=== PATIENT | female | born 1965 | race Caucasian/White ===

== ENCOUNTER 2025-06-14 16:12 | Inpatient (IN) | payer MEDICARE, MEDICAID, SELFPAY ==
[2025-06-14] VITALS (44 sets, daily range): BP systolic 84–143; BP diastolic 56–93; PULSE 43–119; RESP 12–37; TEMP 37.4–38.8; O2SAT 93–100; BMI 24.5
--- NOTE | ~2025-06-14 | XR_ITS ---
Examination: XR chest 1V portable Clinical History: Intubated, sepsis Comparison: 1 day prior Technique: Portable AP Findings: ET tube, NG tube, right PICC. Heart size normal. Persistent emphysema and mild scattered interstitial changes. No acute bony abnormality. IMPRESSION: 1. No change or acute cardiopulmonary findings given portable technique. Reviewed, dictated and finalized at location R.
--- NOTE | ~2025-06-14 | US_ITS ---
US venous doppler LE BI INDICATION: Pain and swelling in both lower extremities. COMPARISON: None. TECHNIQUE: The deep veins of both lower extremities were evaluated with Duplex Doppler, color Doppler, and high-resolution B-mode sonography. Evaluated veins include the common femoral, femoral, and popliteal veins. The calf veins were also evaluated. Compression and augmentation maneuvers were performed. FINDINGS: The deep veins of both lower extremities were compressible and demonstrated spontaneous phasic waveforms with an appropriate response to augmentation maneuvers. The visualized calf veins were patent. IMPRESSION: There was no sonographic evidence of deep vein thrombosis in both lower extremities. Reviewed, dictated and finalized at location S. IMPRESSION: There was no sonographic evidence of deep vein thrombosis in both lower extremi ties.
--- NOTE | ~2025-06-14 | XR_ITS ---
EXAMINATION: XR chest 1V portable COMPARISON: No comparisons available. HISTORY: sepsis FINDINGS: Scattered small infiltrates. No pneumothorax. Heart is normal size. Mediastinal and hilar contours are within normal limits. Bony thorax no acute abnormality. Miscellaneous: Right PICC line terminates in the SVC. Impression: Early bilateral pneumonia. Findings appear slightly progressed. Reviewed, dictated and finalized at location P. Impression: Early bilateral pneumonia. Findings appear slightly progressed.
--- NOTE | ~2025-06-14 | US_ITS ---
BILATERAL US venous doppler UE BI Indication: DVT Comparison: None Technique: Multiple mendoza scale and color Doppler sonographic images were obtained of the internal jugular, subclavian, axillary, brachial, basilar, radial and ulnar veins. Findings: Venous System:Normal flow, augmentation and compressibility. No echogenic thrombus identified. Soft tissues: Soft tissues are unremarkable. Impression: Negative for DVT. Reviewed, dictated and finalized at location P. Impression: Negative for DVT.
--- NOTE | ~2025-06-14 | CT_ITS ---
CT chest abdomen pelvis w con HISTORY: sepsis . COMPARISON: None. TECHNIQUE: Axial images of the chest, abdomen and pelvis were obtained without and with infusion of 100 Isovue 300. FINDINGS: CT CHEST: The examination demonstrates no pulmonary nodules, infiltrates and/or effusions partially calcified nodule in the right middle lobe measuring 8.7 mm likely a granuloma. There are centrilobular emphysema.. No pathologically enlarged hilar or mediastinal lymphadenopathy is seen. Cardiac size and mediastinal configuration are normal in appearance. The pulmonary artery and thoracic aorta are normal in caliber and patency. Osseous structures are intact. The visualized organs of the upper abdomen are unremarkable. IMPRESSION: No acute cardiopulmonary process. No pathologic enhancement is noted. No pathologically enlarged mediastinal lymphadenopathy is noted. CT abdomen and pelvis with contrast: The liver parenchyma is unremarkable. No intrahepatic mass or ductal dilatation is evident. The patient has had a cholecystectomy. Common bile duct is dilated measuring 1.5 cm. The pancreas and spleen are normal in appearance. The adrenal glands are symmetric in size. The kidneys demonstrate symmetric uptake and excretion of contrast. No cystic mass is evident. There is no solid mass. There is no hydronephrosis. The stomach and bowel loops are unremarkable. The bladder and rectum are normal. No free intraperitoneal fluid or air is evident. There is no significant retroperitoneal lymphadenopathy. The aorta, visceral vessels and renal arteries demonstrate normal caliber and patency. The lower thoracic and lumbar vertebrae are in normal alignment. There is a symmetric enlargement and stranding of the left piriformis. IMPRESSION: Asymmetric enlargement and stranding of the left piriformis may represent myositis. All CT scans at this facility are performed using low dose modulation techniques as appropriate to perform exam including the following: automated exposure control; use of iterative reconstruction technique; adjustment of the mA and/or kV according to patient size (this includes techniques or standardized protocols for targeted exams where dose is matched to indication/reason for exam) Reviewed, dictated and finalized at location S. IMPRESSION: No acute cardiopulmonary process. No pathologic enhancement is noted. No pathologically enlarged mediastinal lymphadenopathy is noted. CT abdomen and pelvis with contrast: The liver parenchyma is unremarkable. No intrahepatic mass or ductal dilatation is evident. The patient has had a cholecystectomy. Common bile duct is dilated measuring 1.5 cm. The pancreas and spleen are normal in appearance. The adrena l glands are symmetric in size. The kidneys demonstrate symmetric uptake and excretion of contrast. No cystic m ass is evident. There is no solid mass. There is no hydronephrosis. The stomach and bowel loops are unremarkable. The bladder and rectum are normal. No free intraperitoneal fluid or air is evid ent. There is no significant retroperitoneal lymphadenopathy. The aorta, visceral vessels and renal arteries demonstrate normal caliber and p atency. The lower thoracic and lumbar vertebrae are in normal alignment. There is a sym metric enlargement and stranding of the left piriformis. IMPRESSION: Asymmetric enlargement and stranding of the left piriformis may represent myosi tis. All CT scans at this facility are performed using low dose modulation techniqu es as appropriate to perform exam including the following: automated exposure c ontrol; use of iterative reconstruction technique; adjustment of the mA and/or kV according to patient size (this includes techniques or standardized protocol s for targeted exams where dose is matched to indication/reason for exam)
--- NOTE | ~2025-06-14 | US_ITS ---
EXAMINATION: US venous doppler [facility], 06/20/2025 16:18 CDT HISTORY: DVT COMPARISON: None Technique: Huerta-scale and color Doppler images were attempted of the lower saphenofemoral junction, common femoral vein,superficial femoral vein, proximal deep femoral vein, proximal deep femoral vein, popliteal vein and posterior tibial veins. Findings: Deep Venous System:Normal flow, augmentation and compressibility. No echogenic thrombus identified. Superficial Venous SystemNo superficial thrombophlebitis. Soft tissues: Soft tissues are unremarkable. Impression: Negative for DVT. Reviewed, dictated and finalized at location P. Impression: Negative for DVT.
--- NOTE | ~2025-06-14 | MR_ITS ---
EXAMINATION: MR brain/brain stem wo con DATE: 06/17/2025 11:31 INDICATION: Altered mental status. TECHNIQUE: Magnetic resonance imaging (MRI) of the brain and brainstem was performed without intravenous contrast. Sequences included sagittal and axial T1-weighted SE, axial diffusion-weighted FS SE, axial T2*-weighted GRE, axial T2-weighted FLAIR, and axial T2-weighted FSE. Apparent diffusion coefficient (ADC) maps were created. COMPARISON: CT and CT angiogram dated 06/14/2025 FINDINGS: There is symmetric prominent restricted diffusion involving the lentiform nuclei of the bilateral basal ganglia. There is also prominent susceptibility artifact on the T2* weighted imaging at the bilateral lentiform nuclei suggesting restricted diffusion may be artifactual. No other regions of restricted diffusion. Small to moderate-sized regions of bilateral parieto-occipital encephalomalacia and small region in the left parietal lobe consistent with sequela of chronic infarcts. No acute intracranial hemorrhage or abnormal intracranial mass lesion. Few tiny foci of scattered nonspecific increased T2- weighted signal intensity in the cerebral white matter, predominantly involving the deep and periventricular white matter. There are no intraparenchymal signal abnormalities seen on the other pulse sequences. The ventricles are symmetric and normal in size. There are no abnormal extra-axial fluid collections. Flow voids are seen in the cerebral arteries on the T2-weighted sequences consistent with their expected patency. Visualized orbits and soft tissues are unremarkable. Mild mucosal thickening the ethmoid sinuses. IMPRESSION: 1. Symmetric restricted diffusion throughout the lentiform nuclei of the bilateral basal ganglia. Although differential would include acute infarcts, this more likely artifactual related to the corresponding susceptibility artifact seen on the T2* weighted imaging. Differential for the susceptibility w eighted artifact would include age-related dystrophic calcifications in multiple neurodegenerative, metabolic or toxic exposures including methanol or carbon monoxide toxicity, Mono's disease, hyperammonemia, hypoglycemia and uremic encephalopathy/metabolic acidosis and chronic blood products associated chronic microhemorrhage as could be seen with hypertension. 2. 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 Reviewed, dictated and finalized at location A. IMPRESSION: 1. Symmetric restricted diffusion throughout the lentiform nuclei of the bilate ral basal ganglia. Although differential would include acute infarcts, this mor e likely artifactual related to the corresponding susceptibility artifact seen on the T2* weighted imaging. Differential for the susceptibility weighted artif act would include age-related dystrophic calcifications in multiple neurodegene rative, metabolic or toxic exposures including methanol or carbon monoxide [place], Mono's disease, hyperammonemia, hypoglycemia and uremic encephalopathy/ metabolic acidosis and chronic blood products associated chronic microhemorrhag e as could be seen with hypertension. 2. Chronic infarcts in the left parietal lobe and more prominently in the bilat eral parieto-occipital regions.
--- NOTE | ~2025-06-14 | XR_ITS ---
XR chest ET placement INDICATION:AMS . REFERENCE: None FINDINGS: A single AP of the chest demonstrates normal heart size. Enteric tube terminates 2.2 cm above the dima. Enteric tube traverses below the diaphragm. Right mid lung nodule is noted. No focal consolidation. There is no evidence of pneumothorax or pleural effusion. IMPRESSION: Endotracheal tube and enteric tube are in place. There is a nodule in the peripheral right midlung. Reviewed, dictated and finalized at location S.
--- NOTE | ~2025-06-14 | CT_ITS ---
EXAMINATION: CT brain wo heather, 06/14/2025 16:28 CDT HISTORY: Left sided weakness COMPARISON: No comparisons available. Technique: Axial images obtained of the brain without contrast. One or more of the following dose reduction techniques were used: automated exposure control, adjustment of the mA and/or kV according to patient size, use of iterative reconstruction technique. Findings: Motion artifact limits evaluation however there is suggestion of abnormal density within the posterior frontoparietal lobes bilaterally concerning for ischemia age-indeterminate. There are remote bilateral probable basal ganglion lacunar infarcts, there is no gross hemorrhage, evaluation extremely limited. No gross extra-axial fluid collections or midline shift. Mastoid air cells unremarkable. Sinuses and orbits unremarkable. No acute fracture. No significant facial or scalp soft tissue swelling evident. No radiopaque foreign body is seen. Impression: 1. Extremely limited exam . Age-indeterminate areas of ischemia detailed above. MRI is recommended to assess Reviewed, dictated and finalized at location P. Impression: 1. Extremely limited exam . Age-indeterminate areas of ischemia detailed above. MRI is recommended to assess
--- NOTE | ~2025-06-14 | XR_ITS ---
EXAMINATION: XR chest 2V, 06/20/2025 17:25 CDT HISTORY: fluid overload COMPARISON: No comparisons available. Technique: 2 views obtained. Findings: The lungs are clear, no effusion. No pneumothorax. Heart is normal size. Mediastinal and hilar contours are within normal limits. Bony thorax no acute abnormality. Right PICC line terminates in the SVC Impression: No acute cardiopulmonary abnormality. Reviewed, dictated and finalized at location P. Impression: No acute cardiopulmonary abnormality.
--- NOTE | ~2025-06-14 | CT_ITS ---
CTA brain carotid REFERENCE: [None available.] TECHNIQUE: Axial 2.5 and 5 mm images of the head and neck were obtained without and with infusion of contrast dose cc of intravenous contrast. Postcontrast 1.25 mm axial images were then obtained. On an independent workstation, 0.625 mm axial images were utilized to render MIP and MPR images of the intracranial circulation. CTA NECK: The aortic arch demonstrates normal caliber and patency. Normal branching pattern is noted of the supraaortic vessels. The origins of the supraaortic vessels are widely patent. The common carotid and cervical segments of the ICA and ECA demonstrate normal caliber and patency. The vertebral arteries are symmetric in size, demonstrating normal patency. CTA HEAD: The intracranial ICA, ISIAH, and MCA demonstrate normal caliber and patency. No hemodynamically significant stenosis or aneurysm is identified. The distal vertebral, basilar, and bilateral posterior cerebral arteries demonstrate normal caliber and patency. The superior cerebellar arteries are also widely patent. NONVASCULAR FINDINGS: The soft tissue of the neck is unremarkable. No mass or pathologic enhancement is noted. There is no pathologically enlarged lymphadenopathy. The airway is patent. No acute intracranial hemorrhage, mass, or extraaxial fluid collections are noted. Ventricular size is normal. The skull is intact. The visualized mastoid air cells and sinuses are clear. There is no pathologic enhancement. IMPRESSION: No hemodynamically significant stenosis is noted of the cervical and intracranial arterial vasculature. Reviewed, dictated and finalized at location S. IMPRESSION: No hemodynamically significant stenosis is noted of the cervical and intracrani al arterial vasculature.
--- NOTE | ~2025-06-14 | XR_ITS ---
Examination: XR chest 1V portable Clinical History: sepsis Comparison: Chest x-ray one day prior Technique: Portable AP Findings: Right PICC. Heart size normal. Emphysema. Mild persistent diffuse interstitial markings. No acute bony abnormality. IMPRESSION: 1. No significant change or worsening. 2. Probable mild interstitial pulmonary edema and/or pneumonitis superimposed on emphysema. 3. No findings of lobar pneumonia. Reviewed, dictated and finalized at location R.
--- NOTE | ~2025-06-14 | XR_ITS ---
Examination: XR chest 1V portable Clinical History: Intubated, sepsis Comparison: 1 day prior Technique: Portable AP Findings: ET tube, NG tube Heart size normal. Emphysema. Lungs otherwise clear. No acute bony abnormality. IMPRESSION: 1. No change. Reviewed, dictated and finalized at location R. IMPRESSION: 1. No change.
--- NOTE | ~2025-06-14 | XR_ITS ---
EXAMINATION: XR abdomen gastric tube insert, 06/14/2025 17:15 CDT HISTORY: NG PLACEMENT COMPARISON: No comparisons available. Technique: 3 view. Findings: Bowel gas pattern unremarkable. No obstruction. No free air. No abnormal calcifications No acute osseous abnormality. Nasogastric tube terminates in the mid stomach Impression: 1. No acute abnormality. Reviewed, dictated and finalized at location P. Impression: 1. No acute abnormality.
--- NOTE | ~2025-06-14 | XR_ITS ---
MODIFIED ESOPHAGRAM HISTORY: Swallow evaluation recommended by speech therapy TECHNIQUE: Modified barium esophagram was performed on 06/18/2025. I administered fluoroscopy and performed the exam with speech pathologist. Patient was seated for lateral fluoroscopic imaging for ingestion of thin liquids, pudding, solids and quantified amounts, followed by thin liquids in uncontrolled amounts. This was recorded on tape. A single fluoroscopic spot image was also recorded. The DAP for this procedure was 1.763 Gycm2. The amount of fluoroscopy time used during this procedure was 2.0 minutes. FINDINGS: Oral stage: Reduced labial seal and lingual movement with spillage from the mouth secondary to lethargy. Pharyngeal stage: Adequate function. Cervical/esophageal stage: Adequate function. IMPRESSION: Patient tolerated regular consistency oral feedings in the upright position. Please correlate with speech pathologist findings and specific feeding recommendations. Reviewed, dictated and finalized at location A. IMPRESSION: Patient tolerated regular consistency oral feedings in the upright position. Please correlate with speech pathologist findings and specific feedi ng recommendations.
[2025-06-14] MEDS: NALOXONE HCL INJ 2 MG/2 ML AMP (16:15)
--- NOTE | 2025-06-14 16:17 | ECG_ITS ---
Test Date: 2025-06-14 16:40:31 Measurements Intervals [place] Rate: 121 P: 94 AL: 178 QRS: 18 QRSD: 97 T: 60 QT: 327 QTc: 465 Interpretive Statements SINUS TACHYCARDIA BORDERLINE R WAVE PROGRESSION, ANTERIOR LEADS BORDERLINE ST-T WAVE ABNORMALITY- INF/HIGH LAT LEADS BASELINE ARTIFACT- I, II ,III, AVR, AVL, AVF, V1-V6 ABNORMAL ECG No previous ECG available for comparison Electronically Signed On 06-14-2025 18:58:49 CDT by Adam Melara D.O.
--- NOTE | 2025-06-14 16:19 | ED.GENADULT ---
HPI - General Adult General Chief complaint: Altered Mental Status Stated complaint: AMS Time Seen by Provider: 06/14/25 16:17 History of Present Illness HPI narrative: Patient is a 60-year-old female who presents ER by EMS. Found unresponsive low to saturation at home. Boyfriend reports she had been lying in bed all morning. Unknown last known well at this time. EMS provided O2 support due to low O2 sat and felt as if patient was starting to wake up a bit more. Patient has an implanted pain pump. Unknown what medication. No history of opiate drug use reported. Patient does look sedated. She has some chemosis to her right eye. Scleral injection of the left eye and eyes deviate to the left with small pupils. Narcan 2 mg given. Patient having some jerky movements immediately afterwards but not waking up. She will withdrawal to pain on the right side but will not move the left side to noxious stimuli. Pupils were dilated after the Narcan. Related Data Home Medications ?Medication ?Instructions ?Recorded ?Confirmed ?Last Taken ?Type amlodipine 10 mg tablet 10 mg PO ONCE 06/14/25 06/14/25 Unknown History buspirone 10 mg tablet 10 mg PO BID 06/14/25 06/14/25 Unknown History furosemide 20 mg tablet (Lasix) 20 mg PO DAILY 06/14/25 06/14/25 Unknown History levothyroxine 125 mcg capsule 125 mcg PO DAILY 06/14/25 06/14/25 Unknown History metformin 500 mg tablet 500 mg PO BID 06/14/25 06/14/25 Unknown History nortriptyline 25 mg capsule 50 mg PO HS 06/14/25 06/14/25 Unknown History pramipexole 1 mg tablet 1 mg PO ONCE 06/14/25 06/14/25 Unknown History Allergies Allergy/AdvReac Type Severity Reaction Status Date / Time amoxicillin Allergy Intermediate Hives Verified 06/14/25 20:03 Review of Systems Review of Systems: ROS unobtainable: Yes unobtainable due to mental status PMFSH Past Medical History Medical History (Updated 06/14/25 @ 21:38 by Deyanira Desai DO) Hypothyroidism CHF (congestive heart failure) Diabetes mellitus Chronic pain Surgical History Surgical History (Updated 06/14/25 @ 21:38 by Deyanira Desai DO) Status post insertion of intrathecal pump Fentanyl Family History Family History (Updated 06/14/25 @ 21:40 by Deyanira Desai DO) Other Unknown family medical history Exam Narrative: GENERAL: ill-appearing, well-nourished, and in distress. HEAD: Normocephalic, atraumatic. EYES: Chemosis right eye, scleral injection left eye, deviating to the left side with small pupils. After Narcan pupils normal eyes and right eye when to midline. Mild strabismus left eye. ENT: Mucous membranes moist. CHEST: Clear to auscultation. No respiratory distress. HEART: Tachycardic and regular. Normal peripheral pulses. ABDOMEN: Soft, nontender, nondistended. EXTREMITIES: Normal range of motion. No edema. SKIN: Warm, dry, no rash. NEURO: GCS 6. Withdraws to pain. Course Course Emergency Course: 1654: Patient is moving the left side now. Myoclonic jerk type movements that are not rhythmic and are very erratic through the body. Patient still unconscious. Patient lives with a family member who reports last known well as 10:00 p.m. yesterday evening. I have spoke with the patient's son Jermaine who is the next of kin as there is no other paperwork to document a POA. He would like us move forward with everything the patient is a full code. He can since intubation for better imaging and airway protection as patient lacks a gag reflex. 1939: ICU physician as well as neurology consulted. Patient will be started on Keppra 1 g twice a day, she is going to receive 2 g of Keppra bolus. Patient is intubated and sedated. She has received broad-spectrum antibiotics for possible sepsis related to the elevated temperature/white blood cell count as well as respiratory failure. Patient has an elevated troponin which will need to be trended. The patient is cocaine positive. There are concerns for non ST elevation [place], and oxycodone injury as well. 2030: Discussed with hospitalist, pt would benefit from being at a hospital that can do continuous EEG and MRI while on a vent which we cannot do. 2114: Accepted to the hospital here by hospitalist after repeat consultation with water conservationist. Patient is withdrawing to pain in the lower extremities and left upper extremity. Or difficulty with the right upper extremity. Vital Signs Vital signs: Vital Signs Temperature 99.4 F 06/14/25 16:12 Pulse Rate 101 H 06/14/25 16:12 Respiratory Rate 37 H 06/14/25 16:12 Pulse Oximetry 98 06/14/25 16:12 Oxygen Delivery Room Air 06/14/25 16:12 Temperature 101.6 F H 06/14/25 20:43 Pulse Rate 100 06/14/25 21:17 Respiratory Rate 14 06/14/25 21:17 Blood Pressure 92/62 L 06/14/25 20:36 Pulse Oximetry 95 06/14/25 20:36 Oxygen Delivery Mechanical Ventilation 06/14/25 18:27 Fraction of Inspired Oxygen 40 06/14/25 17:57 Procedures Intubation Intubation #1: Intubation Date: 06/14/25 Intubation Time: 17:04 Time out performed: Yes sedative: Etomidate Mg Given: 30 paralytic: Succinylcholine Mg Given: 100 Laryngoscope: Jonnathan Tube Size (cm): 7.5 Method of Intubation: orotracheal Number of Attempts: 1 Tube Secured Depth (cm): 25 Tube Secured Location: other (gum) Patient Tolerated Procedure: well and no complications Intubation Complications: none Additional Comments: Upper Dentures removed. Medical Decision Making Vital Signs Vital Signs: Vital Signs Temperature 99.4 F 06/14/25 16:12 Pulse Rate 101 H 06/14/25 16:12 Respiratory Rate 37 H 06/14/25 16:12 Pulse Oximetry 98 06/14/25 16:12 Oxygen Delivery Room Air 06/14/25 16:12 Temperature 101.6 F H 06/14/25 20:43 Pulse Rate 100 06/14/25 21:17 Respiratory Rate 14 06/14/25 21:17 Blood Pressure 92/62 L 06/14/25 20:36 Pulse Oximetry 95 06/14/25 20:36 Oxygen Delivery Mechanical Ventilation 06/14/25 18:27 Fraction of Inspired Oxygen 40 06/14/25 17:57 Lab Data 06/14/25 17:44 06/14/25 17:44 Labs: Lab Results 06/14/25 06/14/25 06/14/25 Range/Units 16:19 17:44 17:48 WBC 18.1 H (4.5-10.0) K/mm3 RBC 5.26 (4.2-5.4) M/mm3 Hgb 14.9 (12.0-15.0) g/dL Hct 47.7 H (37.0-47.0) % MCV 90.7 (80-100) fl MCH 28.3 (26-34) pg MCHC 31.2 L (32-36) g/dl RDW 13.5 (11.5-14.5) % Plt Count 314 (150-375) k/mm3 MPV 9.9 (7.4-10.4) fl Immature Gran % (Auto) Not Reportable Neut % (Auto) Not Reportable Lymph % (Auto) Not Reportable [place] % (Auto) Not Reportable Eos % (Auto) Not Reportable Baso % (Auto) Not Reportable Lymph # (Auto) Not Reportable [place] # (Auto) Not Reportable Eos # (Auto) Not Reportable Baso # (Auto) Not Reportable Abs Immat Gran (auto) Not Reportable Absolute Neuts (auto) Not Reportable Absolute Nucleated RBC Not Reportable Total Counted 100 Neutrophils % (Manual) 82 H (46-73) % Band Neutrophils % 4 (0-6) % Lymphocytes % (Manual) 3.0 L (18-44) % Monocytes % (Manual) 10 H (3-9) % Basophils % (Manual) 1 (0-1) % Nucleated RBC % Not Reportable Abs Neuts (Manual) 15.56 H (1.3-6.7) K/mm3 Abs Lymphs (Manual) 0.54 L (1.1-4.5) K/mm3 Abs Monocytes (Manual) 1.81 H (0.1-0.90) K/mm3 Abs Basophils (Manual) 0.18 H (0.0-0.1) K/mm3 Nucleated RBCs 1 % Platelet Estimate Adequate (Adequate) Clumped Platelets Present Hypochromasia 1+ Schistocytes None seen PT 12.4 (11.1-14.7) Seconds INR 0.9 APTT 27.0 (22.3-36.8) Seconds Methemoglobin 0.4 (0-1.5) %THb Minute Volume Not Reportable Vent Mode Cmv Tidal Volume 400 ml PEEP 5 cmH2O Peak Inspir Pressure Not Reportable Pressure Support 0 cmH2O Sodium 136 L (137-145) mmol/L Potassium 5.1 H (3.4-5.0) mmol/L Chloride 95 L (98-107) mmol/L Carbon Dioxide 34 H (22-30) mmol/L Anion Gap 7 (4-12) mmol/L BUN 23 H (7-17) mg/dL Creatinine 1.55 H (0.7-1.0) mg/dL Estim Creat Clear Calc Not Reportable Estimated GFR 34 L (59 - ) Glucose 101 (65-110) mg/dL POC Capillary Glucose 114 H (65-105) mg/dl Lactic Acid (0.7-2.0) mmol/L Calcium 9.1 (8.4-10.2) mg/dL Total Bilirubin 0.8 (0.2-1.3) mg/dL AST 644 H (14-36) U/L ALT 179 H (6-35) U/L Alkaline Phosphatase 97 (38-126) U/L Total Creatine Kinase > 91919 H (30-135) U/L Troponin I 0.233 H* (0.000-0.034) ng/mL Total Protein 8.2 (6.3-8.2) g/dL Albumin 4.6 (3.5-5.1) g/dL Triglycerides 120 (<150) mg/dL Urine Color Wise H (Yellow) Urine Appearance Cloudy H (Clear) Urine pH 6.5 (5.0-9.0) Ur Specific [place] 1.019 (1.001-1.035) Urine Protein 3+ H (Negative) mg/dL Urine Glucose (UA) Negative (Negative) mg/dL Urine Ketones Trace H (Negative) mg/dL Ur Blood (Man) 3+ H (Negative) Urine Nitrate Negative (Negative) Urine Bilirubin 2+ H (Negative) Urine Urobilinogen 1.0 (<2.0) mg/dL Add Ur Microanalysis Reviewed Leukocyte Esterase Rfl 1+ H (Negative) SAMANTHA/UL Urine RBC 3-5 H (0-2) /hpf Urine WBC 0-5 (0-3) /hpf Ur Squamous Epith Cells Few (Few) /hpf Urine Bacteria None seen /hpf Urine Casts >20 Waxy Casts Present H (None) /lpf Urine Mucus Present /lpf Nasal MRSA (PCR) Urine Opiates Screen Negative (Negative) Urine Methadone Screen Negative (Negative) Ur Barbiturates Screen Negative (Negative) Ur Phencyclidine Scrn Negative (Negative) Ur Amphetamine Screen Negative (Negative) U Benzodiazepines Scrn Negative (Negative) Urine Cocaine Screen Positive A (Negative) U Cannabinoids Screen Negative (Negative) Ethyl Alcohol < 10 (<10) mg/dL 06/14/25 06/14/25 06/14/25 Range/Units 18:30 19:14 21:06 WBC (4.5-10.0) K/mm3 RBC (4.2-5.4) M/mm3 Hgb (12.0-15.0) g/dL Hct (37.0-47.0) % MCV (80-100) fl MCH (26-34) pg MCHC (32-36) g/dl RDW (11.5-14.5) % Plt Count (150-375) k/mm3 MPV (7.4-10.4) fl Immature Gran % (Auto) Neut % (Auto) Lymph % (Auto) [place] % (Auto) Eos % (Auto) Baso % (Auto) Lymph # (Auto) [place] # (Auto) Eos # (Auto) Baso # (Auto) Abs Immat Gran (auto) Absolute Neuts (auto) Absolute Nucleated RBC Total Counted Neutrophils % (Manual) (46-73) % Band Neutrophils % (0-6) % Lymphocytes % (Manual) (18-44) % Monocytes % (Manual) (3-9) % Basophils % (Manual) (0-1) % Nucleated RBC % Abs Neuts (Manual) (1.3-6.7) K/mm3 Abs Lymphs (Manual) (1.1-4.5) K/mm3 Abs Monocytes (Manual) (0.1-0.90) K/mm3 Abs Basophils (Manual) (0.0-0.1) K/mm3 Nucleated RBCs % Platelet Estimate (Adequate) Clumped Platelets Hypochromasia Schistocytes PT (11.1-14.7) Seconds INR APTT (22.3-36.8) Seconds Methemoglobin (0-1.5) %THb Minute Volume Vent Mode Tidal Volume ml PEEP cmH2O Peak Inspir Pressure Pressure Support cmH2O Sodium (137-145) mmol/L Potassium (3.4-5.0) mmol/L Chloride (98-107) mmol/L Carbon Dioxide (22-30) mmol/L Anion Gap (4-12) mmol/L BUN (7-17) mg/dL Creatinine (0.7-1.0) mg/dL Estim Creat Clear Calc Estimated GFR (59 - ) Glucose (65-110) mg/dL POC Capillary Glucose 104 (65-105) mg/dl Lactic Acid 1.3 (0.7-2.0) mmol/L Calcium (8.4-10.2) mg/dL Total Bilirubin (0.2-1.3) mg/dL AST (14-36) U/L ALT (6-35) U/L Alkaline Phosphatase (38-126) U/L Total Creatine Kinase (30-135) U/L Troponin I 0.447 H* D (0.000-0.034) ng/mL Total Protein (6.3-8.2) g/dL Albumin (3.5-5.1) g/dL Triglycerides (<150) mg/dL Urine Color (Yellow) Urine Appearance (Clear) Urine pH (5.0-9.0) Ur Specific [place] (1.001-1.035) Urine Protein (Negative) mg/dL Urine Glucose (UA) (Negative) mg/dL Urine Ketones (Negative) mg/dL Ur Blood (Man) (Negative) Urine Nitrate (Negative) Urine Bilirubin (Negative) Urine Urobilinogen (<2.0) mg/dL Add Ur Microanalysis Leukocyte Esterase Rfl (Negative) SAMANTHA/UL Urine RBC (0-2) /hpf Urine WBC (0-3) /hpf Ur Squamous Epith Cells (Few) /hpf Urine Bacteria /hpf Urine Casts Waxy Casts (None) /lpf Urine Mucus /lpf Nasal MRSA (PCR) Urine Opiates Screen (Negative) Urine Methadone Screen (Negative) Ur Barbiturates Screen (Negative) Ur Phencyclidine Scrn (Negative) Ur Amphetamine Screen (Negative) U Benzodiazepines Scrn (Negative) Urine Cocaine Screen (Negative) U Cannabinoids Screen (Negative) Ethyl Alcohol (<10) mg/dL 06/14/25 Range/Units 21:28 WBC (4.5-10.0) K/mm3 RBC (4.2-5.4) M/mm3 Hgb (12.0-15.0) g/dL Hct (37.0-47.0) % MCV (80-100) fl MCH (26-34) pg MCHC (32-36) g/dl RDW (11.5-14.5) % Plt Count (150-375) k/mm3 MPV (7.4-10.4) fl Immature Gran % (Auto) Neut % (Auto) Lymph % (Auto) [place] % (Auto) Eos % (Auto) Baso % (Auto) Lymph # (Auto) [place] # (Auto) Eos # (Auto) Baso # (Auto) Abs Immat Gran (auto) Absolute Neuts (auto) Absolute Nucleated RBC Total Counted Neutrophils % (Manual) (46-73) % Band Neutrophils % (0-6) % Lymphocytes % (Manual) (18-44) % Monocytes % (Manual) (3-9) % Basophils % (Manual) (0-1) % Nucleated RBC % Abs Neuts (Manual) (1.3-6.7) K/mm3 Abs Lymphs (Manual) (1.1-4.5) K/mm3 Abs Monocytes (Manual) (0.1-0.90) K/mm3 Abs Basophils (Manual) (0.0-0.1) K/mm3 Nucleated RBCs % Platelet Estimate (Adequate) Clumped Platelets Hypochromasia Schistocytes PT (11.1-14.7) Seconds INR APTT (22.3-36.8) Seconds Methemoglobin (0-1.5) %THb Minute Volume Vent Mode Tidal Volume ml PEEP cmH2O Peak Inspir Pressure Pressure Support cmH2O Sodium (137-145) mmol/L Potassium (3.4-5.0) mmol/L Chloride (98-107) mmol/L Carbon Dioxide (22-30) mmol/L Anion Gap (4-12) mmol/L BUN (7-17) mg/dL Creatinine (0.7-1.0) mg/dL Estim Creat Clear Calc Estimated GFR (59 - ) Glucose (65-110) mg/dL POC Capillary Glucose (65-105) mg/dl Lactic Acid (0.7-2.0) mmol/L Calcium (8.4-10.2) mg/dL Total Bilirubin (0.2-1.3) mg/dL AST (14-36) U/L ALT (6-35) U/L Alkaline Phosphatase (38-126) U/L Total Creatine Kinase (30-135) U/L Troponin I (0.000-0.034) ng/mL Total Protein (6.3-8.2) g/dL Albumin (3.5-5.1) g/dL Triglycerides (<150) mg/dL Urine Color (Yellow) Urine Appearance (Clear) Urine pH (5.0-9.0) Ur Specific [place] (1.001-1.035) Urine Protein (Negative) mg/dL Urine Glucose (UA) (Negative) mg/dL Urine Ketones (Negative) mg/dL Ur Blood (Man) (Negative) Urine Nitrate (Negative) Urine Bilirubin (Negative) Urine Urobilinogen (<2.0) mg/dL Add Ur Microanalysis Leukocyte Esterase Rfl (Negative) SAMANTHA/UL Urine RBC (0-2) /hpf Urine WBC (0-3) /hpf Ur Squamous Epith Cells (Few) /hpf Urine Bacteria /hpf Urine Casts Waxy Casts (None) /lpf Urine Mucus /lpf Nasal MRSA (PCR) Pending Urine Opiates Screen (Negative) Urine Methadone Screen (Negative) Ur Barbiturates Screen (Negative) Ur Phencyclidine Scrn (Negative) Ur Amphetamine Screen (Negative) U Benzodiazepines Scrn (Negative) Urine Cocaine Screen (Negative) U Cannabinoids Screen (Negative) Ethyl Alcohol (<10) mg/dL ABG Data ABG results: 06/14/25 17:48 Puncture Site Right radial ABG pH 7.412 ABG pCO2 45.0 ABG pO2 186.9 H ABG PO2/FiO2 Ratio 3.74 ABG HCO3 28.0 H ABG O2 Saturation 99.3 ABG O2 Content 21.6 ABG Base Excess 2.8 A-a Gradient 119.0 Oxyhemoglobin 97.7 Carboxyhemoglobin 1.4 Reduced Hemoglobin 0.5 Total Hemoglobin 15.5 O2 Delivery Device Ventilator O2 Liters/Min 0.0 Vent Rate 12 FiO2 50 Imaging Data Radiologist's impression: ITS Impressions Head CT 06/14/25 16:39 Impression: 1. Extremely limited exam . Age-indeterminate areas of ischemia detailed above. MRI is recommended to assess Chest X-Ray 06/14/25 17:27 IMPRESSION: Endotracheal tube and enteric tube are in place. There is a nodule in the peripheral right midlung. Abdomen X-Ray 06/14/25 17:29 Impression: 1. No acute abnormality. Head/Neck CTA 06/14/25 19:09 IMPRESSION: No hemodynamically significant stenosis is noted of the cervical and intracranial arterial vasculature. ECG Data EKG #1: ECG completion date: 06/14/25 ECG completion time: 19:48 EKG Interpretation: normal rate (98), sinus rhythm, non-specific ST changes, normal QRS and normal QT Critical Care Time Critical Care Time Critical Care Time: Yes Total Critical Care Time: 75 Discharge Plan Discharge Clinical Impression: Acute respiratory failure, Seizures, Non-ST elevation [place] (NSTEMI), Rhabdomyolysis Patient Disposition: Still a Patient Condition: Critical Patient Language: Nauruan Prescriptions: No Action metformin 500 mg tablet 500 mg PO BID furosemide [Lasix] 20 mg tablet 20 mg PO DAILY nortriptyline 25 mg capsule 50 mg PO HS buspirone 10 mg tablet 10 mg PO BID pramipexole 1 mg tablet 1 mg PO ONCE amlodipine 10 mg tablet 10 mg PO ONCE levothyroxine 125 mcg capsule 125 mcg PO DAILY Follow-up/Referrals: UNKNOWN,DOCTOR [Non-Staff]
[2025-06-14] MEDS: MIDAZOLAM 100MG/NS 100ML(*CRX) 100 MG/100 ML BAG IV CONT (17:18)
[2025-06-14] MEDS: FENTANYL 2,500MCG/NS250ML(*CRX 2,500 MCG/250 ML BAG IV CONT (17:23)
[2025-06-14] MEDS: levETIRAcetam 1000MG/NACL100ML 1,000 MG/100 ML BAG 400 MG IVPB ×2 (17:46→20:14)
[2025-06-14] MEDS: PROPOFOL IV EMULSION 100 ML 1.95 MG IV CONT (17:49)
[2025-06-14 17:50] LABS: Alveolar/Arterial O2 Gradient 119.0 mmHg; Carboxyhemoglobin 1.4 % THb (0-2.0); Fractional Inspired Oxygen 50 %; HCO3 ABG 28.0 mEq/l (22.0-26.0); Methemoglobin ABG 0.4 %THb (0-1.5); Oxygen Content ABG 21.6 %vol (16.0-22.0); Oxygen Saturation ABG 99.3 % (95.0-100.0); PCO2 ABG 45.0 mmHg (35.0-45.0); PO2 ABG 186.9 mmHg (80.0-100.0); PO2 FiO2 Ratio Arterial Blood 3.74 %; Reduced Hemoglobin 0.5 %THb (0-5.0)
[2025-06-14 17:51] LABS: Hematocrit 47.7 % (37.0-47.0); Hemoglobin 14.9 g/dL (12.0-15.0); Mean Corpuscular HGB Conc 31.2 g/dl (32-36); Mean Corpuscular Hemoglobin 28.3 pg (26-34); Mean Corpuscular Volume 90.7 fl (80-100); Platelet Count Result 314 k/mm3 (150-375); Red Blood Count 5.26 M/mm3 (4.2-5.4); White Blood Count 18.1 K/mm3 (4.5-10.0)
[2025-06-14] MEDS: RAPID SEQUENCE INTUBATION KIT 1 EACH (17:55)
[2025-06-14 17:59] LABS: Liters per Minute 0.0 LPM; Modified Allen's Test Pass; Site Drawn RIGHT RADIAL
[2025-06-14 18:00] LABS: Arterial Blood Gas Pressure Support 0 cmH2O; Arterial Blood Gas Tidal Volume 400 ml; Arterial Blood Gas Ventilator rate 12 /MIN
[2025-06-14 18:02] LABS: INR 0.9; Partial Thromboplastin Time 27.0 Seconds (22.3-36.8); Prothrombin Time 12.4 Seconds (11.1-14.7)
[2025-06-14 18:03] LABS: Alanine Aminotransferase 179 U/L (6-35); Albumin Level 4.6 g/dL (3.5-5.1); Alkaline Phosphatase 97 U/L (38-126); Anion Gap 7 mmol/L (4-12); Aspartate Amino Transferase 644 U/L (14-36); Bilirubin,Total 0.8 mg/dL (0.2-1.3); Blood Urea Nitrogen 23 mg/dL (7-17); Calcium 9.1 mg/dL (8.4-10.2); Carbon Dioxide 34 mmol/L (22-30); Chloride 95 mmol/L (98-107); Estimated Glomerular Filt Rate 34; Glucose 101 mg/dL (65-110); Potassium 5.1 mmol/L (3.4-5.0); Sodium 136 mmol/L (137-145); Total Protein 8.2 g/dL (6.3-8.2)
[2025-06-14 18:09] LABS: Add Urine Microscopic? YES; Appearance Urine Cloudy (Clear); Glucose Urine UA Negative (Negative); Leukocyte Esterase Ur 1+ LEU/UL (Negative); Need Manual Microscopic Reviewed; Nitrate Urine Negative (Negative); Non Pathogenic Casts >20; Specific Grav Ur 1.019 (1.001-1.035)
--- NOTE | 2025-06-14 18:15 | PC.NURSE ---
1700-Dr. Aquino at bedside to prepare for intubation 1704- 30 mg Etomidate given by Shanique SOLIMAN 1704- 100mg of Succ given by JOURDAN [place] 1705- 7.5 ET tube placed at 25cm at the gum, positive color change and bilateral breath sounds 1709- OG tube placed by JOURDAN [place] 1726- 4mg Versed given by Shanique RN
[2025-06-14 18:18] LABS: Cannabinoid Screen Urine Negative (Negative)
[2025-06-14 18:23] LABS: Troponin I 0.233 ng/mL (0.000-0.034)
[2025-06-14 18:25] LABS: Band Neutrophils Percent 4 % (0-6); Basophils Absolute Manual 0.18 K/mm3 (0.0-0.1); Basophils Percent Manual 1 % (0-1); Lymphocytes Absolute Manual 0.54 K/mm3 (1.1-4.5); Lymphocytes Percent Manual 3.0 % (18-44); Monocytes Absolute Manual 1.81 K/mm3 (0.1-0.90); Monocytes Percent Manual 10 % (3-9); Neutrophils Absolute Manual 15.56 K/mm3 (1.3-6.7); Neutrophils Percent Manual 82 % (46-73); Total Cells Counted 100
[2025-06-14 18:26] LABS: Hypochromasia 1+; Schistocytes None Seen
[2025-06-14 18:44] LABS: Triglycerides 120 mg/dL (<150)
[2025-06-14] MEDS: ACETAMINOPHEN 650 MG SUPPOSITORY RECTAL (18:58)
[2025-06-14] MEDS: CEFEPIME 2 GM in SODIUM CHLORIDE 0.9% IV 50 ML 100 ML IVPB (19:04)
[2025-06-14 19:25] LABS: Creatine Kinase > 16000 U/L (30-135)
--- NOTE | 2025-06-14 19:44 | ECG_ITS ---
Test Date: 2025-06-14 19:48:33 Measurements Intervals [place] Rate: 98 P: 75 HI: 146 QRS: 16 QRSD: 82 T: 55 QT: 353 QTc: 453 Interpretive Statements SINUS RHYTHM BORDERLINE R WAVE PROGRESSION, ANTERIOR LEADS BORDERLINE ST-T WAVE ABNORMALITY- ANT/INF LEADS BORDERLINE ECG Compared to ECG 06/14/2025 16:40:31 HEART RATE HAS DECREASED Electronically Signed On 06-15-2025 05:28:05 CDT by Adam Melara D.O.
--- NOTE | 2025-06-14 20:03 | PC.NURSE ---
Pt. significant other at bedside. Dr. Aquino updating him.
[2025-06-14] MEDS: IBUPROFEN IV 400 MG in SODIUM CHLORIDE 0.9% IV 100 ML 208 MG IVPB (20:43)
--- NOTE | 2025-06-14 20:53 | ECG_ITS ---
Test Date: 2025-06-14 21:00:00 Measurements Intervals [place] Rate: 98 P: 74 MI: 146 QRS: 15 QRSD: 83 T: 55 QT: 356 QTc: 455 Interpretive Statements SINUS RHYTHM BORDERLINE R WAVE PROGRESSION, ANTERIOR LEADS BORDERLINE ST-T WAVE ABNORMALITY- ANT/INF LEADS BORDERLINE ECG Compared to ECG 06/14/2025 19:48:33 No significant changes Electronically Signed On 06-15-2025 05:29:42 CDT by Adam Melara D.O.
--- NOTE | 2025-06-14 21:00 | PC.NURSE ---
Pt. localizes pain in LUE, RLE, and LLE. No movement to pain in RUE. Pupils are 3mm and reactive bilaterally.
--- NOTE | 2025-06-14 21:09 | PM.IMHP ---
H&P: HPI History of Present Illness Date/Time: 06/14/25 21:09 Chief Complaint: Unresponsive found with oxygen saturations of 64% Narrative: 60-year-old female with a past medical history of CVA 2017, essential hypertension, anxiety, hypothyroidism, diabetes CHF and drug abuse who presented to the ER from home after being found down unresponsive. EMS reported the patient's oxygen saturations were 64% at the time of their arrival to the residence. Patient had some chemosis to right eye in symptoms lateral injection of her left eye. Her eye exam on initial arrival to the ER were deviated to the left with small pupils. She received 2 Narcan. The patient began having some jerking movements immediately after Narcan administration but did not wake up. She was withdrawing to painful stimuli on the right side but was not moving the left side to noxious stimuli. After Narcan the patient pupils were dilated equal. But the patient's left eye still was deviating to the left and upward. The patient was re-evaluated later in the ER was noted to be moving both sides her body. She was occasionally having some intermittent jerking movements but they reported to be erratic. At the time of my evaluation patient was intubated and sedated and on the vent. But she was moving bilateral lower extremities equally. Her pupils were equal but her left eye was still deviated upward and outward. This was the arm where she had had prior surgery for orbit reconstruction. The patient's boyfriend had denies the patient acting odd her having any recent illnesses to the ER staff and to nursing staff when they called after admission. Per ER physician report the last time the patient had been seen at her normal status was around 22:00 on the . When the patient's niece went to work late in the morning on the the patient was sleeping. Later in afternoon when the patient had not woke up EMS was contacted. On arrival to the hospital the patient was only responsive to noxious stimuli. She developed fever while in the ER with a T-max of 101.8. Her blood pressures were normal and she was tachycardic and initially quite tachypneic. The patient was intubated with a 7.5 ET tube for airway protection. Initial chest x-ray demonstrates T2 2.2 cm dima, CT of the head demonstrated no acute process and CT of the head and neck correlated. Patient was started on Keppra per Neurology recommendations in the admitted to the ICU. Patient was started on empiric antibiotic therapy with cefepime and vancomycin. The patient did become transiently hypotensive in the ER due to sedation. She did receive 30 mL/kilos fluid bolus. Review of Systems Review of Systems: Unobtainable due to clinical condition [facility] Past Medical History Medical History (Updated 06/15/25 @ 06:45 by Deyanira Desai DO) COPD with asthma Hyperlipidemia Essential hypertension Peripheral neuropathy CVA (cerebral vascular accident) (~2017) Hypothyroidism CHF (congestive heart failure) Diabetes mellitus Chronic pain Surgical History Surgical History (Updated 06/15/25 @ 06:45 by Deyanira Desai DO) History of arthroscopic knee surgery H/O cervical spine surgery History of hernia repair With mesh History of laparoscopic cholecystectomy Status post repair of fracture of orbit Left Status post insertion of intrathecal pump Fentanyl Family History Family History (Updated 06/14/25 @ 21:40 by Deyanira Desai DO) Other Unknown family medical history Social History Social History (Updated 06/15/25 @ 06:46 by Deyanira Desai DO) Social History: Per ER physician report she lives with her significant other of over 20 years. Code status: Full code Surrogate decision maker: Son Smoking status: Former smoker Alcohol intake: current Substance use: current Lack of Transportation: No Lack of Food: Never True Current Housing: I Have Housing Concerned About Future Housing: Decline to Answer Difficulty Paying Gas/Electric Bills: Decline to Answer Difficulty Paying for Meds: Decline to Answer Currently Unemployed: Decline to Answer Education: High School Diploma/GED Difficulty w/ Childcare or Family Care: Decline to Answer Spiritual care concerns: No Meds Home Medications and Allergies Home Medications ?Medication ?Instructions ?Recorded ?Confirmed ?Type amlodipine 10 mg tablet 10 mg PO ONCE 06/14/25 06/14/25 History buspirone 10 mg tablet 10 mg PO BID 06/14/25 06/14/25 History furosemide 20 mg tablet (Lasix) 20 mg PO DAILY 06/14/25 06/14/25 History levothyroxine 125 mcg capsule 125 mcg PO DAILY 06/14/25 06/14/25 History metformin 500 mg tablet 500 mg PO BID 06/14/25 06/14/25 History nortriptyline 25 mg capsule 50 mg PO HS 06/14/25 06/14/25 History pramipexole 1 mg tablet 1 mg PO ONCE 06/14/25 06/14/25 History Allergies Allergy/AdvReac Type Severity Reaction Status Date / Time amoxicillin Allergy Intermediate Hives Verified 06/14/25 20:03 Vital Signs Vital Signs - 24 hr 06/14/25 16:12 06/14/25 17:10 06/14/25 17:18 Temperature 99.4 F Pulse Rate 101 H 84 95 Respiratory Rate 37 H 30 H Blood Pressure Pulse Oximetry 98 98 Oxygen Delivery Room Air Mechanical Ventilation Fraction of Inspired Oxygen 80 06/14/25 17:22 06/14/25 17:23 06/14/25 17:28 Temperature Pulse Rate 89 46 L 119 H Respiratory Rate 15 23 H 20 Blood Pressure Pulse Oximetry Oxygen Delivery Fraction of Inspired Oxygen 06/14/25 17:29 06/14/25 17:29 06/14/25 17:36 Temperature Pulse Rate 44 L 43 L 116 H Respiratory Rate 25 H 24 H 17 Blood Pressure Pulse Oximetry Oxygen Delivery Fraction of Inspired Oxygen 06/14/25 17:36 06/14/25 17:38 06/14/25 17:41 Temperature Pulse Rate 114 H 117 H 115 H Respiratory Rate 22 H 18 19 Blood Pressure 127/93 H Pulse Oximetry 100 Oxygen Delivery Fraction of Inspired Oxygen 06/14/25 17:45 06/14/25 17:49 06/14/25 17:57 Temperature 99.4 F Pulse Rate 113 H 111 H Respiratory Rate 19 20 Blood Pressure 143/84 H Pulse Oximetry 100 Oxygen Delivery Fraction of Inspired Oxygen 40 06/14/25 18:05 06/14/25 18:20 06/14/25 18:22 Temperature 101.4 F H 101.7 F H Pulse Rate 112 H 112 H 112 H Respiratory Rate 19 14 14 Blood Pressure 141/79 H 140/85 Pulse Oximetry 100 100 Oxygen Delivery Fraction of Inspired Oxygen 06/14/25 18:27 06/14/25 18:56 06/14/25 19:01 Temperature 101.7 F H 101.6 F H Pulse Rate 104 H 102 H Respiratory Rate 14 15 Blood Pressure 128/81 119/92 H Pulse Oximetry 100 99 98 Oxygen Delivery Mechanical Ventilation Fraction of Inspired Oxygen 06/14/25 19:51 06/14/25 19:56 06/14/25 20:00 Temperature 101.7 F H 101.8 F H Pulse Rate 100 98 96 Respiratory Rate 13 12 14 Blood Pressure 93/64 L 84/61 L Pulse Oximetry 98 97 Oxygen Delivery Fraction of Inspired Oxygen 06/14/25 20:00 06/14/25 20:06 06/14/25 20:11 Temperature 101.8 F H 101.8 F H Pulse Rate 96 95 96 Respiratory Rate 14 12 12 Blood Pressure 92/72 L 92/64 L Pulse Oximetry 97 97 Oxygen Delivery Fraction of Inspired Oxygen 06/14/25 20:22 06/14/25 20:23 06/14/25 20:24 Temperature 101.8 F H Pulse Rate 100 98 Respiratory Rate 14 14 Blood Pressure Pulse Oximetry Oxygen Delivery Fraction of Inspired Oxygen 06/14/25 20:26 06/14/25 20:27 06/14/25 20:31 Temperature 101.8 F H 101.7 F H Pulse Rate 98 100 96 Respiratory Rate 18 14 12 Blood Pressure 102/68 116/64 Pulse Oximetry 95 Oxygen Delivery Fraction of Inspired Oxygen 06/14/25 20:36 06/14/25 20:43 Temperature 101.6 F H 101.6 F H Pulse Rate 96 Respiratory Rate 15 Blood Pressure 92/62 L Pulse Oximetry 95 Oxygen Delivery Fraction of Inspired Oxygen Exam Narrative: Weight 65 kg BMI 24.6 Const: Other: Acute on chronic ill-appearing, appears older than stated age HENMT: Other: Mucous membranes are dry, no oral pharyngeal erythema, 7.5 ET tube measuring 21 cm at the teeth, irregularity of the left eye socket Eyes: Other: Pupils are equal and reactive but left eye deviates to the left and upward, patient has some edema of the sq on the right and some mildly injected sclera on the left Neck: Other: No JVD, no lymphadenopathy Resp: Other: Markedly decreased breath sounds posteriorly, faint expiratory wheezing anterior, equal chest expansion Cardio: Other: Regular rate, regular rhythm, 2+ bilateral radial pedal pulses GI: Other: Soft, nontender, nondistended, positive bowel sounds Extrem: Other: No cyanosis, no edema, Psych: Other: Unable to assess due to intubation and sedation H&P: Results Labs Labs: Laboratory Tests 06/14/25 17:44 06/14/25 17:44 06/14/25 06/14/25 06/14/25 16:19 17:44 17:48 WBC 18.1 H RBC 5.26 Hgb 14.9 Hct 47.7 H MCV 90.7 MCH 28.3 MCHC 31.2 L RDW 13.5 Plt Count 314 MPV 9.9 Immature Gran % (Auto) Not Reportable Neut % (Auto) Not Reportable Lymph % (Auto) Not Reportable [place] % (Auto) Not Reportable Eos % (Auto) Not Reportable Baso % (Auto) Not Reportable Lymph # (Auto) Not Reportable [place] # (Auto) Not Reportable Eos # (Auto) Not Reportable Baso # (Auto) Not Reportable Abs Immat Gran (auto) Not Reportable Absolute Neuts (auto) Not Reportable Absolute Nucleated RBC Not Reportable Total Counted 100 Neutrophils % (Manual) 82 H Band Neutrophils % 4 Lymphocytes % (Manual) 3.0 L Monocytes % (Manual) 10 H Basophils % (Manual) 1 Nucleated RBC % Not Reportable Abs Neuts (Manual) 15.56 H Abs Lymphs (Manual) 0.54 L Abs Monocytes (Manual) 1.81 H Abs Basophils (Manual) 0.18 H Nucleated RBCs 1 Platelet Estimate Adequate Clumped Platelets Present Hypochromasia 1+ Schistocytes None seen PT 12.4 INR 0.9 APTT 27.0 Puncture Site Right radial ABG pH 7.412 ABG pCO2 45.0 ABG pO2 186.9 H ABG PO2/FiO2 Ratio 3.74 ABG HCO3 28.0 H ABG O2 Saturation 99.3 ABG O2 Content 21.6 ABG Base Excess 2.8 A-a Gradient 119.0 Oxyhemoglobin 97.7 Carboxyhemoglobin 1.4 Methemoglobin 0.4 Reduced Hemoglobin 0.5 Total Hemoglobin 15.5 O2 Delivery Device Ventilator O2 Liters/Min 0.0 Minute Volume Not Reportable Vent Rate 12 Vent Mode Cmv FiO2 50 Tidal Volume 400 PEEP 5 Peak Inspir Pressure Not Reportable Pressure Support 0 Sodium 136 L Potassium 5.1 H Chloride 95 L Carbon Dioxide 34 H Anion Gap 7 BUN 23 H Creatinine 1.55 H Estim Creat Clear Calc Not Reportable Estimated GFR 34 L Glucose 101 POC Capillary Glucose 114 H Lactic Acid Calcium 9.1 Total Bilirubin 0.8 AST 644 H ALT 179 H Alkaline Phosphatase 97 Total Creatine Kinase > 36417 H Troponin I 0.233 H* Total Protein 8.2 Albumin 4.6 Triglycerides 120 Urine Color [place] H Urine Appearance Cloudy H Urine pH 6.5 Ur Specific [place] 1.019 Urine Protein 3+ H Urine Glucose (UA) Negative Urine Ketones Trace H Ur Blood (Man) 3+ H Urine Nitrate Negative Urine Bilirubin 2+ H Urine Urobilinogen 1.0 Add Ur Microanalysis Reviewed Leukocyte Esterase Rfl 1+ H Urine RBC 3-5 H Urine WBC 0-5 Ur Squamous Epith Cells Few Urine Bacteria None seen Urine Casts >20 Waxy Casts Present H Urine Mucus Present Nasal MRSA (PCR) Urine Opiates Screen Negative Urine Methadone Screen Negative Ur Barbiturates Screen Negative Ur Phencyclidine Scrn Negative Ur Amphetamine Screen Negative U Benzodiazepines Scrn Negative Urine Cocaine Screen Positive A U Cannabinoids Screen Negative Ethyl Alcohol < 10 06/14/25 06/14/25 06/14/25 18:30 19:14 21:06 WBC RBC Hgb Hct MCV MCH MCHC RDW Plt Count MPV Immature Gran % (Auto) Neut % (Auto) Lymph % (Auto) [place] % (Auto) Eos % (Auto) Baso % (Auto) Lymph # (Auto) [place] # (Auto) Eos # (Auto) Baso # (Auto) Abs Immat Gran (auto) Absolute Neuts (auto) Absolute Nucleated RBC Total Counted Neutrophils % (Manual) Band Neutrophils % Lymphocytes % (Manual) Monocytes % (Manual) Basophils % (Manual) Nucleated RBC % Abs Neuts (Manual) Abs Lymphs (Manual) Abs Monocytes (Manual) Abs Basophils (Manual) Nucleated RBCs Platelet Estimate Clumped Platelets Hypochromasia Schistocytes PT INR APTT Puncture Site ABG pH ABG pCO2 ABG pO2 ABG PO2/FiO2 Ratio ABG HCO3 ABG O2 Saturation ABG O2 Content ABG Base Excess A-a Gradient Oxyhemoglobin Carboxyhemoglobin Methemoglobin Reduced Hemoglobin Total Hemoglobin O2 Delivery Device O2 Liters/Min Minute Volume Vent Rate Vent Mode FiO2 Tidal Volume PEEP Peak Inspir Pressure Pressure Support Sodium Potassium Chloride Carbon Dioxide Anion Gap BUN Creatinine Estim Creat Clear Calc Estimated GFR Glucose POC Capillary Glucose 104 Lactic Acid 1.3 Calcium Total Bilirubin AST ALT Alkaline Phosphatase Total Creatine Kinase Troponin I 0.447 H* D Total Protein Albumin Triglycerides Urine Color Urine Appearance Urine pH Ur Specific [place] Urine Protein Urine Glucose (UA) Urine Ketones Ur Blood (Man) Urine Nitrate Urine Bilirubin Urine Urobilinogen Add Ur Microanalysis Leukocyte Esterase Rfl Urine RBC Urine WBC Ur Squamous Epith Cells Urine Bacteria Urine Casts Waxy Casts Urine Mucus Nasal MRSA (PCR) Urine Opiates Screen Urine Methadone Screen Ur Barbiturates Screen Ur Phencyclidine Scrn Ur Amphetamine Screen U Benzodiazepines Scrn Urine Cocaine Screen U Cannabinoids Screen Ethyl Alcohol 06/14/25 21:28 WBC RBC Hgb Hct MCV MCH MCHC RDW Plt Count MPV Immature Gran % (Auto) Neut % (Auto) Lymph % (Auto) [place] % (Auto) Eos % (Auto) Baso % (Auto) Lymph # (Auto) [place] # (Auto) Eos # (Auto) Baso # (Auto) Abs Immat Gran (auto) Absolute Neuts (auto) Absolute Nucleated RBC Total Counted Neutrophils % (Manual) Band Neutrophils % Lymphocytes % (Manual) Monocytes % (Manual) Basophils % (Manual) Nucleated RBC % Abs Neuts (Manual) Abs Lymphs (Manual) Abs Monocytes (Manual) Abs Basophils (Manual) Nucleated RBCs Platelet Estimate Clumped Platelets Hypochromasia Schistocytes PT INR APTT Puncture Site ABG pH ABG pCO2 ABG pO2 ABG PO2/FiO2 Ratio ABG HCO3 ABG O2 Saturation ABG O2 Content ABG Base Excess A-a Gradient Oxyhemoglobin Carboxyhemoglobin Methemoglobin Reduced Hemoglobin Total Hemoglobin O2 Delivery Device O2 Liters/Min Minute Volume Vent Rate Vent Mode FiO2 Tidal Volume PEEP Peak Inspir Pressure Pressure Support Sodium Potassium Chloride Carbon Dioxide Anion Gap BUN Creatinine Estim Creat Clear Calc Estimated GFR Glucose POC Capillary Glucose Lactic Acid Calcium Total Bilirubin AST ALT Alkaline Phosphatase Total Creatine Kinase Troponin I Total Protein Albumin Triglycerides Urine Color Urine Appearance Urine pH Ur Specific [place] Urine Protein Urine Glucose (UA) Urine Ketones Ur Blood (Man) Urine Nitrate Urine Bilirubin Urine Urobilinogen Add Ur Microanalysis Leukocyte Esterase Rfl Urine RBC Urine WBC Ur Squamous Epith Cells Urine Bacteria Urine Casts Waxy Casts Urine Mucus Nasal MRSA (PCR) Pending Urine Opiates Screen Urine Methadone Screen Ur Barbiturates Screen Ur Phencyclidine Scrn Ur Amphetamine Screen U Benzodiazepines Scrn Urine Cocaine Screen U Cannabinoids Screen Ethyl Alcohol Impressions Head CT 06/14/25 16:39 Impression: 1. Extremely limited exam . Age-indeterminate areas of ischemia detailed above. MRI is recommended to assess Chest X-Ray 06/14/25 17:27 IMPRESSION: Endotracheal tube and enteric tube are in place. There is a nodule in the peripheral right midlung. Abdomen X-Ray 06/14/25 17:29 Impression: 1. No acute abnormality. Head/Neck CTA 06/14/25 19:09 IMPRESSION: No hemodynamically significant stenosis is noted of the cervical and intracranial arterial vasculature. Multiple EKGs reviewed 1 0 which demonstrated T-wave abnormality holidays in V2 and V3 suggesting possible ischemia otherwise repeat CAG was normal sinus rhythm with resolution of these findings. QT intervals were normal. Assessment and Plan Assessment and plan (1) Sepsis: Qualifiers: Acute renal failure type: unspecified Sepsis acute organ dysfunction status: with acute organ dysfunction Sepsis type: sepsis due to unspecified organism Severe sepsis acute organ dysfunction type: acute renal failure Severe sepsis shock status: without septic shock Qualified Code(s): A41.9 - Sepsis, unspecified organism; R65.20 - Severe sepsis without septic shock; N17.9 - Acute kidney failure, unspecified Code(s): A41.9 - Sepsis, unspecified organism Status: Acute (2) Rhabdomyolysis: Qualifiers: Rhabdomyolysis type: non-traumatic Qualified Code(s): M62.82 - Rhabdomyolysis Code(s): M62.82 - Rhabdomyolysis Status: Acute (3) Acute kidney injury: Code(s): N17.9 - Acute kidney failure, unspecified Status: Acute (4) Acute respiratory failure: Qualifiers: Respiratory failure complication: hypoxia Qualified Code(s): J96.01 - Acute respiratory failure with hypoxia Code(s): J96.00 - Acute respiratory failure, unspecified whether with hypoxia or hypercapnia Status: Acute (5) Seizures: Code(s): R56.9 - Unspecified convulsions Status: Acute (6) Transaminitis: Code(s): R74.01 - Elevation of levels of liver transaminase levels Status: Acute (7) Positive urine drug screen: Code(s): R82.5 - Elevated urine levels of drugs, medicaments and biological substances Status: Acute (8) Hypothyroidism: Qualifiers: Hypothyroidism type: unspecified Qualified Code(s): E03.9 - Hypothyroidism, unspecified Code(s): E03.9 - Hypothyroidism, unspecified Status: Acute (9) Elevated troponin: Code(s): R79.89 - Other specified abnormal findings of blood chemistry Status: Acute Plan SIRS criteria with fever tachypnea and tachycardia with leukocytosis. Source of the infection is not exactly known but the patient's CT did demonstrate area of inflammation in the piriformis according to radiologic interpretation. There also seemed to be some edematous appearance to the area around the glute at the time of my evaluation. She has a small skin tear to the left buttock just inferior to this area of edema noted on CT. Radiology states this could be myositis benign morning if there may not be some early abscess development. The patient's MRSA screen is positive. Patient was started on empiric antibiotic therapy with cefepime and vancomycin. I a added a viral PCR which was negative for COVID flu and RSV. Blood cultures have been obtained and are pending. The patient received 30 mL/kilos fluid bolus in the ER but blood pressures were still somewhat soft on arrival to the ICU in the patient's urine output was low S2 I 1/3 L fluid bolus was administered. Patient has acute kidney injury with rhabdomyolysis with CK greater than 16,000. This fits with the information the patient was 100 responsive and not moving for at least 18 hours. Patient has been started on maintenance IV fluids at 150 out mL an hour after fluid boluses were administered. Will avoid nephrotoxic medications. Will monitor strict I&O's. Will trend CK. Patient has transaminitis likely multifactorial due to rhabdomyolysis and sepsis. Will repeat CMP in avoid hepatotoxic medications. Will also check acute hepatitis B and C Patient developed acute respiratory failure. Will continue a.c./CMV tidal volume has been decreased down to 3 are 50 will decrease rate down to 16 peep of 5 will wean FiO2 down to 40%. Will repeat daily ABGs and chest x-ray. Patient does have marked decreased breath sounds and likely has some component of underlying COPD. Will place patient on scheduled nebulizer treatments. Will continue sedation with fentanyl and Versed for goal sedation of 0--2. The patient's urine drug screen was positive for cocaine it is unclear if the patient may be using illicit substances or if this may be a false-positive test. It would be unusual to have a false-positive test for cocaine. Patient is on tricyclics which could cause false positive for amphetamines. Patient's altered mental status could be due to possible seizure and jerking movements could of been due to administration of Narcan in the setting of patient who is on chronic narcotic medications. She does have a fentanyl pump in place that was last refilled approximately 3 months ago. Patient's boyfriend reported that her pain pump is post be removed soon. It Is managed by Dr. Epps. Patient does have hypothyroidism. Will check TSH to ensure adequate dosing given patient's altered mental status. Patient had elevated troponin which is likely multifactorial due to demand ischemia from hypoxia sepsis and could in part be elevated due to marked rhabdomyolysis. Stress ulcer prophylaxis with Protonix 70 minute spent in critical care activities. Due to a high probability of clinically significant, life threatening deterioration, the patient required my highest level of preparedness to intervene emergently and I personally spent this critical care time directly and personally managing the patient. This critical care time included obtaining a history; examining the patient; pulse oximetry; ordering and review of studies; arranging urgent treatment with development of a management plan; evaluation of patient's response to treatment; frequent reassessment; and discussions with other providers. It was exclusive of separately billable procedures and treating other patients and teaching time. Please see Assessment and Plan section and the rest of the note for further information on patient assessment and treatment. Quality VTE Prophylaxis VTE prophylaxis: mechanical ordered (SCDs) and pharmacologic ordered (Lovenox 40 mg subQ daily.) Hospitalist [facility] Advance Care Plan I have confirmed that the patient's Advanced Care Plan is present, code status is documented, or surrogate decision maker is listed in patient medical record.: Yes Medication Reconciliation I have utilized all available resources to obtain, update and review the patients current medications (includes all prescriptions, OTC, herbals, cannabis, and nutritional supplements).: Yes
[2025-06-14] MEDS: SODIUM CHLORIDE 0.9% IV 1,000 ML 999 ML IV CONT ×3 (21:33→23:45)
[2025-06-14 21:34] LABS: Troponin I 0.447 ng/mL (0.000-0.034)
--- NOTE | 2025-06-14 21:45 | PC.NURSE ---
Per Dr. Aquino, ETT pulled back 2cm by RT. ETT now 21 at the lip.
--- NOTE | 2025-06-14 21:45 | PC.NURSE ---
Pt. to CT on a monitor with RT at bedside.
[2025-06-14 22:44] LABS: MRSA (PCR) DETECTED (NOT DETECTE)
--- NOTE | 2025-06-14 23:00 | PC.NURSE ---
Pt. taken to ICU with fentanyl and versed infusing on an IV pump. Normal saline bolus still infusing.
--- NOTE | 2025-06-14 23:39 | PC.NURSE ---
Pt. significant other Riki phoned by this RN and notified that pt. has been moved to ICU 7.
[2025-06-15] VITALS (48 sets, daily range): BP systolic 96–127; BP diastolic 61–82; PULSE 83–100; RESP 14–23; TEMP 36.4–38.8; O2SAT 95–100; BMI 24.5
--- NOTE | 2025-06-15 | ECHO_ITS ---
Patient Info Name: Charity Mantilla Age: 60 years : 1965 Gender: Female Ht: 64 in Wt: 143 lbs BSA: 1.72 m2 HR: 94 bpm BP: 107 / 67 mmHg Heart Rhythm: Sinus Rhythm Technical Quality: Fair Exam Date: 06/15/2025 3:11 PM Patient Status: I Admit Date: 06/14/2025 Exam Type: CA echo dop color flow w con Complete two-dimensional, color flow and Doppler transthoracic echocardiogram is performed with contrast to opacify the left ventricle and to improve the deliniation of the left ventricle endocardial borders. Staff Referring Physician: Deyanira Desai DO Manual Lathe Operator: Belén Sanderson Attending Provider: Deyanira Desai DO Contrast/Agitated Saline Contrast/Ag. Saline: Definity Amount: 2.00 ml Administered By: Belén Sanderson Existing IV Access: Yes IV Access Condition: patent with no signs of infiltration Summary 1. Left ventricular systolic function is normal, estimated at 65-70. 2. There is mildly increased left ventricular wall thickness. 3. The left ventricular diastolic function is grade I diastolic dysfunction. 4. There is trace tricuspid valve regurgitation. 5. No pulmonary hypertension, estimated pulmonary arterial systolic pressure is 25 mmHg. Left Ventricle Left ventricular chamber dimension is normal. Left ventricular systolic function is normal, estimated at 65-70. There is mildly increased left ventricular wall thickness. Left ventricular septal wall motion is normal. The left ventricular diastolic function is grade I diastolic dysfunction. Right Ventricle Right ventricular chamber dimension is normal. Right ventricular systolic function is normal. Left Atria Left atrial chamber dimension is normal. Right Atria Right atrial chamber dimension is normal. Aortic Valve The aortic valve is trileaflet. There is no aortic valve sclerosis. There is no aortic valve stenosis. There is no aortic valve regurgitation. Pulmonic Valve The pulmonic valve is normal. There is no pulmonic valve stenosis. There is no pulmonic regurgitation. Mitral Valve The mitral valve has normal leaflets. There is no mitral valve stenosis. There is no mitral valve regurgitation. Tricuspid Valve The tricuspid valve leaflets are normal. There is no significant tricuspid valve stenosis. There is trace tricuspid valve regurgitation. No pulmonary hypertension, estimated pulmonary arterial systolic pressure is 25 mmHg. Pericardium/Pleural The pericardium appears normal. There is no pericardial effusion. Inferior Vena Cava Normal inferior vena cava with <50% collapse upon inspiration consistent with elevated right atrial pressure, 10 mmHg. Aorta The aortic root size at the sinus of Valsalva is normal. The prox ascending aorta size is normal. Left Ventricular Outflow Tract Name Value Normal LVOT 2D LVOT Diameter 2.0 cm LVOT Doppler LVOT Peak Velocity 105 cm/s LVOT Peak Gradient 4 mmHg LVOT Mean Gradient 2 mmHg LVOT VTI 16 cm LVOT VTI/AV VTI Ratio 1.2 LVOT Stroke Volume 50 ml LVOT CO 4.6 l/min LVOT CI 2.7 l/min/m2 Pulmonic Valve Name Value Normal RVOT Doppler RVOT Peak Velocity 65 cm/s RVOT Peak Gradient 2 mmHg PV Doppler PV Peak Velocity 105 cm/s PV Peak Gradient 4 mmHg Mitral Valve Name Value Normal MV Diastolic Function MV E Peak Velocity 51 cm/s MV A Peak Velocity 67 cm/s MV E/A 0.8 MV Decel Time (PW) 132 ms MV Annular TDI MV E/e' (Septal) 7.4 MV E/e' (Lateral) 7.1 MV E/e' (Average) 7.2 Tricuspid Valve Name Value Normal TV Regurgitation Doppler TR Peak Velocity 192 cm/s TR Peak Gradient 15 mmHg Estimated PAP/RSVP RA Pressure 10 mmHg <=5 PA Systolic Pressure 25 mmHg <36 RV Systolic Pressure 25 mmHg <36 TV Annular TDI TV Lateral Lynne s' Velocity 15.8 cm/s >=9.5 Aorta Name Value Normal Ascending Aorta Ao Root Diameter (MM) 3.2 cm Ao Root Diam Index (MM) 1.8 cm/m2 Aortic Valve Name Value Normal AV Doppler AV Peak Velocity 114 cm/s AV Peak Gradient 5 mmHg AV Mean Gradient 2 mmHg AV VTI 14 cm AV Area (Cont Eq VTI) 3.5 cm2 >=3.0 AV Area (Cont Eq Bal) 2.8 cm2 AV DI (Bal) 0.92 AV Regurgitation 2D LVOT Area 3.0 cm2 Ventricles Name Value Normal LV Dimensions 2D/MM IVS Diastolic Thickness (2D) 0.8 cm 0.6-1.0 LVID Diastole (2D) 4.2 cm 3.8-5.2 LVIW Diastolic Thickness (2D) 0.8 cm 0.6-0.9 LVID Systole (2D) 2.6 cm 2.2-3.5 LVOT Diameter 2.0 cm LV Mass (2D Cubed) 97.52 g 67.00-162.00 LV Mass Index (2D Cubed) 57 g/m2 43-95 Relative Wall Thickness (2D) 0.36 <=0.42 LV Fractional Shortening/Ejection Fraction 2D/MM LV Fractional Shortening (2D) 38 % 27-45 LV EF (2D Teichholz) 69 % LV Diastolic Volume (4C MOD) 40 ml LV EF (4C MOD) 72 % LV Diastolic Volume (2C MOD) 43 ml LV EF (2C MOD) 69 % LV Diastolic Volume (BP MOD) 42 ml 46-106 LV Diastolic Volume Index (BP MOD) 24 ml/m2 29-61 LV Systolic Volume (BP MOD) 12 ml 14-42 LV Systolic Volume Index (BP MOD) 7 ml/m2 8-24 LV EF (BP MOD) 71 % 54-74 LV Diastolic Length (4C) 6.8 cm LV Systolic Length (4C) 4.9 cm LV Stroke Volume (4C MOD) 29 ml Atria Name Value Normal LA Dimensions LA Dimension (MM) 3.1 cm 2.7-3.8 LA Volume (4C A-L) 26 ml LA Volume (BP A-L) 34 ml RA Dimensions RA Area (4C) 12.3 cm2 <=18.0 Report Signatures
[2025-06-15] MEDS: IPRATROPIUM 0.5 MG/ALBUTEROL SULFATE 2.5 MG (BASE) AMPUL.NEB 3 ML INHALATION ×2 (01:01→09:07)
[2025-06-15 01:08] LABS: Troponin I 0.475 ng/mL (0.000-0.034)
[2025-06-15] MEDS: VANCOMYCIN 1,750 MG/NS 500 ML 1,750 MG/500 ML BAG 250 MG IVPB (02:22)
[2025-06-15] MEDS: SODIUM CHLORIDE 0.9% IV 1,000 ML 150 ML IV CONT ×4 (02:22→22:16)
[2025-06-15 03:42] LABS: Hematocrit 45.0 % (37.0-47.0); Hemoglobin 13.9 g/dL (12.0-15.0); Immature Granulocyte Percent A 0.5 % (0-0.5); Lymphocytes Absolute Auto 1.97 K/mm3 (0.9-3.2); Mean Corpuscular HGB Conc 30.9 g/dl (32-36); Mean Corpuscular Hemoglobin 28.6 pg (26-34); Mean Corpuscular Volume 92.6 fl (80-100); Nucleated Red Blood Cells Absolute Auto 0.000 K/mm3 (0.0-0.012); Nucleated Red Blood Cells Perc 0.0 % (0.0-0.2); Platelet Count Result 280 k/mm3 (150-375); Red Blood Count 4.86 M/mm3 (4.2-5.4); White Blood Count 13.8 K/mm3 (4.5-10.0)
[2025-06-15 04:02] LABS: Alanine Aminotransferase 182 U/L (6-35); Albumin Level 3.2 g/dL (3.5-5.1); Alkaline Phosphatase 76 U/L (38-126); Anion Gap 3 mmol/L (4-12); Aspartate Amino Transferase 649 U/L (14-36); Bilirubin,Total 0.3 mg/dL (0.2-1.3); Blood Urea Nitrogen 21 mg/dL (7-17); Calcium 7.4 mg/dL (8.4-10.2); Carbon Dioxide 29 mmol/L (22-30); Chloride 102 mmol/L (98-107); Estimated CRCL calculation 38 ml/min; Estimated Glomerular Filt Rate 45; Glucose 109 mg/dL (65-110); Magnesium 2.2 mg/dL (1.6-2.3); Potassium 5.0 mmol/L (3.4-5.0); Sodium 134 mmol/L (137-145); Total Protein 5.9 g/dL (6.3-8.2)
[2025-06-15 04:26] LABS: CRP 6.2 mg/dL (<1.0)
[2025-06-15 04:35] LABS: Thyroid Stimulating Hormone Reflex 6.070 uIU/mL (0.465-4.68)
[2025-06-15 04:49] LABS: Creatine Kinase > 16000 U/L (30-135)
[2025-06-15 05:26] LABS: Alveolar/Arterial O2 Gradient 142.4 mmHg; Carboxyhemoglobin 0.8 % THb (0-2.0); Fractional Inspired Oxygen 40 %; HCO3 ABG 26.8 mEq/l (22.0-26.0); Methemoglobin ABG 0.2 %THb (0-1.5); Oxygen Content ABG 22.4 %vol (16.0-22.0); Oxygen Saturation ABG 92.1 % (95.0-100.0); PO2 ABG 72.8 mmHg (80.0-100.0); PO2 FiO2 Ratio Arterial Blood 1.82 %; Reduced Hemoglobin 6.7 %THb (0-5.0)
[2025-06-15 05:32] LABS: Modified Allen's Test Pass; PCO2 ABG 60.9 mmHg (35.0-45.0); Site Drawn RIGHT RADIAL
[2025-06-15 05:33] LABS: Arterial Blood Gas Tidal Volume 350 ml; Arterial Blood Gas Ventilator rate 16 /MIN
[2025-06-15] MEDS: LEVOTHYROXINE SODIUM INJ 100 MCG/5 ML VIAL 62.5 MCG IV PUSH (05:56)
[2025-06-15 06:22] LABS: Influenza A QL RT-PCR Negative (Negative); Influenza B QL RT-PCR Negative (Negative); RSV RNA, RT-PCR Negative (Negative); SARS-CoV-2 RNA PCR Negative (Negative)
[2025-06-15 06:24] LABS: Free T4 Free Thyroxine Reflex 1.03 ng/dL (0.78-2.19)
--- NOTE | 2025-06-15 07:37 | WNDPHOTO ---
PHOTO ONLY - See Nursing Notes and/ or assessments for documentation.
[2025-06-15] MEDS: MIDAZOLAM 100MG/NS 100ML(*CRX) 100 MG/100 ML BAG IV CONT (07:49)
[2025-06-15 09:45] LABS: Total Triiodothyronine (T3) 0.53 NG/ML (0.82-1.58)
[2025-06-15] MEDS: PANTOPRAZOLE SODIUM IV 40 MG VIAL IV PUSH (10:09)
[2025-06-15] MEDS: MINERAL OIL/WHITE PETROLATUM OINTMENT 1 APPLIC EACH EYE ×2 (10:09→20:26)
[2025-06-15] MEDS: MUPIROCIN 2% OINT 22 GM TUBE 1 APPLIC EACH NARE ×3 (10:09→20:30)
[2025-06-15] MEDS: CALCIUM GLUC 2,000 MG/NS 100ML 2,000 MG/100 ML BAG 100 MG IVPB (10:11)
[2025-06-15] MEDS: levETIRAcetam 1000MG/NACL100ML 1,000 MG/100 ML BAG 400 MG IVPB ×2 (10:17→20:25)
[2025-06-15] MEDS: ENOXAPARIN 40 MG/0.4 ML SYRINGE SUB-Q (10:20)
[2025-06-15] MEDS: CEFEPIME 2 GM in SODIUM CHLORIDE 0.9% IV 50 ML 100 ML IVPB ×2 (10:30→20:53)
[2025-06-15 10:43] LABS: Procalcitonin 1.3 ng/mL
[2025-06-15 11:00] LABS: Alveolar/Arterial O2 Gradient 160.9 mmHg; Fractional Inspired Oxygen 40 %; HCO3 ABG 23.2 mEq/l (22.0-26.0); Oxygen Content ABG 18.8 %vol (16.0-22.0); Oxygen Saturation ABG 93.6 % (95.0-100.0); PCO2 ABG 45.0 mmHg (35.0-45.0); PO2 ABG 72.6 mmHg (80.0-100.0); PO2 FiO2 Ratio Arterial Blood 1.81 %
[2025-06-15 11:07] LABS: Site Drawn RIGHT RADIAL
[2025-06-15 11:08] LABS: Arterial Blood Gas Tidal Volume 400 ml; Arterial Blood Gas Ventilator rate 20 /MIN
[2025-06-15] MEDS: LIDOCAINE 1% PF INJ 5 ML VIAL INFILTRATE (11:15)
[2025-06-15 12:14] LABS: Triglycerides 113 mg/dL (<150)
[2025-06-15] MEDS: PROPOFOL IV EMULSION 100 ML 1.95 MG IV CONT (12:14)
--- NOTE | 2025-06-15 13:50 | WPDCNINT ---
Assessment and Plan Assessment and plan (1) Altered mental status: Code(s): R41.82 - Altered mental status, unspecified Status: Acute Assessment and Plan: Presented with altered mental status which has a wide differential and could be multifactorial Patient on chronic pain pump with fentanyl and patient did had increased response after administered Narcan. She also was hypoxic and was not wearing her oxygen and could have had seizure from hypoxia. Other possibilities hypercarbia due to underlying COPD. CVA is another possibility due to her abnormal exam at the time of presentation Head CT was neg ABG shows improvement Switch Versed and fentanyl to propofol to allow more reliable exam although patient still has a fentanyl pump Continue Keppra EEG pending ABG reviewed Check ammonia Treatment of rhabdo as below Neurology consult (2) Acute respiratory failure: Qualifiers: Respiratory failure complication: hypoxia Qualified Code(s): J96.01 - Acute respiratory failure with hypoxia Code(s): J96.00 - Acute respiratory failure, unspecified whether with hypoxia or hypercapnia Status: Acute Assessment and Plan: Acute respiratory failure secondary to COPD and altered mental status ABG vent settings and chest x-ray reviewed Weaning will depend on improvement in mental status. (3) Non-ST elevation ID (NSTEMI): Code(s): I21.4 - Non-ST elevation (NSTEMI) myocardial infarction Status: Acute Assessment and Plan: Mild elevation in troponin likely secondary to demand ischemia EKG did show ST-T changes Obtained echocardiogram Add aspirin Will beta-sanford due to soft blood pressure Hold statin due to rhabdomyolysis Consult cardiology (4) Hypothyroidism: Qualifiers: Hypothyroidism type: unspecified Qualified Code(s): E03.9 - Hypothyroidism, unspecified Code(s): E03.9 - Hypothyroidism, unspecified Status: Acute Assessment and Plan: Continue levothyroxine. It was changed to IV at the time of admission TSH elevated with low T3 level (5) Acute kidney injury: Code(s): N17.9 - Acute kidney failure, unspecified Status: Acute Assessment and Plan: Presented with elevated creatinine of 1.2. Patient also had rhabdomyolysis. Baseline creatinine unknown. Continue IV fluid Monitor CK level Check electrolytes Monitor urine output and creatinine CT abdomen pelvis negative for any obstruction or stones (6) Sepsis: Qualifiers: Sepsis type: sepsis due to unspecified organism Sepsis acute organ dysfunction status: with acute organ dysfunction Severe sepsis acute organ dysfunction type: acute renal failure Acute renal failure type: unspecified Severe sepsis shock status: without septic shock Qualified Code(s): A41.9 - Sepsis, unspecified organism; R65.20 - Severe sepsis without septic shock; N17.9 - Acute kidney failure, unspecified Code(s): A41.9 - Sepsis, unspecified organism Status: Acute Assessment and Plan: UA suggestive UTI blood and urine culture ordered and pending Patient on broad-spectrum antibiotics in the form of vancomycin and cefepime (7) Rhabdomyolysis: Qualifiers: Rhabdomyolysis type: non-traumatic Qualified Code(s): M62.82 - Rhabdomyolysis Code(s): M62.82 - Rhabdomyolysis Status: Acute Assessment and Plan: Rhabdomyolysis secondary to laying in bed for prolonged period of time Aggressive IV fluid Monitor CK level (8) Seizures: Code(s): R56.9 - Unspecified convulsions Status: Acute Assessment and Plan: There is a questionable history of seizures. Patient may have had seizure from hypoxia last night and was postictal this morning. She also had some jerking movement of the body he when Narcan was administered. She is on Keppra. Switch Versed to propofol. Neurology consulted. EEG is ordered and pending. Head CT was negative. Unfortunately unable to do an MRI here at [facility] on a patient on mechanical ventilation. (9) COPD with asthma: Code(s): J44.89 - Other specified chronic obstructive pulmonary disease Status: Acute Assessment and Plan: History of COPD. On exacerbation. Mechanical ventilation as above Bronchodilators Plan DVT prophylaxis -Lovenox Stress ulcer prophylaxis -PPI Nutrition -start tube feeds Code Status - Full Code and I have spoken to and updated patient's boyfriend and son at bedside answered all questions. Total Critical Care Time - 40 minutes Due to a high probability of clinically significant, life threatening deterioration, the patient required my highest level of preparedness to intervene emergently and I personally spent this critical care time directly and personally managing the patient. This critical care time included obtaining a history; examining the patient; pulse oximetry; ordering and review of studies; arranging urgent treatment with development of a management plan; evaluation of patient's response to treatment; frequent reassessment; and discussions with other providers. It was exclusive of separately billable procedures and treating other patients and teaching time. Please see Assessment and Plan section and the rest of the note for further information on patient assessment and treatment Detective Sergeant Consult Note Consult date: 06/15/25 Reason for consult: Altered mental status, rhabdomyolysis, acute respiratory failure, HPI: Charity Mantilla is a 60 year old female with past medical history of CVA 2017, essential hypertension, anxiety, hypothyroidism, diabetes, CHF, chronic pain requiring fentanyl pump and drug abuse who presented to the ER from home after being found down unresponsive by her boyfriend. History was obtained from patient's boyfriend states the patient spoke to 1 of her nieces around 9:30 p.m. and then this morning when he called her she did not respond. He went to see her around 3:00 p.m. and found her unresponsive in her bed. She normally wears oxygen at home but was not feeling at that time and her saturation was in 60s. EMS tried to intubate her at side but were unable to. On arrival to ER patient was given Narcan. As per reports patient began having some jerking movements immediately after Narcan administration but did not fully wake up. She was withdrawing to painful stimuli on the right side but was not moving the left side to noxious stimuli. After Narcan the patient pupils were dilated equal. Patient was intubated. Later while on ventilator patient started moving both sides and her pupils were equal although her left eye was still deviated upward and outward. Her fentanyl pain pump was recently filled around 2 weeks ago. In ER patient was febrile Workup in the ER showed CT of the head demonstrated no acute process and CT of the head and neck correlated. Patient was started on Keppra per Neurology recommendations in the admitted to the ICU. Patient was started on empiric antibiotic therapy with cefepime and vancomycin. The patient did become transiently hypotensive in the ER due to sedation and was given 30 mL/kilos fluid bolus. Creatinine 1.2 2 She had elevated WBC at 18.1 ABG shows hypercarbia and hypoxia CK was more than 16,000 mildly elevated troponin procalcitonin 1.3 TSH 6.07 Free T3 0.53 Free T4 1.03 At this time patient is sedated intubated. She withdraws to pain and moves all 4 extremities spontaneously but does not follow command on holding sedation. Review of Systems Review of Systems: ROS unobtainable: Yes unobtainable due to endotracheal tube, unobtainable due to medical condition and unobtainable due to mental status [facility] Past Medical History Medical History COPD with asthma Hyperlipidemia Essential hypertension Peripheral neuropathy CVA (cerebral vascular accident) (~2017) Hypothyroidism CHF (congestive heart failure) Diabetes mellitus Chronic pain Surgical History Surgical History History of arthroscopic knee surgery H/O cervical spine surgery History of hernia repair With mesh History of laparoscopic cholecystectomy Status post repair of fracture of orbit Left Status post insertion of intrathecal pump Fentanyl Family History Family History Other Unknown family medical history Social History Social History Social History: Per ER physician report she lives with her significant other of over 20 years. Code status: Full code Surrogate decision maker: Son Smoking status: Former smoker Alcohol intake: current Substance use: current Lack of Transportation: No Lack of Food: Never True Current Housing: I Have Housing Concerned About Future Housing: Decline to Answer Difficulty Paying Gas/Electric Bills: Decline to Answer Difficulty Paying for Meds: Decline to Answer Currently Unemployed: Decline to Answer Education: High School Diploma/GED Difficulty w/ Childcare or Family Care: Decline to Answer Spiritual care concerns: No Meds Home Medications and Allergies Home Medications ?Medication ?Instructions ?Recorded ?Confirmed ?Type amlodipine 10 mg tablet 10 mg PO ONCE 06/14/25 06/14/25 History buspirone 10 mg tablet 10 mg PO BID 06/14/25 06/14/25 History furosemide 20 mg tablet (Lasix) 20 mg PO DAILY 06/14/25 06/14/25 History levothyroxine 125 mcg capsule 125 mcg PO DAILY 06/14/25 06/14/25 History metformin 500 mg tablet 500 mg PO BID 06/14/25 06/14/25 History nortriptyline 25 mg capsule 50 mg PO HS 06/14/25 06/14/25 History pramipexole 1 mg tablet 1 mg PO ONCE 06/14/25 06/14/25 History Allergies Allergy/AdvReac Type Severity Reaction Status Date / Time amoxicillin Allergy Intermediate Hives Verified 06/15/25 08:34 Vital Signs Vital Signs - 24 hr 06/14/25 16:12 06/14/25 17:10 06/14/25 17:18 Temperature 37.4 C Pulse Rate 101 H 84 95 Respiratory Rate 37 H 30 H Blood Pressure Pulse Oximetry 98 98 Oxygen Delivery Room Air Mechanical Ventilation Fraction of Inspired Oxygen 80 06/14/25 17:22 06/14/25 17:23 06/14/25 17:28 Temperature Pulse Rate 89 46 L 119 H Respiratory Rate 15 23 H 20 Blood Pressure Pulse Oximetry Oxygen Delivery Fraction of Inspired Oxygen 06/14/25 17:29 06/14/25 17:29 06/14/25 17:36 Temperature Pulse Rate 44 L 43 L 116 H Respiratory Rate 25 H 24 H 17 Blood Pressure Pulse Oximetry Oxygen Delivery Fraction of Inspired Oxygen 06/14/25 17:36 06/14/25 17:38 06/14/25 17:41 Temperature Pulse Rate 114 H 117 H 115 H Respiratory Rate 22 H 18 19 Blood Pressure 127/93 H Pulse Oximetry 100 Oxygen Delivery Fraction of Inspired Oxygen 06/14/25 17:45 06/14/25 17:49 06/14/25 17:57 Temperature 37.4 C Pulse Rate 113 H 111 H Respiratory Rate 19 20 Blood Pressure 143/84 H Pulse Oximetry 100 Oxygen Delivery Fraction of Inspired Oxygen 40 06/14/25 18:05 06/14/25 18:20 06/14/25 18:22 Temperature 38.6 C H 38.7 C H Pulse Rate 112 H 112 H 112 H Respiratory Rate 19 14 14 Blood Pressure 141/79 H 140/85 Pulse Oximetry 100 100 Oxygen Delivery Fraction of Inspired Oxygen 06/14/25 18:27 06/14/25 18:56 06/14/25 19:01 Temperature 38.7 C H 38.7 C H Pulse Rate 104 H 102 H Respiratory Rate 14 15 Blood Pressure 128/81 119/92 H Pulse Oximetry 100 99 98 Oxygen Delivery Mechanical Ventilation Fraction of Inspired Oxygen 06/14/25 19:32 06/14/25 19:51 06/14/25 19:56 Temperature 38.7 C H 38.8 C H Pulse Rate 103 H 100 98 Respiratory Rate 13 12 Blood Pressure 93/64 L 84/61 L Pulse Oximetry 98 98 97 Oxygen Delivery Mechanical Ventilation Fraction of Inspired Oxygen 50 06/14/25 20:00 06/14/25 20:00 06/14/25 20:06 Temperature 38.8 C H Pulse Rate 96 96 95 Respiratory Rate 14 14 12 Blood Pressure 92/72 L Pulse Oximetry 97 Oxygen Delivery Fraction of Inspired Oxygen 06/14/25 20:11 06/14/25 20:22 06/14/25 20:23 Temperature 38.8 C H 38.8 C H Pulse Rate 96 100 Respiratory Rate 12 14 Blood Pressure 92/64 L Pulse Oximetry 97 Oxygen Delivery Fraction of Inspired Oxygen 06/14/25 20:24 06/14/25 20:26 06/14/25 20:27 Temperature 38.8 C H Pulse Rate 98 98 100 Respiratory Rate 14 18 14 Blood Pressure 102/68 Pulse Oximetry Oxygen Delivery Fraction of Inspired Oxygen 06/14/25 20:31 06/14/25 20:36 06/14/25 20:41 Temperature 38.7 C H 38.7 C H 38.7 C H Pulse Rate 96 96 97 Respiratory Rate 12 15 12 Blood Pressure 116/64 92/62 L 112/56 L Pulse Oximetry 95 95 94 Oxygen Delivery Fraction of Inspired Oxygen 06/14/25 20:43 06/14/25 20:46 06/14/25 21:05 Temperature 38.7 C H 38.7 C H 38.6 C H Pulse Rate 100 99 Respiratory Rate 16 14 Blood Pressure 95/61 L 115/76 Pulse Oximetry 94 96 Oxygen Delivery Fraction of Inspired Oxygen 06/14/25 21:12 06/14/25 21:16 06/14/25 21:17 Temperature Pulse Rate 100 100 100 Respiratory Rate 14 14 14 Blood Pressure Pulse Oximetry Oxygen Delivery Fraction of Inspired Oxygen 06/14/25 21:36 06/14/25 22:19 06/14/25 22:21 Temperature 37.9 C H 37.9 C H Pulse Rate 93 87 88 Respiratory Rate 12 12 Blood Pressure 98/58 L 94/59 L Pulse Oximetry 95 95 94 Oxygen Delivery Mechanical Ventilation Fraction of Inspired Oxygen 50 06/14/25 22:26 06/14/25 23:12 06/14/25 23:39 Temperature 37.8 C H Pulse Rate 86 88 87 Respiratory Rate 14 16 Blood Pressure 102/67 106/67 Pulse Oximetry 93 95 99 Oxygen Delivery Mechanical Ventilation Fraction of Inspired Oxygen 50 06/15/25 00:00 06/15/25 00:00 06/15/25 00:00 Temperature 37.8 C H Pulse Rate 86 86 86 Respiratory Rate 16 16 Blood Pressure 103/67 Pulse Oximetry 99 99 Oxygen Delivery Mechanical Ventilation Fraction of Inspired Oxygen 40 06/15/25 00:00 06/15/25 00:00 06/15/25 00:46 Temperature Pulse Rate 86 86 86 Respiratory Rate 16 16 Blood Pressure Pulse Oximetry 98 Oxygen Delivery Mechanical Ventilation Fraction of Inspired Oxygen 40 06/15/25 00:53 06/15/25 01:00 06/15/25 01:04 Temperature 37.8 C H 37.7 C H Pulse Rate 83 86 Respiratory Rate 16 16 Blood Pressure 102/73 Pulse Oximetry Oxygen Delivery Fraction of Inspired Oxygen 06/15/25 01:08 06/15/25 01:31 06/15/25 02:00 Temperature Pulse Rate 84 84 85 Respiratory Rate 16 16 16 Blood Pressure Pulse Oximetry 98 Oxygen Delivery Mechanical Ventilation Fraction of Inspired Oxygen 40 06/15/25 02:00 06/15/25 02:00 06/15/25 02:00 Temperature 37.4 C Pulse Rate 84 84 84 Respiratory Rate 16 16 Blood Pressure 108/72 Pulse Oximetry 99 Oxygen Delivery Fraction of Inspired Oxygen 06/15/25 03:00 06/15/25 04:00 06/15/25 04:00 Temperature 37.4 C Pulse Rate 83 84 84 Respiratory Rate 16 16 Blood Pressure 96/66 L Pulse Oximetry 99 97 Oxygen Delivery Mechanical Ventilation Fraction of Inspired Oxygen 40 06/15/25 04:00 06/15/25 04:00 06/15/25 04:00 Temperature 37.2 C Pulse Rate 83 83 Respiratory Rate 16 16 Blood Pressure 98/64 L Pulse Oximetry 99 Oxygen Delivery Fraction of Inspired Oxygen 40 06/15/25 05:00 06/15/25 05:36 06/15/25 05:57 Temperature 37.1 C Pulse Rate 84 84 83 Respiratory Rate 16 16 Blood Pressure 101/61 Pulse Oximetry 98 97 Oxygen Delivery Mechanical Ventilation Fraction of Inspired Oxygen 40 06/15/25 06:00 06/15/25 06:00 06/15/25 06:00 Temperature 36.4 C L Pulse Rate 87 87 87 Respiratory Rate 20 20 Blood Pressure 101/72 Pulse Oximetry 99 Oxygen Delivery Fraction of Inspired Oxygen 06/15/25 06:00 06/15/25 07:00 06/15/25 07:15 Temperature 37.4 C Pulse Rate 87 87 89 Respiratory Rate 20 20 20 Blood Pressure 104/76 Pulse Oximetry 98 Oxygen Delivery Fraction of Inspired Oxygen 06/15/25 07:45 06/15/25 07:49 06/15/25 08:00 Temperature Pulse Rate 94 89 89 Respiratory Rate 20 20 20 Blood Pressure Pulse Oximetry Oxygen Delivery Fraction of Inspired Oxygen 06/15/25 08:00 06/15/25 08:00 06/15/25 08:00 Temperature 37.5 C Pulse Rate 89 89 88 Respiratory Rate 20 20 Blood Pressure 100/72 Pulse Oximetry 99 Oxygen Delivery Fraction of Inspired Oxygen 06/15/25 08:00 06/15/25 08:00 06/15/25 09:00 Temperature 37.5 C Pulse Rate 91 Respiratory Rate 20 Blood Pressure 113/77 Pulse Oximetry 99 98 Oxygen Delivery Mechanical Ventilation Fraction of Inspired Oxygen 40 40 06/15/25 09:09 06/15/25 09:09 06/15/25 10:00 Temperature Pulse Rate 92 92 93 Respiratory Rate 20 20 Blood Pressure Pulse Oximetry 97 Oxygen Delivery Mechanical Ventilation Fraction of Inspired Oxygen 40 06/15/25 10:00 06/15/25 10:00 06/15/25 10:00 Temperature 37.5 C Pulse Rate 93 93 93 Respiratory Rate 20 20 Blood Pressure 116/82 Pulse Oximetry 98 Oxygen Delivery Fraction of Inspired Oxygen 06/15/25 10:16 06/15/25 11:00 06/15/25 12:00 Temperature 37.5 C 37.6 C Pulse Rate 93 95 94 Respiratory Rate 20 20 Blood Pressure 127/69 107/64 Pulse Oximetry 98 97 99 Oxygen Delivery Mechanical Ventilation Fraction of Inspired Oxygen 40 06/15/25 12:00 06/15/25 12:00 06/15/25 12:00 Temperature Pulse Rate 95 Respiratory Rate Blood Pressure Pulse Oximetry 99 Oxygen Delivery Mechanical Ventilation Fraction of Inspired Oxygen 40 40 06/15/25 12:14 06/15/25 12:15 06/15/25 12:15 Temperature Pulse Rate 94 94 94 Respiratory Rate 20 20 20 Blood Pressure Pulse Oximetry Oxygen Delivery Fraction of Inspired Oxygen 06/15/25 12:30 06/15/25 13:00 Temperature 37.6 C H Pulse Rate 94 94 Respiratory Rate 20 20 Blood Pressure 107/67 Pulse Oximetry 98 Oxygen Delivery Fraction of Inspired Oxygen Exam Narrative: General: Pt is sedated, intubated and on mechanical ventilation Lungs/Chest: Trachea central Coarse BS B/L, No crackles or wheezing. Cardiac: RRR. Normal S1 S2. No murmurs Circulation: Pedal pulses are intact and symmetrical. Abdomen: Decreased bowel sounds. Obese. Soft. NT. ND. Extremities: No clubbing, cyanosis or edema. Warm : [place] in place Neurologic: Unable to assess due to sedation. On holding sedation patient Moves all 4 extremities to painful stimuli and spontaneous. Does not follow commands. PERRL Results Labs 06/15/25 03:36 06/15/25 03:36 Labs: Short CBC 06/14/25 06/15/25 Range/Units 17:44 03:36 WBC 18.1 H 13.8 H (4.5-10.0) K/mm3 Hgb 14.9 13.9 (12.0-15.0) g/dL Hct 47.7 H 45.0 (37.0-47.0) % Plt Count 314 280 (150-375) k/mm3 BMP 06/14/25 06/15/25 17:44 03:36 Sodium 136 L 134 L Potassium 5.1 H 5.0 Chloride 95 L 102 Carbon Dioxide 34 H 29 BUN 23 H 21 H Creatinine 1.55 H 1.22 H Glucose 101 109 Calcium 9.1 7.4 L Cardiac Enzymes 06/14/25 06/14/25 06/15/25 Range/Units 17:44 21:06 00:33 Total Creatine Kinase > 32078 H (30-135) U/L Troponin I 0.233 H* 0.447 H* D 0.475 H* (0.000-0.034) ng/mL 06/15/25 Range/Units 03:36 Total Creatine Kinase > 14013 H (30-135) U/L Troponin I (0.000-0.034) ng/mL Liver Function 06/14/25 06/15/25 Range/Units 17:44 03:36 Total Bilirubin 0.8 0.3 (0.2-1.3) mg/dL AST 644 H 649 H (14-36) U/L ALT 179 H 182 H (6-35) U/L Alkaline Phosphatase 97 76 (38-126) U/L Albumin 4.6 3.2 L (3.5-5.1) g/dL Urine 06/14/25 Range/Units 17:44 Urine Color [place] H (Yellow) Urine Appearance Cloudy H (Clear) Urine pH 6.5 (5.0-9.0) Ur Specific [place] 1.019 (1.001-1.035) Urine Protein 3+ H (Negative) mg/dL Urine Glucose (UA) Negative (Negative) mg/dL
--- NOTE | 2025-06-15 14:40 | P.CONCA_ITS ---
<Statement entered by Stefanie Baltazar MD - 06/15/25 20:28> This documentation has been reviewed and approved. I personally performed a substantive potion of this patient encounter in conjuction with Divina stephen. I spent 40 minutes of non-overlapping time managing the patient independent of Divina stephen today. pt was found unresponsive at home. given narcan in EF and developed some jerking movements. was found to have leukocytosis , TIP which improved with fluids, fever, severe rhabdo, elevated ast and alt and normal alkaline phosphatase. pt was intubated in er in regards to troponin elevation, peaked at 0.475. no ischemic changes on ekg. this is likely secondary to severe rhabdo and concomittant cocaine use. echo done during this admission reviewed and analyzed myself looks unremarkable. in regards to severe rhabdo, continue iv fluids. in regards to elevated liver enzymes: also this is related to rhabdo as alkaline phosphatase is normal in regards to fevere and leucocytosius: continue antibiotics Assessment and Plan Assessment and plan (1) Elevated troponin: Code(s): R79.89 - Other specified abnormal findings of blood chemistry Status: Acute Assessment and Plan: Troponin 0.233, 0.47, and 0.475. Troponin levels are relatively flat and probably not associated with acute coronary syndrome. Rather, her elevated troponin is probably secondary to hypoxia, hypotension, sepsis, and rhabdomyolysis. However, if cannot rule out underlying coronary artery disease. EKG does show mild inferior ST depression. Will obtain a 2D echocardiogram to assess her LV systolic function. If she does have significant LV dysfunction or wall motion abnormalities, will pursue with some sort of ischemic evaluation during this hospitalization depending on her clinical course. (2) Sepsis: Qualifiers: Acute renal failure type: unspecified Sepsis acute organ dysfunction status: with acute organ dysfunction Sepsis type: sepsis due to unspecified organism Severe sepsis acute organ dysfunction type: acute renal failure S evere sepsis shock status: without septic shock Qualified Code(s): A41.9 - Sepsis, unspecified organism; R65.20 - Severe sepsis without septic shock; N17.9 - Acute kidney failure, unspecified Code(s): A41.9 - Sepsis, unspecified organism Status: Acute Assessment and Plan: On antibiotics. Management per critical care (3) Rhabdomyolysis: Qualifiers: Rhabdomyolysis type: non-traumatic Qualified Code(s): M62.82 - Rhabdomyolysis Code(s): M62.82 - Rhabdomyolysis Status: Acute Assessment and Plan: Fluid resuscitation and other management per critical care (4) Altered mental status: Code(s): R41.82 - Altered mental status, unspecified Status: Acute Assessment and Plan: Currently sedated (5) Acute respiratory failure: Qualifiers: Respiratory failure complication: hypoxia Qualified Code(s): J96.01 - Acute respiratory failure with hypoxia Code(s): J96.00 - Acute respiratory failure, unspecified whether with hypoxia or hypercapnia Status: Acute Assessment and Plan: Mechanically ventilated. History of Present Illness History of Present Illness Consult date/time: 06/15/25 14:40 Requesting physician: Ceasar Bailey MD Consult reason: Other (elevated troponin) Reason For Visit: Respiratory failure, Rhabdomyolysis, Sepsis unknow Narrative: Charity Mantilla is a 60-year-old female admitted to the hospital after being found unresponsive. Cardiology is consulted because of elevated troponin levels and abnormal EKG. This is a patient who according to the medical record d does not have any known cardiac history. She is currently intubated and sedated in the ICU being treated for possible seizure, rhabdomyolysis, and urosepsis. Review of Systems 2 Review of Systems: ROS unobtainable: Yes unobtainable due to endotracheal tube and unobtainable due to mental status PMFSH Past Medical History Medical History COPD with asthma Hyperlipidemia Essential hypertension Peripheral neuropathy CVA (cerebral vascular accident) (~2017) Hypothyroidism CHF (congestive heart failure) Diabetes mellitus Chronic pain Surgical History Surgical History History of arthroscopic knee surgery H/O cervical spine surgery History of hernia repair With mesh History of laparoscopic cholecystectomy Status post repair of fracture of orbit Left Status post insertion of intrathecal pump Fentanyl Family History Family History Other Unknown family medical history Social History Social History Social History: Per ER physician report she lives with her significant other of over 20 years. Code status: Full code Surrogate decision maker: Son Smoking status: Former smoker Alcohol intake: current Substance use: current Lack of Transportation: No Lack of Food: Never True Current Housing: I Have Housing Concerned About Future Housing: Decline to Answer Difficulty Paying Gas/Electric Bills: Decline to Answer Difficulty Paying for Meds: Decline to Answer Currently Unemployed: Decline to Answer Education: High School Diploma/GED Difficulty w/ Childcare or Family Care: Decline to Answer Spiritual care concerns: No Meds Home Medications and Allergies Home Medications ?Medication ?Instructions ?Recorded ?Confirmed ?Type amlodipine 10 mg tablet 10 mg PO ONCE 06/14/2506/14 History buspirone 10 mg tablet 10 mg PO BID 06/14/25 History furosemide 20 mg tablet (Lasix) 20 mg PO DAILY 06/14/25 History levothyroxine 125 mcg capsule 125 mcg PO DAILY 5 06/14/25 History metformin 500 mg tablet 500 mg PO BID 06/14/2506/14 History nortriptyline 25 mg capsule 50 mg PO HS 06/14/2506/14 History pramipexole 1 mg tablet 1 mg PO ONCE 06/14/25 History Allergies Allergy/AdvReac Type Severity Reaction Status Date / Time amoxicillin Allergy Intermediate Hives Verified 06/15/25 08:34 Vital Signs Vital Signs - 24 hr 06/14/25 16:12 06/14/25 17:10 06/14/25 17:18 Temperature 37.4 C Pulse Rate 101 H 84 95 Respiratory Rate 37 H 30 H Blood Pressure Pulse Oximetry 98 98 Oxygen Delivery Room Air Mechanical Ventilation Fraction of Inspired Oxygen 80 06/14/25 17:22 06/14/25 17:23 06/14/25 17:28 Temperature Pulse Rate 89 46 L 119 H Respiratory Rate 15 23 H 20 Blood Pressure Pulse Oximetry Oxygen Delivery Fraction of Inspired Oxygen 06/14/25 17:29 06/14/25 17:29 06/14/25 17:36 Temperature Pulse Rate 44 L 43 L 116 H Respiratory Rate 25 H 24 H 17 Blood Pressure Pulse Oximetry Oxygen Delivery Fraction of Inspired Oxygen 06/14/25 17:36 06/14/25 17:38 06/14/25 17:41 Temperature Pulse Rate 114 H 117 H 115 H Respiratory Rate 22 H 18 19 Blood Pressure 127/93 H Pulse Oximetry 100 Oxygen Delivery Fraction of Inspired Oxygen 06/14/25 17:45 06/14/25 17:49 06/14/25 17:57 Temperature 37.4 C Pulse Rate 113 H 111 H Respiratory Rate 19 20 Blood Pressure 143/84 H Pulse Oximetry 100 Oxygen Delivery Fraction of Inspired Oxygen 40 06/14/25 18:05 06/14/25 18:20 06/14/25 18:22 Temperature 38.6 C H 38.7 C H Pulse Rate 112 H 112 H 112 H Respiratory Rate 19 14 14 Blood Pressure 141/79 H 140/85 Pulse Oximetry 100 100 Oxygen Delivery Fraction of Inspired Oxygen 06/14/25 18:27 06/14/25 18:56 06/14/25 19:01 Temperature 38.7 C H 38.7 C H Pulse Rate 104 H 102 H Respiratory Rate 14 15 Blood Pressure 128/81 119/92 H Pulse Oximetry 100 99 98 Oxygen Delivery Mechanical Ventilation Fraction of Inspired Oxygen 06/14/25 19:32 06/14/25 19:51 06/14/25 19:56 Temperature 38.7 C H 38.8 C H Pulse Rate 103 H 100 98 Respiratory Rate 13 12 Blood Pressure 93/64 L 84/61 L Pulse Oximetry 98 98 97 Oxygen Delivery Mechanical Ventilation Fraction of Inspired Oxygen 50 06/14/25 20:00 06/14/25 20:00 06/14/25 20:06 Temperature 38.8 C H Pulse Rate 96 96 95 Respiratory Rate 14 14 12 Blood Pressure 92/72 L Pulse Oximetry 97 Oxygen Delivery Fraction of Inspired Oxygen 06/14/25 20:11 06/14/25 20:22 06/14/25 20:23 Temperature 38.8 C H 38.8 C H Pulse Rate 96 100 Respiratory Rate 12 14 Blood Pressure 92/64 L Pulse Oximetry 97 Oxygen Delivery Fraction of Inspired Oxygen 06/14/25 20:24 06/14/25 20:26 06/14/25 20:27 Temperature 38.8 C H Pulse Rate 98 98 100 Respiratory Rate 14 18 14 Blood Pressure 102/68 Pulse Oximetry Oxygen Delivery Fraction of Inspired Oxygen 06/14/25 20:31 06/14/25 20:36 06/14/25 20:41 Temperature 38.7 C H 38.7 C H 38.7 C H Pulse Rate 96 96 97 Respiratory Rate 12 15 12 Blood Pressure 116/64 92/62 L 112/56 L Pulse Oximetry 95 95 94 Oxygen Delivery Fraction of Inspired Oxygen 06/14/25 20:43 06/14/25 20:46 06/14/25 21:05 Temperature 38.7 C H 38.7 C H 38.6 C H Pulse Rate 100 99 Respiratory Rate 16 14 Blood Pressure 95/61 L 115/76 Pulse Oximetry 94 96 Oxygen Delivery Fraction of Inspired Oxygen 06/14/25 21:12 06/14/25 21:16 06/14/25 21:17 Temperature Pulse Rate 100 100 100 Respiratory Rate 14 14 14 Blood Pressure Pulse Oximetry Oxygen Delivery Fraction of Inspired Oxygen 06/14/25 21:36 06/14/25 22:19 06/14/25 22:21 Temperature 37.9 C H 37.9 C H Pulse Rate 93 87 88 Respiratory Rate 12 12 Blood Pressure 98/58 L 94/59 L Pulse Oximetry 95 95 94 Oxygen Delivery Mechanical Ventilation Fraction of Inspired Oxygen 50 06/14/25 22:26 06/14/25 23:12 06/14/25 23:39 Temperature 37.8 C H Pulse Rate 86 88 87 Respiratory Rate 14 16 Blood Pressure 102/67 106/67 Pulse Oximetry 93 95 99 Oxygen Delivery Mechanical Ventilation Fraction of Inspired Oxygen 50 06/15/25 00:00 06/15/25 00:00 06/15/25 00:00 Temperature 37.8 C H Pulse Rate 86 86 86 Respiratory Rate 16 16 Blood Pressure 103/67 Pulse Oximetry 99 99 Oxygen Delivery Mechanical Ventilation Fraction of Inspired Oxygen 40 06/15/25 00:00 06/15/25 00:00 06/15/25 00:46 Temperature Pulse Rate 86 86 86 Respiratory Rate 16 16 Blood Pressure Pulse Oximetry 98 Oxygen Delivery Mechanical Ventilation Fraction of Inspired Oxygen 40 06/15/25 00:53 06/15/25 01:00 06/15/25 01:04 Temperature 37.8 C H 37.7 C H Pulse Rate 83 86 Respiratory Rate 16 16 Blood Pressure 102/73 Pulse Oximetry Oxygen Delivery Fraction of Inspired Oxygen 06/15/25 01:08 06/15/25 01:31 06/15/25 02:00 Temperature Pulse Rate 84 84 85 Respiratory Rate 16 16 16 Blood Pressure Pulse Oximetry 98 Oxygen Delivery Mechanical Ventilation Fraction of Inspired Oxygen 40 06/15/25 02:00 06/15/25 02:00 06/15/25 02:00 Temperature 37.4 C Pulse Rate 84 84 84 Respiratory Rate 16 16 Blood Pressure 108/72 Pulse Oximetry 99 Oxygen Delivery Fraction of Inspired Oxygen 06/15/25 03:00 06/15/25 04:00 06/15/25 04:00 Temperature 37.4 C Pulse Rate 83 84 84 Respiratory Rate 16 16 Blood Pressure 96/66 L Pulse Oximetry 99 97 Oxygen Delivery Mechanical Ventilation Fraction of Inspired Oxygen 40 06/15/25 04:00 06/15/25 04:00 06/15/25 04:00 Temperature 37.2 C Pulse Rate 83 83 Respiratory Rate 16 16 Blood Pressure 98/64 L Pulse Oximetry 99 Oxygen Delivery Fraction of Inspired Oxygen 40 06/15/25 05:00 06/15/25 05:36 06/15/25 05:57 Temperature 37.1 C Pulse Rate 84 84 83 Respiratory Rate 16 16 Blood Pressure 101/61 Pulse Oximetry 98 97 Oxygen Delivery Mechanical Ventilation Fraction of Inspired Oxygen 40 06/15/25 06:00 06/15/25 06:00 06/15/25 06:00 Temperature 36.4 C L Pulse Rate 87 87 87 Respiratory Rate 20 20 Blood Pressure 101/72 Pulse Oximetry 99 Oxygen Delivery Fraction of Inspired Oxygen 06/15/25 06:00 06/15/25 07:00 06/15/25 07:15 Temperature 37.4 C Pulse Rate 87 87 89 Respiratory Rate 20 20 20 Blood Pressure 104/76 Pulse Oximetry 98 Oxygen Delivery Fraction of Inspired Oxygen 06/15/25 07:45 06/15/25 07:49 06/15/25 08:00 Temperature Pulse Rate 94 89 89 Respiratory Rate 20 20 20 Blood Pressure Pulse Oximetry Oxygen Delivery Fraction of Inspired Oxygen 06/15/25 08:00 06/15/25 08:00 06/15/25 08:00 Temperature 37.5 C Pulse Rate 89 89 88 Respiratory Rate 20 20 Blood Pressure 100/72 Pulse Oximetry 99 Oxygen Delivery Fraction of Inspired Oxygen 06/15/25 08:00 06/15/25 08:00 06/15/25 09:00 Temperature 37.5 C Pulse Rate 91 Respiratory Rate 20 Blood Pressure 113/77 Pulse Oximetry 99 98 Oxygen Delivery Mechanical Ventilation Fraction of Inspired Oxygen 40 40 06/15/25 09:09 06/15/25 09:09 06/15/25 10:00 Temperature Pulse Rate 92 92 93 Respiratory Rate 20 20 Blood Pressure Pulse Oximetry 97 Oxygen Delivery Mechanical Ventilation Fraction of Inspired Oxygen 40 06/15/25 10:00 06/15/25 10:00 06/15/25 10:00 Temperature 37.5 C Pulse Rate 93 93 93 Respiratory Rate 20 20 Blood Pressure 116/82 Pulse Oximetry 98 Oxygen Delivery Fraction of Inspired Oxygen 06/15/25 10:16 06/15/25 11:00 06/15/25 12:00 Temperature 37.5 C 37.6 C Pulse Rate 93 95 94 Respiratory Rate 20 20 Blood Pressure 127/69 107/64 Pulse Oximetry 98 97 99 Oxygen Delivery Mechanical Ventilation Fraction of Inspired Oxygen 40 06/15/25 12:00 06/15/25 12:00 06/15/25 12:00 Temperature Pulse Rate 95 Respiratory Rate Blood Pressure Pulse Oximetry 99 Oxygen Delivery Mechanical Ventilation Fraction of Inspired Oxygen 40 40 06/15/25 12:14 06/15/25 12:15 06/15/25 12:15 Temperature Pulse Rate 94 94 94 Respiratory Rate 20 20 20 Blood Pressure Pulse Oximetry Oxygen Delivery Fraction of Inspired Oxygen 06/15/25 12:30 06/15/25 13:00 06/15/25 14:00 Temperature 37.6 C H 37.6 C H Pulse Rate 94 94 97 Respiratory Rate 20 20 20 Blood Pressure 107/67 107/72 Pulse Oximetry 98 100 Oxygen Delivery Fraction of Inspired Oxygen 06/15/25 14:00 06/15/25 14:00 Temperature Pulse Rate 97 97 Respiratory Rate 20 Blood Pressure Pulse Oximetry Oxygen Delivery Fraction of Inspired Oxygen Exam 2 Const: General: comfortable and no acute distress O rientation/consciousness: patient oriented x3 Other: Intubated and sedated HENMT: Head: normal to inspection Other: ETT in place Eyes: General: appearance normal, both eyes and all related structures P upils: Equal, round and reactive pupils present Neck: Neck: normal visual inspection, supple and no JVD Carotids: normal carotid upstroke Resp: Auscultation: clear to auscultation bilaterally Other: Mechanically ventilated Cardio: Rate: regular rate Rhythm: regular rhythm Heart sounds: S1 normal heart sound present, S2 normal heart sound present and no murmurs GI: Auscultation: normal bowel sounds Skin: General skin exam: normal color Neuro: General: No patient oriented x3 Cranial nerves: Yes Equal, round and reactive pupils present Extrem: General: normal to inspection Psych: Appearance: grossly normal Mental Status: mental status grossly abnormal Results Labs and Meds 06/15/25 03:36 06/15/25 15:23 Lab results: Cardiac Enzymes 06/14/25 06/14/25 06/15/25 Range/Units 17:44 21:06 00:33 AST 644 H (14-36) U/L Troponin I 0.233 H* 0.447 H* D 0.475 H* (0.000-0.034) ng/mL 06/15/25 Range/Units 03:36 AST 649 H (14-36) U/L Troponin I (0.000-0.034) ng/mL Coagulation 06/14/25 Range/Units 17:44 PT 12.4 (11.1-14.7) Seconds APTT 27.0 (22.3-36.8) Seconds Lipids 06/14/25 06/15/25 Range/Units 17:44 03:25 Triglycerides 120 113 (<150) mg/dL CBC 06/14/25 06/15/25 Range/Units 17:44 03:36 WBC 18.1 H 13.8 H (4.5-10.0) K/mm3 RBC 5.26 4.86 (4.2-5.4) M/mm3 Hgb 14.9 13.9 (12.0-15.0) g/dL Hct 47.7 H 45.0 (37.0-47.0) % Plt Count 314 280 (150-375) k/mm3 Lymph # (Auto) Not Reportable 1.97 [place] # (Auto) Not Reportable 1.4 H Eos # (Auto) Not Reportable 0.0 Baso # (Auto) Not Reportable 0.0 Comprehensive Metabolic Panel 06/14/25 06/15/25 Range/Units 17:44 03:36 Sodium 136 L 134 L (137-145) mmol/L Potassium 5.1 H 5.0 (3.4-5.0) mmol/L Chloride 95 L 102 (98-107) mmol/L Carbon Dioxide 34 H 29 (22-30) mmol/L BUN 23 H 21 H (7-17) mg/dL Creatinine 1.55 H 1.22 H (0.7-1.0) mg/dL Glucose 101 109 (65-110) mg/dL Calcium 9.1 7.4 L (8.4-10.2) mg/dL AST 644 H 649 H (14-36) U/L ALT 179 H 182 H (6-35) U/L Alkaline Phosphatase 97 76 (38-126) U/L Total Protein 8.2 5.9 L (6.3-8.2) g/dL Albumin 4.6 3.2 L (3.5-5.1) g/dL Intake and Output 06/14/25 06/15/25 06/15/25 23:59 07:59 15:59 Intake Total 1443.9 146.0 1305.7 Output Total 900 210 Balance 543.9 -64.0 1305.7 Intake: IV 1443.9 146.0 1305.7 Fentanyl 2,500Mcg/[id number](*Crx 42.7 79.3 37.5 2,500 mcg In 250 ml @ 75 MCG/HR 7.5 mls/hr IV CONT .[id number] [facility] Rx#:[id number] Midazolam 100Mg/Ns 100Ml(*Crx) 33.3 66.7 8.9 100 mg In 100 ml @ 2 MG/HR 2 mls/hr IV CONT .Q50H [facility] Rx#: [id number] Propofol IV Emulsion 100 ml @ 5 13.9 9.3 MCG/KG/MIN 1.95 mls/hr IV CONT .[id number] [facility] Rx#:[id number] Sodium Chloride 0.9% IV 1,000 1000 1000 ml @ 150 mls/hr IV CONT .Q6H40M [facility] Rx#:[id number] Calcium Gluc 2,000 mg/Ns 100Ml 100 2,000 mg In 100 ml @ 100 mls/hr IVPB ONCE ONE Rx#:[id number] Cefepime 2 gm In Sodium 50 50 Chloride 0.9% IV 50 ml @ 100 mls/hr IVPB Q12H [facility] Rx#: [id number] Ibuprofen IV 400 mg In Sodium 104 Chloride 0.9% IV 100 ml @ 208 mls/hr IVPB ONCE ONE Rx#: [id number] levETIRAcetam 1000MG/[id number] 200 100 1,000 mg In 100 ml @ 400 mls/hr IVPB Q12HR [facility] Rx#:[id number] Output: Urine 190 Catheter Urine 500 Urethral Catheter 500 Gastric Drainage 400 20 [place] Sump Oral 400 20 Patient Weight 06/15/25 23:59 Weight 65 kg
[2025-06-15] MEDS: PERFLUTREN LIPID MICROSPHERES 1.5 ML VIAL DILUTED TO 10 ML TOTAL VOLUME IV PUSH (15:20)
--- NOTE | 2025-06-15 15:40 | PCNEURO ---
EEG will be completed tomorrow 06/16
[2025-06-15 15:46] LABS: Anion Gap 1 mmol/L (4-12); Blood Urea Nitrogen 16 mg/dL (7-17); Calcium 8.0 mg/dL (8.4-10.2); Carbon Dioxide 26 mmol/L (22-30); Chloride 108 mmol/L (98-107); Estimated CRCL calculation 53 ml/min; Estimated Glomerular Filt Rate > 60; Glucose 96 mg/dL (65-110); Magnesium 1.9 mg/dL (1.6-2.3); Potassium 4.2 mmol/L (3.4-5.0); Sodium 135 mmol/L (137-145)
--- NOTE | 2025-06-15 15:48 | IVDEFINITY ---
Prior to administration of IV Definity the patient was educated on the risks and benefits of the imaging enhancing agent including potential adverse side effects. The patient verbalized understanding. Allergies were verified. No exclusion criteria were identified and at least one of the following inclusion criteria were met: 1) physician request, 2) patient technically difficult to image (per the [place] [employer] guidelines of two or more segments not discernable within the apical view), or 3) questionable left ventricular function. ?
[2025-06-15] MEDS: ASPIRIN 325 MG TABLET FEED TUBE (15:54)
[2025-06-15] MEDS: CENTRAL LINE FLUSH 10 ML IV PUSH ×2 (15:56→20:31)
[2025-06-15 16:47] LABS: Creatine Kinase > 16000 U/L (30-135)
[2025-06-15] MEDS: PROPOFOL IV EMULSION 100 ML 15.6 MG IV CONT (20:48)
[2025-06-16] VITALS (36 sets, daily range): BP systolic 97–137; BP diastolic 58–94; PULSE 80–109; RESP 16–26; TEMP 37.2–37.8; O2SAT 90–98
[2025-06-16] MEDS: MIDAZOLAM HCL (*CRX) 2 MG/2 ML VIAL IV PUSH (02:14)
[2025-06-16] MEDS: PROPOFOL IV EMULSION 100 ML 19.5 MG IV CONT (03:05)
[2025-06-16 04:10] LABS: Hematocrit 35.9 % (37.0-47.0); Hemoglobin 11.1 g/dL (12.0-15.0); Mean Corpuscular HGB Conc 30.9 g/dl (32-36); Mean Corpuscular Hemoglobin 28.4 pg (26-34); Mean Corpuscular Volume 91.8 fl (80-100); Platelet Count Result 203 k/mm3 (150-375); Red Blood Count 3.91 M/mm3 (4.2-5.4); White Blood Count 9.0 K/mm3 (4.5-10.0)
[2025-06-16 04:22] LABS: Alanine Aminotransferase 147 U/L (6-35); Albumin Level 2.3 g/dL (3.5-5.1); Alkaline Phosphatase 65 U/L (38-126); Anion Gap 1 mmol/L (4-12); Aspartate Amino Transferase 400 U/L (14-36); Bilirubin,Total 0.1 mg/dL (0.2-1.3); Blood Urea Nitrogen 17 mg/dL (7-17); Calcium 7.6 mg/dL (8.4-10.2); Carbon Dioxide 26 mmol/L (22-30); Chloride 108 mmol/L (98-107); Estimated CRCL calculation 54 ml/min; Estimated Glomerular Filt Rate > 60; Glucose 119 mg/dL (65-110); Magnesium 2.0 mg/dL (1.6-2.3); Potassium 3.7 mmol/L (3.4-5.0); Sodium 135 mmol/L (137-145); Total Protein 4.7 g/dL (6.3-8.2)
[2025-06-16] MEDS: SODIUM CHLORIDE 0.9% IV 1,000 ML 150 ML IV CONT (05:06)
[2025-06-16 05:57] LABS: Alveolar/Arterial O2 Gradient 156.2 mmHg; Carboxyhemoglobin 0.4 % THb (0-2.0); Fractional Inspired Oxygen 40 %; HCO3 ABG 24.2 mEq/l (22.0-26.0); Methemoglobin ABG 0.1 %THb (0-1.5); Oxygen Content ABG 16.6 %vol (16.0-22.0); Oxygen Saturation ABG 95.8 % (95.0-100.0); PCO2 ABG 41.5 mmHg (35.0-45.0); PO2 ABG 81.3 mmHg (80.0-100.0); PO2 FiO2 Ratio Arterial Blood 2.03 %; Reduced Hemoglobin 3.7 %THb (0-5.0)
[2025-06-16 05:58] LABS: Arterial Blood Gas Tidal Volume 400 ml; Arterial Blood Gas Ventilator rate 20 /MIN; Modified Allen's Test Pass; Site Drawn RIGHT RADIAL
[2025-06-16 06:01] LABS: Hepatitis B Surface Antigen Negative (Negative)
[2025-06-16 06:07] LABS: HAV RESULT Negative (Negative); Hepatitis B Core IgM Result Negative (Negative)
[2025-06-16] MEDS: CENTRAL LINE FLUSH 10 ML IV PUSH ×3 (06:12→20:57)
[2025-06-16] MEDS: LEVOTHYROXINE SODIUM INJ 100 MCG/5 ML VIAL 62.5 MCG IV PUSH (06:13)
[2025-06-16] MEDS: PROPOFOL IV EMULSION 100 ML 13.65 MG IV CONT (07:19)
[2025-06-16 07:58] LABS: Creatine Kinase > 16000 U/L (30-135)
[2025-06-16] MEDS: ASPIRIN 325 MG TABLET FEED TUBE (08:52)
[2025-06-16] MEDS: FUROSEMIDE INJ 40 MG/4 ML VIAL IV PUSH (08:52)
[2025-06-16] MEDS: PANTOPRAZOLE SODIUM IV 40 MG VIAL IV PUSH (08:52)
[2025-06-16] MEDS: LACTATED RINGERS 1,000 ML 150 ML IV CONT ×3 (08:52→23:25)
[2025-06-16] MEDS: ENOXAPARIN 40 MG/0.4 ML SYRINGE SUB-Q (08:53)
[2025-06-16] MEDS: levETIRAcetam 1000MG/NACL100ML 1,000 MG/100 ML BAG 400 MG IVPB ×2 (08:53→20:56)
--- NOTE | 2025-06-16 09:09 | WPDNEURCNPN ---
Assessment and Plan Assessment and plan (1) Altered mental status: Code(s): R41.82 - Altered mental status, unspecified Status: Acute (2) Seizure disorder: Code(s): G40.909 - Epilepsy, unspecified, not intractable, without status epilepticus Status: Acute Plan 1. Status post implanted pain pump with ongoing chronic pain management. 2. Sudden unresponsiveness noted at home. 3. Ongoing diabetes mellitus, congestive heart failure and hypothyroidism. 4. Possibility of unwitnessed seizure for which patient has been started on anticonvulsant. CTA of the head and neck has been negative but she will benefit from an EEG she later date in the meantime treatment will be continued as such. Consult date: 06/16/25 HPI: Charity Mantilla is a 60 year old female admitted to the hospital through the emergency room with information that she was found unresponsive lying in bed old morning with subsequent history of some oxygen support due to low O2 sat by the EMS, patient does have ongoing history of implanted pain pump, she did look somewhat sedated in the emergency room and was noted to have chemosis to her right eye, she received Narcan 2mg in the ER and was noted to have some jerking movements subsequently, she was withdrawing to pain on the right side but was not moving her left side, she has been on multiple medications which were listed as 1. Amlodipine 10mg daily 2. BuSpar 10mg twice a day 3. Furosemide 20mg daily 4. Levothyroxine 125mcg daily 5. Metformin 500mg b.i.d. 6. Nortriptyline 50mg at night 7. Pramipexole 1mg at night once . She is reportedly allergic to amoxicillin. She does have ongoing history of 1. Hypothyroidism 2. Congestive heart failure 3. Diabetes mellitus 4. Chronic pain for which she has had insertion of intrathecal pump of fentanyl. On initial exam in the emergency room she was obviously ill appearing and was withdrawing to the pain stimuli. Her vital signs were with pulse rate of 1 1 respiration 37, her CBC revealed leukocytosis, BMP was abnormal with BUN of 23 creatinine 1.55 and potassium 5.1, her CPK was more than 16,000, AST was 644, ALT 179, urine was positive for the cocaine screen, initial CT scan of the head was limited there was no acute bleed, chest x-ray was negative, CTA of the head and neck was negative, cardiology consultation was obtained because of the elevated troponin without any ischemic changes on EKG was attributed to severe rhabdomyolysis and concomitant use of cocaine. At present she is being treated for the possible sepsis. Review of Systems Review of Systems: All systems reviewed & are unremarkable except as noted in HPI and below PMFSH Past Medical History Medical History COPD with asthma Hyperlipidemia Essential hypertension Peripheral neuropathy CVA (cerebral vascular accident) (~2017) Hypothyroidism CHF (congestive heart failure) Diabetes mellitus Chronic pain Surgical History Surgical History History of arthroscopic knee surgery H/O cervical spine surgery History of hernia repair With mesh History of laparoscopic cholecystectomy Status post repair of fracture of orbit Left Status post insertion of intrathecal pump Fentanyl Family History Family History Other Unknown family medical history Social History Social History Social History: Per ER physician report she lives with her significant other of over 20 years. Code status: Full code Surrogate decision maker: Son Smoking status: Former smoker Alcohol intake: current Substance use: current Lack of Transportation: No Lack of Food: Never True Current Housing: I Have Housing Concerned About Future Housing: Decline to Answer Difficulty Paying Gas/Electric Bills: Decline to Answer Difficulty Paying for Meds: Decline to Answer Currently Unemployed: Decline to Answer Education: High School Diploma/GED Difficulty w/ Childcare or Family Care: Decline to Answer Spiritual care concerns: No Meds Home Medications and Allergies Home Medications ?Medication ?Instructions ?Recorded ?Confirmed ?Type amlodipine 10 mg tablet 10 mg PO ONCE 06/14/25 06/14/25 History buspirone 10 mg tablet 10 mg PO BID 06/14/25 06/14/25 History furosemide 20 mg tablet (Lasix) 20 mg PO DAILY 06/14/25 06/14/25 History levothyroxine 125 mcg capsule 125 mcg PO DAILY 06/14/25 06/14/25 History metformin 500 mg tablet 500 mg PO BID 06/14/25 06/14/25 History nortriptyline 25 mg capsule 50 mg PO HS 06/14/25 06/14/25 History pramipexole 1 mg tablet 1 mg PO ONCE 06/14/25 06/14/25 History Allergies Allergy/AdvReac Type Severity Reaction Status Date / Time amoxicillin Allergy Intermediate Hives Verified 06/15/25 08:34 Vital Signs Vital Signs - 24 hr 06/15/25 10:00 06/15/25 10:00 06/15/25 10:00 Temperature 37.5 C Pulse Rate 93 93 93 Respiratory Rate 20 20 20 Blood Pressure 116/82 Pulse Oximetry 98 Oxygen Delivery Fraction of Inspired Oxygen 06/15/25 10:00 06/15/25 10:16 06/15/25 11:00 Temperature 37.5 C Pulse Rate 93 93 95 Respiratory Rate 20 Blood Pressure 127/69 Pulse Oximetry 98 97 Oxygen Delivery Mechanical Ventilation Fraction of Inspired Oxygen 40 06/15/25 12:00 06/15/25 12:00 06/15/25 12:00 Temperature 37.6 C Pulse Rate 94 95 Respiratory Rate 20 Blood Pressure 107/64 Pulse Oximetry 99 99 Oxygen Delivery Mechanical Ventilation Fraction of Inspired Oxygen 40 06/15/25 12:00 06/15/25 12:14 06/15/25 12:15 Temperature Pulse Rate 94 94 Respiratory Rate 20 20 Blood Pressure Pulse Oximetry Oxygen Delivery Fraction of Inspired Oxygen 40 06/15/25 12:15 06/15/25 12:30 06/15/25 13:00 Temperature 37.6 C H Pulse Rate 94 94 94 Respiratory Rate 20 20 20 Blood Pressure 107/67 Pulse Oximetry 98 Oxygen Delivery Fraction of Inspired Oxygen 06/15/25 14:00 06/15/25 14:00 06/15/25 14:00 Temperature 37.6 C H Pulse Rate 97 97 97 Respiratory Rate 20 20 Blood Pressure 107/72 Pulse Oximetry 100 Oxygen Delivery Fraction of Inspired Oxygen 06/15/25 15:00 06/15/25 15:12 06/15/25 16:00 Temperature 37.7 C H Pulse Rate 94 96 95 Respiratory Rate 20 20 Blood Pressure 104/76 Pulse Oximetry 99 97 Oxygen Delivery Mechanical Ventilation Fraction of Inspired Oxygen 40 06/15/25 16:00 06/15/25 16:00 06/15/25 16:00 Temperature 37.7 C H Pulse Rate 95 Respiratory Rate 20 Blood Pressure 111/74 Pulse Oximetry 97 97 Oxygen Delivery Mechanical Ventilation Fraction of Inspired Oxygen 40 40 06/15/25 16:00 06/15/25 17:00 06/15/25 17:44 Temperature 37.7 C H Pulse Rate 92 95 97 Respiratory Rate 20 Blood Pressure 116/66 Pulse Oximetry 98 99 Oxygen Delivery Mechanical Ventilation Fraction of Inspired Oxygen 40 06/15/25 18:00 06/15/25 18:00 06/15/25 18:00 Temperature 37.8 C H Pulse Rate 97 97 97 Respiratory Rate 20 22 H Blood Pressure 106/70 Pulse Oximetry 99 Oxygen Delivery Fraction of Inspired Oxygen 06/15/25 19:00 06/15/25 20:00 06/15/25 20:00 Temperature 37.8 C H Pulse Rate 92 100 Respiratory Rate 20 Blood Pressure 110/69 Pulse Oximetry 99 98 Oxygen Delivery Mechanical Ventilation Fraction of Inspired Oxygen 40 40 06/15/25 20:00 06/15/25 20:00 06/15/25 20:23 Temperature 37.7 C H Pulse Rate 93 93 92 Respiratory Rate 16 18 Blood Pressure 116/66 Pulse Oximetry 98 Oxygen Delivery Fraction of Inspired Oxygen 06/15/25 20:34 06/15/25 20:35 06/15/25 20:48 Temperature Pulse Rate 100 96 100 Respiratory Rate 23 H 20 Blood Pressure Pulse Oximetry 98 Oxygen Delivery Mechanical Ventilation Fraction of Inspired Oxygen 40 06/15/25 20:48 06/15/25 21:00 06/15/25 22:00 Temperature 37.7 C H Pulse Rate 100 95 93 Respiratory Rate 20 14 20 Blood Pressure 109/63 Pulse Oximetry 97 Oxygen Delivery Fraction of Inspired Oxygen 06/15/25 22:00 06/15/25 22:00 06/15/25 22:42 Temperature 37.7 C H Pulse Rate 93 92 92 Respiratory Rate 20 Blood Pressure 96/80 L Pulse Oximetry 95 97 Oxygen Delivery Mechanical Ventilation Fraction of Inspired Oxygen 40 06/15/25 23:00 06/15/25 23:50 06/16/25 00:00 Temperature 37.7 C H Pulse Rate 96 96 96 Respiratory Rate 20 22 H 20 Blood Pressure 122/66 Pulse Oximetry 96 Oxygen Delivery Fraction of Inspired Oxygen 06/16/25 00:00 06/16/25 00:00 06/16/25 00:00 Temperature Pulse Rate 96 94 Respiratory Rate 20 Blood Pressure Pulse Oximetry 96 Oxygen Delivery Mechanical Ventilation Fraction of Inspired Oxygen 40 40 06/16/25 00:00 06/16/25 01:00 06/16/25 01:50 Temperature 37.6 C H Pulse Rate 94 93 94 Respiratory Rate 20 20 Blood Pressure 116/63 116/63 Pulse Oximetry 96 97 96 Oxygen Delivery Mechanical Ventilation Fraction of Inspired Oxygen 40 06/16/25 02:00 06/16/25 02:00 06/16/25 02:09 Temperature 37.7 C H Pulse Rate 99 98 100 Respiratory Rate 20 24 H Blood Pressure 119/58 L Pulse Oximetry 96 Oxygen Delivery Fraction of Inspired Oxygen 06/16/25 02:13 06/16/25 03:00 06/16/25 03:05 Temperature Pulse Rate 105 H 96 97 Respiratory Rate 22 H 20 20 Blood Pressure 103/59 L Pulse Oximetry 96 Oxygen Delivery Fraction of Inspired Oxygen 06/16/25 03:05 06/16/25 04:00 06/16/25 04:00 Temperature Pulse Rate 97 95 Respiratory Rate 20 20 Blood Pressure Pulse Oximetry Oxygen Delivery Fraction of Inspired Oxygen 40 06/16/25 04:00 06/16/25 04:00 06/16/25 04:00 Temperature 37.7 C H Pulse Rate 95 95 105 H Respiratory Rate 20 22 H Blood Pressure 113/75 Pulse Oximetry 96 97 Oxygen Delivery Mechanical Ventilation Fraction of Inspired Oxygen 40 06/16/25 05:00 06/16/25 05:40 06/16/25 06:00 Temperature 37.4 C Pulse Rate 98 101 H 105 H Respiratory Rate 25 H 22 H Blood Pressure 114/82 Pulse Oximetry 97 97 Oxygen Delivery Mechanical Ventilation Fraction of Inspired Oxygen 40 06/16/25 06:00 06/16/25 06:00 06/16/25 06:35 Temperature 37.3 C Pulse Rate 99 96 88 Respiratory Rate 20 20 Blood Pressure 133/94 H Pulse Oximetry 96 Oxygen Delivery Fraction of Inspired Oxygen 06/16/25 07:00 06/16/25 07:19 06/16/25 07:19 Temperature 37.3 C Pulse Rate 86 84 84 Respiratory Rate 20 20 20 Blood Pressure 97/61 L Pulse Oximetry 96 Oxygen Delivery Fraction of Inspired Oxygen 06/16/25 08:00 06/16/25 08:14 06/16/25 08:20 Temperature 37.3 C Pulse Rate 80 102 H 84 Respiratory Rate 20 20 Blood Pressure 105/66 Pulse Oximetry 98 98 Oxygen Delivery Mechanical Ventilation Fraction of Inspired Oxygen 40 Exam Narrative: Exam today revealed her to be awake alert able to follow the verbal commands as per the examiner by moving her head and not in, she was intubated, head was normocephalic with no bruit, ear nose throat exam was normal, neck was supple, heart was regular, lungs are with rhonchi, abdomen was nontender, neurologically she was awake follow the verbal commands of the physician by nodding her head, pupils were round regular, feels the vision were full to threat stimuli in the all 4 quadrants, extraocular movements are full with no spontaneous nystagmus, facial grimace was symmetrical, motor examination revealed her to have ability to move both sides but but 1 side better than the other. Plantar responses were down. Results Labs 06/16/25 04:05 06/16/25 04:05 Labs: Short CBC 06/16/25 Range/Units 04:05 WBC 9.0 (4.5-10.0) K/mm3 Hgb 11.1 L (12.0-15.0) g/dL Hct 35.9 L (37.0-47.0) % Plt Count 203 (150-375) k/mm3 BMP 06/15/25 06/16/25 15:23 04:05 Sodium 135 L 135 L Potassium 4.2 3.7 Chloride 108 H 108 H Carbon Dioxide 26 26 BUN 16 17 Creatinine 0.86 0.84 Glucose 96 119 H Calcium 8.0 L 7.6 L Cardiac Enzymes 06/15/25 06/16/25 Range/Units 15:23 04:05 Total Creatine Kinase > 68104 H > 67124 H (30-135) U/L Liver Function 06/16/25 Range/Units 04:05 Total Bilirubin 0.1 L (0.2-1.3) mg/dL AST 400 H (14-36) U/L ALT 147 H (6-35) U/L Alkaline Phosphatase 65 (38-126) U/L Albumin 2.3 L (3.5-5.1) g/dL
[2025-06-16] MEDS: CALCIUM GLUC 2,000 MG/NS 100ML 2,000 MG/100 ML BAG 100 MG IVPB (09:11)
[2025-06-16] MEDS: MUPIROCIN 2% OINT 22 GM TUBE 1 APPLIC EACH NARE ×2 (09:12→20:57)
[2025-06-16] MEDS: CEFEPIME 2 GM in SODIUM CHLORIDE 0.9% IV 50 ML 100 ML IVPB ×2 (09:12→21:14)
[2025-06-16] MEDS: MINERAL OIL/WHITE PETROLATUM OINTMENT 1 APPLIC EACH EYE (09:13)
[2025-06-16 09:33] LABS: Alveolar/Arterial O2 Gradient 188.8 mmHg; Fractional Inspired Oxygen 40 %; HCO3 ABG 24.7 mEq/l (22.0-26.0); Oxygen Content ABG 16.0 %vol (16.0-22.0); PCO2 ABG 41.4 mmHg (35.0-45.0); PO2 FiO2 Ratio Arterial Blood 1.22 %
[2025-06-16 09:54] LABS: Oxygen Saturation ABG 84.3 % (95.0-100.0); PO2 ABG 48.8 mmHg (80.0-100.0); Site Drawn RIGHT RADIAL
[2025-06-16 09:55] LABS: Arterial Blood Gas Minute Volume 0.0 LPM; Arterial Blood Gas Pressure Support 8 cmH2O; Arterial Blood Gas Tidal Volume 0 ml; Arterial Blood Gas Ventilator rate 0 /MIN; Liters per Minute 0.0 LPM; Peak Inspiratory Pressure 0 cmH2O
--- NOTE | 2025-06-16 10:37 | PCNEURO ---
Began tracing for EEG and patient started slightly moving head side to side. Pt was also coughing a lot and trying to sit up in bed. Will attempt later this afternoon.
[2025-06-16] MEDS: VANCOMYCIN 1,750 MG/NS 500 ML 1,750 MG/500 ML BAG 250 MG IVPB (10:39)
[2025-06-16] MEDS: POTASSIUM PHOS,M-BASIC-D-BASIC 20 MMOL in SODIUM CHLORIDE 0.9% IV 250 ML 64.17 MMOL IVPB (10:40)
--- NOTE | 2025-06-16 10:50 | P.PNINT_ITS ---
Progress Note: A&P Assessment and Plan (1) Altered mental status: Code(s): R41.82 - Altered mental status, unspecified Status: Acute Assessment and Plan: Presented with altered mental status which has a wide differential and could be multifactorial Patient on chronic pain pump with fentanyl and patient did had improved response after administered Narcan. She also was hypoxic and was not wearing her oxygen and could have had seizure from hypoxia. Other possibilities hypercarbia due to underlying COPD. CVA is another possibility due to her abnormal exam at the time of presentation Head CT was neg ABG shows improvement Patient now off propofol and following commands although she still has a fentanyl pump Continue Keppra EEG pending ABG reviewed Check ammonia Treatment of rhabdo as below Patient was evaluated by Neurology Since patient is extubated will plan to get an MRI tomorrow (2) Acute respiratory failure: Qualifiers: Respiratory failure complication: hypoxia Qualified Code(s): J96.01 - Acute respiratory failure with hypoxia Code(s): J96.00 - Acute respiratory failure, unspecified whether with hypoxia or hypercapnia Status: Acute Assessment and Plan: Acute respiratory failure secondary to COPD and altered mental status ABG vent settings and chest x-ray reviewed 5/5 PSV SBT done for more than 1 hour. RSBI, ABGI and Vitals acceptable. Pt awake and following commands. Will extubate and monitor. NPO for now. (3) Non-ST elevation SC (NSTEMI): Code(s): I21.4 - Non-ST elevation (NSTEMI) myocardial infarction Status: Acute Assessment and Plan: Mild elevation in troponin likely secondary to demand ischemia EKG did show ST-T changes Patient was evaluated by Cardiology. No further recommendations. Pending Echocardiogram Contain aspirin Will beta-sanford due to soft blood pressure Hold statin due to rhabdomyolysis (4) Hypothyroidism: Qualifiers: Hypothyroidism type: unspecified Qualified Code(s): E03.9 - Hypothyroidism, unspecified Code(s): E03.9 - Hypothyroidism, unspecified Status: Acute Assessment and Plan: Continue levothyroxine. It was changed to IV at the time of admission TSH elevated with low T3 level (5) Acute kidney injury: Code(s): N17.9 - Acute kidney failure, unspecified Status: Acute Assessment and Plan: Presented with elevated creatinine of 1.2. Patient also had rhabdomyolysis. Baseline creatinine unknown but creatinine has normalized to normal levels with IV fluids Continue IV fluid Monitor CK level Monitor and replace electrolytes Monitor urine output and creatinine CT abdomen pelvis negative for any obstruction or stones (6) Sepsis: Qualifiers: Sepsis type: sepsis due to unspecified organism Sepsis acute organ dysfunction status: with acute organ dysfunction Severe sepsis acute organ dysfunction type: acute renal failure Acute renal failure type: unspecified Severe sepsis shock status: without septic shock Qualified Code(s): A41.9 - Sepsis, unspecified organism; R65.20 - Severe sepsis without septic shock; N17.9 - Acute kidney failure, unspecified Code(s): A41.9 - Sepsis, unspecified organism Status: Acute Assessment and Plan: UA suggestive UTI blood and urine culture ordered and pending Patient on broad-spectrum antibiotics in the form of vancomycin and cefepime (7) Rhabdomyolysis: Qualifiers: Rhabdomyolysis type: non-traumatic Qualified Code(s): M62.82 - Rhabdomyolysis Code(s): M62.82 - Rhabdomyolysis Status: Acute Assessment and Plan: Rhabdomyolysis secondary to laying in bed for prolonged period of time versus seizure versus cocaine use Aggressive IV fluid CK level is still > 16K I spoke to lab and our machine is unable to give accurate number of of 16,000. If we send it out it may not be back in 2-3 days hence defeat the purpose. Will continue IV fluids. Will give Lasix. Monitor electrolytes Changed to LR (8) Seizures: Code(s): R56.9 - Unspecified convulsions Status: Acute Assessment and Plan: There is a questionable history of seizures. Patient may have had seizure from hypoxia and was postictal at the time of presentation. She also had some jerking movement of the body he when Narcan was administered. She is on Keppra. On holding sedation patient does not exhibit any seizure-like activities today. Neurology consulted. EEG is ordered and pending. Head CT was negative. Unfortunately unable to do an MRI here at [facility] on a patient on mechanical ventilation. (9) COPD with asthma: Code(s): J44.89 - Other specified chronic obstructive pulmonary disease Status: Acute Assessment and Plan: History of COPD. Not in n exacerbation. Mechanical ventilation as above Bronchodilators (10) Electrolyte abnormality: Code(s): E87.8 - Other disorders of electrolyte and fluid balance, not elsewhere classified Status: Acute Assessment and Plan: Replace low potassium phosphate and calcium. Recheck later in the day. Plan DVT prophylaxis -Lovenox Stress ulcer prophylaxis -PPI Nutrition -NPO Code Status - Full Code and I have spoken to and updated patient's boyfriend at bedside answered all questions. Case discussed with Neurology Total Critical Care Time - 35 minutes Due to a high probability of clinically significant, life threatening deterioration, the patient required my highest level of preparedness to intervene emergently and I personally spent this critical care time directly and personally managing the patient. This critical care time included obtaining a history; examining the patient; pulse oximetry; ordering and review of studies; arranging urgent treatment with development of a management plan; evaluation of patient's response to treatment; frequent reassessment; and discussions with other providers. It was exclusive of separately billable procedures and treating other patients and teaching time. Please see Assessment and Plan section and the rest of the note for further information on patient assessment and treatment Subjective Date/time seen: 06/16/25 Overnight events reviewed. Afebrile Continues to be on mechanical ventilation 40% FiO2 The whole urine output Continues to be sedated with propofol Following commands on holding sedation Mother Vitals acceptable Review of Systems Review of Systems: ROS unobtainable: Yes unobtainable due to endotracheal tube, unobtainable due to medical condition and unobtainable due to mental status Exam Narrative: General: Pt is sedated, intubated and on mechanical ventilation Lungs/Chest: Trachea central Coarse BS B/L, No crackles or wheezing. Cardiac: RRR. Normal S1 S2. No murmurs Circulation: Pedal pulses are intact and symmetrical. Abdomen: Decreased bowel sounds. Obese. Soft. NT. ND. Extremities: No clubbing, cyanosis or edema. Warm : Del Castillo in place Neurologic: Unable to assess fully due to sedation. On holding sedation patient Moves all 4 extremities but she definitely moves left less than right, she was easily following commands on the right side. On the left side she did wiggle her toes and move her fingers on command but would not squeeze my hand. PERRL Objective Data Vital Signs Vital Signs: Vital Signs - 24 hr 06/15/25 11:00 06/15/25 12:00 06/15/25 12:00 Temperature 37.5 C 37.6 C Pulse Rate 95 94 95 Respiratory Rate 20 20 Blood Pressure 127/69 107/64 Pulse Oximetry 97 99 Oxygen Delivery Oxygen Flow Rate Fraction of Inspired Oxygen 06/15/25 12:00 06/15/25 12:00 06/15/25 12:14 Temperature Pulse Rate 94 Respiratory Rate 20 Blood Pressure Pulse Oximetry 99 Oxygen Delivery Mechanical Ventilation Oxygen Flow Rate Fraction of Inspired Oxygen 40 40 06/15/25 12:15 06/15/25 12:15 06/15/25 12:30 Temperature Pulse Rate 94 94 94 Respiratory Rate 20 20 20 Blood Pressure Pulse Oximetry Oxygen Delivery Oxygen Flow Rate Fraction of Inspired Oxygen 06/15/25 13:00 06/15/25 14:00 06/15/25 14:00 Temperature 37.6 C H 37.6 C H Pulse Rate 94 97 97 Respiratory Rate 20 20 Blood Pressure 107/67 107/72 Pulse Oximetry 98 100 Oxygen Delivery Oxygen Flow Rate Fraction of Inspired Oxygen 06/15/25 14:00 06/15/25 15:00 06/15/25 15:12 Temperature 37.7 C H Pulse Rate 97 94 96 Respiratory Rate 20 20 Blood Pressure 104/76 Pulse Oximetry 99 97 Oxygen Delivery Mechanical Ventilation Oxygen Flow Rate Fraction of Inspired Oxygen 40 06/15/25 16:00 06/15/25 16:00 06/15/25 16:00 Temperature 37.7 C H Pulse Rate 95 95 Respiratory Rate 20 20 Blood Pressure 111/74 Pulse Oximetry 97 97 Oxygen Delivery Mechanical Ventilation Oxygen Flow Rate Fraction of Inspired Oxygen 40 06/15/25 16:00 06/15/25 16:00 06/15/25 17:00 Temperature 37.7 C H Pulse Rate 92 95 Respiratory Rate 20 Blood Pressure 116/66 Pulse Oximetry 98 Oxygen Delivery Oxygen Flow Rate Fraction of Inspired Oxygen 40 06/15/25 17:44 06/15/25 18:00 06/15/25 18:00 Temperature 37.8 C H Pulse Rate 97 97 97 Respiratory Rate 20 Blood Pressure 106/70 Pulse Oximetry 99 99 Oxygen Delivery Mechanical Ventilation Oxygen Flow Rate Fraction of Inspired Oxygen 40 06/15/25 18:00 06/15/25 19:00 06/15/25 20:00 Temperature 37.8 C H Pulse Rate 97 92 100 Respiratory Rate 22 H 20 Blood Pressure 110/69 Pulse Oximetry 99 98 Oxygen Delivery Mechanical Ventilation Oxygen Flow Rate Fraction of Inspired Oxygen 40 06/15/25 20:00 06/15/25 20:00 06/15/25 20:00 Temperature 37.7 C H Pulse Rate 93 93 Respiratory Rate 16 Blood Pressure 116/66 Pulse Oximetry 98 Oxygen Delivery Oxygen Flow Rate Fraction of Inspired Oxygen 40 06/15/25 20:23 06/15/25 20:34 06/15/25 20:35 Temperature Pulse Rate 92 100 96 Respiratory Rate 18 23 H Blood Pressure Pulse Oximetry 98 Oxygen Delivery Mechanical Ventilation Oxygen Flow Rate Fraction of Inspired Oxygen 40 06/15/25 20:48 06/15/25 20:48 06/15/25 21:00 Temperature 37.7 C H Pulse Rate 100 100 95 Respiratory Rate 20 20 14 Blood Pressure 109/63 Pulse Oximetry 97 Oxygen Delivery Oxygen Flow Rate Fraction of Inspired Oxygen 06/15/25 22:00 06/15/25 22:00 06/15/25 22:00 Temperature 37.7 C H Pulse Rate 93 93 92 Respiratory Rate 20 20 Blood Pressure 96/80 L Pulse Oximetry 95 Oxygen Delivery Oxygen Flow Rate Fraction of Inspired Oxygen 06/15/25 22:42 06/15/25 23:00 06/15/25 23:50 Temperature 37.7 C H Pulse Rate 92 96 96 Respiratory Rate 20 22 H Blood Pressure 122/66 Pulse Oximetry 97 96 Oxygen Delivery Mechanical Ventilation Oxygen Flow Rate Fraction of Inspired Oxygen 40 06/16/25 00:00 06/16/25 00:00 06/16/25 00:00 Temperature Pulse Rate 96 96 Respiratory Rate 20 20 Blood Pressure Pulse Oximetry 96 Oxygen Delivery Mechanical Ventilation Oxygen Flow Rate Fraction of Inspired Oxygen 40 40 06/16/25 00:00 06/16/25 00:00 06/16/25 01:00 Temperature 37.6 C H Pulse Rate 94 94 93 Respiratory Rate 20 20 Blood Pressure 116/63 116/63 Pulse Oximetry 96 97 Oxygen Delivery Oxygen Flow Rate Fraction of Inspired Oxygen 06/16/25 01:50 06/16/25 02:00 06/16/25 02:00 Temperature 37.7 C H Pulse Rate 94 99 98 Respiratory Rate 20 Blood Pressure 119/58 L Pulse Oximetry 96 96 Oxygen Delivery Mechanical Ventilation Oxygen Flow Rate Fraction of Inspired Oxygen 40 06/16/25 02:09 06/16/25 02:13 06/16/25 03:00 Temperature Pulse Rate 100 105 H 96 Respiratory Rate 24 H 22 H 20 Blood Pressure 103/59 L Pulse Oximetry 96 Oxygen Delivery Oxygen Flow Rate Fraction of Inspired Oxygen 10/15/25 03:05 06/16/25 03:05 06/16/25 04:00 Temperature Pulse Rate 97 97 95 Respiratory Rate 20 20 20 Blood Pressure Pulse Oximetry Oxygen Delivery Oxygen Flow Rate Fraction of Inspired Oxygen 06/16/25 04:00 06/16/25 04:00 06/16/25 04:00 Temperature 37.7 C H Pulse Rate 95 95 Respiratory Rate 20 Blood Pressure 113/75 Pulse Oximetry 96 Oxygen Delivery Oxygen Flow Rate Fraction of Inspired Oxygen 40 06/16/25 04:00 06/16/25 05:00 06/16/25 05:40 Temperature 37.4 C Pulse Rate 105 H 98 101 H Respiratory Rate 22 H 25 H Blood Pressure 114/82 Pulse Oximetry 97 97 97 Oxygen Delivery Mechanical Ventilation Mechanical Ventilation Oxygen Flow Rate Fraction of Inspired Oxygen 40 40 06/16/25 06:00 06/16/25 06:00 06/16/25 06:00 Temperature 37.3 C Pulse Rate 105 H 99 96 Respiratory Rate 22 H 20 Blood Pressure 133/94 H Pulse Oximetry 96 Oxygen Delivery Oxygen Flow Rate Fraction of Inspired Oxygen 06/16/25 06:35 06/16/25 07:00 06/16/25 07:19 Temperature 37.3 C Pulse Rate 88 86 84 Respiratory Rate 20 20 20 Blood Pressure 97/61 L Pulse Oximetry 96 Oxygen Delivery Oxygen Flow Rate Fraction of Inspired Oxygen 06/16/25 07:19 06/16/25 08:00 06/16/25 08:14 Temperature 37.3 C Pulse Rate 84 80 102 H Respiratory Rate 20 20 Blood Pressure 105/66 Pulse Oximetry 98 98 Oxygen Delivery Mechanical Ventilation Oxygen Flow Rate Fraction of Inspired Oxygen 40 06/16/25 08:20 06/16/25 10:30 Temperature Pulse Rate 84 104 H Respiratory Rate 20 18 Blood Pressure Pulse Oximetry 94 Oxygen Delivery Nasal Cannula Oxygen Flow Rate 2 Fraction of Inspired Oxygen Intake/Output Intake/Output: Intake & Output 06/13/25 06/14/25 06/15/25 06/16/25 23:59 23:59 23:59 23:59 Intake Total 1443.9 3769.1 2132.6 Output Total 900 610 300 Balance 543.9 3159.1 1832.6 Meds/Results Medications: Active Medications Generic Name Dose Route Start Last Admin Trade Name Freq PRN Reason Stop Dose Admin Acetaminophen 650 mg 06/14/25 21:15 Acetaminophen 325 Mg Tablet PO Q4H PRN Mild Pain (1-3) or Fever Albuterol/Ipratropium 3 ml 06/15/25 14:08 Ipratropium 0.5 Mg/Albuterol Sulfate 2.5 Mg (Base) Ampul.Neb 3 Ml INHALATION Q6HRT PRN Wheezing Aspirin 325 mg 06/15/25 14:05 06/16/25 08:52 Aspirin 325 Mg Tablet FEED TUBE 325 mg DAILY@0800 KILLIAN Administration Enoxaparin Sodium 40 mg 06/15/25 09:00 06/16/25 08:53 Enoxaparin 40 Mg/0.4 Ml Syringe SUB-Q 40 mg DAILY KILLIAN Administration Levetiracetam 1,000 mg in 100 mls @ 400 mls/hr 06/15/25 09:00 06/16/25 08:53 Keppra Iv IVPB 400 mls/hr Q12HR KILLIAN Administration Propofol 100 mls @ 0 mls/hr 06/15/25 12:00 06/16/25 08:20 Diprivan IV CONT 0 mcg/kg/min .Q0M KILLIAN 0 mls/hr Protocol Titration 0 MCG/KG/MIN Norepinephrine Bitartrate 8 mg in 250 mls @ 9.375 mls/hr 06/15/25 12:05 Levophed 8 Mg/D5w 250 Ml IV CONT .Q24H KILLIAN Protocol 5 MCG/MIN Cefepime HCl 2 gm/ Sodium 50 mls @ 100 mls/hr 06/15/25 22:00 06/16/25 09:12 Chloride IVPB 100 mls/hr Q12H KILLIAN Administration Lactated Ringer's 1,000 mls @ 150 mls/hr 06/16/25 08:20 06/16/25 08:52 Lr - Lactated Ringers Iv IV CONT 150 mls/hr .Q6H40M KILLIAN Administration Potassium Phosphate 20 mmol/ 256.6667 mls @ 64.167 mls/hr 06/16/25 09:00 06/16/25 10:40 Sodium Chloride IVPB 06/16/25 12:59 64.17 mls/hr ONCE ONE Administration Vancomycin HCl 1,750 mg in 500 mls @ 250 mls/hr 06/16/25 10:00 06/16/25 10:39 Vancomycin 1,750 Mg/Ns 500 Ml IVPB 06/16/25 11:59 250 mls/hr ONCE ONE Administration Vancomycin HCl 1,250 mg in 250 mls @ 166.667 mls/hr 06/17/25 04:00 Vancomycin 1,250 Mg/Ns 250 Ml IVPB Q18H KILLIAN Levothyroxine Sodium 62.5 mcg 06/15/25 06:30 06/16/25 06:13 Levothyroxine Sodium Inj 100 Mcg/5 Ml Vial IV PUSH 62.5 mcg DAILY@0630 KILLIAN Administration Midazolam HCl 2 mg 06/15/25 07:25 06/16/25 02:14 Midazolam Hcl (*Crx) 2 Mg/2 Ml Vial IV PUSH 2 mg Q5M PRN Administration ventilator asynchrony Multi-Ingred Cream/Lotion/Oil/Oint 1 applic 06/15/25 09:00 06/16/25 09:13 Mineral Oil/White Petrolatum Ointment EACH EYE 1 applic Q12HR KILLIAN Administration Mupirocin 1 applic 06/14/25 23:00 06/16/25 09:12 Mupirocin 2% Oint 22 Gm Tube EACH NARE 06/19/25 09:01 1 applic Q12HR KILLIAN Administration Pantoprazole Sodium 40 mg 06/15/25 09:00 06/16/25 08:52 Pantoprazole Sodium Iv 40 Mg Vial IV PUSH 40 mg DAILY KILLIAN Administration Sodium Chloride 10 ml 06/15/25 14:00 06/16/25 06:12 Central Line Flush IV PUSH 10 ml Q8HR KILLIAN Administration Sodium Chloride 10 ml 06/15/25 11:56 Central Line Flush IV PUSH PRN PRN with TPN bag changes Sodium Chloride 20 ml 06/15/25 11:56 Central Line Flush IV PUSH PRN PRN after blood draws Radiology Results: ITS Impressions Head CT 06/14/25 16:39 Impression: 1. Extremely limited exam . Age-indeterminate areas of ischemia detailed above. MRI is recommended to assess Abdomen X-Ray 06/14/25 17:29 Impression: 1. No acute abnormality. Head/Neck CTA 06/14/25 19:09 IMPRESSION: No hemodynamically significant stenosis is noted of the cervical and intracranial arterial vasculature. Chest/Abdomen/Pelvis CT 06/14/25 22:26 IMPRESSION: No acute cardiopulmonary process. No pathologic enhancement is noted. No pathologically enlarged mediastinal lymphadenopathy is noted. CT abdomen and pelvis with contrast: The liver parenchyma is unremarkable. No intrahepatic mass or ductal dilatation is evident. The patient has had a cholecystectomy. Common bile duct is dilated measuring 1.5 cm. The pancreas and spleen are normal in appearance. The adrenal glands are symmetric in size. The kidneys demonstrate symmetric uptake and excretion of contrast. No cystic mass is evident. There is no solid mass. There is no hydronephrosis. The stomach and bowel loops are unremarkable. The bladder and rectum are normal. No free intraperitoneal fluid or air is evident. There is no significant retroperitoneal lymphadenopathy. The aorta, visceral vessels and renal arteries demonstrate normal caliber and patency. The lower thoracic and lumbar vertebrae are in normal alignment. There is a symmetric enlargement and stranding of the left piriformis. IMPRESSION: Asymmetric enlargement and stranding of the left piriformis may represent myositis. All CT scans at this facility are performed using low dose modulation techniques as appropriate to perform exam including the following: automated exposure control; use of iterative reconstruction technique; adjustment of the mA and/or kV according to patient size (this includes techniques or standardized protocols for targeted exams where dose is matched to indication/reason for exam) Chest X-Ray 06/16/25 07:58 IMPRESSION: 1. No change or acute cardiopulmonary findings given portable technique. Labs Labs: Laboratory Results - last 24 hr 06/15/25 06/15/25 06/15/25 03:25 10:47 15:23 WBC RBC Hgb Hct MCV MCH MCHC RDW Plt Count MPV Puncture Site Right radial ABG pH 7.331 L ABG pCO2 45.0 ABG pO2 72.6 L ABG PO2/FiO2 Ratio 1.81 ABG HCO3 23.2 ABG O2 Saturation 93.6 L ABG O2 Content 18.8 ABG Base Excess -2.8 A-a Gradient 160.9 Oxyhemoglobin 93.2 Carboxyhemoglobin Methemoglobin Reduced Hemoglobin Total Hemoglobin 14.3 O2 Delivery Device Ventilator O2 Liters/Min Not Reportable Minute Volume Not Reportable Vent Rate 20 Vent Mode Assist control FiO2 40 Tidal Volume 400 PEEP 5 Peak Inspir Pressure Not Reportable Pressure Support Not Reportable Sodium 135 L Potassium 4.2 Chloride 108 H Carbon Dioxide 26 Anion Gap 1 L BUN 16 Creatinine 0.86 Estim Creat Clear Calc 53 Estimated GFR > 60 Glucose 96 Calcium 8.0 L Phosphorus 2.5 Magnesium 1.9 Total Bilirubin AST ALT Alkaline Phosphatase Total Creatine Kinase > 89450 H Total Protein Albumin Triglycerides 113 Ur Random Sodium 47 Urine Creatinine 140.7 Random Vancomycin Hepatitis A IgM Ab Hep Bs Antigen Hep B Core IgM Ab Hepatitis C Ab Screen 06/16/25 06/16/25 06/16/25 04:05 05:49 07:48 WBC 9.0 RBC 3.91 L Hgb 11.1 L Hct 35.9 L MCV 91.8 MCH 28.4 MCHC 30.9 L RDW 13.7 Plt Count 203 MPV 10.1 Puncture Site Right radial ABG pH 7.384 ABG pCO2 41.5 ABG pO2 81.3 ABG PO2/FiO2 Ratio 2.03 ABG HCO3 24.2 ABG O2 Saturation 95.8 ABG O2 Content 16.6 ABG Base Excess -0.8 A-a Gradient 156.2 Oxyhemoglobin 95.8 Carboxyhemoglobin 0.4 Methemoglobin 0.1 Reduced Hemoglobin 3.7 Total Hemoglobin 12.3 O2 Delivery Device Ventilator O2 Liters/Min Not Reportable Minute Volume Not Reportable Vent Rate 20 Vent Mode Cmv FiO2 40 Tidal Volume 400 PEEP 5 Peak Inspir Pressure Not Reportable Pressure Support Not Reportable Sodium 135 L Potassium 3.7 Chloride 108 H Carbon Dioxide 26 Anion Gap 1 L BUN 17 Creatinine 0.84 Estim Creat Clear Calc 54 Estimated GFR > 60 Glucose 119 H Calcium 7.6 L Phosphorus 2.2 L Magnesium 2.0 Total Bilirubin 0.1 L AST 400 H ALT 147 H Alkaline Phosphatase 65 Total Creatine Kinase > 66469 H Total Protein 4.7 L Albumin 2.3 L Triglycerides Ur Random Sodium Urine Creatinine Random Vancomycin 5.6 L Hepatitis A IgM Ab Negative Hep Bs Antigen Negative Hep B Core IgM Ab Negative Hepatitis C Ab Screen Negative 06/16/25 09:31 WBC RBC Hgb Hct MCV MCH MCHC RDW Plt Count MPV Puncture Site Right radial ABG pH 7.394 ABG pCO2 41.4 ABG pO2 48.8 L* ABG PO2/FiO2 Ratio 1.22 ABG HCO3 24.7 ABG O2 Saturation 84.3 L* ABG O2 Content 16.0 ABG Base Excess -0.2 A-a Gradient 188.8 Oxyhemoglobin 85.5 L* Carboxyhemoglobin Methemoglobin Reduced Hemoglobin Total Hemoglobin 13.3 O2 Delivery Device Ventilator O2 Liters/Min 0.0 Minute Volume 0.0 Vent Rate 0 Vent Mode Spontaneous FiO2 40 Tidal Volume 0 PEEP 5 Peak Inspir Pressure 0 Pressure Support 8 Sodium Potassium Chloride Carbon Dioxide Anion Gap BUN Creatinine Estim Creat Clear Calc Estimated GFR Glucose Calcium Phosphorus Magnesium Total Bilirubin AST ALT Alkaline Phosphatase Total Creatine Kinase Total Protein Albumin Triglycerides Ur Random Sodium Urine Creatinine Random Vancomycin Hepatitis A IgM Ab Hep Bs Antigen Hep B Core IgM Ab Hepatitis C Ab Screen Quality VTE Prophylaxis VTE prophylaxis: mechanical ordered (SCDs) and pharmacologic ordered (Lovenox 40 mg subQ daily.)
--- NOTE | 2025-06-16 10:59 | PCFNICU ---
ICU Rounding Note: Pt current nutrition is Vital AF 1.2 at 20 ml/hr. Nutrition recommendation: goal rate at 60 ml/hr Last recorded weight is 71.5 kg, up from 65 ml on admit. Bowel Motility: No BM reported Labs Reviewed:Glu 119, Na 135, Hct 35.9, Hgb 11.1 Meds Noted:Antoni, Versed Skin: WNL Additional Notes: Patient remains on mechanical vent. Tube feedings are current with orders for Vital AF 1.2 at 20 ml/hr advance to 40 ml/hr. Flush 30 ml q 4 hours. Plans for EEG today and possible extubated. If patient remains on tube feedings recommend to increased by 10 ml q 4 hours to goal rate of 60 ml/hr to meet caloric needs. Following daily in ICU rounds. Monitoring tube feeding orders, weights, labs, meds, vitals, plan of care Follow up Saturday/Saturday.
[2025-06-16 12:04] LABS: Ammonia < 9 umol/L (9-30)
--- NOTE | 2025-06-16 14:50 | PM.PNCARD ---
Progress Note: A&P Assessment and Plan (1) Elevated troponin: Code(s): R79.89 - Other specified abnormal findings of blood chemistry Status: Acute Assessment and Plan: Troponin 0.233, 0.47, and 0.475. Troponin levels are relatively flat and probably not associated with acute coronary syndrome. Rather, her elevated troponin is probably secondary to hypoxia, hypotension, sepsis, and rhabdomyolysis. However, if cannot rule out underlying coronary artery disease. Recommend Lexiscan perfusion stable for discharge (2) Sepsis: Qualifiers: Sepsis type: sepsis due to unspecified organism Sepsis acute organ dysfunction status: with acute organ dysfunction Severe sepsis acute organ dysfunction type: acute renal failure Acute renal failure type: unspecified Severe sepsis shock status: without septic shock Qualified Code(s): A41.9 - Sepsis, unspecified organism; R65.20 - Severe sepsis without septic shock; N17.9 - Acute kidney failure, unspecified Code(s): A41.9 - Sepsis, unspecified organism Status: Acute Assessment and Plan: On antibiotics. Management per critical care (3) Rhabdomyolysis: Qualifiers: Rhabdomyolysis type: non-traumatic Qualified Code(s): M62.82 - Rhabdomyolysis Code(s): M62.82 - Rhabdomyolysis Status: Acute Assessment and Plan: Fluid resuscitation and other management per critical care (4) Altered mental status: Code(s): R41.82 - Altered mental status, unspecified Status: Acute Assessment and Plan: Response (5) Acute respiratory failure: Qualifiers: Respiratory failure complication: hypoxia Qualified Code(s): J96.01 - Acute respiratory failure with hypoxia Code(s): J96.00 - Acute respiratory failure, unspecified whether with hypoxia or hypercapnia Status: Acute Assessment and Plan: Extubated Subjective Date/time seen: 06/16/25 14:50 Interval history: Charity Mantilla is a 60-year-old female admitted to the hospital after being found unresponsive. Cardiology is consulted because of elevated troponin levels and abnormal EKG. This is a patient who according to the medical record d does not have any known cardiac history. She is currently intubated and sedated in the ICU being treated for possible seizure, rhabdomyolysis, and urosepsis. Date of service 06/16/2025: Patient is extubated. Denies any chest pain. No shortness of breath Exam Const: General: comfortable and no acute distress Orientation/consciousness: No patient oriented x3 Other: Intubated and sedated HENMT: Head: normal to inspection Other: ETT in place Eyes: General: appearance normal, both eyes and all related structures Pupils: Equal, round and reactive pupils present Neck: Neck: normal visual inspection, supple and no JVD Carotids: normal carotid upstroke Resp: Auscultation: clear to auscultation bilaterally Other: Mechanically ventilated Cardio: Rate: regular rate Rhythm: regular rhythm Heart sounds: S1 normal heart sound present, S2 normal heart sound present and no murmurs GI: Auscultation: normal bowel sounds Skin: General skin exam: normal color Neuro: General: No patient oriented x3 Cranial nerves: Yes Equal, round and reactive pupils present Extrem: General: normal to inspection Psych: Appearance: grossly normal Mental Status: mental status grossly abnormal Objective Data Vital Signs Vital Signs: Vital Signs - 24 hr 06/15/25 15:00 06/15/25 15:12 06/15/25 16:00 Temperature 37.7 C H Pulse Rate 94 96 95 Respiratory Rate 20 20 Blood Pressure 104/76 Pulse Oximetry 99 97 Oxygen Delivery Mechanical Ventilation Oxygen Flow Rate Fraction of Inspired Oxygen 40 06/15/25 16:00 06/15/25 16:00 06/15/25 16:00 Temperature 37.7 C H Pulse Rate 95 Respiratory Rate 20 Blood Pressure 111/74 Pulse Oximetry 97 97 Oxygen Delivery Mechanical Ventilation Oxygen Flow Rate Fraction of Inspired Oxygen 40 40 06/15/25 16:00 06/15/25 17:00 06/15/25 17:44 Temperature 37.7 C H Pulse Rate 92 95 97 Respiratory Rate 20 Blood Pressure 116/66 Pulse Oximetry 98 99 Oxygen Delivery Mechanical Ventilation Oxygen Flow Rate Fraction of Inspired Oxygen 40 06/15/25 18:00 06/15/25 18:00 06/15/25 18:00 Temperature 37.8 C H Pulse Rate 97 97 97 Respiratory Rate 20 22 H Blood Pressure 106/70 Pulse Oximetry 99 Oxygen Delivery Oxygen Flow Rate Fraction of Inspired Oxygen 06/15/25 19:00 06/15/25 20:00 06/15/25 20:00 Temperature 37.8 C H Pulse Rate 92 100 Respiratory Rate 20 Blood Pressure 110/69 Pulse Oximetry 99 98 Oxygen Delivery Mechanical Ventilation Oxygen Flow Rate Fraction of Inspired Oxygen 40 40 06/15/25 20:00 06/15/25 20:00 06/15/25 20:23 Temperature 37.7 C H Pulse Rate 93 93 92 Respiratory Rate 16 18 Blood Pressure 116/66 Pulse Oximetry 98 Oxygen Delivery Oxygen Flow Rate Fraction of Inspired Oxygen 06/15/25 20:34 06/15/25 20:35 06/15/25 20:48 Temperature Pulse Rate 100 96 100 Respiratory Rate 23 H 20 Blood Pressure Pulse Oximetry 98 Oxygen Delivery Mechanical Ventilation Oxygen Flow Rate Fraction of Inspired Oxygen 40 06/15/25 20:48 06/15/25 21:00 06/15/25 22:00 Temperature 37.7 C H Pulse Rate 100 95 93 Respiratory Rate 20 14 20 Blood Pressure 109/63 Pulse Oximetry 97 Oxygen Delivery Oxygen Flow Rate Fraction of Inspired Oxygen 06/15/25 22:00 06/15/25 22:00 06/15/25 22:42 Temperature 37.7 C H Pulse Rate 93 92 92 Respiratory Rate 20 Blood Pressure 96/80 L Pulse Oximetry 95 97 Oxygen Delivery Mechanical Ventilation Oxygen Flow Rate Fraction of Inspired Oxygen 40 06/15/25 23:00 06/15/25 23:50 06/16/25 00:00 Temperature 37.7 C H Pulse Rate 96 96 96 Respiratory Rate 20 22 H 20 Blood Pressure 122/66 Pulse Oximetry 96 Oxygen Delivery Oxygen Flow Rate Fraction of Inspired Oxygen 06/16/25 00:00 06/16/25 00:00 06/16/25 00:00 Temperature Pulse Rate 96 94 Respiratory Rate 20 Blood Pressure Pulse Oximetry 96 Oxygen Delivery Mechanical Ventilation Oxygen Flow Rate Fraction of Inspired Oxygen 40 40 06/16/25 00:00 06/16/25 01:00 06/16/25 01:50 Temperature 37.6 C H Pulse Rate 94 93 94 Respiratory Rate 20 20 Blood Pressure 116/63 116/63 Pulse Oximetry 96 97 96 Oxygen Delivery Mechanical Ventilation Oxygen Flow Rate Fraction of Inspired Oxygen 40 06/16/25 02:00 06/16/25 02:00 06/16/25 02:09 Temperature 37.7 C H Pulse Rate 99 98 100 Respiratory Rate 20 24 H Blood Pressure 119/58 L Pulse Oximetry 96 Oxygen Delivery Oxygen Flow Rate Fraction of Inspired Oxygen 06/16/25 02:13 06/16/25 03:00 06/16/25 03:05 Temperature Pulse Rate 105 H 96 97 Respiratory Rate 22 H 20 20 Blood Pressure 103/59 L Pulse Oximetry 96 Oxygen Delivery Oxygen Flow Rate Fraction of Inspired Oxygen 06/16/25 03:05 06/16/25 04:00 06/16/25 04:00 Temperature Pulse Rate 97 95 Respiratory Rate 20 20 Blood Pressure Pulse Oximetry Oxygen Delivery Oxygen Flow Rate Fraction of Inspired Oxygen 40 06/16/25 04:00 06/16/25 04:00 06/16/25 04:00 Temperature 37.7 C H Pulse Rate 95 95 105 H Respiratory Rate 20 22 H Blood Pressure 113/75 Pulse Oximetry 96 97 Oxygen Delivery Mechanical Ventilation Oxygen Flow Rate Fraction of Inspired Oxygen 40 06/16/25 05:00 06/16/25 05:40 06/16/25 06:00 Temperature 37.4 C Pulse Rate 98 101 H 105 H Respiratory Rate 25 H 22 H Blood Pressure 114/82 Pulse Oximetry 97 97 Oxygen Delivery Mechanical Ventilation Oxygen Flow Rate Fraction of Inspired Oxygen 40 06/16/25 06:00 06/16/25 06:00 06/16/25 06:35 Temperature 37.3 C Pulse Rate 99 96 88 Respiratory Rate 20 20 Blood Pressure 133/94 H Pulse Oximetry 96 Oxygen Delivery Oxygen Flow Rate Fraction of Inspired Oxygen 06/16/25 07:00 06/16/25 07:19 06/16/25 07:19 Temperature 37.3 C Pulse Rate 86 84 84 Respiratory Rate 20 20 20 Blood Pressure 97/61 L Pulse Oximetry 96 Oxygen Delivery Oxygen Flow Rate Fraction of Inspired Oxygen 06/16/25 08:00 06/16/25 08:00 06/16/25 08:00 Temperature 37.3 C Pulse Rate 80 Respiratory Rate 20 Blood Pressure 105/66 Pulse Oximetry 98 97 Oxygen Delivery Mechanical Ventilation Oxygen Flow Rate Fraction of Inspired Oxygen 40 40 06/16/25 08:00 06/16/25 08:14 06/16/25 08:20 Temperature Pulse Rate 93 102 H 84 Respiratory Rate 20 Blood Pressure Pulse Oximetry 98 Oxygen Delivery Mechanical Ventilation Oxygen Flow Rate Fraction of Inspired Oxygen 40 06/16/25 09:00 06/16/25 10:00 06/16/25 10:00 Temperature 37.2 C 37.4 C Pulse Rate 96 106 H 109 H Respiratory Rate 23 H 19 Blood Pressure 103/91 H 107/92 H Pulse Oximetry 94 96 Oxygen Delivery Oxygen Flow Rate Fraction of Inspired Oxygen 06/16/25 10:30 06/16/25 10:30 06/16/25 10:30 Temperature Pulse Rate 104 H 99 Respiratory Rate 18 24 H Blood Pressure Pulse Oximetry 94 95 Oxygen Delivery Nasal Cannula Nasal Cannula Oxygen Flow Rate 2 2 Fraction of Inspired Oxygen 06/16/25 11:00 06/16/25 12:00 06/16/25 12:00 Temperature 37.5 C 37.6 C Pulse Rate 93 88 Respiratory Rate 17 16 Blood Pressure 114/64 113/71 Pulse Oximetry 95 91 94 Oxygen Delivery Nasal Cannula Oxygen Flow Rate 2 Fraction of Inspired Oxygen 06/16/25 12:00 06/16/25 13:00 Temperature 37.7 C H Pulse Rate 103 H 86 Respiratory Rate 17 Blood Pressure 101/83 Pulse Oximetry 94 Oxygen Delivery Oxygen Flow Rate Fraction of Inspired Oxygen Intake/Output Intake/Output: Intake & Output 06/13/25 06/14/25 06/15/25 06/16/25 23:59 23:59 23:59 23:59 Intake Total 1443.9 3769.1 2382.6 Output Total 416 157 0831 Balance 543.9 3159.1 -517.4 Meds/Results Medications: Active Medications Generic Name Dose Route Start Last Admin Trade Name Freq PRN Reason Stop Dose Admin Acetaminophen 650 mg 06/14/25 21:15 Acetaminophen 325 Mg Tablet PO Q4H PRN Mild Pain (1-3) or Fever Albuterol/Ipratropium 3 ml 06/15/25 14:08 Ipratropium 0.5 Mg/Albuterol Sulfate 2.5 Mg (Base) Ampul.Neb 3 Ml INHALATION Q6HRT PRN Wheezing Aspirin 325 mg 06/15/25 14:05 06/16/25 08:52 Aspirin 325 Mg Tablet FEED TUBE 325 mg DAILY@0800 KILLIAN Administration Enoxaparin Sodium 40 mg 06/15/25 09:00 06/16/25 08:53 Enoxaparin 40 Mg/0.4 Ml Syringe SUB-Q 40 mg DAILY KILLIAN Administration Levetiracetam 1,000 mg in 100 mls @ 400 mls/hr 06/15/25 09:00 06/16/25 09:15 Keppra Iv IVPB Infused Q12HR KILLIAN Infusion Norepinephrine Bitartrate 8 mg in 250 mls @ 9.375 mls/hr 06/15/25 12:05 Levophed 8 Mg/D5w 250 Ml IV CONT .Q24H KILLIAN Protocol 5 MCG/MIN Cefepime HCl 2 gm/ Sodium 50 mls @ 100 mls/hr 06/15/25 22:00 06/16/25 10:00 Chloride IVPB Infused Q12H KILLIAN Infusion Lactated Ringer's 1,000 mls @ 150 mls/hr 06/16/25 08:20 06/16/25 08:52 Lr - Lactated Ringers Iv IV CONT 150 mls/hr .Q6H40M KILLIAN Administration Vancomycin HCl 1,250 mg in 250 mls @ 166.667 mls/hr 06/17/25 04:00 Vancomycin 1,250 Mg/Ns 250 Ml IVPB Q18H KILLIAN Levothyroxine Sodium 62.5 mcg 06/15/25 06:30 06/16/25 06:13 Levothyroxine Sodium Inj 100 Mcg/5 Ml Vial IV PUSH 62.5 mcg DAILY@0630 KILLIAN Administration Mupirocin 1 applic 06/14/25 23:00 06/16/25 09:12 Mupirocin 2% Oint 22 Gm Tube EACH NARE 06/19/25 09:01 1 applic Q12HR KILLIAN Administration Pantoprazole Sodium 40 mg 06/15/25 09:00 06/16/25 08:52 Pantoprazole Sodium Iv 40 Mg Vial IV PUSH 40 mg DAILY KILLIAN Administration Sodium Chloride 10 ml 06/15/25 14:00 06/16/25 06:12 Central Line Flush IV PUSH 10 ml Q8HR KILLIAN Administration Sodium Chloride 10 ml 06/15/25 11:56 Central Line Flush IV PUSH PRN PRN with TPN bag changes Sodium Chloride 20 ml 06/15/25 11:56 Central Line Flush IV PUSH PRN PRN after blood draws Radiology Results: ITS Impressions Head CT 06/14/25 16:39 Impression: 1. Extremely limited exam . Age-indeterminate areas of ischemia detailed above. MRI is recommended to assess Abdomen X-Ray 06/14/25 17:29 Impression: 1. No acute abnormality. Head/Neck CTA 06/14/25 19:09 IMPRESSION: No hemodynamically significant stenosis is noted of the cervical and intracranial arterial vasculature. Chest/Abdomen/Pelvis CT 06/14/25 22:26 IMPRESSION: No acute cardiopulmonary process. No pathologic enhancement is noted. No pathologically enlarged mediastinal lymphadenopathy is noted. CT abdomen and pelvis with contrast: The liver parenchyma is unremarkable. No intrahepatic mass or ductal dilatation is evident. The patient has had a cholecystectomy. Common bile duct is dilated measuring 1.5 cm. The pancreas and spleen are normal in appearance. The adrenal glands are symmetric in size. The kidneys demonstrate symmetric uptake and excretion of contrast. No cystic mass is evident. There is no solid mass. There is no hydronephrosis. The stomach and bowel loops are unremarkable. The bladder and rectum are normal. No free intraperitoneal fluid or air is evident. There is no significant retroperitoneal lymphadenopathy. The aorta, visceral vessels and renal arteries demonstrate normal caliber and patency. The lower thoracic and lumbar vertebrae are in normal alignment. There is a symmetric enlargement and stranding of the left piriformis. IMPRESSION: Asymmetric enlargement and stranding of the left piriformis may represent myositis. All CT scans at this facility are performed using low dose modulation techniques as appropriate to perform exam including the following: automated exposure control; use of iterative reconstruction technique; adjustment of the mA and/or kV according to patient size (this includes techniques or standardized protocols for targeted exams where dose is matched to indication/reason for exam) Chest X-Ray 06/16/25 07:58 IMPRESSION: 1. No change or acute cardiopulmonary findings given portable technique. Echo 1. Left ventricular systolic function is normal, estimated at 65-70. 2. There is mildly increased left ventricular wall thickness. 3. The left ventricular diastolic function is grade I diastolic dysfunction. 4. There is trace tricuspid valve regurgitation. 5. No pulmonary hypertension, estimated pulmonary arterial systolic pressure is 25 mmHg. Labs Labs: Laboratory Results - last 24 hr 06/15/25 06/16/25 06/16/25 15:23 04:05 05:49 WBC 9.0 RBC 3.91 L Hgb 11.1 L Hct 35.9 L MCV 91.8 MCH 28.4 MCHC 30.9 L RDW 13.7 Plt Count 203 MPV 10.1 Puncture Site Right radial ABG pH 7.384 ABG pCO2 41.5 ABG pO2 81.3 ABG PO2/FiO2 Ratio 2.03 ABG HCO3 24.2 ABG O2 Saturation 95.8 ABG O2 Content 16.6 ABG Base Excess -0.8 A-a Gradient 156.2 Oxyhemoglobin 95.8 Carboxyhemoglobin 0.4 Methemoglobin 0.1 Reduced Hemoglobin 3.7 Total Hemoglobin 12.3 O2 Delivery Device Ventilator O2 Liters/Min Not Reportable Minute Volume Not Reportable Vent Rate 20 Vent Mode Cmv FiO2 40 Tidal Volume 400 PEEP 5 Peak Inspir Pressure Not Reportable Pressure Support Not Reportable Sodium 135 L 135 L Potassium 4.2 3.7 Chloride 108 H 108 H Carbon Dioxide 26 26 Anion Gap 1 L 1 L BUN 16 17 Creatinine 0.86 0.84 Estim Creat Clear Calc 53 54 Estimated GFR > 60 > 60 Glucose 96 119 H POC Capillary Glucose Calcium 8.0 L 7.6 L Phosphorus 2.5 2.2 L Magnesium 1.9 2.0 Total Bilirubin 0.1 L AST 400 H ALT 147 H Alkaline Phosphatase 65 Ammonia Total Creatine Kinase > 15194 H > 21150 H Total Protein 4.7 L Albumin 2.3 L Ur Random Sodium 47 Urine Creatinine 140.7 Random Vancomycin Hepatitis A IgM Ab Negative Hep Bs Antigen Negative Hep B Core IgM Ab Negative Hepatitis C Ab Screen Negative 06/16/25 06/16/25 06/16/25 07:48 09:31 11:47 WBC RBC Hgb Hct MCV MCH MCHC RDW Plt Count MPV Puncture Site Right radial ABG pH 7.394 ABG pCO2 41.4 ABG pO2 48.8 L* ABG PO2/FiO2 Ratio 1.22 ABG HCO3 24.7 ABG O2 Saturation 84.3 L* ABG O2 Content 16.0 ABG Base Excess -0.2 A-a Gradient 188.8 Oxyhemoglobin 85.5 L* Carboxyhemoglobin Methemoglobin Reduced Hemoglobin Total Hemoglobin 13.3 O2 Delivery Device Ventilator O2 Liters/Min 0.0 Minute Volume 0.0 Vent Rate 0 Vent Mode Spontaneous FiO2 40 Tidal Volume 0 PEEP 5 Peak Inspir Pressure 0 Pressure Support 8 Sodium Potassium Chloride Carbon Dioxide Anion Gap BUN Creatinine Estim Creat Clear Calc Estimated GFR Glucose POC Capillary Glucose Calcium Phosphorus Magnesium Total Bilirubin AST ALT Alkaline Phosphatase Ammonia < 9 L Total Creatine Kinase Total Protein Albumin Ur Random Sodium Urine Creatinine Random Vancomycin 5.6 L Hepatitis A IgM Ab Hep Bs Antigen Hep B Core IgM Ab Hepatitis C Ab Screen 06/16/25 12:31 WBC RBC Hgb Hct MCV MCH MCHC RDW Plt Count MPV Puncture Site ABG pH ABG pCO2 ABG pO2 ABG PO2/FiO2 Ratio ABG HCO3 ABG O2 Saturation ABG O2 Content ABG Base Excess A-a Gradient Oxyhemoglobin Carboxyhemoglobin Methemoglobin Reduced Hemoglobin Total Hemoglobin O2 Delivery Device O2 Liters/Min Minute Volume Vent Rate Vent Mode FiO2 Tidal Volume PEEP Peak Inspir Pressure Pressure Support Sodium Potassium Chloride Carbon Dioxide Anion Gap BUN Creatinine Estim Creat Clear Calc Estimated GFR Glucose POC Capillary Glucose 165 H Calcium Phosphorus Magnesium Total Bilirubin AST ALT Alkaline Phosphatase Ammonia Total Creatine Kinase Total Protein Albumin Ur Random Sodium Urine Creatinine Random Vancomycin Hepatitis A IgM Ab Hep Bs Antigen Hep B Core IgM Ab Hepatitis C Ab Screen
[2025-06-16 17:23] LABS: Anion Gap -1 mmol/L (4-12); Blood Urea Nitrogen 10 mg/dL (7-17); Calcium 8.0 mg/dL (8.4-10.2); Carbon Dioxide 30 mmol/L (22-30); Chloride 108 mmol/L (98-107); Estimated CRCL calculation 70 ml/min; Estimated Glomerular Filt Rate > 60; Glucose 114 mg/dL (65-110); Magnesium 1.7 mg/dL (1.6-2.3); Potassium 3.2 mmol/L (3.4-5.0); Sodium 137 mmol/L (137-145)
[2025-06-16] MEDS: KCL 40 MEQ/WATER 100 ML 100 ML 25 ML IVPB ×2 (18:06→21:53)
[2025-06-16] MEDS: MAGNESIUM SULF 2 GM/WATER 50ML 2 GM/50 ML BAG IVPB (18:06)
[2025-06-17] VITALS (23 sets, daily range): BP systolic 129–150; BP diastolic 68–94; PULSE 71–111; RESP 16–29; TEMP 37–37.7; O2SAT 90–95
[2025-06-17] MEDS: VANCOMYCIN 1,250 MG/NS 250 ML 1,250 MG/250 ML BAG 166.67 MG IVPB (04:29)
[2025-06-17 04:41] LABS: Hematocrit 36.2 % (37.0-47.0); Hemoglobin 11.5 g/dL (12.0-15.0); Mean Corpuscular HGB Conc 31.8 g/dl (32-36); Mean Corpuscular Hemoglobin 28.7 pg (26-34); Mean Corpuscular Volume 90.3 fl (80-100); Platelet Count Result 197 k/mm3 (150-375); Red Blood Count 4.01 M/mm3 (4.2-5.4); White Blood Count 7.4 K/mm3 (4.5-10.0)
[2025-06-17 05:06] LABS: Alanine Aminotransferase 176 U/L (6-35); Albumin Level 2.7 g/dL (3.5-5.1); Alkaline Phosphatase 63 U/L (38-126); Anion Gap 2 mmol/L (4-12); Aspartate Amino Transferase 437 U/L (14-36); Bilirubin,Total 0.4 mg/dL (0.2-1.3); Blood Urea Nitrogen 7 mg/dL (7-17); Calcium 7.9 mg/dL (8.4-10.2); Carbon Dioxide 30 mmol/L (22-30); Chloride 108 mmol/L (98-107); Estimated CRCL calculation 73 ml/min; Estimated Glomerular Filt Rate > 60; Glucose 93 mg/dL (65-110); Magnesium 2.0 mg/dL (1.6-2.3); Potassium 3.8 mmol/L (3.4-5.0); Sodium 140 mmol/L (137-145); Total Protein 5.4 g/dL (6.3-8.2)
[2025-06-17 05:12] LABS: Alveolar/Arterial O2 Gradient 89.2 mmHg; Carboxyhemoglobin 1.0 % THb (0-2.0); Fractional Inspired Oxygen 28 %; HCO3 ABG 26.9 mEq/l (22.0-26.0); Liters per Minute 2.0 LPM; Methemoglobin ABG 0.2 %THb (0-1.5); Modified Allen's Test Pass; Oxygen Content ABG 19.6 %vol (16.0-22.0); Oxygen Saturation ABG 92.2 % (95.0-100.0); PCO2 ABG 41.4 mmHg (35.0-45.0); PO2 ABG 61.6 mmHg (80.0-100.0); PO2 FiO2 Ratio Arterial Blood 2.20 %; Reduced Hemoglobin 7.5 %THb (0-5.0); Site Drawn RIGHT RADIAL
[2025-06-17 05:54] LABS: Creatine Kinase > 16000 U/L (30-135)
[2025-06-17] MEDS: LEVOTHYROXINE SODIUM INJ 100 MCG/5 ML VIAL 62.5 MCG IV PUSH (06:07)
[2025-06-17] MEDS: CENTRAL LINE FLUSH 10 ML IV PUSH ×3 (06:10→20:56)
[2025-06-17] MEDS: PANTOPRAZOLE SODIUM IV 40 MG VIAL IV PUSH (08:12)
[2025-06-17] MEDS: levETIRAcetam 1000MG/NACL100ML 1,000 MG/100 ML BAG 400 MG IVPB ×2 (08:12→20:55)
[2025-06-17] MEDS: LACTATED RINGERS 1,000 ML 100 ML IV CONT ×2 (08:12→17:20)
[2025-06-17] MEDS: ENOXAPARIN 40 MG/0.4 ML SYRINGE SUB-Q (08:13)
[2025-06-17] MEDS: MUPIROCIN 2% OINT 22 GM TUBE 1 APPLIC EACH NARE ×2 (08:13→20:55)
--- NOTE | 2025-06-17 08:55 | P.PNINT_ITS ---
Progress Note: A&P Assessment and Plan (1) Altered mental status: Code(s): R41.82 - Altered mental status, unspecified Status: Acute Assessment and Plan: Presented with altered mental status which has a wide differential and could be multifactorial Patient on chronic pain pump with fentanyl and patient did had improved response after administered Narcan. She also was hypoxic and was not wearing her oxygen and could have had seizure from hypoxia. Other possibilities hypercarbia due to underlying COPD. CVA is another possibility due to her abnormal exam at the time of presentation Head CT was neg ABG shows improvement She still has a fentanyl pump Continue Keppra EEG pending ABG reviewed Ammonia levels are normal (<9) Treatment of rhabdo as below Appreciate Neurology evaluation, patient may benefit from an MRI, EEG -patient has a pain pump, will check with [employer] if pain pump is safe in our MRI machine (2) Acute respiratory failure: Qualifiers: Respiratory failure complication: hypoxia Qualified Code(s): J96.01 - Acute respiratory failure with hypoxia Code(s): J96.00 - Acute respiratory failure, unspecified whether with hypoxia or hypercapnia Status: Acute Assessment and Plan: Acute respiratory failure secondary to COPD and altered mental status ABG vent settings and chest x-ray reviewed 06/14: Intubated in the ER 06/16: Extubated -PT/OT has been ordered, up in chair -speech therapy few for bedside swallow evaluation (3) Non-ST elevation IN (NSTEMI): Code(s): I21.4 - Non-ST elevation (NSTEMI) myocardial infarction Status: Acute Assessment and Plan: Mild elevation in troponin likely secondary to demand ischemia EKG did show ST-T changes Patient was evaluated by Cardiology. No further recommendations. Hold statin due to rhabdomyolysis and elevated LFTs Contain aspirin 06/15/2025: Echocardiogram Summary 1. Left ventricular systolic function is normal, estimated at 65-70. 2. There is mildly increased left ventricular wall thickness. 3. The left ventricular diastolic function is grade I diastolic dysfunction. 4. There is trace tricuspid valve regurgitation. 5. No pulmonary hypertension, estimated pulmonary arterial systolic pressure is 25 mmHg. (4) Hypothyroidism: Qualifiers: Hypothyroidism type: unspecified Qualified Code(s): E03.9 - Hypothyroidism, unspecified Code(s): E03.9 - Hypothyroidism, unspecified Status: Acute Assessment and Plan: Continue levothyroxine. It was changed to IV at the time of admission TSH elevated with low T3 level (5) Acute kidney injury: Code(s): N17.9 - Acute kidney failure, unspecified Status: Acute Assessment and Plan: Presented with elevated creatinine of 1.55. Patient also had rhabdomyolysis. Baseline creatinine unknown but creatinine has normalized to normal levels with IV fluids Continue IV fluid CK levels remain significantly elevated Monitor and replace electrolytes Monitor urine output and creatinine CT abdomen pelvis negative for any obstruction or stones -continue maintenance fluids, will decrease the rate as patient was diuresed yesterday prior to extubation (6) Sepsis: Qualifiers: Sepsis type: sepsis due to unspecified organism Sepsis acute organ dysfunction status: with acute organ dysfunction Severe sepsis acute organ dysfunction type: acute renal failure Acute renal failure type: unspecified Severe sepsis shock status: without septic shock Qualified Code(s): A41.9 - Sepsis, unspecified organism; R65.20 - Severe sepsis without septic shock; N17.9 - Acute kidney failure, unspecified Code(s): A41.9 - Sepsis, unspecified organism Status: Acute Assessment and Plan: UA suggestive UTI 06/14: Blood cultures: No growth 09/03 bottles 06/14: Urine culture: No gross Patient on broad-spectrum antibiotics in the form of vancomycin and cefepime (7) Rhabdomyolysis: Qualifiers: Rhabdomyolysis type: non-traumatic Qualified Code(s): M62.82 - Rhabdomyolysis Code(s): M62.82 - Rhabdomyolysis Status: Acute Assessment and Plan: Rhabdomyolysis secondary to laying in bed for prolonged period of time versus seizure versus cocaine use Aggressive IV fluid CK level is still > 16K I spoke to lab and our machine is unable to give accurate number of of 16,000. If we send it out it may not be back in 2-3 days hence defeat the purpose. Will continue IV fluids. Will give Lasix. Monitor electrolytes Changed to LR, (8) Seizures: Code(s): R56.9 - Unspecified convulsions Status: Acute Assessment and Plan: There is a questionable history of seizures. Patient may have had seizure from hypoxia and was postictal at the time of presentation. She also had some jerking movement of the body when Narcan was administered. She is on Keppra. Head CT was negative on admission. Appreciate neurology following the patient 06/16: EEG: Abnormal record due to the absence of normal background rhythm and due to the presence of excessive amount of slow activity. These abnormalities are suggestive of underlying organic or metabolic encephalopathy or postictal state. Clinical correlation recommended. Will check with [employer] nurse since she has a pain pump, if it is going to be compatible with our MRI machine (9) COPD with asthma: Code(s): J44.89 - Other specified chronic obstructive pulmonary disease Status: Acute Assessment and Plan: History of COPD. Not in n exacerbation. Continue Bronchodilators (10) Electrolyte abnormality: Code(s): E87.8 - Other disorders of electrolyte and fluid balance, not elsewhere classified Status: Acute Assessment and Plan: Replacement phosphorus Plan DVT prophylaxis -Lovenox Stress ulcer prophylaxis -PPI Nutrition -speech evaluation for bedside swallow has been ordered PT/OT has been order Code Status - Full Code and I have spoken to and updated patient's boyfriend at bedside answered all questions. Total Critical Care Time - 32 minutes Due to a high probability of clinically significant, life threatening deterioration, the patient required my highest level of preparedness to intervene emergently and I personally spent this critical care time directly and personally managing the patient. This critical care time included obtaining a history; examining the patient; pulse oximetry; ordering and review of studies; arranging urgent treatment with development of a management plan; evaluation of patient's response to treatment; frequent reassessment; and discussions with other providers. It was exclusive of separately billable procedures and treating other patients and teaching time. Please see Assessment and Plan section and the rest of the note for further information on patient assessment and treatment This dictation may have been done utilizing a voice recognition system. Attempts have been made to correct errors. However, there may be uncorrected grammatical, spelling, and recognitions errors present. Subjective Date/time seen: 06/17/25 08:55 Interval history: Charity Mantilla is a 60-year-old female admitted to the hospital after being found unresponsive. Cardiology is consulted because of elevated troponin levels and abnormal EKG. This is a patient who according to the medical record d does not have any known cardiac history. She is currently intubated and sedated in the ICU being treated for possible seizure, rhabdomyolysis, and urosepsis. -06/14/2025: Intubated -06/16/2025 extubated 06/17/2025: Patient seen and examined the ICU, is awake, oriented x3, remains somnolent, which the significant other states that she normally is in this state at home. Patient has a pain pump in the upper aspect of for abdomen on the left. 8 was due to be changed recently because his been in place for 10 years. Patient normally eats snacks at home, she is able to walk without using a cane or a walker. She only uses an electric cart when she goes for groceries. Patient is normally somnolent at home also. Currently hemodynamically stable, adequate urine output, afebrile. Responded very well to diuresis yesterday. Remains maintenance IV fluids at 150 mL/hour. Patient denies any chest pain, shortness of breath, abdominal pain, nausea vomiting Review of Systems Review of Systems: All systems reviewed & are unremarkable except as noted in HPI and below Exam Narrative: General: Patient is somnolent but easily arousable, in no acute distress HEENT: Pupils equal and reactive, sclera is clear, moist oral mucosa Lungs/Chest: Trachea central Coarse BS B/L, No crackles or wheezing. Adequate air entry Cardiac: RRR. Normal S1 S2. No murmurs Abdomen: Soft, nontender, nondistended, hypoactive bowel sounds Extremities: No clubbing, cyanosis or edema. Warm, palpable pedal pulse : Del Castillo in place Neurologic: Patient is awake, alert, oriented x3. Patient is somnolent but easily arousable in stays awake while answering questions and then goes back sleep. She denies any complaints, nods to questions, follows simple commands in all extremities Objective Data Vital Signs Vital Signs: Vital Signs - 24 hr 06/16/25 09:00 06/16/25 10:00 06/16/25 10:00 Temperature 99.0 F 99.4 F Pulse Rate 96 106 H 109 H Respiratory Rate 23 H 19 Blood Pressure 103/91 H 107/92 H Pulse Oximetry 94 96 Oxygen Delivery Oxygen Flow Rate 06/16/25 10:30 06/16/25 10:30 06/16/25 10:30 Temperature Pulse Rate 104 H 99 Respiratory Rate 18 24 H Blood Pressure Pulse Oximetry 94 95 Oxygen Delivery Nasal Cannula Nasal Cannula Oxygen Flow Rate 2 2 06/16/25 11:00 06/16/25 12:00 06/16/25 12:00 Temperature 99.5 F 99.6 F Pulse Rate 93 88 Respiratory Rate 17 16 Blood Pressure 114/64 113/71 Pulse Oximetry 95 91 94 Oxygen Delivery Nasal Cannula Oxygen Flow Rate 2 06/16/25 12:00 06/16/25 13:00 06/16/25 14:00 Temperature 99.8 F H Pulse Rate 103 H 86 83 Respiratory Rate 17 Blood Pressure 101/83 Pulse Oximetry 94 Oxygen Delivery Oxygen Flow Rate 06/16/25 14:00 06/16/25 15:00 06/16/25 15:45 Temperature 99.8 F H 99.9 F H Pulse Rate 102 H 85 Respiratory Rate 23 H 20 Blood Pressure 109/60 122/71 Pulse Oximetry 95 93 91 Oxygen Delivery Nasal Cannula Oxygen Flow Rate 2 06/16/25 16:00 06/16/25 16:00 06/16/25 17:00 Temperature 99.8 F H 99.9 F H Pulse Rate 102 H 108 H 81 Respiratory Rate 26 H 17 Blood Pressure 122/69 119/61 Pulse Oximetry 92 90 Oxygen Delivery Oxygen Flow Rate 06/16/25 18:00 06/16/25 18:00 06/16/25 19:00 Temperature 100.0 F H 99.7 F H Pulse Rate 93 90 99 Respiratory Rate 18 25 H Blood Pressure 137/71 123/69 Pulse Oximetry 92 94 Oxygen Delivery Oxygen Flow Rate 06/16/25 20:00 06/16/25 20:00 06/16/25 20:00 Temperature 99.6 F Pulse Rate 96 87 Respiratory Rate 21 H Blood Pressure 137/80 Pulse Oximetry 92 95 Oxygen Delivery Nasal Cannula Oxygen Flow Rate 2 06/16/25 20:15 06/16/25 21:00 06/16/25 22:00 Temperature 99.7 F H 99.7 F H Pulse Rate 96 94 106 H Respiratory Rate 24 H 25 H Blood Pressure 132/72 132/76 Pulse Oximetry 93 94 93 Oxygen Delivery Nasal Cannula Oxygen Flow Rate 2 06/16/25 22:00 06/16/25 23:00 06/17/25 00:00 Temperature 99.8 F H Pulse Rate 106 H 88 Respiratory Rate 19 Blood Pressure 137/72 Pulse Oximetry 94 90 Oxygen Delivery Nasal Cannula Oxygen Flow Rate 3 06/17/25 00:00 06/17/25 00:00 06/17/25 01:00 Temperature 99.8 F H 99.5 F Pulse Rate 111 H 91 99 Respiratory Rate 17 21 H Blood Pressure 143/76 H 142/78 H Pulse Oximetry 90 94 Oxygen Delivery Oxygen Flow Rate 06/17/25 02:00 06/17/25 02:00 06/17/25 03:00 Temperature 99.5 F 99.5 F Pulse Rate 100 100 109 H Respiratory Rate 22 H 29 H Blood Pressure 147/72 H 150/84 H Pulse Oximetry 93 92 Oxygen Delivery Oxygen Flow Rate 06/17/25 04:00 06/17/25 04:00 06/17/25 04:00 Temperature 99.3 F Pulse Rate 73 94 Respiratory Rate 18 Blood Pressure 143/82 H Pulse Oximetry 90 91 Oxygen Delivery Nasal Cannula Oxygen Flow Rate 2 06/17/25 05:00 06/17/25 06:00 06/17/25 06:00 Temperature 99.2 F 99.1 F Pulse Rate 106 H 83 83 Respiratory Rate 27 H 16 Blood Pressure 139/94 H 130/70 Pulse Oximetry 92 95 Oxygen Delivery Oxygen Flow Rate Intake/Output Intake/Output: Intake & Output 06/14/25 06/15/25 06/16/25 06/17/25 23:59 23:59 23:59 23:59 Intake Total 1443.9 3769.1 5388.6 1350 Output Total 222 004 6237 750 Balance 543.9 3159.1 188.6 600 Meds/Results Medications: Active Medications Generic Name Dose Route Start Last Admin Trade Name Freq PRN Reason Stop Dose Admin Acetaminophen 650 mg 06/14/25 21:15 Acetaminophen 325 Mg Tablet PO Q4H PRN Mild Pain (1-3) or Fever Albuterol/Ipratropium 3 ml 06/15/25 14:08 Ipratropium 0.5 Mg/Albuterol Sulfate 2.5 Mg (Base) Ampul.Neb 3 Ml INHALATION Q6HRT PRN Wheezing Aspirin 325 mg 06/15/25 14:05 06/16/25 08:52 Aspirin 325 Mg Tablet FEED TUBE 325 mg DAILY@0800 KILLIAN Administration Enoxaparin Sodium 40 mg 06/15/25 09:00 06/17/25 08:13 Enoxaparin 40 Mg/0.4 Ml Syringe SUB-Q 40 mg DAILY KILLIAN Administration Levetiracetam 1,000 mg in 100 mls @ 400 mls/hr 06/15/25 09:00 06/17/25 08:12 Keppra Iv IVPB 400 mls/hr Q12HR KILLIAN Administration Cefepime HCl 2 gm/ Sodium 50 mls @ 100 mls/hr 06/15/25 22:00 06/16/25 21:44 Chloride IVPB Infused Q12H KILLIAN Infusion Lactated Ringer's 1,000 mls @ 100 mls/hr 06/16/25 08:20 06/17/25 08:12 Lr - Lactated Ringers Iv IV CONT 100 mls/hr .Q10H KILLIAN Administration Vancomycin HCl 1,250 mg in 250 mls @ 166.667 mls/hr 06/17/25 04:00 06/17/25 05:59 Vancomycin 1,250 Mg/Ns 250 Ml IVPB Infused Q18H KILLIAN Infusion Levothyroxine Sodium 62.5 mcg 06/15/25 06:30 06/17/25 06:07 Levothyroxine Sodium Inj 100 Mcg/5 Ml Vial IV PUSH 62.5 mcg DAILY@0630 KILLIAN Administration Mupirocin 1 applic 06/14/25 23:00 06/17/25 08:13 Mupirocin 2% Oint 22 Gm Tube EACH NARE 06/19/25 09:01 1 applic Q12HR KILLIAN Administration Pantoprazole Sodium 40 mg 06/15/25 09:00 06/17/25 08:12 Pantoprazole Sodium Iv 40 Mg Vial IV PUSH 40 mg DAILY KILLIAN Administration Sodium Chloride 10 ml 06/15/25 14:00 06/17/25 06:10 Central Line Flush IV PUSH 10 ml Q8HR KILLIAN Administration Sodium Chloride 10 ml 06/15/25 11:56 Central Line Flush IV PUSH PRN PRN with TPN bag changes Sodium Chloride 20 ml 06/15/25 11:56 Central Line Flush IV PUSH PRN PRN after blood draws Radiology Results: ITS Impressions Head CT 06/14/25 16:39 Impression: 1. Extremely limited exam . Age-indeterminate areas of ischemia detailed above. MRI is recommended to assess Abdomen X-Ray 06/14/25 17:29 Impression: 1. No acute abnormality. Head/Neck CTA 06/14/25 19:09 IMPRESSION: No hemodynamically significant stenosis is noted of the cervical and intracranial arterial vasculature. Chest/Abdomen/Pelvis CT 06/14/25 22:26 IMPRESSION: No acute cardiopulmonary process. No pathologic enhancement is noted. No pathologically enlarged mediastinal lymphadenopathy is noted. CT abdomen and pelvis with contrast: The liver parenchyma is unremarkable. No intrahepatic mass or ductal dilatation is evident. The patient has had a cholecystectomy. Common bile duct is dilated measuring 1.5 cm. The pancreas and spleen are normal in appearance. The adrenal glands are symmetric in size. The kidneys demonstrate symmetric uptake and excretion of contrast. No cystic mass is evident. There is no solid mass. There is no hydronephrosis. The stomach and bowel loops are unremarkable. The bladder and rectum are normal. No free intraperitoneal fluid or air is evident. There is no significant retroperitoneal lymphadenopathy. The aorta, visceral vessels and renal arteries demonstrate normal caliber and patency. The lower thoracic and lumbar vertebrae are in normal alignment. There is a symmetric enlargement and stranding of the left piriformis. IMPRESSION: Asymmetric enlargement and stranding of the left piriformis may represent myositis. All CT scans at this facility are performed using low dose modulation techniques as appropriate to perform exam including the following: automated exposure control; use of iterative reconstruction technique; adjustment of the mA and/or kV according to patient size (this includes techniques or standardized protocols for targeted exams where dose is matched to indication/reason for exam) Chest X-Ray 06/17/25 08:22 Impression: Early bilateral pneumonia. Findings appear slightly progressed. Labs Labs: Laboratory Results - last 24 hr 06/16/25 06/16/25 06/16/25 09:31 11:47 12:31 WBC RBC Hgb Hct MCV MCH MCHC RDW Plt Count MPV Puncture Site Right radial ABG pH 7.394 ABG pCO2 41.4 ABG pO2 48.8 L* ABG PO2/FiO2 Ratio 1.22 ABG HCO3 24.7 ABG O2 Saturation 84.3 L* ABG O2 Content 16.0 ABG Base Excess -0.2 A-a Gradient 188.8 Oxyhemoglobin 85.5 L* Carboxyhemoglobin Methemoglobin Reduced Hemoglobin Total Hemoglobin 13.3 O2 Delivery Device Ventilator O2 Liters/Min 0.0 Minute Volume 0.0 Vent Rate 0 Vent Mode Spontaneous FiO2 40 Tidal Volume 0 PEEP 5 Peak Inspir Pressure 0 Pressure Support 8 Sodium Potassium Chloride Carbon Dioxide Anion Gap BUN Creatinine Estim Creat Clear Calc Estimated GFR Glucose POC Capillary Glucose 165 H Calcium Phosphorus Magnesium Total Bilirubin AST ALT Alkaline Phosphatase Ammonia < 9 L Total Creatine Kinase Total Protein Albumin 10/15/25 10/16/25 10/16/25 16:37 04:30 04:48 WBC 7.4 RBC 4.01 L Hgb 11.5 L Hct 36.2 L MCV 90.3 MCH 28.7 MCHC 31.8 L RDW 13.8 Plt Count 197 MPV 10.2 Puncture Site Right radial ABG pH 7.430 ABG pCO2 41.4 ABG pO2 61.6 L ABG PO2/FiO2 Ratio 2.20 ABG HCO3 26.9 H ABG O2 Saturation 92.2 L ABG O2 Content 19.6 ABG Base Excess 2.3 A-a Gradient 89.2 Oxyhemoglobin 91.3 Carboxyhemoglobin 1.0 Methemoglobin 0.2 Reduced Hemoglobin 7.5 H Total Hemoglobin 15.3 O2 Delivery Device Nasal cannula O2 Liters/Min 2.0 Minute Volume Vent Rate Vent Mode FiO2 28 Tidal Volume PEEP Peak Inspir Pressure Pressure Support Sodium 137 140 Potassium 3.2 L 3.8 Chloride 108 H 108 H Carbon Dioxide 30 30 Anion Gap -1 L 2 L BUN 10 D 7 Creatinine 0.71 0.68 L Estim Creat Clear Calc 70 73 Estimated GFR > 60 > 60 Glucose 114 H 93 POC Capillary Glucose Calcium 8.0 L 7.9 L Phosphorus 3.2 2.4 L Magnesium 1.7 2.0 Total Bilirubin 0.4 AST 437 H ALT 176 H Alkaline Phosphatase 63 Ammonia Total Creatine Kinase > 80781 H Total Protein 5.4 L Albumin 2.7 L Quality VTE Prophylaxis VTE prophylaxis: mechanical ordered (SCDs) and pharmacologic ordered (Lovenox 40 mg subQ daily.)
--- NOTE | 2025-06-17 08:57 | P.NEURO_ITS ---
Neurology EEG Report General Information Date of Study: 06/16/25 TEST EEG DIAGNOSIS seizures CONDITION OF RECORDING awake, drowsy and asleep. EEG NUMBER [id number] CLINICAL HISTORY 60 years old female found at home with jerking movements and subsequently was noted to have acute mental status changes upon arrival. At the time of this particular tracing patient is now extubated and off sedation. Patient's had random body jerks and odd tongue movements throughout the EEG along with consist ent right foot jerking EEG DESCRIPTION bihemispheric symmetrical sleep activity noted with multiple movement artifacts and muscle artifacts. Towards the end of the tracing intermittent low to medium voltage 2 to 3 hertz per 2nd delta activity noted. Photic stimulation not done. Hyperventilation not done. Non paroxysmal. Nonfocal. Nonlateralizing. IMPRESSION Abnormal record due to the absence of normal background rhythm and due to the presence of excessive amount of slow activity. These abnormalities are suggestive of underlying organic or metabolic encephalopathy or postictal state. Clinical correlation recommended.
[2025-06-17] MEDS: POTASSIUM PHOS,M-BASIC-D-BASIC 15 MMOL in SODIUM CHLORIDE 0.9% IV 250 ML 63.75 MMOL IVPB (10:29)
--- NOTE | 2025-06-17 11:32 | PCFNICU ---
ICU Rounding Note: Pt current nutrition is NPO. Last recorded weight is 67.2 kg, up from 65 kg. Bowel Motility: Last reported BM 06/16 Labs Reviewed: Cr 0.68, PO4 2.4, Hct 36.3, Hgb 11.5 Meds Noted: Keppra, Protonix, LR Skin: Deep Tissue Injury-Left buttock Additional Notes: Patient extubated 06/16, had bedside swallow this morning. Plans for speech to revisit patient later today for diet order recommendations 2/2 to alertness. If patient is able to tolerate oral diet recommend [facility] diet with Glucerna shakes BID and Chuck BID for wound healing. Following daily in ICU rounds. Monitoring tube feeding orders, weights, labs, meds, vitals, plan of care every 3 days.
[2025-06-17] MEDS: IPRATROPIUM 0.5 MG/ALBUTEROL SULFATE 2.5 MG (BASE) AMPUL.NEB 3 ML INHALATION ×2 (14:15→20:21)
--- NOTE | 2025-06-17 15:10 | PCSTNOTE ---
Please refer to the Bedside Swallow Evaluation in the EMR. Please note, silent aspiration cannot be ruled out at bedside. The patient is a 60 year old female admitted with respiratory failure, hypoxia with a history of COPD. Orders received to complete a BSE and r/o aspiration risk. The patient was positioned upright and assessed with the following consistencies: thin liquid via tsp, thin liquid via small controlled cup drink, mildly thick via tsp, mildly thick via small controlled cup drink, and puree. Patient was able to state name and answer simple questions with extra time. however, alertness fluctuated during course of assessment. Dentures are present in room but given fluctuating alertness cracker/solids not attempted. Oral Stage: Requires extra time to form and propel the bolus posteriorly for all consistencies. [employer] assisted with feeding and providing small controlled bolus size. However no oral residual noted. Pharyngeal stage: When presented tsp trials puree/applesauce, tsp mildly thick liquid, and cup trials mildly thick liquid the patient was noted to have a delayed swallow but with good laryngeal elevation over all and no CSA. When presented tsp amounts thin liquid and small controlled drinks thin liquid the patient demonstrated multiple swallows, delayed triggering of the swallow, and throat clearing and/or coughing after the swallow. Given patient's fluctuation in level of alertness dysphagia symptoms may be related to level of alertness. 06/17 14:30 Assessed with additional trials due determine if alertness level improved swallow function. Tsp thin, small controlled trials thin, applesauce/puree still note intermittent throat clearing and coughing after swallows due to delayed trigger for the swallow with multiple swallows at times. Recommend: NPO till MBS completed
--- NOTE | 2025-06-17 22:43 | PC.NURSE ---
This patient, Charity Mantilla, was transferred to [facility] on 06/17/25 at 2230. Personal belongings sent with patient. Report given to JOURDAN Carter. Appropriate documentation sent with patient.
--- NOTE | 2025-06-17 22:51 | PC.NURSE ---
Pt transferred from ICU-7 to 2nd Medical Room 249-1 via bed @[id number]. Pt brought with appropriate documentation and equipment. Report received from JOURDAN Hinojosa in ICU.
[2025-06-18] VITALS (11 sets, daily range): BP systolic 115–137; BP diastolic 49–71; PULSE 67–99; RESP 16–24; TEMP 36.4–36.7; O2SAT 94–98
[2025-06-18] MEDS: IPRATROPIUM 0.5 MG/ALBUTEROL SULFATE 2.5 MG (BASE) AMPUL.NEB 3 ML INHALATION ×3 (02:05→14:12)
[2025-06-18] MEDS: LACTATED RINGERS 1,000 ML 100 ML IV CONT ×2 (03:45→14:46)
[2025-06-18] MEDS: CENTRAL LINE FLUSH 10 ML IV PUSH ×3 (05:51→21:36)
[2025-06-18] MEDS: CENTRAL LINE FLUSH 20 ML IV PUSH (05:52)
[2025-06-18] MEDS: LEVOTHYROXINE SODIUM INJ 100 MCG/5 ML VIAL 62.5 MCG IV PUSH (05:56)
[2025-06-18 06:04] LABS: Hematocrit 36.2 % (37.0-47.0); Hemoglobin 11.3 g/dL (12.0-15.0); Mean Corpuscular HGB Conc 31.2 g/dl (32-36); Mean Corpuscular Hemoglobin 28.4 pg (26-34); Mean Corpuscular Volume 91.0 fl (80-100); Platelet Count Result 209 k/mm3 (150-375); Red Blood Count 3.98 M/mm3 (4.2-5.4); White Blood Count 6.9 K/mm3 (4.5-10.0)
[2025-06-18 07:06] LABS: Alanine Aminotransferase 134 U/L (6-35); Albumin Level 2.6 g/dL (3.5-5.1); Alkaline Phosphatase 54 U/L (38-126); Anion Gap 3 mmol/L (4-12); Aspartate Amino Transferase 247 U/L (14-36); Bilirubin,Total 0.4 mg/dL (0.2-1.3); Blood Urea Nitrogen 8 mg/dL (7-17); Calcium 7.8 mg/dL (8.4-10.2); Carbon Dioxide 29 mmol/L (22-30); Chloride 107 mmol/L (98-107); Creatine Kinase 9660 U/L (30-135); Estimated CRCL calculation 77 ml/min; Estimated Glomerular Filt Rate > 60; Glucose 77 mg/dL (65-110); Magnesium 1.8 mg/dL (1.6-2.3); Potassium 3.8 mmol/L (3.4-5.0); Sodium 139 mmol/L (137-145); Total Protein 5.1 g/dL (6.3-8.2)
[2025-06-18] MEDS: PANTOPRAZOLE SODIUM IV 40 MG VIAL IV PUSH (10:16)
[2025-06-18] MEDS: ENOXAPARIN 40 MG/0.4 ML SYRINGE SUB-Q (10:16)
[2025-06-18] MEDS: levETIRAcetam 1000MG/NACL100ML 1,000 MG/100 ML BAG 400 MG IVPB ×2 (10:16→21:36)
[2025-06-18] MEDS: ASPIRIN 81 MG CHEWABLE TABLET PO (10:16)
[2025-06-18] MEDS: MUPIROCIN 2% OINT 22 GM TUBE 1 APPLIC EACH NARE ×2 (10:16→21:36)
--- NOTE | 2025-06-18 10:27 | PCSTNOTE ---
Please refer to the Modified Barium Swallow Evaluation in the EMR. The patient is a 60-year-old female admitted with respiratory failure, hypoxia with a history of COPD. BSE revealed intermittent throat clearing and coughing after thin liquid and applesauce trials due to a delayed trigger for the swallow with multiple swallows at times. MBS was recommended. Pt was very lethargic upon entering xray for MBS testing; she was able to hold up her head at times but kept her eyes closed; sternal rub was used x1 during the test to awaken her. Upper dentures were placed in her mouth. Pt did not vocalize. Pt was seated for a lateral view and was presented with a thin liquid barium via a spoon, pudding coated with barium paste, a crumbled cracker coated with barium the pudding mixture, a small bite-sized piece of cracker, and then uncontrolled trials of thin liquid via a straw. Cup drinking was attempted but pt let the contents fall back into the cup. The oral stages were negatively impacted by the pt extreme lethargy. Pt often let the contents spill from her mouth, and/or required max verbal cues to stay awake and continue with swallowing. The small cracker piece was immediately spilled from her mouth without any attempt to masticate. During the more alert moments, the oral stage was essentially WFL. During the pharyngeal stage, the swallow was triggered timely without any instances of laryngeal penetration, aspiration, or residual. Impression: Lethargy interference during the oral stage; when pt is alert, swallowing is essentially WFL. No laryngeal penetration or aspiration occurred. Recommendation: Level 5 minced and moist diet which can be upgraded with increased level of alertness and level 0 regular/thin liquids. No ST is warranted at this time as it is felt the oral stage is only hampered by lethargy.
--- NOTE | 2025-06-18 10:51 | PCNFU ---
Nutrition Follow-Up Complete: Increased protein energy needs related to mechanical ventilation as evidenced by need for full tube feeds: Resolved Goal:Meet estimated protein energy needs pt progressing to goal via PO at this time Pt current nutrition is Minced and moist level 5 Diabetic diet. Nutrition recommendation: Add Glucerna shakes TID for an additional 220kcals, 10g protein per shake Last recorded weight is 71.4 kg. Bowel Motility: +BM 06/16 Labs Reviewed: Hgb:11.3, HCt:36.2, Alb:2.6, Cr:0.64 Meds Noted: protonix, lovenox, Lactated ringers. Skin: DTPI to left buttocks Additional Notes: Pt passed MBS with speech, recommendations for a minced and moist level 5 consistency and thin liquids. Orders to start today. Recommend to add Glucerna shakes TID. Agree with orders, encourage po intake of meals and supplements. Monitoring diet orders, weights, labs, meds, vitals, plan of care Follow up in 3 days.
--- NOTE | 2025-06-18 16:47 | PM.IMPN ---
Progress Note: A&P Assessment and Plan (1) Altered mental status: Code(s): R41.82 - Altered mental status, unspecified Status: Acute Assessment and Plan: Presented with altered mental status which has a wide differential and could be multifactorial Patient on chronic pain pump with fentanyl and patient did had improved response after administered Narcan. She also was hypoxic and was not wearing her oxygen and could have had seizure from hypoxia. Other possibilities hypercarbia due to underlying COPD. CVA is another possibility due to her abnormal exam at the time of presentation Head CT was neg ABG shows improvement She still has a fentanyl pump Continue Keppra EEG reviewed ABG reviewed Ammonia levels are normal (<9) Treatment of rhabdo as below Neurology consulted Brain MRI with symmetric restricted diffusion throughout the lentiform nuclei of bilateral basal ganglia. Chronic infarcts in the left parietal lobe and more prominently in the bilateral parietal occipital region (2) Acute respiratory failure: Qualifiers: Respiratory failure complication: hypoxia Qualified Code(s): J96.01 - Acute respiratory failure with hypoxia Code(s): J96.00 - Acute respiratory failure, unspecified whether with hypoxia or hypercapnia Status: Acute Assessment and Plan: Acute respiratory failure secondary to COPD and altered mental status ABG vent settings and chest x-ray reviewed 06/14: Intubated in the ER 06/16: Extubated -PT/OT has been ordered, up in chair -speech therapy for swallow evaluation Underwent modified barium swallow. Minced and moist (3) Non-ST elevation HI (NSTEMI): Code(s): I21.4 - Non-ST elevation (NSTEMI) myocardial infarction Status: Acute Assessment and Plan: Mild elevation in troponin likely secondary to demand ischemia EKG did show ST-T changes Patient was evaluated by Cardiology. No further recommendations. Hold statin due to rhabdomyolysis and elevated LFTs Contain aspirin 06/15/2025: Echocardiogram Summary 1. Left ventricular systolic function is normal, estimated at 65-70. 2. There is mildly increased left ventricular wall thickness. 3. The left ventricular diastolic function is grade I diastolic dysfunction. 4. There is trace tricuspid valve regurgitation. 5. No pulmonary hypertension, estimated pulmonary arterial systolic pressure is 25 mmHg. (4) Hypothyroidism: Qualifiers: Hypothyroidism type: unspecified Qualified Code(s): E03.9 - Hypothyroidism, unspecified Code(s): E03.9 - Hypothyroidism, unspecified Status: Acute Assessment and Plan: Continue levothyroxine. It was changed to IV at the time of admission TSH elevated with low T3 level (5) Acute kidney injury: Code(s): N17.9 - Acute kidney failure, unspecified Status: Acute Assessment and Plan: Presented with elevated creatinine of 1.55. Patient also had rhabdomyolysis. Baseline creatinine unknown but creatinine has normalized to normal levels with IV fluids Continue IV fluid CK levels remain significantly elevated Monitor and replace electrolytes Monitor urine output and creatinine CT abdomen pelvis negative for any obstruction or stones -continue maintenance fluids, will decrease the rate as patient was diuresed yesterday prior to extubation (6) Sepsis: Qualifiers: Sepsis type: sepsis due to unspecified organism Sepsis acute organ dysfunction status: with acute organ dysfunction Severe sepsis acute organ dysfunction type: acute renal failure Acute renal failure type: unspecified Severe sepsis shock status: without septic shock Qualified Code(s): A41.9 - Sepsis, unspecified organism; R65.20 - Severe sepsis without septic shock; N17.9 - Acute kidney failure, unspecified Code(s): A41.9 - Sepsis, unspecified organism Status: Acute Assessment and Plan: UA suggestive UTI 06/14: Blood cultures: No growth 09/03 bottles 06/14: Urine culture: No gross Patient on broad-spectrum antibiotics in the form of vancomycin and cefepime (7) Rhabdomyolysis: Qualifiers: Rhabdomyolysis type: non-traumatic Qualified Code(s): M62.82 - Rhabdomyolysis Code(s): M62.82 - Rhabdomyolysis Status: Acute Assessment and Plan: Rhabdomyolysis secondary to laying in bed for prolonged period of time versus seizure versus cocaine use Aggressive IV fluid CK level is still > 16K I spoke to lab and our machine is unable to give accurate number of of 16,000. If we send it out it may not be back in 2-3 days hence defeat the purpose. Will continue IV fluids. Will give Lasix. Monitor electrolytes Changed to LR (8) Seizures: Code(s): R56.9 - Unspecified convulsions Status: Acute Assessment and Plan: There is a questionable history of seizures. Patient may have had seizure from hypoxia and was postictal at the time of presentation. She also had some jerking movement of the body when Narcan was administered. She is on Keppra. Head CT was negative on admission. Appreciate neurology following the patient 06/16: EEG: Abnormal record due to the absence of normal background rhythm and due to the presence of excessive amount of slow activity. These abnormalities are suggestive of underlying organic or metabolic encephalopathy or postictal state. Clinical correlation recommended. Patient has been placed on Keppra which will be continued (9) COPD with asthma: Code(s): J44.89 - Other specified chronic obstructive pulmonary disease Status: Acute Assessment and Plan: History of COPD. Not in n exacerbation. Continue Bronchodilators (10) Electrolyte abnormality: Code(s): E87.8 - Other disorders of electrolyte and fluid balance, not elsewhere classified Status: Acute Assessment and Plan: Replacement phosphorus Plan DVT prophylaxis -Lovenox Stress ulcer prophylaxis -PPI Nutrition -minced and moist however not safe for oral diet PT/OT has been order Code Status - Full Code Subjective Date/time seen: 06/18/25 16:47 Interval history: Patient was transferred out of the ICU yesterday. Patient still very somnolent. Family at bedside and discussed with him. She underwent MBS earlier today. Review of Systems Review of Systems: ROS unobtainable: Yes unobtainable due to mental status Exam Narrative: General: Patient is somnolent, in no acute distress HEENT: Pupils equal and reactive, sclera is clear, moist oral mucosa Lungs/Chest: Trachea central Coarse BS B/L, No crackles or wheezing. Adequate air entry Cardiac: RRR. Normal S1 S2. No murmurs Abdomen: Soft, nontender, nondistended, hypoactive bowel sounds Extremities: No clubbing, cyanosis or edema. Warm, palpable pedal pulse : Del Castillo in place Neurologic: Patient is somnolent moving her extremities Objective Data Vital Signs Vital Signs: Vital Signs - 24 hr 06/17/25 20:00 06/17/25 20:20 06/17/25 20:25 Temperature Pulse Rate 73 Respiratory Rate 16 Blood Pressure Pulse Oximetry 94 95 Oxygen Delivery Nasal Cannula Nasal Cannula Oxygen Flow Rate 3 2 06/17/25 20:30 06/17/25 20:57 06/17/25 22:58 Temperature 99.2 F Pulse Rate 77 78 Respiratory Rate 16 22 H Blood Pressure 144/80 H Pulse Oximetry 94 94 Oxygen Delivery Nasal Cannula Oxygen Flow Rate 3 06/18/25 02:05 06/18/25 02:10 06/18/25 08:00 Temperature Pulse Rate 68 70 73 Respiratory Rate 16 16 16 Blood Pressure 115/49 L Pulse Oximetry 94 Oxygen Delivery Oxygen Flow Rate 06/18/25 08:08 06/18/25 08:17 06/18/25 10:15 Temperature Pulse Rate 67 69 Respiratory Rate 16 16 Blood Pressure Pulse Oximetry 94 Oxygen Delivery Nasal Cannula Oxygen Flow Rate 3 06/18/25 13:17 06/18/25 13:35 06/18/25 14:12 Temperature Pulse Rate 90 Respiratory Rate 16 Blood Pressure Pulse Oximetry Oxygen Delivery Nasal Cannula High Flow Therapy with Na Oxygen Flow Rate 2.5 2.5 06/18/25 14:20 06/18/25 15:23 Temperature 97.5 F L Pulse Rate 90 82 Respiratory Rate 16 24 H Blood Pressure 118/60 Pulse Oximetry 98 Oxygen Delivery Oxygen Flow Rate Intake/Output Intake/Output: Intake & Output 06/15/25 06/16/25 06/17/25 06/18/25 23:59 23:59 23:59 23:59 Intake Total 3769.1 5388.6 2718.3 2100 Output Total 610 5200 1750 600 Balance 3159.1 188.6 968.3 1500 Meds/Results Medications: Active Medications Generic Name Dose Route Start Last Admin Trade Name Freq PRN Reason Stop Dose Admin Acetaminophen 650 mg 06/14/25 21:15 Acetaminophen 325 Mg Tablet PO Q4H PRN Mild Pain (1-3) or Fever Albuterol/Ipratropium 3 ml 06/17/25 14:00 06/18/25 14:12 Ipratropium 0.5 Mg/Albuterol Sulfate 2.5 Mg (Base) Ampul.Neb 3 Ml INHALATION 3 ml Q6HRT KILLIAN Administration Aspirin 81 mg 06/18/25 08:00 06/18/25 10:16 Aspirin 81 Mg Chewable Tablet PO 81 mg DAILY@0800 KILLIAN Administration Enoxaparin Sodium 40 mg 06/15/25 09:00 06/18/25 10:16 Enoxaparin 40 Mg/0.4 Ml Syringe SUB-Q 40 mg DAILY KILLIAN Administration Levetiracetam 1,000 mg in 100 mls @ 400 mls/hr 06/15/25 09:00 06/18/25 11:00 Keppra Iv IVPB Infused Q12HR KILLIAN Infusion Lactated Ringer's 1,000 mls @ 100 mls/hr 06/16/25 08:20 06/18/25 14:46 Lr - Lactated Ringers Iv IV CONT 100 mls/hr .Q10H KILLIAN Administration Levothyroxine Sodium 62.5 mcg 06/15/25 06:30 06/18/25 05:56 Levothyroxine Sodium Inj 100 Mcg/5 Ml Vial IV PUSH 62.5 mcg DAILY@0630 KILLIAN Administration Mupirocin 1 applic 06/14/25 23:00 06/18/25 10:16 Mupirocin 2% Oint 22 Gm Tube EACH NARE 06/19/25 09:01 1 applic Q12HR KILLIAN Administration Pantoprazole Sodium 40 mg 06/15/25 09:00 06/18/25 10:16 Pantoprazole Sodium Iv 40 Mg Vial IV PUSH 40 mg DAILY KILLIAN Administration Sodium Chloride 10 ml 06/15/25 14:00 06/18/25 13:08 Central Line Flush IV PUSH 10 ml Q8HR KILLIAN Administration Sodium Chloride 10 ml 06/15/25 11:56 Central Line Flush IV PUSH PRN PRN with TPN bag changes Sodium Chloride 20 ml 06/15/25 11:56 06/18/25 05:52 Central Line Flush IV PUSH 20 ml PRN PRN Administration after blood draws Radiology Results: ITS Impressions Head CT 06/14/25 16:39 Impression: 1. Extremely limited exam . Age-indeterminate areas of ischemia detailed above. MRI is recommended to assess Abdomen X-Ray 06/14/25 17:29 Impression: 1. No acute abnormality. Head/Neck CTA 06/14/25 19:09 IMPRESSION: No hemodynamically significant stenosis is noted of the cervical and intracranial arterial vasculature. Chest/Abdomen/Pelvis CT 06/14/25 22:26 IMPRESSION: No acute cardiopulmonary process. No pathologic enhancement is noted. No pathologically enlarged mediastinal lymphadenopathy is noted. CT abdomen and pelvis with contrast: The liver parenchyma is unremarkable. No intrahepatic mass or ductal dilatation is evident. The patient has had a cholecystectomy. Common bile duct is dilated measuring 1.5 cm. The pancreas and spleen are normal in appearance. The adrenal glands are symmetric in size. The kidneys demonstrate symmetric uptake and excretion of contrast. No cystic mass is evident. There is no solid mass. There is no hydronephrosis. The stomach and bowel loops are unremarkable. The bladder and rectum are normal. No free intraperitoneal fluid or air is evident. There is no significant retroperitoneal lymphadenopathy. The aorta, visceral vessels and renal arteries demonstrate normal caliber and patency. The lower thoracic and lumbar vertebrae are in normal alignment. There is a symmetric enlargement and stranding of the left piriformis. IMPRESSION: Asymmetric enlargement and stranding of the left piriformis may represent myositis. All CT scans at this facility are performed using low dose modulation techniques as appropriate to perform exam including the following: automated exposure control; use of iterative reconstruction technique; adjustment of the mA and/or kV according to patient size (this includes techniques or standardized protocols for targeted exams where dose is matched to indication/reason for exam) Brain MRI 06/17/25 11:40 IMPRESSION: 1. Symmetric restricted diffusion throughout the lentiform nuclei of the bilateral basal ganglia. Although differential would include acute infarcts, this more likely artifactual related to the corresponding susceptibility artifact seen on the T2* weighted imaging. Differential for the susceptibility weighted artifact would include age-related dystrophic calcifications in multiple neurodegenerative, metabolic or toxic exposures including methanol or carbon monoxide toxicity, Mono's disease, hyperammonemia, hypoglycemia and uremic encephalopathy/metabolic acidosis and chronic blood products associated chronic microhemorrhage as could be seen with hypertension. 2. 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 Chest X-Ray 06/18/25 08:10 IMPRESSION: 1. No significant change or worsening. 2. Probable mild interstitial pulmonary edema and/or pneumonitis superimposed on emphysema. 3. No findings of lobar pneumonia. Modified Barium Swallow 06/18/25 09:52 IMPRESSION: Patient tolerated regular consistency oral feedings in the upright position. Please correlate with speech pathologist findings and specific feeding recommendations. Labs Labs: Laboratory Results - last 24 hr 06/17/25 06/18/25 06/18/25 17:22 05:49 05:52 WBC 6.9 RBC 3.98 L Hgb 11.3 L Hct 36.2 L MCV 91.0 MCH 28.4 MCHC 31.2 L RDW 13.5 Plt Count 209 MPV 10.0 Sodium 139 Potassium 3.8 Chloride 107 Carbon Dioxide 29 Anion Gap 3 L BUN 8 Creatinine 0.64 L Estim Creat Clear Calc 77 Estimated GFR > 60 Glucose 77 POC Capillary Glucose 95 81 Calcium 7.8 L Phosphorus 3.1 Magnesium 1.8 Total Bilirubin 0.4 AST 247 H ALT 134 H Alkaline Phosphatase 54 Total Creatine Kinase 9660 H Total Protein 5.1 L Albumin 2.6 L 06/18/25 13:43 WBC RBC Hgb Hct MCV MCH MCHC RDW Plt Count MPV Sodium Potassium Chloride Carbon Dioxide Anion Gap BUN Creatinine Estim Creat Clear Calc Estimated GFR Glucose POC Capillary Glucose 96 Calcium Phosphorus Magnesium Total Bilirubin AST ALT Alkaline Phosphatase Total Creatine Kinase Total Protein Albumin
[2025-06-19] VITALS (11 sets, daily range): BP systolic 133–149; BP diastolic 71–76; PULSE 78–104; RESP 18–20; TEMP 36.3–36.8; O2SAT 92–99
[2025-06-19] MEDS: LEVOTHYROXINE SODIUM INJ 100 MCG/5 ML VIAL 62.5 MCG IV PUSH (05:36)
[2025-06-19 05:37] LABS: Hematocrit 38.7 % (37.0-47.0); Hemoglobin 12.1 g/dL (12.0-15.0); Mean Corpuscular HGB Conc 31.3 g/dl (32-36); Mean Corpuscular Hemoglobin 28.3 pg (26-34); Mean Corpuscular Volume 90.6 fl (80-100); Platelet Count Result 221 k/mm3 (150-375); Red Blood Count 4.27 M/mm3 (4.2-5.4); White Blood Count 7.5 K/mm3 (4.5-10.0)
[2025-06-19] MEDS: CENTRAL LINE FLUSH 10 ML IV PUSH ×3 (05:37→20:28)
[2025-06-19 05:55] LABS: Alanine Aminotransferase 125 U/L (6-35); Albumin Level 2.8 g/dL (3.5-5.1); Alkaline Phosphatase 53 U/L (38-126); Anion Gap 1 mmol/L (4-12); Aspartate Amino Transferase 188 U/L (14-36); Bilirubin,Total 0.6 mg/dL (0.2-1.3); Blood Urea Nitrogen 11 mg/dL (7-17); Calcium 8.2 mg/dL (8.4-10.2); Carbon Dioxide 31 mmol/L (22-30); Chloride 106 mmol/L (98-107); Estimated CRCL calculation 76 ml/min; Estimated Glomerular Filt Rate > 60; Glucose 102 mg/dL (65-110); Magnesium 2.0 mg/dL (1.6-2.3); Potassium 3.6 mmol/L (3.4-5.0); Sodium 138 mmol/L (137-145); Total Protein 5.4 g/dL (6.3-8.2)
[2025-06-19 06:20] LABS: Creatine Kinase 5448 U/L (30-135)
[2025-06-19] MEDS: IPRATROPIUM 0.5 MG/ALBUTEROL SULFATE 2.5 MG (BASE) AMPUL.NEB 3 ML INHALATION ×3 (07:39→22:18)
[2025-06-19] MEDS: ASPIRIN 81 MG CHEWABLE TABLET PO (08:56)
[2025-06-19] MEDS: ENOXAPARIN 40 MG/0.4 ML SYRINGE SUB-Q (08:56)
[2025-06-19] MEDS: levETIRAcetam 1000MG/NACL100ML 1,000 MG/100 ML BAG 400 MG IVPB ×2 (08:56→20:20)
[2025-06-19] MEDS: PANTOPRAZOLE SODIUM IV 40 MG VIAL IV PUSH (08:57)
[2025-06-19] MEDS: MUPIROCIN 2% OINT 22 GM TUBE 1 APPLIC EACH NARE (08:58)
--- NOTE | 2025-06-19 12:59 | P.PNIM_ITS ---
Progress Note: A&P Assessment and Plan (1) Altered mental status: Code(s): R41.82 - Altered mental status, unspecified Status: Acute Assessment and Plan: Presented with altered mental status which has a wide differential and could be multifactorial Patient on chronic pain pump with fentanyl and patient did had improved response after administered Narcan. She also was hypoxic and was not wearing her oxygen and could have had seizure from hypoxia. Other possibilities hypercarbia due to underlying COPD. CVA is another possibility due to her abnormal exam at the time of presentation Head CT was neg ABG shows improvement She still has a fentanyl pump Continue Keppra EEG reviewed ABG reviewed Ammonia levels are normal (<9) Treatment of rhabdo as below Neurology consulted Brain MRI with symmetric restricted diffusion throughout the lentiform nuclei of bilateral basal ganglia. 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 Off IV fluid now. Improving mentation (2) Acute respiratory failure: Qualifiers: Respiratory failure complication: hypoxia Qualified Code(s): J96.01 - Acute respiratory failure with hypoxia Code(s): J96.00 - Acute respiratory failure, unspecified whether with hypoxia or hypercapnia Status: Acute Assessment and Plan: Acute respiratory failure secondary to COPD and altered mental status ABG vent settings and chest x-ray reviewed 06/14: Intubated in the ER 06/16: Extubated -PT/OT has been ordered, up in chair -speech therapy for swallow evaluation Underwent modified barium swallow. Minced and moist diet (3) Non-ST elevation AK (NSTEMI): Code(s): I21.4 - Non-ST elevation (NSTEMI) myocardial infarction Status: Acute Assessment and Plan: Mild elevation in troponin likely secondary to demand ischemia EKG did show ST-T changes Patient was evaluated by Cardiology. No further recommendations. Hold statin due to rhabdomyolysis and elevated LFTs Contain aspirin 06/15/2025: Echocardiogram Summary 1. Left ventricular systolic function is normal, estimated at 65-70. 2. There is mildly increased left ventricular wall thickness. 3. The left ventricular diastolic function is grade I diastolic dysfunction. 4. There is trace tricuspid valve regurgitation. 5. No pulmonary hypertension, estimated pulmonary arterial systolic pressure is 25 mmHg. (4) Hypothyroidism: Qualifiers: Hypothyroidism type: unspecified Qualified Code(s): E03.9 - Hypothyroidism, unspecified Code(s): E03.9 - Hypothyroidism, unspecified Status: Acute Assessment and Plan: Continue levothyroxine. It was changed to IV at the time of admission TSH elevated with low T3 level (5) Acute kidney injury: Code(s): N17.9 - Acute kidney failure, unspecified Status: Acute Assessment and Plan: Presented with elevated creatinine of 1.55. Patient also had rhabdomyolysis. Baseline creatinine unknown but creatinine has normalized to normal levels with IV fluids Continue IV fluid CK levels remain significantly elevated Monitor and replace electrolytes Monitor urine output and creatinine CT abdomen pelvis negative for any obstruction or stones -continue maintenance fluids, will decrease the rate as patient was diuresed yesterday prior to extubation Stop IV fluids 06/18/2025 Encourage oral intake CKD improving (6) Sepsis: Qualifiers: Sepsis type: sepsis due to unspecified organism Sepsis acute organ dysfunction status: with acute organ dysfunction Severe sepsis acute organ dysfunction type: acute renal failure Acute renal failure type: unspecified Severe sepsis shock status: without septic shock Qualified Code(s): A41.9 - Sepsis, unspecified organism; R65.20 - Severe sepsis without septic shock; N17.9 - Acute kidney failure, unspecified Code(s): A41.9 - Sepsis, unspecified organism Status: Acute Assessment and Plan: UA suggestive UTI 06/14: Blood cultures: No growth 09/03 bottles 06/14: Urine culture: No growth Patient on broad-spectrum antibiotics in the form of vancomycin and cefepime Completed antibiotics course (7) Rhabdomyolysis: Qualifiers: Rhabdomyolysis type: non-traumatic Qualified Code(s): M62.82 - Rhabdomyolysis Code(s): M62.82 - Rhabdomyolysis Status: Acute Assessment and Plan: Rhabdomyolysis secondary to laying in bed for prolonged period of time versus seizure versus cocaine use Aggressive IV fluid CK level is still > 16K I spoke to lab and our machine is unable to give accurate number of of 16,000. If we send it out it may not be back in 2-3 days hence defeat the purpose. Will continue IV fluids. Will give Lasix. Monitor electrolytes Changed to LR Off IV fluids CK down trending (8) Seizures: Code(s): R56.9 - Unspecified convulsions Status: Acute Assessment and Plan: There is a questionable history of seizures. Patient may have had seizure from hypoxia and was postictal at the time of presentation. She also had some jerking movement of the body when Narcan was administered. She is on Keppra. Head CT was negative on admission. Appreciate neurology following the patient 06/16: EEG: Abnormal record due to the absence of normal background rhythm and due to the presence of excessive amount of slow activity. These abnormalities are suggestive of underlying organic or metabolic encephalopathy or postictal state. Clinical correlation recommended. Patient has been placed on Keppra which will be continued (9) COPD with asthma: Code(s): J44.89 - Other specified chronic obstructive pulmonary disease Status: Acute Assessment and Plan: History of COPD. Not in n exacerbation. Continue Bronchodilators (10) Electrolyte abnormality: Code(s): E87.8 - Other disorders of electrolyte and fluid balance, not elsewhere classified Status: Acute Assessment and Plan: Replacement phosphorus Plan DVT prophylaxis -Lovenox Stress ulcer prophylaxis -PPI Nutrition -minced and moist however not safe for oral diet PT/OT has been order Code Status - Full Code Subjective Date/time seen: 06/19/25 12:59 Interval history: No overnight events. Patient more awake today. Denies any chest pain or shortness of breath. Remains afebrile. Review of Systems Review of Systems: All systems reviewed & are unremarkable except as noted in HPI and below ROS unobtainable: Yes unobtainable due to mental status Exam Narrative: General: Patient is awake alert oriented x3, in no acute distress HEENT: Pupils equal and reactive, sclera is clear, moist oral mucosa Lungs/Chest: Trachea central Coarse BS B/L, No crackles or wheezing. Adequate air entry Cardiac: RRR. Normal S1 S2. No murmurs Abdomen: Soft, nontender, nondistended, hypoactive bowel sounds Extremities: No clubbing, cyanosis or edema. Warm, palpable pedal pulse : Del Castillo in place Neurologic: Patient is awake alert oriented x3, no focal deficits, moving all her extremities Objective Data Vital Signs Vital Signs: Vital Signs - 24 hr 06/18/25 13:17 06/18/25 13:35 06/18/25 14:12 Temperature Pulse Rate 90 Respiratory Rate 16 Blood Pressure Pulse Oximetry Oxygen Delivery Nasal Cannula High Flow Therapy with Na Oxygen Flow Rate 2.5 2.5 Fraction of Inspired Oxygen 06/18/25 14:20 06/18/25 15:23 06/18/25 20:00 Temperature 97.5 F L Pulse Rate 90 82 Respiratory Rate 16 24 H Blood Pressure 118/60 Pulse Oximetry 98 94 Oxygen Delivery Nasal Cannula Oxygen Flow Rate 3 Fraction of Inspired Oxygen 06/18/25 21:29 06/19/25 06:42 06/19/25 07:40 Temperature 98.0 F 98.2 F Pulse Rate 99 100 82 Respiratory Rate 20 20 20 Blood Pressure 137/71 149/72 H Pulse Oximetry 94 93 Oxygen Delivery Oxygen Flow Rate Fraction of Inspired Oxygen 06/19/25 07:46 06/19/25 08:00 06/19/25 08:48 Temperature Pulse Rate 84 Respiratory Rate 20 Blood Pressure Pulse Oximetry 92 92 Oxygen Delivery Nasal Cannula Nasal Cannula Oxygen Flow Rate 2 2 Fraction of Inspired Oxygen 28 Intake/Output Intake/Output: Intake & Output 06/16/25 06/17/25 06/18/25 06/19/25 23:59 23:59 23:59 23:59 Intake Total 5388.6 2718.3 2500 320 Output Total 5200 1750 1250 400 Balance 188.6 968.3 1250 -80 Meds/Results Medications: Active Medications Generic Name Dose Route Start Last Admin Trade Name Freq PRN Reason Stop Dose Admin Acetaminophen 650 mg 06/14/25 21:15 Acetaminophen 325 Mg Tablet PO Q4H PRN Mild Pain (1-3) or Fever Albuterol/Ipratropium 3 ml 06/17/25 14:00 06/19/25 08:53 Ipratropium 0.5 Mg/Albuterol Sulfate 2.5 Mg (Base) Ampul.Neb 3 Ml INHALATION Not Given Q6HRT [facility] Aspirin 81 mg 06/18/25 08:00 06/19/25 08:56 Aspirin 81 Mg Chewable Tablet PO 81 mg DAILY@0800 KILLIAN Administration Enoxaparin Sodium 40 mg 06/15/25 09:00 06/19/25 08:56 Enoxaparin 40 Mg/0.4 Ml Syringe SUB-Q 40 mg DAILY KILLIAN Administration Levetiracetam 1,000 mg in 100 mls @ 400 mls/hr 06/15/25 09:00 06/19/25 08:56 Keppra Iv IVPB 400 mls/hr Q12HR KILLIAN Administration Levothyroxine Sodium 62.5 mcg 06/15/25 06:30 06/19/25 05:36 Levothyroxine Sodium Inj 100 Mcg/5 Ml Vial IV PUSH 62.5 mcg DAILY@0630 KILLIAN Administration Pantoprazole Sodium 40 mg 06/15/25 09:00 06/19/25 08:57 Pantoprazole Sodium Iv 40 Mg Vial IV PUSH 40 mg DAILY KILLIAN Administration Sodium Chloride 10 ml 06/15/25 14:00 06/19/25 05:37 Central Line Flush IV PUSH 10 ml Q8HR KILLIAN Administration Sodium Chloride 10 ml 06/15/25 11:56 Central Line Flush IV PUSH PRN PRN with TPN bag changes Sodium Chloride 20 ml 06/15/25 11:56 06/18/25 05:52 Central Line Flush IV PUSH 20 ml PRN PRN Administration after blood draws Radiology Results: ITS Impressions Head CT 06/14/25 16:39 Impression: 1. Extremely limited exam . Age-indeterminate areas of ischemia detailed above. MRI is recommended to assess Abdomen X-Ray 06/14/25 17:29 Impression: 1. No acute abnormality. Head/Neck CTA 06/14/25 19:09 IMPRESSION: No hemodynamically significant stenosis is noted of the cervical and intracranial arterial vasculature. Chest/Abdomen/Pelvis CT 06/14/25 22:26 IMPRESSION: No acute cardiopulmonary process. No pathologic enhancement is noted. No pathologically enlarged mediastinal lymphadenopathy is noted. CT abdomen and pelvis with contrast: The liver parenchyma is unremarkable. No intrahepatic mass or ductal dilatation is evident. The patient has had a cholecystectomy. Common bile duct is dilated measuring 1.5 cm. The pancreas and spleen are normal in appearance. The adrenal glands are symmetric in size. The kidneys demonstrate symmetric uptake and excretion of contrast. No cystic mass is evident. There is no solid mass. There is no hydronephrosis. The stomach and bowel loops are unremarkable. The bladder and rectum are normal. No free intraperitoneal fluid or air is evident. There is no significant retroperitoneal lymphadenopathy. The aorta, visceral vessels and renal arteries demonstrate normal caliber and patency. The lower thoracic and lumbar vertebrae are in normal alignment. There is a symmetric enlargement and stranding of the left piriformis. IMPRESSION: Asymmetric enlargement and stranding of the left piriformis may represent myositis. All CT scans at this facility are performed using low dose modulation techniques as appropriate to perform exam including the following: automated exposure control; use of iterative reconstruction technique; adjustment of the mA and/or kV according to patient size (this includes techniques or standardized protocols for targeted exams where dose is matched to indication/reason for exam) Brain MRI 06/17/25 11:40 IMPRESSION: 1. Symmetric restricted diffusion throughout the lentiform nuclei of the bilateral basal ganglia. Although differential would include acute infarcts, this more likely artifactual related to the corresponding susceptibility artifact seen on the T2* weighted imaging. Differential for the susceptibility weighted artifact would include age-related dystrophic calcifications in multiple neurodegenerative, metabolic or toxic exposures including methanol or carbon monoxide toxicity, Mono's disease, hyperammonemia, hypoglycemia and uremic encephalopathy/metabolic acidosis and chronic blood products associated chronic microhemorrhage as could be seen with hypertension. 2. 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 Chest X-Ray 06/18/25 08:10 IMPRESSION: 1. No significant change or worsening. 2. Probable mild interstitial pulmonary edema and/or pneumonitis superimposed on emphysema. 3. No findings of lobar pneumonia. Modified Barium Swallow 06/18/25 09:52 IMPRESSION: Patient tolerated regular consistency oral feedings in the upright position. Please correlate with speech pathologist findings and specific feeding recommendations. Labs Labs: Laboratory Results - last 24 hr 06/18/25 06/19/25 13:43 05:33 WBC 7.5 RBC 4.27 Hgb 12.1 Hct 38.7 MCV 90.6 MCH 28.3 MCHC 31.3 L RDW 13.7 Plt Count 221 MPV 9.9 Sodium 138 Potassium 3.6 Chloride 106 Carbon Dioxide 31 H Anion Gap 1 L BUN 11 Creatinine 0.65 L Estim Creat Clear Calc 76 Estimated GFR > 60 Glucose 102 POC Capillary Glucose 96 Calcium 8.2 L Phosphorus 3.2 Magnesium 2.0 Total Bilirubin 0.6 AST 188 H ALT 125 H Alkaline Phosphatase 53 Total Creatine Kinase 5448 H Total Protein 5.4 L Albumin 2.8 L
[2025-06-19] MEDS: ACETAMINOPHEN 325 MG TABLET 650 MG PO (20:36)
[2025-06-20] VITALS (14 sets, daily range): BP systolic 108–135; BP diastolic 62–81; PULSE 64–102; RESP 16–20; TEMP 36.4–36.7; O2SAT 93–97
[2025-06-20] MEDS: IPRATROPIUM 0.5 MG/ALBUTEROL SULFATE 2.5 MG (BASE) AMPUL.NEB 3 ML INHALATION ×4 (03:14→20:17)
[2025-06-20] MEDS: SODIUM CHLORIDE 0.9% IV 1,000 ML 75 ML IV CONT (04:02)
[2025-06-20 04:06] LABS: Hematocrit 38.5 % (37.0-47.0); Hemoglobin 12.2 g/dL (12.0-15.0); Mean Corpuscular HGB Conc 31.7 g/dl (32-36); Mean Corpuscular Hemoglobin 28.4 pg (26-34); Mean Corpuscular Volume 89.5 fl (80-100); Platelet Count Result 219 k/mm3 (150-375); Red Blood Count 4.30 M/mm3 (4.2-5.4); White Blood Count 7.6 K/mm3 (4.5-10.0)
[2025-06-20 05:23] LABS: Alanine Aminotransferase 104 U/L (6-35); Albumin Level 2.7 g/dL (3.5-5.1); Alkaline Phosphatase 57 U/L (38-126); Anion Gap 0 mmol/L (4-12); Aspartate Amino Transferase 119 U/L (14-36); Bilirubin,Total 0.5 mg/dL (0.2-1.3); Blood Urea Nitrogen 14 mg/dL (7-17); Calcium 8.1 mg/dL (8.4-10.2); Carbon Dioxide 32 mmol/L (22-30); Chloride 106 mmol/L (98-107); Estimated CRCL calculation 71 ml/min; Estimated Glomerular Filt Rate > 60; Glucose 123 mg/dL (65-110); Magnesium 2.2 mg/dL (1.6-2.3); Potassium 3.4 mmol/L (3.4-5.0); Sodium 138 mmol/L (137-145); Total Protein 5.2 g/dL (6.3-8.2)
[2025-06-20 05:26] LABS: Creatine Kinase 2756 U/L (30-135)
[2025-06-20] MEDS: CENTRAL LINE FLUSH 10 ML IV PUSH ×3 (05:38→21:40)
[2025-06-20] MEDS: levETIRAcetam 1000MG/NACL100ML 1,000 MG/100 ML BAG 400 MG IVPB ×2 (10:49→21:40)
[2025-06-20] MEDS: ASPIRIN 81 MG CHEWABLE TABLET PO (10:49)
[2025-06-20] MEDS: ENOXAPARIN 40 MG/0.4 ML SYRINGE SUB-Q (10:49)
[2025-06-20] MEDS: PANTOPRAZOLE SODIUM IV 40 MG VIAL IV PUSH (10:49)
--- NOTE | 2025-06-20 12:59 | P.PNIM_ITS ---
Progress Note: A&P Assessment and Plan (1) Altered mental status: Code(s): R41.82 - Altered mental status, unspecified Status: Acute Assessment and Plan: Presented with altered mental status which has a wide differential and could be multifactorial Patient on chronic pain pump with fentanyl and patient did had improved response after administered Narcan. She also was hypoxic and was not wearing her oxygen and could have had seizure from hypoxia. Other possibilities hypercarbia due to underlying COPD. CVA is another possibility due to her abnormal exam at the time of presentation Head CT was neg ABG shows improvement She still has a fentanyl pump Continue Keppra EEG reviewed ABG reviewed Ammonia levels are normal (<9) Treatment of rhabdo as below Neurology consulted Brain MRI with symmetric restricted diffusion throughout the lentiform nuclei of bilateral basal ganglia. 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 Off IV fluid now. Improving mentation (2) Acute respiratory failure: Qualifiers: Respiratory failure complication: hypoxia Qualified Code(s): J96.01 - Acute respiratory failure with hypoxia Code(s): J96.00 - Acute respiratory failure, unspecified whether with hypoxia or hypercapnia Status: Acute Assessment and Plan: Acute respiratory failure secondary to COPD and altered mental status ABG vent settings and chest x-ray reviewed 06/14: Intubated in the ER 06/16: Extubated -PT/OT has been ordered, up in chair -speech therapy for swallow evaluation Underwent modified barium swallow. Minced and moist diet (3) Non-ST elevation [place] (NSTEMI): Code(s): I21.4 - Non-ST elevation (NSTEMI) myocardial infarction Status: Acute Assessment and Plan: Mild elevation in troponin likely secondary to demand ischemia EKG did show ST-T changes Patient was evaluated by Cardiology. No further recommendations. Hold statin due to rhabdomyolysis and elevated LFTs Contain aspirin 06/15/2025: Echocardiogram Summary 1. Left ventricular systolic function is normal, estimated at 65-70. 2. There is mildly increased left ventricular wall thickness. 3. The left ventricular diastolic function is grade I diastolic dysfunction. 4. There is trace tricuspid valve regurgitation. 5. No pulmonary hypertension, estimated pulmonary arterial systolic pressure is 25 mmHg. (4) Hypothyroidism: Qualifiers: Hypothyroidism type: unspecified Qualified Code(s): E03.9 - Hypothyroidism, unspecified Code(s): E03.9 - Hypothyroidism, unspecified Status: Acute Assessment and Plan: Continue levothyroxine. It was changed to IV at the time of admission TSH elevated with low T3 level (5) Acute kidney injury: Code(s): N17.9 - Acute kidney failure, unspecified Status: Acute Assessment and Plan: Presented with elevated creatinine of 1.55. Patient also had rhabdomyolysis. Baseline creatinine unknown but creatinine has normalized to normal levels with IV fluids Continue IV fluid CK levels remain significantly elevated Monitor and replace electrolytes Monitor urine output and creatinine CT abdomen pelvis negative for any obstruction or stones -continue maintenance fluids, will decrease the rate as patient was diuresed yesterday prior to extubation Stop IV fluids 06/18/2025 Encourage oral intake CKD improving (6) Sepsis: Qualifiers: Sepsis type: sepsis due to unspecified organism Sepsis acute organ dysfunction status: with acute organ dysfunction Severe sepsis acute organ dysfunction type: acute renal failure Acute renal failure type: unspecified Severe sepsis shock status: without septic shock Qualified Code(s): A41.9 - Sepsis, unspecified organism; R65.20 - Severe sepsis without septic shock; N17.9 - Acute kidney failure, unspecified Code(s): A41.9 - Sepsis, unspecified organism Status: Acute Assessment and Plan: UA suggestive UTI 06/14: Blood cultures: No growth 09/03 bottles 06/14: Urine culture: No growth Patient on broad-spectrum antibiotics in the form of vancomycin and cefepime Completed antibiotics course (7) Rhabdomyolysis: Qualifiers: Rhabdomyolysis type: non-traumatic Qualified Code(s): M62.82 - Rhabdomyolysis Code(s): M62.82 - Rhabdomyolysis Status: Acute Assessment and Plan: Rhabdomyolysis secondary to laying in bed for prolonged period of time versus seizure versus cocaine use Aggressive IV fluid CK level is still > 16K I spoke to lab and our machine is unable to give accurate number of of 16,000. If we send it out it may not be back in 2-3 days hence defeat the purpose. Will continue IV fluids. Will give Lasix. Monitor electrolytes Changed to LR Off IV fluids CK down trending (8) Seizures: Code(s): R56.9 - Unspecified convulsions Status: Acute Assessment and Plan: There is a questionable history of seizures. Patient may have had seizure from hypoxia and was postictal at the time of presentation. She also had some jerking movement of the body when Narcan was administered. She is on Keppra. Head CT was negative on admission. Appreciate neurology following the patient 06/16: EEG: Abnormal record due to the absence of normal background rhythm and due to the presence of excessive amount of slow activity. These abnormalities are suggestive of underlying organic or metabolic encephalopathy or postictal state. Clinical correlation recommended. Patient has been placed on Keppra which will be continued (9) COPD with asthma: Code(s): J44.89 - Other specified chronic obstructive pulmonary disease Status: Acute Assessment and Plan: History of COPD. Not in n exacerbation. Continue Bronchodilators (10) Electrolyte abnormality: Code(s): E87.8 - Other disorders of electrolyte and fluid balance, not elsewhere classified Status: Acute Assessment and Plan: Replacement phosphorus Plan DVT prophylaxis -Lovenox Stress ulcer prophylaxis -PPI Nutrition -minced and moist however not safe for oral diet. Encourage oral intake PT/OT has been order Code Status - Full Code Subjective Date/time seen: 06/20/25 12:59 Interval history: No overnight events. Patient not eating much. Getting more awake earlier today. Review of Systems Review of Systems: All systems reviewed & are unremarkable except as noted in HPI and below Exam Narrative: General: Patient is bit somnolent currently but was awake and alert earlier per nursing staff, in no acute distress HEENT: Pupils equal and reactive, sclera is clear, moist oral mucosa Lungs/Chest: Trachea central Coarse BS B/L, No crackles or wheezing. Adequate air entry Cardiac: RRR. Normal S1 S2. No murmurs Abdomen: Soft, nontender, nondistended, hypoactive bowel sounds Extremities: No clubbing, cyanosis or edema. Warm, palpable pedal pulse : Del Castillo in place Neurologic: Patient is somnolent, no focal deficits, moving all her extremities Objective Data Vital Signs Vital Signs: Vital Signs - 24 hr 06/19/25 13:56 06/19/25 14:03 06/19/25 15:24 Temperature 97.3 F L Pulse Rate 78 82 104 H Respiratory Rate 20 20 18 Blood Pressure 133/76 Pulse Oximetry 99 Oxygen Delivery Oxygen Flow Rate 06/19/25 20:00 06/19/25 21:24 06/19/25 22:20 Temperature 98.0 F Pulse Rate 94 Respiratory Rate 18 Blood Pressure 137/71 Pulse Oximetry 92 92 Oxygen Delivery Room Air Nasal Cannula Oxygen Flow Rate 2 06/19/25 22:20 06/19/25 22:25 06/20/25 03:17 Temperature Pulse Rate 95 96 99 Respiratory Rate 20 20 20 Blood Pressure Pulse Oximetry Oxygen Delivery Oxygen Flow Rate 06/20/25 03:22 06/20/25 05:42 06/20/25 08:07 Temperature 97.5 F L Pulse Rate 102 H 94 72 Respiratory Rate 20 18 20 Blood Pressure 135/62 Pulse Oximetry 95 Oxygen Delivery Oxygen Flow Rate 06/20/25 08:14 06/20/25 10:21 Temperature Pulse Rate 74 99 Respiratory Rate 20 Blood Pressure 115/66 Pulse Oximetry 97 Oxygen Delivery Oxygen Flow Rate Intake/Output Intake/Output: Intake & Output 06/17/25 06/18/25 06/19/25 06/20/25 23:59 23:59 23:59 23:59 Intake Total 2718.3 2500 1000 120 Output Total 1750 1250 400 150 Balance 968.3 1250 600 -30 Meds/Results Medications: Active Medications Generic Name Dose Route Start Last Admin Trade Name Freq PRN Reason Stop Dose Admin Acetaminophen 650 mg 06/14/25 21:15 06/19/25 20:36 Acetaminophen 325 Mg Tablet PO 650 mg Q4H PRN Administration Mild Pain (1-3) or Fever Albuterol/Ipratropium 3 ml 06/17/25 14:00 06/20/25 08:06 Ipratropium 0.5 Mg/Albuterol Sulfate 2.5 Mg (Base) Ampul.Neb 3 Ml INHALATION 3 ml Q6HRT KILLIAN Administration Aspirin 81 mg 06/18/25 08:00 06/20/25 10:49 Aspirin 81 Mg Chewable Tablet PO 81 mg DAILY@0800 KILLIAN Administration Enoxaparin Sodium 40 mg 06/15/25 09:00 06/20/25 10:49 Enoxaparin 40 Mg/0.4 Ml Syringe SUB-Q 40 mg DAILY KILLIAN Administration Levetiracetam 1,000 mg in 100 mls @ 400 mls/hr 06/15/25 09:00 06/20/25 10:49 Keppra Iv IVPB 400 mls/hr Q12HR KILLIAN Administration Levothyroxine Sodium 125 mcg 06/20/25 06:30 06/20/25 05:44 Levothyroxine Sodium 125 Mcg Tablet PO Not Given DAILY@0630 KILLIAN Pantoprazole Sodium 40 mg 06/15/25 09:00 06/20/25 10:49 Pantoprazole Sodium Iv 40 Mg Vial IV PUSH 40 mg DAILY KILLIAN Administration Sodium Chloride 10 ml 06/15/25 14:00 06/20/25 05:38 Central Line Flush IV PUSH 10 ml Q8HR KILLIAN Administration Sodium Chloride 10 ml 06/15/25 11:56 Central Line Flush IV PUSH PRN PRN with TPN bag changes Sodium Chloride 20 ml 06/15/25 11:56 06/18/25 05:52 Central Line Flush IV PUSH 20 ml PRN PRN Administration after blood draws Radiology Results: ITS Impressions Head CT 06/14/25 16:39 Impression: 1. Extremely limited exam . Age-indeterminate areas of ischemia detailed above. MRI is recommended to assess Abdomen X-Ray 06/14/25 17:29 Impression: 1. No acute abnormality. Head/Neck CTA 06/14/25 19:09 IMPRESSION: No hemodynamically significant stenosis is noted of the cervical and intracranial arterial vasculature. Chest/Abdomen/Pelvis CT 06/14/25 22:26 IMPRESSION: No acute cardiopulmonary process. No pathologic enhancement is noted. No pathologically enlarged mediastinal lymphadenopathy is noted. CT abdomen and pelvis with contrast: The liver parenchyma is unremarkable. No intrahepatic mass or ductal dilatation is evident. The patient has had a cholecystectomy. Common bile duct is dilated measuring 1.5 cm. The pancreas and spleen are normal in appearance. The adrenal glands are symmetric in size. The kidneys demonstrate symmetric uptake and excretion of contrast. No cystic mass is evident. There is no solid mass. There is no hydronephrosis. The stomach and bowel loops are unremarkable. The bladder and rectum are normal. No free intraperitoneal fluid or air is evident. There is no significant retroperitoneal lymphadenopathy. The aorta, visceral vessels and renal arteries demonstrate normal caliber and patency. The lower thoracic and lumbar vertebrae are in normal alignment. There is a symmetric enlargement and stranding of the left piriformis. IMPRESSION: Asymmetric enlargement and stranding of the left piriformis may represent myositis. All CT scans at this facility are performed using low dose modulation techni ques as appropriate to perform exam including the following: automated exposure control; use of iterative reconstruction technique; adjustment of the mA and/or kV according to patient size (this includes techniques or standardized protocols for targeted exams where dose is matched to indication/reason for exam) Brain MRI 06/17/25 11:40 IMPRESSION: 1. Symmetric restricted diffusion throughout the lentiform nuclei of the bilateral basal ganglia. Although differential would include acute infarcts, this more likely artifactual related to the corresponding susceptibility artifact seen on the T2* weighted imaging. Differential for the susceptibility weighted artifact would include age-related dystrophic calcifications in multiple neurodegenerative, metabolic or toxic exposures including methanol or carbon monoxide toxicity, Mono's disease, hyperammonemia, hypoglycemia and uremic encephalopathy/metabolic acidosis and chronic blood products associated chronic microhemorrhage as could be seen with hypertension. 2. 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 Chest X-Ray 06/18/25 08:10 IMPRESSION: 1. No significant change or worsening. 2. Probable mild interstitial pulmonary edema and/or pneumonitis superimposed on emphysema. 3. No findings of lobar pneumonia. Modified Barium Swallow 06/18/25 09:52 IMPRESSION: Patient tolerated regular consistency oral feedings in the upright position. Please correlate with speech pathologist findings and specific feeding recommendations. Labs Labs: Laboratory Results - last 24 hr 06/20/25 03:54 WBC 7.6 RBC 4.30 Hgb 12.2 Hct 38.5 MCV 89.5 MCH 28.4 MCHC 31.7 L RDW 14.0 Plt Count 219 MPV 10.0 Sodium 138 Potassium 3.4 Chloride 106 Carbon Dioxide 32 H Anion Gap 0 L BUN 14 Creatinine 0.72 Estim Creat Clear Calc 71 Estimated GFR > 60 Glucose 123 H Calcium 8.1 L Phosphorus 3.4 Magnesium 2.2 Total Bilirubin 0.5 AST 119 H ALT 104 H Alkaline Phosphatase 57 Total Creatine Kinase 2756 H Total Protein 5.2 L Albumin 2.7 L
[2025-06-20] MEDS: FUROSEMIDE INJ 40 MG/4 ML VIAL IV PUSH (15:31)
[2025-06-20] MEDS: ACETAMINOPHEN 325 MG TABLET 650 MG PO (15:34)
[2025-06-21] VITALS (13 sets, daily range): BP systolic 113–118; BP diastolic 60–68; PULSE 72–95; RESP 16–20; TEMP 36.3–36.8; O2SAT 92–98; BMI 27.0
[2025-06-21] MEDS: IPRATROPIUM 0.5 MG/ALBUTEROL SULFATE 2.5 MG (BASE) AMPUL.NEB 3 ML INHALATION ×4 (02:16→20:13)
[2025-06-21] MEDS: LEVOTHYROXINE SODIUM 125 MCG TABLET PO (05:39)
[2025-06-21] MEDS: CENTRAL LINE FLUSH 10 ML IV PUSH ×3 (05:43→22:00)
[2025-06-21] MEDS: ASPIRIN 81 MG CHEWABLE TABLET PO (09:04)
[2025-06-21] MEDS: ENOXAPARIN 40 MG/0.4 ML SYRINGE SUB-Q (09:04)
[2025-06-21] MEDS: levETIRAcetam 1000MG/NACL100ML 1,000 MG/100 ML BAG 400 MG IVPB ×2 (09:04→20:20)
[2025-06-21] MEDS: PANTOPRAZOLE SODIUM IV 40 MG VIAL IV PUSH (09:05)
[2025-06-21 09:54] LABS: Hematocrit 40.9 % (37.0-47.0); Hemoglobin 12.8 g/dL (12.0-15.0); Immature Granulocyte Percent A 0.7 % (0-0.5); Lymphocytes Absolute Auto 1.53 K/mm3 (0.9-3.2); Mean Corpuscular HGB Conc 31.3 g/dl (32-36); Mean Corpuscular Hemoglobin 28.6 pg (26-34); Mean Corpuscular Volume 91.3 fl (80-100); Nucleated Red Blood Cells Absolute Auto 0.000 K/mm3 (0.0-0.012); Nucleated Red Blood Cells Perc 0.0 % (0.0-0.2); Platelet Count Result 233 k/mm3 (150-375); Red Blood Count 4.48 M/mm3 (4.2-5.4); White Blood Count 8.3 K/mm3 (4.5-10.0)
[2025-06-21 10:18] LABS: Alanine Aminotransferase 88 U/L (6-35); Albumin Level 2.7 g/dL (3.5-5.1); Alkaline Phosphatase 55 U/L (38-126); Anion Gap 0 mmol/L (4-12); Aspartate Amino Transferase 93 U/L (14-36); Bilirubin,Total 0.5 mg/dL (0.2-1.3); Blood Urea Nitrogen 14 mg/dL (7-17); Calcium 7.9 mg/dL (8.4-10.2); Carbon Dioxide 34 mmol/L (22-30); Chloride 102 mmol/L (98-107); Estimated CRCL calculation 68 ml/min; Estimated Glomerular Filt Rate > 60; Glucose 161 mg/dL (65-110); Magnesium 2.2 mg/dL (1.6-2.3); Potassium 3.3 mmol/L (3.4-5.0); Sodium 136 mmol/L (137-145); Total Protein 5.1 g/dL (6.3-8.2)
--- NOTE | 2025-06-21 12:00 | PM.PNCARD ---
Progress Note: A&P Assessment and Plan (1) Elevated troponin: Code(s): R79.89 - Other specified abnormal findings of blood chemistry Status: Acute Assessment and Plan: Troponin 0.233, 0.47, and 0.475. Troponin levels are relatively flat and probably not associated with acute coronary syndrome. Rather, her elevated troponin is probably secondary to hypoxia, hypotension, sepsis, and rhabdomyolysis. However, if cannot rule out underlying coronary artery disease. EKG does show mild inferior ST depression. Echocardiogram showed normal LV systolic function with no regional wall motion abnormalities. She does have grade 1 diastolic dysfunction. Will re-evaluate when mental status improves. If not have seeing any active ischemic symptoms, would be reasonable to pursue stress testing on outpatient basis. (2) Sepsis: Qualifiers: Acute renal failure type: unspecified Sepsis acute organ dysfunction status: with acute organ dysfunction Sepsis type: sepsis due to unspecified organism Severe sepsis acute organ dysfunction type: acute renal failure Severe sepsis shock status: without septic shock Qualified Code(s): A41.9 - Sepsis, unspecified organism; R65.20 - Severe sepsis without septic shock; N17.9 - Acute kidney failure, unspecified Code(s): A41.9 - Sepsis, unspecified organism Status: Acute Assessment and Plan: On antibiotics. Management per critical care (3) Rhabdomyolysis: Qualifiers: Rhabdomyolysis type: non-traumatic Qualified Code(s): M62.82 - Rhabdomyolysis Code(s): M62.82 - Rhabdomyolysis Status: Acute Assessment and Plan: Fluid resuscitation and other management per critical care (4) Altered mental status: Code(s): R41.82 - Altered mental status, unspecified Status: Acute Assessment and Plan: Neurology following. (5) Acute respiratory failure: Qualifiers: Respiratory failure complication: hypoxia Qualified Code(s): J96.01 - Acute respiratory failure with hypoxia Code(s): J96.00 - Acute respiratory failure, unspecified whether with hypoxia or hypercapnia Status: Acute Assessment and Plan: Improved. Back on supplemental oxygen per nasal cannula. Subjective Date/time seen: 06/21/25 12:00 Interval history: Charity Mantilla is a 60-year-old female admitted to the hospital after being found unresponsive. Cardiology is consulted because of elevated troponin levels and abnormal EKG. This is a patient who according to the medical record d does not have any known cardiac history. She is currently intubated and sedated in the ICU being treated for possible seizure, rhabdomyolysis, and urosepsis. Date of service 06/16/2025: Patient is extubated. Denies any chest pain. No shortness of breath Date of service 06/21/2025: Patient is somnolent. She will need workup for short period of time and does not answer any questions. Spoke with the nurse regarding her mental status. Patient's nurse states that she becomes somnolent like this from time to time probably related to her fentanyl pump. Review of Systems Review of Systems: ROS unobtainable: Yes unobtainable due to mental status Exam Const: General: comfortable and no acute distress Orientation/consciousness: No patient oriented x3 and lethargic HENMT: Head: normal to inspection Eyes: General: appearance normal, both eyes and all related structures Pupils: Equal, round and reactive pupils present Neck: Neck: normal visual inspection, supple and no JVD Carotids: normal carotid upstroke Resp: Auscultation: clear to auscultation bilaterally Cardio: Rate: regular rate Rhythm: regular rhythm Heart sounds: S1 normal heart sound present, S2 normal heart sound present and no murmurs GI: Auscultation: normal bowel sounds Skin: General skin exam: normal color Neuro: General: No patient oriented x3 Cranial nerves: Yes Equal, round and reactive pupils present Extrem: General: normal to inspection Psych: Appearance: grossly normal Mental Status: mental status grossly abnormal Objective Data Vital Signs Vital Signs: Vital Signs - 24 hr 06/20/25 13:35 06/20/25 13:41 06/20/25 15:15 Temperature 36.4 C Pulse Rate 90 95 94 Respiratory Rate 20 20 Blood Pressure 110/81 Pulse Oximetry 93 93 Oxygen Delivery Nasal Cannula Oxygen Flow Rate 2 06/20/25 20:00 06/20/25 20:16 06/20/25 20:17 Temperature 36.7 C Pulse Rate 64 64 Respiratory Rate 16 20 Blood Pressure 108/73 Pulse Oximetry 97 97 Oxygen Delivery Nasal Cannula Oxygen Flow Rate 2 06/20/25 20:17 06/20/25 20:25 06/21/25 02:16 Temperature Pulse Rate 64 69 79 Respiratory Rate 20 20 Blood Pressure Pulse Oximetry 97 Oxygen Delivery Nasal Cannula Oxygen Flow Rate 2 06/21/25 02:23 06/21/25 04:58 06/21/25 07:50 Temperature 36.8 C Pulse Rate 75 95 74 Respiratory Rate 20 16 20 Blood Pressure 113/60 Pulse Oximetry 92 Oxygen Delivery Oxygen Flow Rate 06/21/25 08:00 06/21/25 08:22 Temperature Pulse Rate 77 74 Respiratory Rate 20 Blood Pressure Pulse Oximetry 97 Oxygen Delivery Nasal Cannula Oxygen Flow Rate 2 Intake/Output Intake/Output: Intake & Output 06/18/25 06/19/25 06/20/25 06/21/25 23:59 23:59 23:59 23:59 Intake Total 2500 1000 680 220 Output Total 5286 262 1137 350 Balance 1250 600 -820 -130 Meds/Results Medications: Active Medications Generic Name Dose Route Start Last Admin Trade Name Freq PRN Reason Stop Dose Admin Acetaminophen 650 mg 06/14/25 21:15 06/20/25 15:34 Acetaminophen 325 Mg Tablet PO 650 mg Q4H PRN Administration Mild Pain (1-3) or Fever Albuterol/Ipratropium 3 ml 06/17/25 14:00 06/21/25 08:21 Ipratropium 0.5 Mg/Albuterol Sulfate 2.5 Mg (Base) Ampul.Neb 3 Ml INHALATION 3 ml Q6HRT KILLIAN Administration Aspirin 81 mg 06/18/25 08:00 06/21/25 09:04 Aspirin 81 Mg Chewable Tablet PO 81 mg DAILY@0800 KILLIAN Administration Enoxaparin Sodium 40 mg 06/15/25 09:00 06/21/25 09:04 Enoxaparin 40 Mg/0.4 Ml Syringe SUB-Q 40 mg DAILY KILLIAN Administration Levetiracetam 1,000 mg in 100 mls @ 400 mls/hr 06/15/25 09:00 06/21/25 09:04 Keppra Iv IVPB 400 mls/hr Q12HR KILLIAN Administration Levothyroxine Sodium 125 mcg 06/20/25 06:30 06/21/25 05:39 Levothyroxine Sodium 125 Mcg Tablet PO 125 mcg DAILY@0630 KILLIAN Administration Pantoprazole Sodium 40 mg 06/15/25 09:00 06/21/25 09:05 Pantoprazole Sodium Iv 40 Mg Vial IV PUSH 40 mg DAILY KILLIAN Administration Sodium Chloride 10 ml 06/15/25 14:00 06/21/25 05:43 Central Line Flush IV PUSH 10 ml Q8HR KILLIAN Administration Sodium Chloride 10 ml 06/15/25 11:56 Central Line Flush IV PUSH PRN PRN with TPN bag changes Sodium Chloride 20 ml 06/15/25 11:56 06/18/25 05:52 Central Line Flush IV PUSH 20 ml PRN PRN Administration after blood draws Radiology Results: ITS Impressions Head CT 06/14/25 16:39 Impression: 1. Extremely limited exam . Age-indeterminate areas of ischemia detailed above. MRI is recommended to assess Abdomen X-Ray 06/14/25 17:29 Impression: 1. No acute abnormality. Head/Neck CTA 06/14/25 19:09 IMPRESSION: No hemodynamically significant stenosis is noted of the cervical and intracranial arterial vasculature. Chest/Abdomen/Pelvis CT 06/14/25 22:26 IMPRESSION: No acute cardiopulmonary process. No pathologic enhancement is noted. No pathologically enlarged mediastinal lymphadenopathy is noted. CT abdomen and pelvis with contrast: The liver parenchyma is unremarkable. No intrahepatic mass or ductal dilatation is evident. The patient has had a cholecystectomy. Common bile duct is dilated measuring 1.5 cm. The pancreas and spleen are normal in appearance. The adrenal glands are symmetric in size. The kidneys demonstrate symmetric uptake and excretion of contrast. No cystic mass is evident. There is no solid mass. There is no hydronephrosis. The stomach and bowel loops are unremarkable. The bladder and rectum are normal. No free intraperitoneal fluid or air is evident. There is no significant retroperitoneal lymphadenopathy. The aorta, visceral vessels and renal arteries demonstrate normal caliber and patency. The lower thoracic and lumbar vertebrae are in normal alignment. There is a symmetric enlargement and stranding of the left piriformis. IMPRESSION: Asymmetric enlargement and stranding of the left piriformis may represent myositis. All CT scans at this facility are performed using low dose modulation techniques as appropriate to perform exam including the following: automated exposure control; use of iterative reconstruction technique; adjustment of the mA and/or kV according to patient size (this includes techniques or standardized protocols for targeted exams where dose is matched to indication/reason for exam) Brain MRI 06/17/25 11:40 IMPRESSION: 1. Symmetric restricted diffusion throughout the lentiform nuclei of the bilateral basal ganglia. Although differential would include acute infarcts, this more likely artifactual related to the corresponding susceptibility artifact seen on the T2* weighted imaging. Differential for the susceptibility weighted artifact would include age-related dystrophic calcifications in multiple neurodegenerative, metabolic or toxic exposures including methanol or carbon monoxide toxicity, Mono's disease, hyperammonemia, hypoglycemia and uremic encephalopathy/metabolic acidosis and chronic blood products associated chronic microhemorrhage as could be seen with hypertension. 2. 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 Modified Barium Swallow 06/18/25 09:52 IMPRESSION: Patient tolerated regular consistency oral feedings in the upright position. Please correlate with speech pathologist findings and specific feeding recommendations. Chest X-Ray 06/20/25 17:42 Impression: No acute cardiopulmonary abnormality. Venous Doppler Study 06/20/25 17:44 Impression: Negative for DVT. Labs Labs: Laboratory Results - last 24 hr 06/21/25 09:08 WBC 8.3 RBC 4.48 Hgb 12.8 Hct 40.9 MCV 91.3 MCH 28.6 MCHC 31.3 L RDW 14.3 Plt Count 233 MPV 10.3 Immature Gran % (Auto) 0.7 H Neut % (Auto) 69.0 Lymph % (Auto) 18.5 [place] % (Auto) 8.6 H Eos % (Auto) 3.0 Baso % (Auto) 0.2 Lymph # (Auto) 1.53 [place] # (Auto) 0.7 H Eos # (Auto) 0.3 Baso # (Auto) 0.0 Abs Immat Gran (auto) 0.06 H Absolute Neuts (auto) 5.7 Absolute Nucleated RBC 0.000 Nucleated RBC % 0.0 Sodium 136 L Potassium 3.3 L Chloride 102 Carbon Dioxide 34 H Anion Gap 0 L BUN 14 Creatinine 0.74 Estim Creat Clear Calc 68 Estimated GFR > 60 Glucose 161 H Calcium 7.9 L Magnesium 2.2 Total Bilirubin 0.5 AST 93 H ALT 88 H Alkaline Phosphatase 55 Total Protein 5.1 L Albumin 2.7 L Quality VTE Prophylaxis VTE prophylaxis: mechanical ordered (SCDs) and pharmacologic ordered (Lovenox 40 mg subQ daily.)
[2025-06-21] MEDS: POTASSIUM CHLORIDE 20 MEQ ER TABLET 40 MEQ PO (14:30)
--- NOTE | 2025-06-21 15:44 | P.PNIM_ITS ---
Progress Note: A&P Assessment and Plan (1) Altered mental status: Code(s): R41.82 - Altered mental status, unspecified Status: Acute Assessment and Plan: Presented with altered mental status which has a wide differential and could be multifactorial Patient on chronic pain pump with fentanyl and patient did had improved response after administered Narcan. She also was hypoxic and was not wearing her oxygen and could have had seizure from hypoxia. Other possibilities hypercarbia due to underlying COPD. CVA is another possibility due to her abnormal exam at the time of presentation Head CT was neg ABG shows improvement She still has a fentanyl pump Continue Keppra EEG reviewed ABG reviewed Ammonia levels are normal (<9) Treatment of rhabdo as below Neurology consulted Brain MRI with symmetric restricted diffusion throughout the lentiform nuclei of bilateral basal ganglia. 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 Off IV fluid now. Improving mentation (2) Acute respiratory failure: Qualifiers: Respiratory failure complication: hypoxia Qualified Code(s): J96.01 - Acute respiratory failure with hypoxia Code(s): J96.00 - Acute respiratory failure, unspecified whether with hypoxia or hypercapnia Status: Acute Assessment and Plan: Acute respiratory failure secondary to COPD and altered mental status ABG vent settings and chest x-ray reviewed 06/14: Intubated in the ER 06/16: Extubated -PT/OT has been ordered, up in chair -speech therapy for swallow evaluation Underwent modified barium swallow. Minced and moist diet (3) Non-ST elevation OK (NSTEMI): Code(s): I21.4 - Non-ST elevation (NSTEMI) myocardial infarction Status: Acute Assessment and Plan: Mild elevation in troponin likely secondary to demand ischemia EKG did show ST-T changes Patient was evaluated by Cardiology. No further recommendations. Hold statin due to rhabdomyolysis and elevated LFTs Contain aspirin 06/15/2025: Echocardiogram Summary 1. Left ventricular systolic function is normal, estimated at 65-70. 2. There is mildly increased left ventricular wall thickness. 3. The left ventricular diastolic function is grade I diastolic dysfunction. 4. There is trace tricuspid valve regurgitation. 5. No pulmonary hypertension, estimated pulmonary arterial systolic pressure is 25 mmHg. (4) Hypothyroidism: Qualifiers: Hypothyroidism type: unspecified Qualified Code(s): E03.9 - Hypothyroidism, unspecified Code(s): E03.9 - Hypothyroidism, unspecified Status: Acute Assessment and Plan: Continue levothyroxine. It was changed to IV at the time of admission TSH elevated with low T3 level (5) Acute kidney injury: Code(s): N17.9 - Acute kidney failure, unspecified Status: Acute Assessment and Plan: Presented with elevated creatinine of 1.55. Patient also had rhabdomyolysis. Baseline creatinine unknown but creatinine has normalized to normal levels with IV fluids Continue IV fluid CK levels remain significantly elevated Monitor and replace electrolytes Monitor urine output and creatinine CT abdomen pelvis negative for any obstruction or stones -continue maintenance fluids, will decrease the rate as patient was diuresed yesterday prior to extubation Stop IV fluids 06/18/2025 Encourage oral intake CKD improving (6) Sepsis: Qualifiers: Sepsis type: sepsis due to unspecified organism Sepsis acute organ dysfunction status: with acute organ dysfunction Severe sepsis acute organ dysfunction type: acute renal failure Acute renal failure type: unspecified Severe sepsis shock status: without septic shock Qualified Code(s): A41.9 - Sepsis, unspecified organism; R65.20 - Severe sepsis without septic shock; N17.9 - Acute kidney failure, unspecified Code(s): A41.9 - Sepsis, unspecified organism Status: Acute Assessment and Plan: UA suggestive UTI 06/14: Blood cultures: No growth 09/03 bottles 06/14: Urine culture: No growth Patient on broad-spectrum antibiotics in the form of vancomycin and cefepime Completed antibiotics course (7) Rhabdomyolysis: Qualifiers: Rhabdomyolysis type: non-traumatic Qualified Code(s): M62.82 - Rhabdomyolysis Code(s): M62.82 - Rhabdomyolysis Status: Acute Assessment and Plan: Rhabdomyolysis secondary to laying in bed for prolonged period of time versus seizure versus cocaine use Aggressive IV fluid CK level is still > 16K I spoke to lab and our machine is unable to give accurate number of of 16,000. If we send it out it may not be back in 2-3 days hence defeat the purpose. Will continue IV fluids. Will give Lasix. Monitor electrolytes Changed to LR Off IV fluids CK down trending (8) Seizures: Code(s): R56.9 - Unspecified convulsions Status: Acute Assessment and Plan: There is a questionable history of seizures. Patient may have had seizure from hypoxia and was postictal at the time of presentation. She also had some jerking movement of the body when Narcan was administered. She is on Keppra. Head CT was negative on admission. Appreciate neurology following the patient 06/16: EEG: Abnormal record due to the absence of normal background rhythm and due to the presence of excessive amount of slow activity. These abnormalities are suggestive of underlying organic or metabolic encephalopathy or postictal state. Clinical correlation recommended. Patient has been placed on Keppra which will be continued (9) COPD with asthma: Code(s): J44.89 - Other specified chronic obstructive pulmonary disease Status: Acute Assessment and Plan: History of COPD. Not in n exacerbation. Continue Bronchodilators (10) Electrolyte abnormality: Code(s): E87.8 - Other disorders of electrolyte and fluid balance, not elsewhere classified Status: Acute Assessment and Plan: Replacement phosphorus Plan DVT prophylaxis -Lovenox Stress ulcer prophylaxis -PPI Nutrition -minced and moist however not safe for oral diet. Encourage oral intake PT/OT has been order Code Status - Full Code Subjective Date/time seen: 06/21/25 15:44 Interval history: No overnight events. Patient sitting up in the chair. Much more awake still generalized weakness Review of Systems Review of Systems: All systems reviewed & are unremarkable except as noted in HPI and below Exam Narrative: General: Patient awake and alert, in no acute distress HEENT: Pupils equal and reactive, sclera is clear, moist oral mucosa Lungs/Chest: Trachea central Coarse BS B/L, No crackles or wheezing. Adequate air entry Cardiac: RRR. Normal S1 S2. No murmurs Abdomen: Soft, nontender, nondistended, hypoactive bowel sounds Extremities: No clubbing, cyanosis, mild upper and lower extremity edema noted. : Del Castillo in place Neurologic: Patient is awake, alert, conversant, no focal deficits, moving all her extremities Objective Data Vital Signs Vital Signs: Vital Signs - 24 hr 06/20/25 20:00 06/20/25 20:16 06/20/25 20:17 Temperature 98.1 F Pulse Rate 64 64 Respiratory Rate 16 20 Blood Pressure 108/73 Pulse Oximetry 97 97 Oxygen Delivery Nasal Cannula Oxygen Flow Rate 2 06/20/25 20:17 06/20/25 20:25 06/21/25 02:16 Temperature Pulse Rate 64 69 79 Respiratory Rate 20 20 Blood Pressure Pulse Oximetry 97 Oxygen Delivery Nasal Cannula Oxygen Flow Rate 2 06/21/25 02:23 06/21/25 04:58 06/21/25 07:50 Temperature 98.3 F Pulse Rate 75 95 74 Respiratory Rate 20 16 20 Blood Pressure 113/60 Pulse Oximetry 92 Oxygen Delivery Oxygen Flow Rate 06/21/25 08:00 06/21/25 08:22 06/21/25 13:40 Temperature Pulse Rate 77 74 72 Respiratory Rate 20 20 Blood Pressure Pulse Oximetry 97 Oxygen Delivery Nasal Cannula Oxygen Flow Rate 2 06/21/25 13:50 Temperature Pulse Rate 72 Respiratory Rate 20 Blood Pressure Pulse Oximetry Oxygen Delivery Oxygen Flow Rate Intake/Output Intake/Output: Intake & Output 06/18/25 06/19/25 06/20/25 06/21/25 23:59 23:59 23:59 23:59 Intake Total 2500 1000 680 220 Output Total 4347 562 1592 350 Balance 1250 600 -820 -130 Meds/Results Medications: Active Medications Generic Name Dose Route Start Last Admin Trade Name Freq PRN Reason Stop Dose Admin Acetaminophen 650 mg 06/14/25 21:15 06/20/25 15:34 Acetaminophen 325 Mg Tablet PO 650 mg Q4H PRN Administration Mild Pain (1-3) or Fever Albuterol/Ipratropium 3 ml 06/17/25 14:00 06/21/25 13:50 Ipratropium 0.5 Mg/Albuterol Sulfate 2.5 Mg (Base) Ampul.Neb 3 Ml INHALATION 3 ml Q6HRT KILLIAN Administration Aspirin 81 mg 06/18/25 08:00 06/21/25 09:04 Aspirin 81 Mg Chewable Tablet PO 81 mg DAILY@0800 KILLIAN Administration Enoxaparin Sodium 40 mg 06/15/25 09:00 06/21/25 09:04 Enoxaparin 40 Mg/0.4 Ml Syringe SUB-Q 40 mg DAILY KILLIAN Administration Levetiracetam 1,000 mg in 100 mls @ 400 mls/hr 06/15/25 09:00 06/21/25 09:04 Keppra Iv IVPB 400 mls/hr Q12HR KILLIAN Administration Levothyroxine Sodium 125 mcg 06/20/25 06:30 06/21/25 05:39 Levothyroxine Sodium 125 Mcg Tablet PO 125 mcg DAILY@0630 KILLIAN Administration Pantoprazole Sodium 40 mg 06/15/25 09:00 06/21/25 09:05 Pantoprazole Sodium Iv 40 Mg Vial IV PUSH 40 mg DAILY KILLIAN Administration Sodium Chloride 10 ml 06/15/25 14:00 06/21/25 14:30 Central Line Flush IV PUSH 10 ml Q8HR KILLIAN Administration Sodium Chloride 10 ml 06/15/25 11:56 Central Line Flush IV PUSH PRN PRN with TPN bag changes Sodium Chloride 20 ml 06/15/25 11:56 06/18/25 05:52 Central Line Flush IV PUSH 20 ml PRN PRN Administration after blood draws Radiology Results: ITS Impressions Head CT 06/14/25 16:39 Impression: 1. Extremely limited exam . Age-indeterminate areas of ischemia detailed above. MRI is recommended to assess Abdomen X-Ray 06/14/25 17:29 Impression: 1. No acute abnormality. Head/Neck CTA 06/14/25 19:09 IMPRESSION: No hemodynamically significant stenosis is noted of the cervical and intracranial arterial vasculature. Chest/Abdomen/Pelvis CT 06/14/25 22:26 IMPRESSION: No acute cardiopulmonary process. No pathologic enhancement is noted. No pathologically enlarged mediastinal lymphadenopathy is noted. CT abdomen and pelvis with contrast: The liver parenchyma is unremarkable. No intrahepatic mass or ductal dilatation is evident. The patient has had a cholecystectomy. Common bile duct is dilated measuring 1.5 cm. The pancreas and spleen are normal in appearance. The adrenal glands are symmetric in size. The kidneys demonstrate symmetric uptake and excretion of contrast. No cystic mass is evident. There is no solid mass. There is no hydronephrosis. The stomach and bowel loops are unremarkable. The bladder and rectum are normal. No free intraperitoneal fluid or air is evident. There is no significant retroperitoneal lymphadenopathy. The aorta, visceral vessels and renal arteries demonstrate normal caliber and patency. The lower thoracic and lumbar vertebrae are in normal alignment. There is a symmetric enlargement and stranding of the left piriformis. IMPRESSION: Asymmetric enlargement and stranding of the left piriformis may represent myositis. All CT scans at this facility are performed using low dose modulation techniques as appropriate to perform exam including the following: automated exposure control; use of iterative reconstruction technique; adjustment of the mA and/or kV according to patient size (this includes techniques or standardized protocols for targeted exams where dose is matched to indication/reason for exam) Brain MRI 06/17/25 11:40 IMPRESSION: 1. Symmetric restricted diffusion throughout the lentiform nuclei of the bilateral basal ganglia. Although differential would include acute infarcts, this more likely artifactual related to the corresponding susceptibility lorenzo fact seen on the T2* weighted imaging. Differential for the susceptibility weighted artifact would include age-related dystrophic calcifications in multiple neurodegenerative, metabolic or toxic exposures including methanol or carbon monoxide toxicity, Mono's disease, hyperammonemia, hypoglycemia and uremic encephalopathy/metabolic acidosis and chronic blood products associated chronic microhemorrhage as could be seen with hypertension. 2. 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 Modified Barium Swallow 06/18/25 09:52 IMPRESSION: Patient tolerated regular consistency oral feedings in the upright position. Please correlate with speech pathologist findings and specific feeding recommendations. Chest X-Ray 06/20/25 17:42 Impression: No acute cardiopulmonary abnormality. Venous Doppler Study 06/20/25 17:44 Impression: Negative for DVT. Labs Labs: Laboratory Results - last 24 hr 06/21/25 09:08 WBC 8.3 RBC 4.48 Hgb 12.8 Hct 40.9 MCV 91.3 MCH 28.6 MCHC 31.3 L RDW 14.3 Plt Count 233 MPV 10.3 Immature Gran % (Auto) 0.7 H Neut % (Auto) 69.0 Lymph % (Auto) 18.5 [place] % (Auto) 8.6 H Eos % (Auto) 3.0 Baso % (Auto) 0.2 Lymph # (Auto) 1.53 [place] # (Auto) 0.7 H Eos # (Auto) 0.3 Baso # (Auto) 0.0 Abs Immat Gran (auto) 0.06 H Absolute Neuts (auto) 5.7 Absolute Nucleated RBC 0.000 Nucleated RBC % 0.0 Sodium 136 L Potassium 3.3 L Chloride 102 Carbon Dioxide 34 H Anion Gap 0 L BUN 14 Creatinine 0.74 Estim Creat Clear Calc 68 Estimated GFR > 60 Glucose 161 H Calcium 7.9 L Magnesium 2.2 Total Bilirubin 0.5 AST 93 H ALT 88 H Alkaline Phosphatase 55 Total Protein 5.1 L Albumin 2.7 L
[2025-06-21] MEDS: FUROSEMIDE 20 MG TABLET PO (18:42)
[2025-06-22] VITALS (15 sets, daily range): BP systolic 102–124; BP diastolic 51–76; PULSE 68–96; RESP 14–20; TEMP 36.3–36.7; O2SAT 94–99
[2025-06-22] MEDS: IPRATROPIUM 0.5 MG/ALBUTEROL SULFATE 2.5 MG (BASE) AMPUL.NEB 3 ML INHALATION ×4 (02:03→20:58)
[2025-06-22] MEDS: LEVOTHYROXINE SODIUM 125 MCG TABLET PO (05:42)
[2025-06-22 05:54] LABS: Hematocrit 37.5 % (37.0-47.0); Hemoglobin 11.7 g/dL (12.0-15.0); Immature Granulocyte Percent A 0.8 % (0-0.5); Lymphocytes Absolute Auto 1.85 K/mm3 (0.9-3.2); Mean Corpuscular HGB Conc 31.2 g/dl (32-36); Mean Corpuscular Hemoglobin 28.6 pg (26-34); Mean Corpuscular Volume 91.7 fl (80-100); Nucleated Red Blood Cells Absolute Auto 0.000 K/mm3 (0.0-0.012); Nucleated Red Blood Cells Perc 0.0 % (0.0-0.2); Platelet Count Result 230 k/mm3 (150-375); Red Blood Count 4.09 M/mm3 (4.2-5.4); White Blood Count 8.0 K/mm3 (4.5-10.0)
[2025-06-22 06:20] LABS: Alanine Aminotransferase 77 U/L (6-35); Albumin Level 2.5 g/dL (3.5-5.1); Alkaline Phosphatase 43 U/L (38-126); Anion Gap -2 mmol/L (4-12); Aspartate Amino Transferase 67 U/L (14-36); Bilirubin,Total 0.4 mg/dL (0.2-1.3); Blood Urea Nitrogen 12 mg/dL (7-17); Calcium 7.7 mg/dL (8.4-10.2); Carbon Dioxide 34 mmol/L (22-30); Chloride 103 mmol/L (98-107); Estimated CRCL calculation 75 ml/min; Estimated Glomerular Filt Rate > 60; Glucose 119 mg/dL (65-110); Magnesium 2.2 mg/dL (1.6-2.3); Potassium 3.5 mmol/L (3.4-5.0); Sodium 135 mmol/L (137-145); Total Protein 4.6 g/dL (6.3-8.2)
[2025-06-22] MEDS: levETIRAcetam 1000MG/NACL100ML 1,000 MG/100 ML BAG 400 MG IVPB ×2 (08:45→21:39)
[2025-06-22] MEDS: ENOXAPARIN 40 MG/0.4 ML SYRINGE SUB-Q (08:46)
[2025-06-22] MEDS: ASPIRIN 81 MG CHEWABLE TABLET PO (08:46)
[2025-06-22] MEDS: PANTOPRAZOLE SODIUM IV 40 MG VIAL IV PUSH (08:46)
[2025-06-22] MEDS: FUROSEMIDE 20 MG TABLET PO (08:47)
[2025-06-22] MEDS: CENTRAL LINE FLUSH 10 ML IV PUSH ×3 (08:47→21:39)
--- NOTE | 2025-06-22 13:56 | PM.IMPN ---
Progress Note: A&P Assessment and Plan (1) Altered mental status: Code(s): R41.82 - Altered mental status, unspecified Status: Acute Assessment and Plan: Presented with altered mental status which has a wide differential and could be multifactorial Patient on chronic pain pump with fentanyl and patient did had improved response after administered Narcan. She also was hypoxic and was not wearing her oxygen and could have had seizure from hypoxia. Other possibilities hypercarbia due to underlying COPD. CVA is another possibility due to her abnormal exam at the time of presentation Head CT was neg ABG shows improvement She still has a fentanyl pump Continue Keppra EEG reviewed ABG reviewed Ammonia levels are normal (<9) Treatment of rhabdo as below Neurology consulted Brain MRI with symmetric restricted diffusion throughout the lentiform nuclei of bilateral basal ganglia. 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 Off IV fluid now. Improving mentation but slowly (2) Acute respiratory failure: Qualifiers: Respiratory failure complication: hypoxia Qualified Code(s): J96.01 - Acute respiratory failure with hypoxia Code(s): J96.00 - Acute respiratory failure, unspecified whether with hypoxia or hypercapnia Status: Acute Assessment and Plan: Acute respiratory failure secondary to COPD and altered mental status ABG vent settings and chest x-ray reviewed 06/14: Intubated in the ER 06/16: Extubated -PT/OT has been ordered, up in chair -speech therapy for swallow evaluation Underwent modified barium swallow. Minced and moist diet (3) Non-ST elevation NC (NSTEMI): Code(s): I21.4 - Non-ST elevation (NSTEMI) myocardial infarction Status: Acute Assessment and Plan: Mild elevation in troponin likely secondary to demand ischemia EKG did show ST-T changes Patient was evaluated by Cardiology. No further recommendations. Hold statin due to rhabdomyolysis and elevated LFTs Contain aspirin 06/15/2025: Echocardiogram Summary 1. Left ventricular systolic function is normal, estimated at 65-70. 2. There is mildly increased left ventricular wall thickness. 3. The left ventricular diastolic function is grade I diastolic dysfunction. 4. There is trace tricuspid valve regurgitation. 5. No pulmonary hypertension, estimated pulmonary arterial systolic pressure is 25 mmHg. (4) Hypothyroidism: Qualifiers: Hypothyroidism type: unspecified Qualified Code(s): E03.9 - Hypothyroidism, unspecified Code(s): E03.9 - Hypothyroidism, unspecified Status: Acute Assessment and Plan: Continue levothyroxine. It was changed to IV at the time of admission TSH elevated with low T3 level (5) Acute kidney injury: Code(s): N17.9 - Acute kidney failure, unspecified Status: Acute Assessment and Plan: Presented with elevated creatinine of 1.55. Patient also had rhabdomyolysis. Baseline creatinine unknown but creatinine has normalized to normal levels with IV fluids Continue IV fluid CK levels remain significantly elevated Monitor and replace electrolytes Monitor urine output and creatinine CT abdomen pelvis negative for any obstruction or stones -continue maintenance fluids, will decrease the rate as patient was diuresed yesterday prior to extubation Stop IV fluids 06/18/2025 Encourage oral intake CKD improving (6) Sepsis: Qualifiers: Sepsis type: sepsis due to unspecified organism Sepsis acute organ dysfunction status: with acute organ dysfunction Severe sepsis acute organ dysfunction type: acute renal failure Acute renal failure type: unspecified Severe sepsis shock status: without septic shock Qualified Code(s): A41.9 - Sepsis, unspecified organism; R65.20 - Severe sepsis without septic shock; N17.9 - Acute kidney failure, unspecified Code(s): A41.9 - Sepsis, unspecified organism Status: Acute Assessment and Plan: UA suggestive UTI 06/14: Blood cultures: No growth 09/03 bottles 06/14: Urine culture: No growth Patient on broad-spectrum antibiotics in the form of vancomycin and cefepime Completed antibiotics course (7) Rhabdomyolysis: Qualifiers: Rhabdomyolysis type: non-traumatic Qualified Code(s): M62.82 - Rhabdomyolysis Code(s): M62.82 - Rhabdomyolysis Status: Acute Assessment and Plan: Rhabdomyolysis secondary to laying in bed for prolonged period of time versus seizure versus cocaine use Aggressive IV fluid CK level is still > 16K I spoke to lab and our machine is unable to give accurate number of of 16,000. If we send it out it may not be back in 2-3 days hence defeat the purpose. Will continue IV fluids. Will give Lasix. Monitor electrolytes Changed to LR Off IV fluids CK down trending (8) Seizures: Code(s): R56.9 - Unspecified convulsions Status: Acute Assessment and Plan: There is a questionable history of seizures. Patient may have had seizure from hypoxia and was postictal at the time of presentation. She also had some jerking movement of the body when Narcan was administered. She is on Keppra. Head CT was negative on admission. Appreciate neurology following the patient 06/16: EEG: Abnormal record due to the absence of normal background rhythm and due to the presence of excessive amount of slow activity. These abnormalities are suggestive of underlying organic or metabolic encephalopathy or postictal state. Clinical correlation recommended. Patient has been placed on Keppra which will be continued (9) COPD with asthma: Code(s): J44.89 - Other specified chronic obstructive pulmonary disease Status: Acute Assessment and Plan: History of COPD. Not in n exacerbation. Continue Bronchodilators (10) Electrolyte abnormality: Code(s): E87.8 - Other disorders of electrolyte and fluid balance, not elsewhere classified Status: Acute Assessment and Plan: Replacement phosphorus Plan DVT prophylaxis -Lovenox Stress ulcer prophylaxis -PPI Nutrition -minced and moist however not safe for oral diet. Encourage oral intake PT/OT has been order Code Status - Full Code Disposition: Needs SNF placement Subjective Date/time seen: 06/22/25 13:56 Interval history: No overnight events. Working with therapy. No new complaints. Swelling has improved. Review of Systems Review of Systems: All systems reviewed & are unremarkable except as noted in HPI and below Exam Narrative: General: Patient awake and alert, in no acute distress HEENT: Pupils equal and reactive, sclera is clear, moist oral mucosa Lungs/Chest: Trachea central Coarse BS B/L, No crackles or wheezing. Adequate air entry Cardiac: RRR. Normal S1 S2. No murmurs Abdomen: Soft, nontender, nondistended, hypoactive bowel sounds Extremities: No clubbing, cyanosis, mild upper and lower extremity edema noted. : Del Castillo in place Neurologic: Patient is awake, alert, conversant, no focal deficits, moving all her extremities Objective Data Vital Signs Vital Signs: Vital Signs - 24 hr 06/21/25 16:00 06/21/25 20:00 06/21/25 20:13 Temperature 97.3 F L Pulse Rate 95 80 Respiratory Rate 17 20 Blood Pressure 118/68 Pulse Oximetry 98 94 Oxygen Delivery Nasal Cannula Oxygen Flow Rate 2 Fraction of Inspired Oxygen 06/21/25 20:16 06/21/25 20:24 06/22/25 00:00 Temperature 98.1 F Pulse Rate 80 81 81 Respiratory Rate 20 20 18 Blood Pressure 110/51 L Pulse Oximetry 94 96 Oxygen Delivery Nasal Cannula Oxygen Flow Rate 2 Fraction of Inspired Oxygen 28 06/22/25 02:04 06/22/25 02:17 06/22/25 06:01 Temperature 97.9 F Pulse Rate 78 80 78 Respiratory Rate 20 20 18 Blood Pressure 103/59 L Pulse Oximetry 94 Oxygen Delivery Oxygen Flow Rate Fraction of Inspired Oxygen 06/22/25 06:17 06/22/25 07:52 06/22/25 07:52 Temperature 97.9 F Pulse Rate 78 74 74 Respiratory Rate 18 14 14 Blood Pressure 103/59 L Pulse Oximetry 94 95 Oxygen Delivery Nasal Cannula Oxygen Flow Rate 3 Fraction of Inspired Oxygen 06/22/25 07:58 06/22/25 08:00 06/22/25 08:00 Temperature 97.6 F Pulse Rate 76 68 Respiratory Rate 14 16 Blood Pressure 124/68 Pulse Oximetry 98 98 Oxygen Delivery Nasal Cannula Oxygen Flow Rate 2 Fraction of Inspired Oxygen Intake/Output Intake/Output: Intake & Output 06/19/25 06/20/25 06/21/25 06/22/25 23:59 23:59 23:59 23:59 Intake Total 3426 248 7285 180 Output Total 400 4466 844 2463 Balance 600 -820 790 -1270 Meds/Results Medications: Active Medications Generic Name Dose Route Start Last Admin Trade Name Freq PRN Reason Stop Dose Admin Acetaminophen 650 mg 06/14/25 21:15 06/20/25 15:34 Acetaminophen 325 Mg Tablet PO 650 mg Q4H PRN Administration Mild Pain (1-3) or Fever Albuterol/Ipratropium 3 ml 06/17/25 14:00 06/22/25 07:47 Ipratropium 0.5 Mg/Albuterol Sulfate 2.5 Mg (Base) Ampul.Neb 3 Ml INHALATION 3 ml Q6HRT KILLIAN Administration Aspirin 81 mg 06/18/25 08:00 06/22/25 08:46 Aspirin 81 Mg Chewable Tablet PO 81 mg DAILY@0800 KILLIAN Administration Enoxaparin Sodium 40 mg 06/15/25 09:00 06/22/25 08:46 Enoxaparin 40 Mg/0.4 Ml Syringe SUB-Q 40 mg DAILY KILLIAN Administration Furosemide 20 mg 06/21/25 15:50 06/22/25 08:47 Furosemide 20 Mg Tablet PO 20 mg DAILY KILLIAN Administration Levetiracetam 1,000 mg in 100 mls @ 400 mls/hr 06/15/25 09:00 06/22/25 08:45 Keppra Iv IVPB 400 mls/hr Q12HR KILLIAN Administration Levothyroxine Sodium 125 mcg 06/20/25 06:30 06/22/25 05:42 Levothyroxine Sodium 125 Mcg Tablet PO 125 mcg DAILY@0630 KILLIAN Administration Pantoprazole Sodium 40 mg 06/15/25 09:00 06/22/25 08:46 Pantoprazole Sodium Iv 40 Mg Vial IV PUSH 40 mg DAILY KILLIAN Administration Sodium Chloride 10 ml 06/15/25 14:00 06/22/25 08:47 Central Line Flush IV PUSH 10 ml Q8HR KILLIAN Administration Sodium Chloride 10 ml 06/15/25 11:56 Central Line Flush IV PUSH PRN PRN with TPN bag changes Sodium Chloride 20 ml 06/15/25 11:56 06/18/25 05:52 Central Line Flush IV PUSH 20 ml PRN PRN Administration after blood draws Radiology Results: ITS Impressions Head CT 06/14/25 16:39 Impression: 1. Extremely limited exam . Age-indeterminate areas of ischemia detailed above. MRI is recommended to assess Abdomen X-Ray 06/14/25 17:29 Impression: 1. No acute abnormality. Head/Neck CTA 06/14/25 19:09 IMPRESSION: No hemodynamically significant stenosis is noted of the cervical and intracranial arterial vasculature. Chest/Abdomen/Pelvis CT 06/14/25 22:26 IMPRESSION: No acute cardiopulmonary process. No pathologic enhancement is noted. No pathologically enlarged mediastinal lymphadenopathy is noted. CT abdomen and pelvis with contrast: The liver parenchyma is unremarkable. No intrahepatic mass or ductal dilatation is evident. The patient has had a cholecystectomy. Common bile duct is dilated measuring 1.5 cm. The pancreas and spleen are normal in appearance. The adrenal glands are symmetric in size. The kidneys demonstrate symmetric uptake and excretion of contrast. No cystic mass is evident. There is no solid mass. There is no hydronephrosis. The stomach and bowel loops are unremarkable. The bladder and rectum are normal. No free intraperitoneal fluid or air is evident. There is no significant retroperitoneal lymphadenopathy. The aorta, visceral vessels and renal arteries demonstrate normal caliber and patency. The lower thoracic and lumbar vertebrae are in normal alignment. There is a symmetric enlargement and stranding of the left piriformis. IMPRESSION: Asymmetric enlargement and stranding of the left piriformis may represent myositis. All CT scans at this facility are performed using low dose modulation techniques as appropriate to perform exam including the following: automated exposure control; use of iterative reconstruction technique; adjustment of the mA and/or kV according to patient size (this includes techniques or standardized protocols for targeted exams where dose is matched to indication/reason for exam) Brain MRI 06/17/25 11:40 IMPRESSION: 1. Symmetric restricted diffusion throughout the lentiform nuclei of the bilateral basal ganglia. Although differential would include acute infarcts, this more likely artifactual related to the corresponding susceptibility artifact seen on the T2* weighted imaging. Differential for the susceptibility weighted artifact would include age-related dystrophic calcifications in multiple neurodegenerative, metabolic or toxic exposures including methanol or carbon monoxide toxicity, Mono's disease, hyperammonemia, hypoglycemia and uremic encephalopathy/metabolic acidosis and chronic blood products associated chronic microhemorrhage as could be seen with hypertension. 2. 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 Modified Barium Swallow 06/18/25 09:52 IMPRESSION: Patient tolerated regular consistency oral feedings in the upright position. Please correlate with speech pathologist findings and specific feeding recommendations. Chest X-Ray 06/20/25 17:42 Impression: No acute cardiopulmonary abnormality. Venous Doppler Study 06/20/25 17:44 Impression: Negative for DVT. Labs Labs: Laboratory Results - last 24 hr 06/21/25 06/22/25 20:07 05:49 WBC 8.0 RBC 4.09 L Hgb 11.7 L Hct 37.5 MCV 91.7 MCH 28.6 MCHC 31.2 L RDW 14.0 Plt Count 230 MPV 9.4 Immature Gran % (Auto) 0.8 H Neut % (Auto) 61.9 Lymph % (Auto) 23.2 [place] % (Auto) 8.9 H Eos % (Auto) 4.8 H Baso % (Auto) 0.4 Lymph # (Auto) 1.85 [place] # (Auto) 0.7 H Eos # (Auto) 0.4 H Baso # (Auto) 0.0 Abs Immat Gran (auto) 0.06 H Absolute Neuts (auto) 5.0 Absolute Nucleated RBC 0.000 Nucleated RBC % 0.0 Sodium 135 L Potassium 3.5 Chloride 103 Carbon Dioxide 34 H Anion Gap -2 L BUN 12 Creatinine 0.68 L Estim Creat Clear Calc 75 Estimated GFR > 60 Glucose 119 H POC Capillary Glucose 137 H Calcium 7.7 L Magnesium 2.2 Total Bilirubin 0.4 AST 67 H ALT 77 H Alkaline Phosphatase 43 Total Protein 4.6 L Albumin 2.5 L
[2025-06-23] VITALS (12 sets, daily range): BP systolic 100–138; BP diastolic 58–68; PULSE 72–89; RESP 14–20; TEMP 36.2–36.6; O2SAT 92–97
[2025-06-23] MEDS: IPRATROPIUM 0.5 MG/ALBUTEROL SULFATE 2.5 MG (BASE) AMPUL.NEB 3 ML INHALATION ×4 (03:34→19:59)
[2025-06-23] MEDS: LEVOTHYROXINE SODIUM 125 MCG TABLET PO (05:58)
[2025-06-23] MEDS: CENTRAL LINE FLUSH 10 ML IV PUSH ×3 (06:02→21:36)
[2025-06-23] MEDS: ASPIRIN 81 MG CHEWABLE TABLET PO (09:25)
[2025-06-23] MEDS: FUROSEMIDE 20 MG TABLET PO (09:25)
[2025-06-23] MEDS: ENOXAPARIN 40 MG/0.4 ML SYRINGE SUB-Q (09:26)
[2025-06-23] MEDS: POTASSIUM CHLORIDE 20 MEQ PACKET (FOR LIQUID) 40 MEQ PO (09:26)
[2025-06-23] MEDS: PANTOPRAZOLE SODIUM IV 40 MG VIAL IV PUSH (09:26)
[2025-06-23] MEDS: levETIRAcetam 1000MG/NACL100ML 1,000 MG/100 ML BAG 400 MG IVPB (09:39)
[2025-06-23 09:59] LABS: Hematocrit 36.4 % (37.0-47.0); Hemoglobin 11.3 g/dL (12.0-15.0); Immature Granulocyte Percent A 0.6 % (0-0.5); Lymphocytes Absolute Auto 1.36 K/mm3 (0.9-3.2); Mean Corpuscular HGB Conc 31.0 g/dl (32-36); Mean Corpuscular Hemoglobin 28.5 pg (26-34); Mean Corpuscular Volume 91.9 fl (80-100); Nucleated Red Blood Cells Absolute Auto 0.000 K/mm3 (0.0-0.012); Nucleated Red Blood Cells Perc 0.0 % (0.0-0.2); Platelet Count Result 243 k/mm3 (150-375); Red Blood Count 3.96 M/mm3 (4.2-5.4); White Blood Count 7.0 K/mm3 (4.5-10.0)
[2025-06-23 10:23] LABS: Creatine Kinase 868 U/L (30-135)
[2025-06-23 10:33] LABS: Alanine Aminotransferase 77 U/L (6-35); Albumin Level 2.7 g/dL (3.5-5.1); Alkaline Phosphatase 47 U/L (38-126); Anion Gap -3 mmol/L (4-12); Aspartate Amino Transferase 66 U/L (14-36); Bilirubin,Total 0.4 mg/dL (0.2-1.3); Blood Urea Nitrogen 10 mg/dL (7-17); Calcium 7.9 mg/dL (8.4-10.2); Carbon Dioxide 35 mmol/L (22-30); Chloride 104 mmol/L (98-107); Estimated CRCL calculation 74 ml/min; Estimated Glomerular Filt Rate > 60; Glucose 133 mg/dL (65-110); Potassium 3.4 mmol/L (3.4-5.0); Sodium 136 mmol/L (137-145); Total Protein 4.8 g/dL (6.3-8.2)
--- NOTE | 2025-06-23 13:39 | P.PNIM_ITS ---
Progress Note: A&P Assessment and Plan (1) Altered mental status: Code(s): R41.82 - Altered mental status, unspecified Status: Acute Assessment and Plan: Presented with altered mental status which has a wide differential and could be multifactorial Patient on chronic pain pump with fentanyl and patient did had improved response after administered Narcan. She also was hypoxic and was not wearing her oxygen and could have had seizure from hypoxia. Other possibilities hypercarbia due to underlying COPD. CVA is another possibility due to her abnormal exam at the time of presentation or seizure. Head CT was neg ABG shows improvement She still has a fentanyl pump Keppra started. Continue Keppra EEG reviewed Ammonia levels are normal (<9) Treatment of rhabdo as below Neurology consulted Brain MRI with symmetric restricted diffusion throughout the lentiform nuclei of bilateral basal ganglia. 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 Off IV fluid now. Improved mentation (2) Acute respiratory failure: Qualifiers: Respiratory failure complication: hypoxia Qualified Code(s): J96.01 - Acute respiratory failure with hypoxia Code(s): J96.00 - Acute respiratory failure, unspecified whether with hypoxia or hypercapnia Status: Acute Assessment and Plan: Acute respiratory failure secondary to COPD and altered mental status 06/14: Intubated in the ER 06/16: Extubated -PT/OT has been ordered, up in chair -speech therapy for swallow evaluation-> Minced and moist diet with plans to advance as her mental status improves Since she is more awake, advance to soft diet (3) Non-ST elevation [place] (NSTEMI): Code(s): I21.4 - Non-ST elevation (NSTEMI) myocardial infarction Status: Acute Assessment and Plan: Mild elevation in troponin likely secondary to demand ischemia EKG did show ST-T changes Echo showing EF 65-70% and grade I diastolic dysfunction. Patient was evaluated by Cardiology. No further recommendations. Hold statin due to rhabdomyolysis and elevated LFTs Contain aspirin (4) Hypothyroidism: Qualifiers: Hypothyroidism type: unspecified Qualified Code(s): E03.9 - Hypothyroidism, unspecified Code(s): E03.9 - Hypothyroidism, unspecified Status: Acute Assessment and Plan: Continue levothyroxine. It was changed to IV at the time of admission TSH elevated with low T3 level Changed to oral now. Follow (5) Acute kidney injury: Code(s): N17.9 - Acute kidney failure, unspecified Status: Acute Assessment and Plan: Presented with elevated creatinine of 1.55. Possibly related to rhabdomyolysis. Baseline creatinine unknown but creatinine has normalized to normal levels with IV fluids CT abdomen pelvis negative for any obstruction or stones CK levels has trended down to <1000 Creatinine normal now. Monitor and replace electrolytes Monitor urine output and creatinine Encourage oral intake (6) Sepsis: Qualifiers: Acute renal failure type: unspecified Sepsis acute organ dysfunction status: with acute organ dysfunction Sepsis type: sepsis due to unspecified organism Severe sepsis acute organ dysfunction type: acute renal failure Severe sepsis shock status: without septic shock Qualified Code(s): A41.9 - Sepsis, unspecified organism; R65.20 - Severe sepsis without septic shock; N17.9 - Acute kidney failure, unspecified Code(s): A41.9 - Sepsis, unspecified organism Status: Acute Assessment and Plan: UA suggestive UTI 06/14: Blood cultures: No growth 09/03 bottles 06/14: Urine culture: No growth Patient was on broad-spectrum antibiotics in the form of vancomycin and cefepime Completed antibiotics course (7) Rhabdomyolysis: Qualifiers: Rhabdomyolysis type: non-traumatic Qualified Code(s): M62.82 - Rhabdomyolysis Code(s): M62.82 - Rhabdomyolysis Status: Acute Assessment and Plan: Rhabdomyolysis secondary to laying in bed for prolonged period of time versus seizure versus cocaine use Aggressive IV fluid and later, Lasix given. CK level trended down. TCK<1000 now. Off all IV fluids. Cr normal. Resolving (8) Seizures: Code(s): R56.9 - Unspecified convulsions Status: Acute Assessment and Plan: There is a questionable history of seizures. Patient may have had seizure from hypoxia and was postictal at the time of presentation. She also had some jerking movement of the body when Narcan was administered. She was started on Keppra. Head CT was negative on admission. Appreciate neurology following the patient 06/16: EEG: Abnormal record due to the absence of normal background rhythm and due to the presence of excessive amount of slow activity. These abnormalities are suggestive of underlying organic or metabolic encephalopathy or postictal state. Clinical correlation recommended. Patient will be continued on Keppra. Change to oral route (9) COPD with asthma: Code(s): J44.89 - Other specified chronic obstructive pulmonary disease Status: Acute Assessment and Plan: History of COPD. Not in exacerbation. Continue Bronchodilators Plan DVT prophylaxis -Lovenox Code Status - Full Code Disposition: Needs SNF placement Subjective Date/time seen: 06/23/25 13:39 Interval history: 60yo female with hx of CVA 2017, essential hypertension, anxiety, hypothyroidism, diabetes, CHF and drug abuse who presented to the ER from home after being found down unresponsive. Assuming care. Chart reviewed. No CP or SOB. Currently on minced and moist but more alert today. Has oxygen at home that she uses prn. Exam Narrative: AF 97.8 129/60 80 16 97% 2L Gen - NARD Chest - few basilar crackles. nml RR CV - RRR Abd - soft, NT/ND, left abdominal pain pump - [place] secured draining clear yellow urine Ext - LLE edema, +Homans sign Neuro - AOx4 Pscyh - nml mood and affect Skin - warm and dry Objective Data Vital Signs Vital Signs: Vital Signs - 24 hr 06/22/25 14:11 06/22/25 14:21 06/22/25 16:00 Temperature 97.4 F L Pulse Rate 87 88 68 Respiratory Rate 16 16 16 Blood Pressure 102/76 Pulse Oximetry 99 Oxygen Delivery Oxygen Flow Rate 06/22/25 20:58 06/22/25 21:00 06/22/25 21:07 Temperature Pulse Rate 84 84 96 Respiratory Rate 20 20 20 Blood Pressure Pulse Oximetry 94 Oxygen Delivery Nasal Cannula Oxygen Flow Rate 2 06/22/25 22:05 06/23/25 03:34 06/23/25 06:20 Temperature 97.9 F 97.2 F L Pulse Rate 80 80 72 Respiratory Rate 20 18 20 Blood Pressure 113/65 100/58 L Pulse Oximetry 97 95 Oxygen Delivery Oxygen Flow Rate 06/23/25 07:46 06/23/25 07:48 06/23/25 07:51 Temperature Pulse Rate 72 72 77 Respiratory Rate 14 16 16 Blood Pressure Pulse Oximetry 94 Oxygen Delivery Nasal Cannula Oxygen Flow Rate 2 06/23/25 09:29 06/23/25 12:46 Temperature 97.8 F Pulse Rate 83 80 Respiratory Rate 16 Blood Pressure 112/68 129/60 Pulse Oximetry 94 97 Oxygen Delivery Oxygen Flow Rate Intake/Output Intake/Output: Intake & Output 06/20/25 06/21/25 06/22/25 06/23/25 23:59 23:59 23:59 23:59 Intake Total 680 1140 1170 680 Output Total 7594 609 1620 900 Balance -820 796 -032 -598 Meds/Results Medications: Active Medications Generic Name Dose Route Start Last Admin Trade Name Freq PRN Reason Stop Dose Admin Acetaminophen 650 mg 06/14/25 21:15 06/20/25 15:34 Acetaminophen 325 Mg Tablet PO 650 mg Q4H PRN Administration Mild Pain (1-3) or Fever Albuterol/Ipratropium 3 ml 06/17/25 14:00 06/23/25 07:44 Ipratropium 0.5 Mg/Albuterol Sulfate 2.5 Mg (Base) Ampul.Neb 3 Ml INHALATION 3 ml Q6HRT KILLIAN Administration Aspirin 81 mg 06/18/25 08:00 06/23/25 09:25 Aspirin 81 Mg Chewable Tablet PO 81 mg DAILY@0800 KILLIAN Administration Enoxaparin Sodium 40 mg 06/15/25 09:00 06/23/25 09:26 Enoxaparin 40 Mg/0.4 Ml Syringe SUB-Q 40 mg DAILY KILLIAN Administration Furosemide 20 mg 06/21/25 15:50 06/23/25 09:25 Furosemide 20 Mg Tablet PO 20 mg DAILY KILLIAN Administration Levetiracetam 1,000 mg in 100 mls @ 400 mls/hr 06/15/25 09:00 06/23/25 09:55 Keppra Iv IVPB Infused Q12HR KILLIAN Infusion Levothyroxine Sodium 125 mcg 06/20/25 06:30 06/23/25 05:58 Levothyroxine Sodium 125 Mcg Tablet PO 125 mcg DAILY@0630 KILLIAN Administration Pantoprazole Sodium 40 mg 06/15/25 09:00 06/23/25 09:26 Pantoprazole Sodium Iv 40 Mg Vial IV PUSH 40 mg DAILY KILLIAN Administration Sodium Chloride 10 ml 06/15/25 14:00 06/23/25 06:02 Central Line Flush IV PUSH 10 ml Q8HR KILLIAN Administration Sodium Chloride 10 ml 06/15/25 11:56 Central Line Flush IV PUSH PRN PRN with TPN bag changes Sodium Chloride 20 ml 06/15/25 11:56 06/18/25 05:52 Central Line Flush IV PUSH 20 ml PRN PRN Administration after blood draws Radiology Results: ITS Impressions Head CT 06/14/25 16:39 Impression: 1. Extremely limited exam . Age-indeterminate areas of ischemia detailed above. MRI is recommended to assess Abdomen X-Ray 06/14/25 17:29 Impression: 1. No acute abnormality. Head/Neck CTA 06/14/25 19:09 IMPRESSION: No hemodynamically significant stenosis is noted of the cervical and intracranial arterial vasculature. Chest/Abdomen/Pelvis CT 06/14/25 22:26 IMPRESSION: No acute cardiopulmonary process. No pathologic enhancement is noted. No pathologically enlarged mediastinal lymphadenopathy is noted. CT abdomen and pelvis with contrast: The liver parenchyma is unremarkable. No intrahepatic mass or ductal dilatation is evident. The patient has had a cholecystectomy. Common bile duct is dilated measuring 1.5 cm. The pancreas and spleen are normal in appearance. The adrenal glands are symmetric in size. The kidneys demonstrate symmetric uptake and excretion of contrast. No cystic mass is evident. There is no solid mass. There is no hydronephrosis. The stomach and bowel loops are unremarkable. The bladder and rectum are normal. No free intraperitoneal fluid or air is evident. There is no significant retroperitoneal lymphadenopathy. The aorta, visceral vessels and renal arteries demonstrate normal caliber and patency. The lower thoracic and lumbar vertebrae are in normal alignment. There is a symmetric enlargement and stranding of the left piriformis. IMPRESSION: Asymmetric enlargement and stranding of the left piriformis may represent myositis. All CT scans at this facility are performed using low dose modulation techniques as appropriate to perform exam including the following: automated exposure control; use of iterative reconstruction technique; adjustment of the mA and/or kV according to patient size (this includes techniques or standardized protocols for targeted exams where dose is matched to indication/reason for exam) Brain MRI 06/17/25 11:40 IMPRESSION: 1. Symmetric restricted diffusion throughout the lentiform nuclei of the b ilateral basal ganglia. Although differential would include acute infarcts, this more likely artifactual related to the corresponding susceptibility artifact seen on the T2* weighted imaging. Differential for the susceptibility weighted artifact would include age-related dystrophic calcifications in multiple neurodegenerative, metabolic or toxic exposures including methanol or carbon monoxide toxicity, Mono's disease, hyperammonemia, hypoglycemia and uremic encephalopathy/metabolic acidosis and chronic blood products associated chronic microhemorrhage as could be seen with hypertension. 2. 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 Modified Barium Swallow 06/18/25 09:52 IMPRESSION: Patient tolerated regular consistency oral feedings in the upright position. Please correlate with speech pathologist findings and specific feeding recommendations. Chest X-Ray 06/20/25 17:42 Impression: No acute cardiopulmonary abnormality. Venous Doppler Study 06/20/25 17:44 Impression: Negative for DVT. Labs Labs: Laboratory Results - last 24 hr 06/23/25 09:43 WBC 7.0 RBC 3.96 L Hgb 11.3 L Hct 36.4 L MCV 91.9 MCH 28.5 MCHC 31.0 L RDW 13.9 Plt Count 243 MPV 10.1 Immature Gran % (Auto) 0.6 H Neut % (Auto) 65.9 Lymph % (Auto) 19.4 [place] % (Auto) 8.7 H Eos % (Auto) 5.1 H Baso % (Auto) 0.3 Lymph # (Auto) 1.36 [place] # (Auto) 0.6 Eos # (Auto) 0.4 H Baso # (Auto) 0.0 Abs Immat Gran (auto) 0.04 H Absolute Neuts (auto) 4.6 Absolute Nucleated RBC 0.000 Nucleated RBC % 0.0 Sodium 136 L Potassium 3.4 Chloride 104 Carbon Dioxide 35 H Anion Gap -3 L BUN 10 Creatinine 0.68 L Estim Creat Clear Calc 74 Estimated GFR > 60 Glucose 133 H Calcium 7.9 L Total Bilirubin 0.4 AST 66 H ALT 77 H Alkaline Phosphatase 47 Total Creatine Kinase 868 H Total Protein 4.8 L Albumin 2.7 L
[2025-06-24] VITALS (7 sets, daily range): BP systolic 120–122; BP diastolic 52–65; PULSE 77–92; RESP 16–20; TEMP 36.2–36.5; O2SAT 92–94
[2025-06-24] MEDS: IPRATROPIUM 0.5 MG/ALBUTEROL SULFATE 2.5 MG (BASE) AMPUL.NEB 3 ML INHALATION ×2 (02:11→09:33)
[2025-06-24] MEDS: LEVOTHYROXINE SODIUM 125 MCG TABLET PO (06:26)
[2025-06-24] MEDS: CENTRAL LINE FLUSH 10 ML IV PUSH (06:26)
[2025-06-24] MEDS: ENOXAPARIN 40 MG/0.4 ML SYRINGE SUB-Q (09:45)
[2025-06-24] MEDS: PANTOPRAZOLE 40 MG TABLET PO (09:46)
[2025-06-24] MEDS: FUROSEMIDE 20 MG TABLET PO (09:46)
[2025-06-24] MEDS: ASPIRIN 81 MG CHEWABLE TABLET PO (09:46)
[2025-06-24] MEDS: ACETAMINOPHEN 325 MG TABLET 650 MG PO (09:51)
--- NOTE | 2025-06-24 10:55 | PCNFU ---
Nutrition Follow-Up Complete: Inadequate oral intake related to loss of appetite, increased needs from wounds as evidenced by deep tissue pressure injury, intakes 10-20% goal: Intakes >50% Patient is progressing towards goal. Pt current nutrition is Soft and Bite Sized, Level 6/[facility]. Recommendations: [facility] Last recorded weight is 71.5 kg Bowel Motility: +BM reported 06/23 Labs Reviewed: Glu 133, Cr 0.68, Na 136, Alb 2.7 Meds Noted: Protonix, Lovenox, Keppra Skin: Deep Tissue Injury -left buttock Additional Notes: Diet order has advanced to Soft and Bite Sized, Level 6. Speech has recommended to advanced diet as tolerated as level of consciousness increases. Oral intake 10-50% of meals. Diet supplements are being provided on trays for an additional 240 kcal and 10 gm protein. Agree with advancing diet as tolerated per MD orders when medically able. Monitoring intakes, weights, labs, meds, skin, supplement tolerance, plan of care Follow up in 3 days
--- NOTE | 2025-06-24 11:04 | P.DS_ITS ---
DS: Admitting Diagnosis Discharge Date 06/24/25 Admitting Diagnosis Found down and unresponsive DS: Discharge Diagnosis Discharge Diagnosis (1) Altered mental status: Code(s): R41.82 - Altered mental status, unspecified Status: Acute (2) Acute respiratory failure: Qualifiers: Respiratory failure complication: hypoxia Qualified Code(s): J96.01 - Acute respiratory failure with hypoxia Code(s): J96.00 - Acute respiratory failure, unspecified whether with hypoxia or hypercapnia Status: Acute (3) Non-ST elevation [place] (NSTEMI): Code(s): I21.4 - Non-ST elevation (NSTEMI) myocardial infarction Status: Acute (4) Hypothyroidism: Qualifiers: Hypothyroidism type: unspecified Qualified Code(s): E03.9 - Hypothyroidism, unspecified Code(s): E03.9 - Hypothyroidism, unspecified Status: Acute (5) Acute kidney injury: Code(s): N17.9 - Acute kidney failure, unspecified Status: Acute (6) Sepsis: Qualifiers: Acute renal failure type: unspecified Sepsis acute organ dysfunction status: with acute organ dysfunction Sepsis type: sepsis due to unspecified organism Severe sepsis acute organ dysfunction type: acute renal failure Severe sepsis shock status: without septic shock Qualified Code(s): A41.9 - Sepsis, unspecified organism; R65.20 - Severe sepsis without septic shock; N17.9 - Acute kidney failure, unspecified Code(s): A41.9 - Sepsis, unspecified organism Status: Acute (7) Rhabdomyolysis: Qualifiers: Rhabdomyolysis type: non-traumatic Qualified Code(s): M62.82 - Rhabdomyolysis Code(s): M62.82 - Rhabdomyolysis Status: Acute (8) Seizures: Code(s): R56.9 - Unspecified convulsions Status: Acute (9) COPD with asthma: Code(s): J44.89 - Other specified chronic obstructive pulmonary disease Status: Acute (10) Positive urine drug screen: Code(s): R82.5 - Elevated urine levels of drugs, medicaments and biological substances Status: Acute DS: Summary Hospital Course Reason for hospitalization: 60yo female with hx of CVA 2017, essential hypertension, anxiety, hypothyroidism, diabetes, CHF and drug abuse who presented to the ER from home after being found down and unresponsive. Please see HnP for details. Hospital Course: Patient brought to the ED for altered mental status. Patient on chronic pain pump with fentanyl and patient did had improved response after administered Narcan. She also was hypoxic and hypercarbic possibly from being down and her not wearing her oxygen. She also uses cocaine which could contribute to her condition. Seizure also was considered. Head CT was negative. Patient was intubated on arrival. ABG was stable after intubation. There is a questionable history of seizures. Patient may have had seizure from hypoxia and was postictal at the time of presentation. She also had some jerking movement of the body when Narcan was administered. UDS was positive for cocaine which she does admit to later in the hospitalization. She was educated about the benefits of abstaining from drug use. She was started on Keppra. Appreciate neurology following the patient. EEG showing an abnormal record due to the absence of normal background rhythm and due to the presence of excessive amount of slow activity. These abnormalities are suggestive of underlying organic or metabolic encephalopathy or postictal state. Clinical correlation recommended. Patient was continued on Keppra. Ammonia levels are normal. Brain MRI with symmetric restricted diffusion throughout the lentiform nuclei of bilateral basal ganglia. Chronic infarcts in the left parietal lobe and more prominently in the bilateral parietal occipital region. Rhabdomyolysis present on admisison secondary to laying in bed for prolonged period of time versus seizure versus cocaine use. Aggressive IV fluid and Lasix given. CK level trended down. TCK<1000 now. Off all IV fluids. Elevated creatinine of 1.55 on admission. Possibly related to rhabdomyolysis. Baseline creatinine unknown but creatinine has normalized to normal levels with IV fluids. CT abdomen pelvis negative for any obstruction or stones. [place] she had sepsis and was started on IV antibiotics. Blood cultures 1/2 bottles negative. UCx negative. She completed a course of antibiotics. Patient extubated 06/16 successfully. Speech therapy for swallow evaluation who recommended minced and moist diet with plans to advance as her mental status improved. She was advanced to a soft diet. Mild elevation in troponin likely secondary to demand ischemia. EKG did show borderline ST-T changes but persistent on repeat EKGs. Echo showing EF 65-70% and grade I diastolic dysfunction. Patient was evaluated by Cardiology. No further recommendations. Held statin due to rhabdomyolysis and elevated LFTs. Aspirin added. She worked with therapy. She had clinical improvement. She was having decreased ROM of her left shoulder felt related to either impingement or RTC tear. Plan for her to work with therapy to see if this improves. Buspar added at half her home dose but made her sleepy so this was held. She overall did well and was able to be discharged on 06/24/25. Discharge instructions discussed including side effects of her medications. Status at Discharge Cognitive/behavioral status at discharge: stable Time Spent with Patient Time attestation: Total time spent providing and/or coordinating discharge services: 35 minutes Time spent: Greater than 30 minutes Exam Narrative: AF 97.7 122/65 89 16 94% 1L Gen - NARD sitting up in the chair HEENT - dysconjugate gaze Chest - basilar crackles. nml RR CV - RRR. S1/S2 Abd - soft, NT/ND, left abdominal pain pump Ext - no pedal edema. Left shoulder limited ROM and positive supraspinatus test. Neuro - AOx4 Pscyh - nml mood and affect Skin - warm and dry Discharge Plan Discharge Attending physician on discharge: Kwame Gibbs Consulting providers: Elan Pierson; Valentin Portillo; Divina Tripathi Discharging Clinician: Kwame Gibbs Anticipated Discharge Date/Time: 06/24/25 11:26 Patient Disposition: SNF Activity: as tolerated Diet: heart healthy and other - see discharge instructions Discharge Instructions: Soft and bite sized Level 6 diet. Continue Oxygen at 1L. Continue supplemental oxygen to keep SpO2 >94%. PT/OT, Speech therapy to evaluate and treat. Please check glucose before meals and before bed. Record for the doctor's review. Check blood pressure 1 to 2 times a day. Record for the doctor's review. Take precautions to avoid falls. Rise slowly from a lying or sitting position. Pause before standing or walking. Contact the doctor if the patient has any type of trauma, lightheadedness with standing or other worrisome symptoms. Avoid NSAIDs (ibuprofen, naproxen, Aleve). Tylenol is safe to take. Follow-up with the provider at the facility. Follow-up with orthopedics for left shoulder weakness. Follow-up with Neurology in 2-4 weeks Follow-up with Cardiology in 2-4 weeks. Thank you for using [facility] for your health care needs. Patient Language: Bruneian Stand Alone Forms: General Discharge Information Follow-up/Referrals: Kan Cisneros MD [Physician, Orthopedics] - Call for Appointment Divina Tripathi APN-C [Advanced Practice Nurse, Cardiology] - Call for Appointment Steve,Liam Torres MD [Primary Care Provider, Unknown] - Call for Appointment Valentin Portillo MD [Physician, Neurology] - Call for Appointment Discharge Medications: New aspirin [Children's Aspirin] 81 mg Tablet,Chewable 81 mg PO DAILY@0800 Qty: 30 0RF levetiracetam [Keppra] 500 mg Tablet 1,000 mg PO Q12HR Qty: 120 0RF Continued furosemide [Lasix] 20 mg tablet 20 mg PO DAILY levothyroxine 125 mcg capsule 125 mcg PO DAILY Held metformin 500 mg tablet 500 mg PO BIDWM Hold Instructions: HOLD - resume when okay with the provider nortriptyline 25 mg capsule 50 mg PO HS Hold Instructions: HOLD - resume when okay with the provider buspirone 10 mg tablet 10 mg PO BID Hold Instructions: HOLD - resume when okay with the provider pramipexole 1 mg tablet 1 mg PO QPM Hold Instructions: HOLD - resume when okay the provider amlodipine 10 mg tablet 10 mg PO DAILY Hold Instructions: HOLD - resume when okay with the provider Date of admission: 06/14/25 21:42 Primary Care Provider: Steve,Liam Torres Admitting Provider: Deyanira Desai Attending physician on admission: Deyanira Desai Condition: Stable Hospitalist MIPS Heart Failure (Exclusion) Patient has history of Heart Transplant or Left Ventricular Assistive Device?: No IF YES, STOP HERE Heart Failure (Qualifier) Patient has current or prior documentation of LVEF less than or equal to 40%, or mod/servere depressed LVSF?: No IF NO, STOP HERE
--- NOTE | 2025-06-24 14:23 | PCRCNOTE ---
patient has been discharged, therefore her 1400 breathing treatment was not given. Nurse aware.
== END 2025-06-24 14:32 | DRG 871 ==
LOC: ANHED 20:32 → ANHICU 22:01 → ANH2MED 06-17 22:50
PROVIDERS: Internal Medicine; Admitting Provider Internal Medicine; Emergency Provider Emergency Medicine; PCP Family Medicine; Visit Provider Internal Medicine
DX: A41.9 Sepsis, unspecified organism (principal); I21.A1 Myocardial infarction type 2; J96.01 Acute respiratory failure with hypoxia; J96.02 Acute respiratory failure with hypercapnia; N17.9 Acute kidney failure, unspecified; M62.82 Rhabdomyolysis; F41.9 Anxiety disorder, unspecified; E03.9 Hypothyroidism, unspecified; I50.9 Heart failure, unspecified; R65.20 Severe sepsis without septic shock; I95.9 Hypotension, unspecified; E78.5 Hyperlipidemia, unspecified; E11.42 Type 2 diabetes mellitus with diabetic polyneuropathy; F14.90 Cocaine use, unspecified, uncomplicated; G89.29 Other chronic pain; G40.909 Epilepsy, unspecified, not intractable, without status epilepticus; I11.0 Hypertensive heart disease with heart failure; J44.9 Chronic obstructive pulmonary disease, unspecified; R41.82 Altered mental status, unspecified; Z22.322 Carrier or suspected carrier of Methicillin resistant Staphylococcus aureus; Z86.73 Personal history of transient ischemic attack (TIA), and cerebral infarction without residual deficits; Z79.891 Long term (current) use of opiate analgesic; Z97.8 Presence of other specified devices; Z79.84 Long term (current) use of oral hypoglycemic drugs; Z79.82 Long term (current) use of aspirin; Z87.891 Personal history of nicotine dependence
CPT/HCPCS: 31500; 36415; 36569; 36600; 70450; 70496; 70498; 70551; 71045; 71046; 71260; 74177; 74230; 80048; 80053; 80074; 80202; 80307; 81001; 82077; 82140; 82375; 82550; 82570; 82805; 82948; 83050; 83605; 83735; 84100; 84145; 84300; 84439; 84443; 84478; 84480; 84484; 85018; 85025; 85027; 85610; 85730; 86140; 87040; 87086; 87637; 87641; 92610; 92611; 93005; 93970; 94002; 94003; 94640; 95816; 96365; 96366; 96367; 96368; 96375; 97110; 97116; 97163; 97166; 97530; 97535; 99291; A9270; C1751; C8929; J0330; J0613; J0650; J0692; J1650; J1741; J1938; J1953; J2003; J2250; J2312; J2470; J2704; J3010; J3373; J3475; J3480; J7030; J7050; J7120; Q9957; Q9967

== ENCOUNTER 2025-07-08 11:44 | Emergency (ER) | payer MEDICARE, MEDICAID, SELFPAY ==
[2025-07-08] VITALS (19 sets, daily range): BP systolic 123–162; BP diastolic 72–115; PULSE 87–101; RESP 16–28; TEMP 36.4; O2SAT 95–99
--- NOTE | ~2025-07-08 | XR_ITS ---
Examination: XR chest 2V Clinical History: weakness Comparison: 06/20/2025 Technique: PA and Lateral Findings: Unchanged mild cardiomegaly. Persistent trace bibasilar atelectasis, and right basilar calcified granuloma. No focal airspace consolidation or pleural effusion. No acute bony abnormality. Osteopenia. IMPRESSION: 1. No acute cardiopulmonary findings. Reviewed, dictated and finalized at location R. PING PACKER
--- NOTE | ~2025-07-08 | CT_ITS ---
CT HEAD NON-CONTRAST Clinical History: weakness Comparison: MRI brain 06/17/2025 Technique: Unenhanced axial images skull base to vertex Coronal, sagittal reformats CT images acquired with automatic exposure control for dose reduction DLP: 605 mGy-cm Findings: Left frontal parietal encephalomalacia. Right parietal encephalomalacia. Mild white matter microvascular ischemic changes. Basal ganglia lacunae. And left thalamus. Sulci, ventricles: Unremarkable. No intracerebral hemorrhage. No evidence acute territorial infarct. No mass effect, midline shift. Bony calvarium intact. Visualized paranasal sinuses: Clear. Mastoid air cells: Clear. IMPRESSION: 1. No acute intracranial findings. Reviewed, dictated and finalized at location R. NCIAL LEGAL ASSISTANT
--- NOTE | 2025-07-08 13:02 | ED.WEAKNESS ---
HPI - Weakness General Chief complaint: Weakness <Marielle Cruz PA-C - Last Filed: 07/10/25 14:11> Stated complaint: weakness <Marielle Cruz PA-C - Last Filed: 07/10/25 14:11> Time Seen by Provider: 07/08/25 13:02 <Marielle Cruz PA-C - Last Filed: 07/10/25 14:11> Focused HPI: This is a 60 year old female that presents to the ER for generalized weakness. Sent in from her facility for evaluation. Ongoing over the last couple of days. GENERAL: Chronically ill-appearing, well-nourished, and in no acute distress. HEAD: Normocephalic, atraumatic. CHEST: Clear to auscultation. ?No respiratory distress. HEART: Regular rate and rhythm.? NEURO: ?Alert and oriented x3. Patient screened in triage and initial orders placed.? ?Additional care and disposition to be based upon?diagnostic testing and treatment. <Marielle Cruz PA-C - Last Filed: 07/10/25 14:11> History of Present Illness HPI Narrative: Agree with HPI. Patient is in rehab after respiratory arrest about a month ago. She has apparently had some increasing weakness over the past few days. Patient does not have any specific complaints this time just notes that she feels little more weak. Denies cough, congestion shortness of breath, nausea, vomiting, abdominal pain, chest pain. <Johnson Fernandes DO - Last Filed: 07/08/25 22:01> Related Data Home medications: Home Medications ?Medication ?Instructions ?Recorded ?Confirmed ?Last Taken ?Type amlodipine 10 mg tablet 10 mg PO DAILY 06/14/25 06/16/25 Unknown History Held on 06/24/25. Instructions: HOLD - resume when okay with the provider buspirone 10 mg tablet 10 mg PO BID 06/14/25 06/14/25 Unknown History Held on 06/24/25. Instructions: HOLD - resume when okay with the provider furosemide 20 mg tablet (Lasix) 20 mg PO DAILY 06/14/25 06/14/25 Unknown History levothyroxine 125 mcg capsule 125 mcg PO DAILY 06/14/25 06/14/25 Unknown History metformin 500 mg tablet 500 mg PO BIDWM 06/14/25 06/16/25 Unknown History Held on 06/24/25. Instructions: HOLD - resume when okay with the provider nortriptyline 25 mg capsule 50 mg PO HS 06/14/25 06/14/25 Unknown History Held on 06/24/25. Instructions: HOLD - resume when okay with the provider pramipexole 1 mg tablet 1 mg PO QPM 06/14/25 06/16/25 Unknown History Held on 06/24/25. Instructions: HOLD - resume when okay the provider <Marielle Cruz PA-C - Last Filed: 07/10/25 14:11> Allergies/Adverse reactions: Allergies Allergy/AdvReac Type Severity Reaction Status Date / Time amoxicillin Allergy Intermediate Hives Verified 06/15/25 08:34 <Marielle Cruz PA-C - Last Filed: 07/10/25 14:11> Review of Systems Review of Systems: Gen.: Denies fevers or chills Eyes: Denies eye pain or visual change ENT: Denies congestion Respiratory: Denies shortness of breath or cough CV: Denies chest pain or palpitations GI: Denies abdominal pain nausea, emesis or diarrhea denies burning, urgency, frequency or hematuria Musculoskeletal: Denies back pain or muscle pain Neuro: As per HPI Skin: Denies rash Except as documented, all other systems reviewed and negative <Johnson Fernandes DO - Last Filed: 07/08/25 22:01> [facility] Past Medical History Medical History: Medical History COPD with asthma Hyperlipidemia Essential hypertension Peripheral neuropathy CVA (cerebral vascular accident) (~2017) Hypothyroidism CHF (congestive heart failure) Diabetes mellitus Chronic pain <Marielle Cruz PA-C - Last Filed: 07/10/25 14:11> Surgical History Surgical History: Surgical History History of arthroscopic knee surgery H/O cervical spine surgery History of hernia repair With mesh History of laparoscopic cholecystectomy Status post repair of fracture of orbit Left Status post insertion of intrathecal pump Fentanyl <Marielle Cruz PA-C - Last Filed: 07/10/25 14:11> Family History Family History: Family History Other Unknown family medical history <Marielle Cruz PA-C - Last Filed: 07/10/25 14:11> Social History Social History: Social History Social History: Per ER physician report she lives with her significant other of over 20 years. Code status: Full code Surrogate decision maker: Son Smoking status: Former smoker Alcohol intake: current Substance use: current Lack of Transportation: No Lack of Food: Never True Current Housing: I Have Housing Concerned About Future Housing: Decline to Answer Difficulty Paying Gas/Electric Bills: Decline to Answer Difficulty Paying for Meds: Decline to Answer Currently Unemployed: Decline to Answer Education: High School Diploma/GED Difficulty w/ Childcare or Family Care: Decline to Answer Spiritual care concerns: No <Marielle Cruz PA-C - Last Filed: 07/10/25 14:11> Exam Narrative: APPEARANCE: Chronically ill-appearing, resting in bed EYES: EOMI HEENT: Normocephalic, atraumatic, OMM RESPIRATORY: No respiratory distress Clear to auscultation bilaterally with no rhonchi wheezing or rales. CARDIOVASCULAR: Regular rate and rhythm without murmurs rubs or gallops. ABDOMINAL: Soft, nontender, nondistended, no rebound or guarding MUSCULOSKELETAl: Moves all extremities. No clubbing, cyanosis or edema. NEURO: Awake and alert. Following commands, speech normal, no focal deficits SKIN:: Warm, dry. No rashes lesions or abrasions PSYCHIATRIC: Normal affect/mood, <Johnson Fernandes DO - Last Filed: 07/08/25 22:01> Course Vital Signs Vital signs: Vital Signs Temperature 97.5 F L 07/08/25 11:48 Pulse Rate 96 07/08/25 11:48 Respiratory Rate 16 07/08/25 11:48 Blood Pressure 123/72 07/08/25 11:48 Pulse Oximetry 97 07/08/25 11:48 Oxygen Delivery Nasal Cannula 07/08/25 11:48 Oxygen Flow Rate 2 07/08/25 11:48 Temperature 97.5 F L 07/08/25 11:48 Pulse Rate 98 07/08/25 16:16 Respiratory Rate 22 H 07/08/25 16:16 Blood Pressure 152/104 H 07/08/25 16:16 Pulse Oximetry 99 07/08/25 17:30 Oxygen Delivery Nasal Cannula 07/08/25 11:48 Oxygen Flow Rate 2 07/08/25 11:48 <Marielle Cruz PA-C - Last Filed: 07/10/25 14:11> Vital Signs Temperature 97.5 F L 07/08/25 11:48 Pulse Rate 96 07/08/25 11:48 Respiratory Rate 16 07/08/25 11:48 Blood Pressure 123/72 07/08/25 11:48 Pulse Oximetry 97 07/08/25 11:48 Oxygen Delivery Nasal Cannula 07/08/25 11:48 Oxygen Flow Rate 2 07/08/25 11:48 Temperature 97.5 F L 07/08/25 11:48 Pulse Rate 98 07/08/25 16:16 Respiratory Rate 22 H 07/08/25 16:16 Blood Pressure 152/104 H 07/08/25 16:16 Pulse Oximetry 99 07/08/25 17:30 Oxygen Delivery Nasal Cannula 07/08/25 11:48 Oxygen Flow Rate 2 07/08/25 11:48 <Johnson Fernandes DO - Last Filed: 07/08/25 22:01> MDM - Weakness MDM Narrative Medical decision making narrative: 60-year-old female Presenting for weakness. On initial evaluation patient was in no acute distress afebrile, hemodynamic stable. Differentials include but are not limited to: Electrolyte abnormality, ACS, viral syndrome, UTI, CVA Notable exam findings: Generally weak, no focal deficits. Notable lab findings: CBC and CMP without significant abnormalities. CK slightly elevated at 350. UA likely consistent with a contaminated specimen. Notable imaging findings: CT head showed no acute process. Chest x-ray showed no acute process. Patient had a very reassuring workup. It is possible that her symptoms are related to progression of her post stroke symptoms. There also may be some level of depression causing this. After further discussion with family, she is not happy with the food at her facility either she may have some mild malnourishment but this is not causing any electrolyte abnormalities at this time.. Patient was deemed appropriate for discharge at this time. Patient was given a prescription for []. Patient was advised follow-up with their PCP in the next week for re-evaluation. Patient was agreeable to this plan. Given strict return precautions. <Johnson Mcgregorjuanpablo - Last Filed: 07/08/25 22:01> Medical Records Attestation: I reviewed the patient's medical records. <Johnson Fernandes - Last Filed: 07/08/25 22:01> Lab Data Attestation: I reviewed the patient's lab results. <Johnson Fernandes DO - Last Filed: 07/08/25 22:01> Result diagrams: 07/08/25 13:44 07/08/25 13:44 <Marielle Cruz PA-C - Last Filed: 07/10/25 14:11> Labs: Lab Results 07/08/25 07/08/25 07/08/25 Range/Units 13:44 14:35 15:02 WBC 8.4 (4.5-10.0) K/mm3 RBC 4.51 (4.2-5.4) M/mm3 Hgb 12.7 (12.0-15.0) g/dL Hct 39.7 (37.0-47.0) % MCV 88.0 (80-100) fl MCH 28.2 (26-34) pg MCHC 32.0 (32-36) g/dl RDW 13.1 (11.5-14.5) % Plt Count 360 (150-375) k/mm3 MPV 10.4 (7.4-10.4) fl Immature Gran % (Auto) 0.5 (0-0.5) % Neut % (Auto) 68.3 (45.5-73.1) % Lymph % (Auto) 18.3 (18.3-44.2) % Banks % (Auto) 11.0 H (2.6-8.5) % Eos % (Auto) 1.7 (0-4.4) % Baso % (Auto) 0.2 (0.2-1.2) % Lymph # (Auto) 1.54 (0.9-3.2) K/mm3 Banks # (Auto) 0.9 H (0.1-0.6) K/mm3 Eos # (Auto) 0.1 (0-0.3) K/mm3 Baso # (Auto) 0.0 (0.0-0.1) K/mm3 Abs Immat Gran (auto) 0.04 H (0.00-0.031) K/mm3 Absolute Neuts (auto) 5.8 (1.3-6.7) K/mm3 Absolute Nucleated RBC 0.000 (0.0-0.012) K/mm3 Nucleated RBC % 0.0 (0.0-0.2) % Sodium 135 L (137-145) mmol/L Potassium 3.9 (3.4-5.0) mmol/L Chloride 96 L (98-107) mmol/L Carbon Dioxide 30 (22-30) mmol/L Anion Gap 9 (4-12) mmol/L BUN 18 H (7-17) mg/dL Creatinine 0.75 (0.7-1.0) mg/dL Estim Creat Clear Calc 55 ml/min Estimated GFR > 60 (59 - ) Glucose 112 H (65-110) mg/dL Calcium 9.5 (8.4-10.2) mg/dL Total Bilirubin 0.8 (0.2-1.3) mg/dL AST 29 (14-36) U/L ALT 21 (6-35) U/L Alkaline Phosphatase 72 (38-126) U/L Total Creatine Kinase 349 H (30-135) U/L Total Protein 7.7 (6.3-8.2) g/dL Albumin 4.3 (3.5-5.1) g/dL Urine Color Yellow (Yellow) Urine Appearance Cloudy H (Clear) Urine pH 5.5 (5.0-9.0) Ur Specific [place] 1.017 (1.001-1.035) Urine Protein Negative (Negative) mg/dL Urine Glucose (UA) Negative (Negative) mg/dL Urine Ketones 1+ H (Negative) mg/dL Ur Blood (Man) Negative (Negative) Urine Nitrate Negative (Negative) Urine Bilirubin Negative (Negative) Urine Urobilinogen 1.0 (<2.0) mg/dL Add Ur Microanalysis Reviewed Leukocyte Esterase Rfl Negative (Negative) SAMANTHA/UL Urine RBC 0-2 (0-2) /hpf Urine WBC 0-5 (0-3) /hpf Ur Squamous Epith Cells Many H (Few) /hpf Urine Bacteria Rare /hpf Urine Casts 0-2 Influenza A (RT-PCR) Negative (Negative) Influenza B (RT-PCR) Negative (Negative) RSV (RT-PCR) Negative (Negative) SARS-CoV-2 RNA (RT-PCR) Negative (Negative) <Marielle Cruz PA-C - Last Filed: 07/10/25 14:11> Lab Results 07/08/25 07/08/25 07/08/25 Range/Units 13:44 14:35 15:02 WBC 8.4 (4.5-10.0) K/mm3 RBC 4.51 (4.2-5.4) M/mm3 Hgb 12.7 (12.0-15.0) g/dL Hct 39.7 (37.0-47.0) % MCV 88.0 (80-100) fl MCH 28.2 (26-34) pg MCHC 32.0 (32-36) g/dl RDW 13.1 (11.5-14.5) % Plt Count 360 (150-375) k/mm3 MPV 10.4 (7.4-10.4) fl Immature Gran % (Auto) 0.5 (0-0.5) % Neut % (Auto) 68.3 (45.5-73.1) % Lymph % (Auto) 18.3 (18.3-44.2) % Banks % (Auto) 11.0 H (2.6-8.5) % Eos % (Auto) 1.7 (0-4.4) % Baso % (Auto) 0.2 (0.2-1.2) % Lymph # (Auto) 1.54 (0.9-3.2) K/mm3 Banks # (Auto) 0.9 H (0.1-0.6) K/mm3 Eos # (Auto) 0.1 (0-0.3) K/mm3 Baso # (Auto) 0.0 (0.0-0.1) K/mm3 Abs Immat Gran (auto) 0.04 H (0.00-0.031) K/mm3 Absolute Neuts (auto) 5.8 (1.3-6.7) K/mm3 Absolute Nucleated RBC 0.000 (0.0-0.012) K/mm3 Nucleated RBC % 0.0 (0.0-0.2) % Sodium 135 L (137-145) mmol/L Potassium 3.9 (3.4-5.0) mmol/L Chloride 96 L (98-107) mmol/L Carbon Dioxide 30 (22-30) mmol/L Anion Gap 9 (4-12) mmol/L BUN 18 H (7-17) mg/dL Creatinine 0.75 (0.7-1.0) mg/dL Estim Creat Clear Calc 55 ml/min Estimated GFR > 60 (59 - ) Glucose 112 H (65-110) mg/dL Calcium 9.5 (8.4-10.2) mg/dL Total Bilirubin 0.8 (0.2-1.3) mg/dL AST 29 (14-36) U/L ALT 21 (6-35) U/L Alkaline Phosphatase 72 (38-126) U/L Total Creatine Kinase 349 H (30-135) U/L Total Protein 7.7 (6.3-8.2) g/dL Albumin 4.3 (3.5-5.1) g/dL Urine Color Yellow (Yellow) Urine Appearance Cloudy H (Clear) Urine pH 5.5 (5.0-9.0) Ur Specific [place] 1.017 (1.001-1.035) Urine Protein Negative (Negative) mg/dL Urine Glucose (UA) Negative (Negative) mg/dL Urine Ketones 1+ H (Negative) mg/dL Ur Blood (Man) Negative (Negative) Urine Nitrate Negative (Negative) Urine Bilirubin Negative (Negative) Urine Urobilinogen 1.0 (<2.0) mg/dL Add Ur Microanalysis Reviewed Leukocyte Esterase Rfl Negative (Negative) SAMANTHA/UL Urine RBC 0-2 (0-2) /hpf Urine WBC 0-5 (0-3) /hpf Ur Squamous Epith Cells Many H (Few) /hpf Urine Bacteria Rare /hpf Urine Casts 0-2 Influenza A (RT-PCR) Negative (Negative) Influenza B (RT-PCR) Negative (Negative) RSV (RT-PCR) Negative (Negative) SARS-CoV-2 RNA (RT-PCR) Negative (Negative) <Johnson Fernandes DO - Last Filed: 07/08/25 22:01> Imaging Data Attestation: I personally reviewed and interpreted this imaging study as follows: <Johnson Fernandes DO - Last Filed: 07/08/25 22:01> My impression: Chest x-ray: Normal cardiac silhouette, no consolidations, no pleural effusions, no pulmonary vascular congestion <DO Ellen Diallo Last Filed: 07/08/25 22:01> Radiologist's impression: Impressions Head CT 07/08/25 13:21 IMPRESSION: 1. No acute intracranial findings. Chest X-Ray 07/08/25 13:31 IMPRESSION: 1. No acute cardiopulmonary findings. <Johnson Fernandes DO - Last Filed: 07/08/25 22:01> ECG Data EKG #1: Attestation: I personally reviewed and interpreted this ECG as follows: <Johnson Fernandes Last Filed: 07/08/25 22:01> ECG completion date: 07/08/25 <Johnson Fernandes Last Filed: 07/08/25 22:01> ECG completion time: 14:32 <Johnson Fernandes Last Filed: 07/08/25 22:01> Interpretation: Normal sinus rhythm, normal axis, normal intervals, no acute ST or T-wave changes <Johnson Fernandes DO Last Filed: 07/08/25 22:01> Discharge Plan Discharge Clinical Impression: Generalized muscle weakness <GINO Rosenthal Last Filed: 07/10/25 14:11> Patient Disposition: NH Intermediate/Asst Living <GINO Rosenthal Last Filed: 07/10/25 14:11> Condition: Stable <GINO Rosenthal Last Filed: 07/10/25 14:11> Instructions: Antibiotic Form, Weakness (ED) <GINO Rosenthal Last Filed: 07/10/25 14:11> Additional Instructions: Labs are reassuring. There is no evidence of infection at this point. There are no electrolyte abnormalities. Continue to follow the advice of rehab. Return to the ED for any new or worsening symptoms. <GINO Rosenthal Last Filed: 07/10/25 14:11> Patient Language: Slovak <GINO Rosenthal Last Filed: 07/10/25 14:11> Prescriptions: No Action metformin 500 mg tablet 500 mg PO BIDWM furosemide [Lasix] 20 mg tablet 20 mg PO DAILY nortriptyline 25 mg capsule 50 mg PO HS buspirone 10 mg tablet 10 mg PO BID pramipexole 1 mg tablet 1 mg PO QPM amlodipine 10 mg tablet 10 mg PO DAILY levothyroxine 125 mcg capsule 125 mcg PO DAILY levetiracetam [Keppra] 500 mg Tablet 1,000 mg PO Q12HR Qty: 120 0RF aspirin [Children's Aspirin] 81 mg Tablet,Chewable 81 mg PO DAILY@0800 Qty: 30 0RF <Marielle Cruz PA-C - Last Filed: 07/10/25 14:11> Follow-up/Referrals: UNKNOWN,DOCTOR [Primary Care Provider] <Marielle Cruz PA-C - Last Filed: 07/10/25 14:11>
--- NOTE | 2025-07-08 13:04 | ECG_ITS ---
Test Date: 2025-07-08 14:32:28 Measurements Intervals [place] Rate: 90 P: 62 NV: 147 QRS: 32 QRSD: 80 T: 50 QT: 375 QTc: 460 Interpretive Statements SINUS RHYTHM Compared to ECG 06/14/2025 21:00:00 No significant changes Electronically Signed On 07-08-2025 15:00:09 COMPUTER GAME PROGRAMMER by Sebastian Miller M.D.
[2025-07-08 14:05] LABS: Hematocrit 39.7 % (37.0-47.0); Hemoglobin 12.7 g/dL (12.0-15.0); Immature Granulocyte Percent A 0.5 % (0-0.5); Lymphocytes Absolute Auto 1.54 K/mm3 (0.9-3.2); Mean Corpuscular HGB Conc 32.0 g/dl (32-36); Mean Corpuscular Hemoglobin 28.2 pg (26-34); Mean Corpuscular Volume 88.0 fl (80-100); Nucleated Red Blood Cells Absolute Auto 0.000 K/mm3 (0.0-0.012); Nucleated Red Blood Cells Perc 0.0 % (0.0-0.2); Platelet Count Result 360 k/mm3 (150-375); Red Blood Count 4.51 M/mm3 (4.2-5.4); White Blood Count 8.4 K/mm3 (4.5-10.0)
[2025-07-08 14:16] LABS: Alanine Aminotransferase 21 U/L (6-35); Albumin Level 4.3 g/dL (3.5-5.1); Alkaline Phosphatase 72 U/L (38-126); Anion Gap 9 mmol/L (4-12); Aspartate Amino Transferase 29 U/L (14-36); Bilirubin,Total 0.8 mg/dL (0.2-1.3); Blood Urea Nitrogen 18 mg/dL (7-17); Calcium 9.5 mg/dL (8.4-10.2); Carbon Dioxide 30 mmol/L (22-30); Chloride 96 mmol/L (98-107); Estimated CRCL calculation 55 ml/min; Estimated Glomerular Filt Rate > 60; Glucose 112 mg/dL (65-110); Potassium 3.9 mmol/L (3.4-5.0); Sodium 135 mmol/L (137-145); Total Protein 7.7 g/dL (6.3-8.2)
[2025-07-08 14:39] LABS: Creatine Kinase 349 U/L (30-135)
[2025-07-08 15:21] LABS: Influenza A QL RT-PCR Negative (Negative); Influenza B QL RT-PCR Negative (Negative); RSV RNA, RT-PCR Negative (Negative); SARS-CoV-2 RNA PCR Negative (Negative)
[2025-07-08 15:40] LABS: Add Urine Microscopic? YES; Appearance Urine Cloudy (Clear); Glucose Urine UA Negative (Negative); Leukocyte Esterase Ur Negative LEU/UL (Negative); Need Manual Microscopic Reviewed; Nitrate Urine Negative (Negative); Non Pathogenic Casts 0-2; Specific Grav Ur 1.017 (1.001-1.035)
[2025-07-08] MEDS: oxyCODONE HCL (*CRX) 5 MG TAB IR PO (16:14)
[2025-07-08] MEDS: MORPHINE SULFATE (*CRX) 4 MG/ML INJ IV PUSH (16:15)
--- NOTE | 2025-07-08 17:38 | PC.NURSE ---
Addendum entered by Bartolo Corbett RN 07/08/25 17:42: Spoke to Triny at [facility] at this time to give report on pt and POC. Original Note: Called [facility] at this time to give report to primary RN for pt and update them on POC. Unable to reach primary RN, gave report to desk at [facility] as she stated she didnt know where the nurse was
--- OUTSIDE RECORDS SUMMARY | 2025-07-08 19:19 | XMS_ITS | Encounter Summary ---
Author Organization [facility] Address [address] [place] [address] Phone Care Team Providers Care Advertising Rep Name Role Phone Liam Wilson MD Primary Care Provider [phone] Diamond Lincoln ASSISTED LIVING ASSISTANT Unavailable Unavailab le Reason for Visit * Reason Comments Medication Refill Encounter Details Date Type Department Care Team (Late st Contact Info) Description 02/12/2022 Refill [facility] - [facility] Medicine - [place] [address] [place] [address] Liam Wilson MD [address] [address] Medication Refill Social History Tobacco Use Types Packs/Day Years Used Date Smoking Tobacco: Some Days Cigarettes 0.3 46.6 Started: 11/26/1978 Smokeless Tobacco: Never Alcohol Use Standard Drinks/Week Comments No 0 (1 standard drink = 0.6 oz pur e alcohol) PHQ-2 Answer Date Recorded Total Score - Questions 1-9 6 01/01 Education Answer Date Recorded What is the highest level of school you have completed or the highest degree you have received? 11th grade 06/22/2020 Sexually Active Control Partners Comments Not Currently Male Comments No Sex and Gender Information Value Date Recorded Sex Assigned at Not on file Legal Sex Female 10:25 PM CDT Gender Identity Not on file Sexual Orientation Not on file documented as of this encounter Miscellaneous Notes * Telephone Encounter - Lluvia Parra RN - 02/12/2022 2:10 PM CDT PRN medication requires review from provider Per nursing clinical judgement, provider to review and approve the medication(s) order(s) if appropriate. Requested Prescriptions Pending Prescriptions Disp Refills ProAir HFA 108 (90 Base) MCG/ACT Aerosol Solution [Pharmacy Med Name: PROAIR HFA 90 MCG INHALER] 18g 1 Sig: TAKE 2 PUFFS BY INHALATION EVERY 4 HOURS NEEDED FOR WHEEZING OR COUGH. Short Acting Inhaled Beta-Agonists Protocol Passed - 02/12/2022 12:02 AM Passed - Visit with relevant provider in past 12 months or upcoming 90 days Recent Visits Date Type Provider Dept 01/09/22 Telemedicine Amador Payan APRN, ABIGAIL [facility] 09/15/21 Telemedicine Liam Wilson MD [facility] 05/24/21 Office Visit Amador Payan APRN, ABIGAIL [facility] 04/18/21 Office Visit Amador Payan APRN, ABIGAIL [facility] 03/29/21 Office Visit Amador Payan APRN, ABIGAIL [facility] 03/15/21 Office Visit Amador Payan APRN, INFORMATION TECHNOLOGY SECURITY MANAGER [facility] Showing recent visits within past 365 days and meeting all other requirements Future Appointments No visits were found meeting these conditions. Showing future appointments within next 90 days and meeting all other requirements documented in this encounter Plan of Treatment Upcoming Encounters Date Type Department Care Team (Late st Contact Info) Description 09/09/2025 9:15 AM INFORMATION SCIENTIST Office Visit [facility] - Family Medicine - [place] [address] [place] [address] Liam Wilson MD [id number] [address] documented as of this encounter Visit Diagnoses Not on filedocumented in this encounter Additional Health Concerns Infection Onset Date Last Indicated Resolved Time Respiratory Rule Out - RPA 10/21/2024 10/21/2024 0 10/21/2024 3:06 PM INFORMATION SCIENTIST MRSA 10/21/2024 10/21/2024 Assessment Noted Time PHQ-9 Depression Total Score: 6 01/26/20 20 9:57 AM CDT documented as of this encounter Care Teams Advertising Rep Relationship Specialty Start Date End Date Liam Wilson MD [address] [address] PCP - General Family Medicine 12/31/19 Diamond Lincoln LSW [place] Reference Investigator Portrait Artist 09/04/23 documented as of this encounter
--- OUTSIDE RECORDS SUMMARY | 2025-07-08 19:19 | XMS_ITS | Encounter Summary ---
Author Organization [facility] Address [address] [place] [address] Phone Care Team Providers Care Intervention Analyst Name Role Phone Liam Wilson MD Primary Care Provider [phone] Diamond Lincoln Unavailable Unavailab le Reason for Visit * Reason Comments Medication Refill Encounter Details Date Type Department Care Team (Late st Contact Info) Description 04/24/2022 Refill [facility] - Family Medicine - [place] [address] [place] [address] Amador Payan, MIGUEL ANGEL, RN GYN #[address] [id number] Medication Refill Social History Tobacco Use Types [...] encounter Miscellaneous Notes * Telephone Encounter - Bre Shelby RN - 04/24/2022 12:38 PM CDT Refill request too soon. documented in this encounter Plan of Treatment Upcoming Encounters Date Type Department Care Team (Late st Contact Info) Description 09/09/2025 9:15 AM VETERINARIAN ASSISTANT Office Visit [facility] - Family [facility] - [place] [address] [place] [address] Liam Wilson MD #[address] [address] documented as of this encounter Visit Diagnoses Not on filedocumented in this encounter Additional Health Concerns Infection Onset Date Last Indicated Resolved Time Respiratory Rule Out - RPA 10/21/2024 10/21/2024 0 10/21/2024 3:06 PM VETERINARIAN ASSISTANT MRSA 10/21/2024 10/21/2024 Assessment Noted Time PHQ-9 Depression Total Score: 6 01/26/20 20 9:57 AM CDT documented as of this encounter Care Teams Intervention Analyst Relationship Specialty Start Date End Date Liam Wilson MD [address] [address] PCP - General Family Medicine 12/31/19 Diamond Lincoln LSW [place] Dish Person Shotgun Shell Assembly Machine Operator 09/04/23 documented as of this encounter
--- OUTSIDE RECORDS SUMMARY | 2025-07-08 19:19 | XMS_ITS | Encounter Summary ---
Author Organization [facility] Address [address] [place] [address] Phone Care Team Providers Care Rivet Flunky Name Role Phone Liam Wilson MD Primary Care Provider [phone] [phone] Diamond Lincoln Unavailable Unavailab le Reason for Visit * Reason Comments Medication Refill Encounter Details Date Type Department Care Team (Late st Contact Info) Description 12/05/2021 Refill [facility] - Family Medicine - [place] [address] [place] [address] Amador Payan, MIGUEL ANGEL, MUNICIPAL SERVICES MANAGER [address] [address] Medication Refill Social History Tobacco Use Types [...] Telephone Encounter - Lluvia Parra RN - 12/05/2021 3:04 PM CDT Medication warning Per nursing clinical judgement, provider to review and approve the medication(s) order(s) if appropriate. Requested Prescriptions Pending Prescriptions Disp Refills Combivent Respimat 20-100 MCG/ACT Aerosol Solution [Pharmacy Med Name: COMBIVENT RESPIMAT 20-100 MCG] 4 g 2 Sig: INHALE TWO PUFFS BY MOUTH FOUR TIMES A DAY Inhaled Combinations Protocol Passed - 12/05/2021 1:47 PM Passed - Visit with relevant provider in past 12 months or upcoming 90 days Recent Visits Date Type Provider Dept 09/15/21 Telemedicine Liam Wilson MD [facility] 05/24/21 Office Visit Amador Payan APRN, ABIGAIL [facility] [place] 04/18/21 Office Visit Amador Payan APRN, ABIGAIL [facility] [place] 03/29/21 Office Visit Amador Pay[facility] APRN, ABIGAIL [facility] 03/15/21 Office Visit Amador Payan APRN, MUNICIPAL SERVICES MANAGER [facility] 12/07/20 Office Visit Liam Wilson MD [facility] Showing recent visits within past 365 days and meeting all other requirements Future Appointments No visits were found meeting these conditions. Showing future appointments within next 90 days and meeting all other requirements Passed - Active short-acting beta agonist prescription documented in this encounter Plan of Treatment Upcoming Encounters Date Type Department Care Team (Late st Contact Info) Description 09/09/2025 9:15 AM TUBE BENDER HAND Office Visit [facility] - Family Medicine - [place] [address] [place] [address] Liam Wilson MD [id number] [address] documented as of this encounter Visit Diagnoses Not on filedocumented in this encounter Additional Health Concerns Infection Onset Date Last Indicated Resolved Time COVID - 19 Confirmed 01/05/2022 01/05/2022 022 12:16 AM CDT Respiratory Rule Out - RPA 10/21/2024 10/21/2024 0 10/21/2024 3:06 PM TUBE BENDER HAND MRSA 10/21/2024 10/21/2024 Assessment Noted Time PHQ-9 Depression Total Score: 6 01/26/20 20 9:57 AM CDT documented as of this encounter Care Teams Rivet Flunky Relationship Specialty Start Date End Date Liam Wilson MD [address] [address] PCP - General Family Medicine 12/31/19 Diamond Lincoln LSW [place] Professor Of Violin Wood Form Builder 09/04/23 documented as of this encounter
--- OUTSIDE RECORDS SUMMARY | 2025-07-08 19:19 | XMS_ITS | Encounter Summary ---
Author Organization [facility] Address [address] [place] [address] Phone Care Team Providers Care Oracle Data Warehouse Developer Name Role Phone Liam Wilson MD Primary Care Provider [phone] [phone] Diamond Lincoln CARRY OUT CLERK AND SHELF STOCKER Unavailable Unavailab le Reason for Visit * Reason Comments Medication Refill Encounter Details Date Type Department Care Team (Late st Contact Info) Description 03/19/2022 [facility]ill [facility] - [place] [address] [place] [address] Liam Wilson MD [address] [address] Medication Refill Social History Tobacco Use Types [...] on file Sexual Orientation Not on file COVID-19 Exposure Response Date Recorded In the last 10 days, have yo u been in contact with someone who was confirmed or suspected to have Coronavirus/COVID-19? No / Unsure 02/27/2022 12:52 PM CDT documented as of this encounter Miscellaneous Notes * Telephone Encounter - Lluvia Parra RN - 03/19/2022 2:39 PM CDT PRN medication requires review from provider Per nursing clinical judgement, provider to review and approve the medication(s) order(s) if appropriate. Requested Prescriptions Pending Prescriptions Disp Refills ibuprofen (MOTRIN) 800 MG Tablet [Pharmacy Med Name: IBUPROFEN 800 MG TABLET] 90 Tablet 1 Sig: TAKE 1 TABLET BY MOUTH EVERY 8 HOURS NEEDED FOR MODERATE OR MORE SEVERE PAIN. NSAIDs Protocol Passed - 03/19/2022 12:03 AM Passed - Normal serum creatinine in past 12 months CREATININE, BLOOD Date Value Ref Range Status 01/05/2022 0.72 0.60 - 1.10 mg/dL Final Passed - Visit with relevant provider in past 12 months or upcoming 90 days Recent Visits Date Type Provider Dept 02/27/22 Office Visit Liam Wilson MD [facility] 01/09/22 Telemedicine Amaodr Payan APRN, ABIGAIL [facility] 09/15/21 Telemedicine Liam Wilson MD [facility] 05/24/21 Office Visit Amador Payan APRN, ABIGAIL [facility] 04/18/21 Office Visit Amador Payan APRN, ABIGAIL [facility] 03/29/21 Office Visit Amador Payan APRN, DIAGRAMMER AND SEAMER [facility] Showing recent visits within past 365 days and meeting all other requirements Future Appointments Date Type Provider Dept 05/31/22 Appointment Liam Wilson MD [facility] Showing future appointments within next 90 days and meeting all other requirements Passed - No matching NSAID med order in past 45 days No matching medication orders between 02/02/2022 2:39 PM and 03/19/2022 2:39 PM Passed - AST less than 55 or ALT less than 90 in past 12 months SGOT (AST) Date Value Ref Range Status 01/05/2022 44 (H) <=32 U/L Final SGPT (ALT) Date Value Ref Range Status 01/05/2022 32 <=41 U/L Final Passed - HGB greater than 10 or HCT greater than 30 in past 12 months HEMOGLOBIN (HGB) Date Value Ref Range Status 01/05/2022 11.6 (L) 12.0 - 15.8 g/dL Final HEMATOCRIT (HCT) Date Value Ref Range Status 01/05/2022 38.1 36.0 - 47.0 % Final documented in this encounter Plan of Treatment Upcoming Encounters Date Type Department Care Team (Late st Contact Info) Description 09/09/2025 9:15 AM ELECTRICIAN TECHNICIAN Office Visit [facility] - Family [facility] [address] [place] [address] Liam Wilson MD [address] [address] documented as of this encounter Visit Diagnoses Diagnosis Acute pain of left shoulder documented in this encounter Additional Health Concerns Infection Onset Date Last Indicated Resolved Time Respiratory Rule Out - RPA 10/21/2024 10/21/2024 0 10/21/2024 3:06 PM ELECTRICIAN TECHNICIAN MRSA 10/21/2024 10/21/2024 Assessment Noted Time PHQ-9 Depression Total Score: 6 01/26/20 9:57 AM CDT documented as of this encounter Care Teams Oracle Data Warehouse Developer Relationship Specialty Start Date End Date Liam Wilson MD [address] [address] PCP - General Family Medicine 12/31/19 Diamond Lincoln LSW [place] Gig Tender Manager Of Disaster Recovery 09/04/23 documented as of this encounter
--- OUTSIDE RECORDS SUMMARY | 2025-07-08 19:19 | XMS_ITS | Encounter Summary ---
Author Organization [facility] Address [address] [place] [address] Phone Care Team Providers Care Plate Put In Worker Name Role Phone Liam Wilson MD Primary Care Provider [phone] [phone] Diamond Lincoln TRACK GRINDER OPERATOR Unavailable Unavailab le Reason for Visit * Reason Comments Medication Refill Encounter Details Date Type Department Care Team (Late st Contact Info) Description 12/28/2020 Refill [facility] - Family Medicine - [place] [address] [place] [address] Liam Wilson MD [address] [address] Medication Refill Social History Tobacco Use Types Packs/Day Years Used Date Smoking Tobacco: Some Days Cigarettes 0.8 46.6 Started: 11/26/1978 Smokeless Tobacco: Never Alcohol [...] Exposure Response Date Recorded In the last month, have you been in contact with someone who was confirmed or suspected to have Coronavirus / COVID-19? No / Unsure 12/07/2020 9:54 AM CDT documented as of this encounter Miscellaneous Notes * Telephone Encounter - Lluvia Parra RN - 12/29/2020 10:33 AM CDT Medication failed the protocol, provider to review and approve the medication order if appropriate. Requested Prescriptions Pending Prescriptions Disp Refills pramipexole (MIRAPEX) 0.5 MG Tablet [Pharmacy Med Name: PRAMIPEXOLE 0.5 MG TABLET] 90 Tablet 1 Sig: TAKE 1 TABLET BY MOUTH EVERY DAY AT NIGHT [facility]: Parkinsonian Agents Failed - 12/28/2020 9:30 AM Failed - Last BP in normal range BP Readings from Last 1 Encounters: 12/07/20 142/80 Passed - Valid encounter within last 12 months Past Office Visits Recent Outpatient Visits 3 weeks ago Essential hypertension [facility] - Liam Schulz MD 5 months ago Acute pain of left shoulder [facility] - Amador Amaya APN, HOG RAISER 6 months ago Essential hypertension [facility] Liam Scuhlz MD 11 months ago Chronic obstructive pulmonary disease, unspecified COPD type (HCC) [facility] - Delmy Crawford PAC 11 months ago Chronic obstructive pulmonary disease, unspecified COPD type (HCC) [facility] Liam Schulz MD Upcoming Appointments Future Appointments In 2 months Liam Wilson MD [facility] [place] [facility] REGULATORY SCIENTIST - Recent and Past Visits Recent Visits Date Type Provider Dept 12/07/20 Office Visit Liam Wilson MD [facility] 08/01/20 Office Visit Amador Payan APN, HOG RAISER [facility] 06/22/20 Office Visit Liam Wilson MD [facility] 02/02/20 Office Visit [facility] Delmy Chappell, SOCRATES [facility] [place] 01/26/20 Office Visit Liam Wilson MD [facility] 12/31/19 Telemedicine Liam Wilson MD [facility] Showing recent visits within past 460 days with a meds authorizing provider and meeting all other requirements Future Appointments Date Type Provider Dept 03/09/21 Appointment Liam Wilson MD [facility] Showing future appointments within next 90 days with a meds authorizing provider and meeting all other requirements documented in this encounter Plan of Treatment Upcoming Encounters Date Type Department Care Team (Late st Contact Info) Description 09/09/2025 9:15 AM MARKLOGIC DEVELOPER Office Visit [facility] - Family Medicine [facility] [address] [place] [address] Liam Wilson MD [address] [address] documented as of this encounter Visit Diagnoses Not on filedocumented in this encounter Additional Health Concerns Infection Onset Date Last Indicated Resolved Time COVID - 19 Confirmed 01/05/2022 01/05/2022 022 12:16 AM CDT Respiratory Rule Out - RPA 10/21/2024 10/21/2024 0 10/21/2024 3:06 PM MARKLOGIC DEVELOPER MRSA 10/21/2024 10/21/2024 Assessment Noted Time PHQ-9 Depression Total Score: 6 01/26/20 20 9:57 AM CDT documented as of this encounter Care Teams Plate Put In Worker Relationship Specialty Start Date End Date Liam Wilson MD [address] [address] PCP - General Family Medicine 12/31/19 Diamond Lincoln LSW [place] Academic Affairs Manager A Class Lineman 09/04/23 documented as of this encounter
--- OUTSIDE RECORDS SUMMARY | 2025-07-08 19:19 | XMS_ITS | Encounter Summary ---
Author Organization [facility] Address [address] [place] [address] Phone Care Team Providers Care Mental Health Orderly Name Role Phone Liam Wilson MD Primary Care Provider [phone] [phone] Diamond Lincoln TOBACCO WRAPPING MACHINE TENDER Unavailable Unavailab le Reason for Visit * Reason Comments Medication Refill Encounter Details Date Type Department Care Team (Late st Contact Info) Description 12/16/2023 Refill [facility] - Family Medicine - [place] [address] [place] [address] Liam Wilson MD [address] [address] Medication Refill Social History Tobacco Use Types Packs/Day Years Used Date Smoking Tobacco: Some Days Cigarettes 0.3 46.6 Started: [birth year]/26/1978 Smokeless Tobacco: Never Alcohol Use Standard Drinks/Week Comments No 0 (1 standard drink = 0.6 oz pur e alcohol) [facility] Utilities Answer Date Recorded In the past 12 months has [employer], gas, oil, or water company threatened to shut off services in your home? No 09/26/2023 Social Connection and Isolation Panel Answer Date Recorded In a typical week, how many times do you talk on the phone with family, friends, or neighbors? Twice a week 09/26/2023 How often do you get together with friends or re latives? Once a week 09/26/2023 How often do you attend buddhism or faith serv ices? Never 09/26/2023 Do you belong to any clubs o r organizations such as buddhism groups, unions, fraternal or athletic groups, or school groups? No 09/26/2023 How often do you attend meet ings of the clubs or organizations you belong to? Never 09/26/2023 Marital Status Not on file 09/26/2023 AUDIT-C Answer Date Recorded Q1: How often do you have a drink containing alcohol? Never 09/26/2023 Q2: How many drinks containi ng alcohol do you have on a typical day when you are drinking? Patient does not drink Q3: How often do you have si x or more drinks on one occasion? Never 09/26/2023 Overall Financial Resource Strain (CARDIA) Answe r Date Recorded How hard is it for you to pa y for the very basics like food, housing, medical care, and heating? Somewhat hard 09/26/2023 PHQ-2 Answer Date Recorded Total Score - Questions 1-9 4 09/03 [facility] - Occupational Stress Questionnaire Answer Date Recorded Do you feel stress - tense, restless, nervous, or anxious, or unable to sleep at night because your mind is troubled all the time - these days? To some extent 09/26/2023 Exercise Vital Sign Answer Date Recorde d On average, how many days pe r week do you engage in moderate to strenuous exercise (like a brisk walk)? 3 days 09/26/2023 On average, how many minutes do you engage in exercise at this level? 30 min 09/26/2023 Hunger Vital Sign Answer Date Recorded Within the past 12 months, y ou worried that your food would run out before you got the money to buy more. Sometimes true Within the past 12 months, t he food you bought just didn't last and you didn't have money to get more. Sometimes true PRAPARE - Transportation Answer Date Re corded In the past 12 months, has l ack of transportation kept you from medical appointments or from getting medications? Yes 09/03 In the past 12 months, has l ack of transportation kept you from meetings, work, or from getting things needed for daily living? Yes 09/26/2023 Housing Stability Vital Sign Answer Curtis e Recorded In the last 12 months, was t here a time when you were not able to pay the mortgage or rent on time? No 09/26/2023 In the last 12 months, how many places have you lived? 3 09/26/2023 In the last 12 months, was t here a time when you did not have a steady place to sleep or slept in a long-term (including now)? Yes 09/26/2023 Education Answer Date Recorded What is the [...] Telephone Encounter - Lluvia Parra RN - 12/16/2023 12:01 PM CDT Medication(s) refilled and signed per [facility] Chronic Medication Refill Standing Order for Pediatricand Adult Patients. Requested Prescriptions Pending Prescriptions Disp Refills budesonide-formoterol fumarate (SYMBICORT) 160-4.5 MCG/ACT Aerosol [Pharmacy Med Name: BUDESONIDE-FORMOTEROL 160-4.5] 30.6 g 1 Sig: take 2 Puffs by inhalation daily. Inhaled Combinations Protocol Passed - 12/16/2023 7:21 AM Passed - Visit with relevant provider in past 12 months or upcoming 90 days Recent Visits Date Type Provider Dept 09/23/23 Telemedicine Liam Wilson MD [facility] 04/01/23 Telemedicine Liam Wilson MD [facility] 03/27/23 Telemedicine Liam Wilson MD [facility] [place] Showing recent visits within past 365 days and meeting all other requirements Future Appointments No visits were found meeting these conditions. Showing future appointments within next 90 days and meeting all other requirements Passed - Active short-acting beta agonist prescription documented in this encounter Plan of Treatment Upcoming Encounters Date Type Department Care Team (Late st Contact Info) Description 09/09/2025 9:15 AM SENIOR FACILITIES MANAGER [facility] [address] [place] [address] Liam Wilson MD [address] [address] documented as of this encounter Visit Diagnoses Not on filedocumented in this encounter Additional Health Concerns Infection Onset Date Last Indicated Resolved Time Respiratory Rule Out - RPA 10/21/2024 10/21/2024 0 10/21/2024 3:06 PM SENIOR FACILITIES MANAGER MRSA 10/21/2024 10/21/2024 Assessment Noted Time PHQ-9 Depression Total Score: 4 09/26/19 11:09 AM SENIOR FACILITIES MANAGER documented as of this encounter Care Teams Mental Health Orderly Relationship Specialty Start Date End Date Liam Wilson MD [address] [address] PCP - General Family Medicine 12/31/19 Diamond Lincoln LSW [place] Technician Chemical Cleaning Disability Examiner 09/04/23 documented as of this encounter
--- OUTSIDE RECORDS SUMMARY | 2025-07-08 19:19 | XMS_ITS | Encounter Summary ---
Author Organization [facility] Address [address] [place] [address] Phone Care Team Providers Care Plastics Process Hand Name Role Phone Liam Wilson MD Primary Care Provider [phone] [phone] Diamond Lincoln MEASURING MACHINE OPERATOR Unavailable Unavailab le Reason for Visit * Reason Comments Medication Refill Encounter Details Date Type Department Care Team (Late st Contact Info) Description 12/13/2020 Refill [facility] [address] [place] [address] Liam Wilson MD [address] [address] Medication Refill Social History Tobacco [...] encounter Miscellaneous Notes * Telephone Encounter - Sergey Parrayoni Morelos RN - 12/13/2020 9:47 AM CDT Medication failed the protocol, provider to review and approve the medication order if appropriate. Requested Prescriptions Pending Prescriptions Disp Refills metFORMIN (GLUCOPHAGE) 500 MG Tablet [Pharmacy Med Name: METFORMIN HCL 500 MG TABLET] 180 Tablet 1 Sig: TAKE 1 TABLET BY MOUTH TWICE A DAY WITH MEALS Endocrinology: Diabetes - Biguanides Failed - 12/13/2020 12:15 AM Failed - Last BP in normal range BP Readings from Last 1 Encounters: 12/07/20 142/80 Passed - Valid encounter within last 12 months Past Office Visits Recent Outpatient Visits 6 days ago Essential hypertension [facility] - Liam Schulz MD 4 months ago Acute pain of left shoulder [facility] - Amador Amaya APN, CARE COORDINATION MANAGER 5 months ago Essential hypertension [facility] - Liam Schulz MD 10 months ago Chronic obstructive pulmonary disease, unspecified COPD type (HCC) [facility] - Delmy Crawford PAC 10 months ago Chronic obstructive pulmonary disease, unspecified COPD type (HCC) [facility] - Liam Schulz MD Upcoming Appointments Future Appointments In 2 months Liam Wilson MD [facility] - Recent and Past Visits Recent Visits Date Type Provider Dept 12/07/20 Office Visit Liam Wilson MD [facility] 08/01/20 Office Visit Amador Payan APN, ABIGAIL [facility] 06/22/20 Office Visit Liam Wilson MD [facility] 02/02/20 Office Visit Delmy Grimm, SOCRATES [facility] [place] 01/26/20 Office Visit Liam Wilson MD [facility] 12/31/19 Telemedicine Liam Wilson MD [facility] Showing recent visits within past 460 days with a meds authorizing provider and meeting all other requirements Future Appointments Date Type Provider Dept 03/09/21 Appointment Liam Wilson MD [facility] Showing future appointments within next 90 days with a meds authorizing provider and meeting all other requirements documented in this encounter Plan of Treatment Upcoming Encounters Date Type Department Care Team (Late st Contact Info) Description 09/09/2025 9:15 AM SODA FOUNTAIN CLERK Office Visit [facility] - Family Medicine [facility] [address] [place] [address] Liam Wilson MD [address] [address] documented as of this encounter Visit Diagnoses Not on filedocumented in this encounter Additional Health Concerns Infection Onset Date Last Indicated Resolved Time COVID - 19 Confirmed 01/05/2022 01/05/2022 022 12:16 AM CDT Respiratory Rule Out - RPA 10/21/2024 10/21/2024 0 10/21/2024 3:06 PM SODA FOUNTAIN CLERK MRSA 10/21/2024 10/21/2024 Assessment Noted Time PHQ-9 Depression Total Score: 6 01/26/20 20 9:57 AM CDT documented as of this encounter Care Teams Plastics Process Hand Relationship Specialty Start Date End Date Liam Wilson MD [address] [address] PCP - General Family Medicine 12/31/19 Diamond Lincoln LSW [place] Drapery Counselor Clay Caster 09/04/23 documented as of this encounter
--- OUTSIDE RECORDS SUMMARY | 2025-07-08 19:19 | XMS_ITS | Encounter Summary ---
Author Organization [facility] Address [address] [place] [address] Phone Care Team Providers Care Access Database Developer Name Role Phone Liam Wilson MD Primary Care Provider [phone] [phone] Diamond Lincoln FLAGSTONE LAYER Unavailable Unavailab le Reason for Visit * Reason Comments Medication Refill Encounter Details Date Type Department Care Team (Late st Contact Info) Description 12/11/2020 Refill [facility] - [place] [address] [place] [address] Liam Wilson MD #[address] [address] Medication Refill Social History Tobacco Use Types [...] encounter Miscellaneous Notes * Telephone Encounter - Libia Chen RN - 12/12/2020 11:00 AM CDT Medication failed the protocol, provider to review and approve the medication order if appropriate. Requested Prescriptions Pending Prescriptions Disp Refills Symbicort 160-4.5 MCG/ACT Aerosol [Pharmacy Med Name: SYMBICORT 160-4.5 MCG INHALER] 30.6 Inhaler 1 Sig: INHALE TWO PUFFS BY MOUTH TWO TIMES A DAY Pulmonology: Combination Products Failed - 12/11/2020 2:31 PM Failed - Last BP in normal range BP Readings from Last 1 Encounters: 12/07/20 142/80 Passed - Valid encounter within last 12 months Past Office Visits Recent Outpatient Visits 5 days ago Essential hypertension [facility] Family [facility] - Liam Schulz MD 4 months ago Acute pain of left shoulder [facility] - Amador Amaya APN, EXECUTIVE CANDIDATE DEVELOPER 5 months ago Essential hypertension [facility] Liam Schulz MD 10 months ago Chronic obstructive pulmonary disease, unspecified COPD type (HCC) [facility] - Delmy Crawford PAC 10 months ago Chronic obstructive pulmonary disease, unspecified COPD type (HCC) [facility] Liam Schulz MD Upcoming Appointments Future Appointments In 2 months Liam Wilson MD [facility]UC[facility] - Recent and Past Visits Recent Visits Date Type Provider Dept 12/07/20 Office Visit Liam Wilson MD [facility] 08/01/20 Office Visit Amador Payan APN, EXECUTIVE CANDIDATE DEVELOPER [facility] [place] 06/22/20 Office Visit Liam Wilson MD [facility] 02/02/20 Office Visit Alfa Edie, SOCRATES [facility] [place] 01/26/20 Office Visit Liam Wilson MD [...] st Contact Info) Description 09/09/2025 9:15 AM SILK SCREEN REPAIRER Office Visit [facility] - Family Medicine [facility] [address] [place] [address] Liam Wilson MD #[address] [address] documented as of this encounter Visit Diagnoses Not on filedocumented in this encounter Additional Health Concerns Infection Onset Date Last Indicated Resolved Time COVID - 19 Confirmed 01/05/2022 01/05/2022 022 12:16 AM CDT Respiratory Rule Out - RPA 10/21/2024 10/21/2024 0 10/21/2024 3:06 PM SILK SCREEN REPAIRER MRSA 10/21/2024 10/21/2024 Assessment Noted Time PHQ-9 Depression Total Score: 6 01/26/20 20 9:57 AM CDT documented as of this encounter Care Teams Access Database Developer Relationship Specialty Start Date End Date Liam Wilson MD #[address] [address] PCP - General Family Medicine 12/31/19 Diamond Lincoln LSW [place] Welding Machine Tender Spring Encaser 09/04/23 documented as of this encounter
--- OUTSIDE RECORDS SUMMARY | 2025-07-08 19:19 | XMS_ITS | Encounter Summary ---
Author Organization [facility] Address [address] [place] [address] Phone Care Team Providers Care Lubricator Granulator Name Role Phone Liam Wilson MD Primary Care Provider [phone] [phone] Diamond Lincoln VICE PRESIDENT TAX Unavailable Unavailab le Reason for Visit * Reason Comments Medication Refill Encounter Details Date Type Department Care Team (Late st Contact Info) Description 02/11/2021 Refill [facility] - [place] [address] [place] [address] Liam Wilson MD #[address] [address] Medication Refill Social History Tobacco Use Types [...] Telephone Encounter - Lluvia Parra RN - 02/13/2021 9:41 AM CDT Medication failed the protocol, provider to review and approve the medication order if appropriate. Requested Prescriptions Pending Prescriptions Disp Refills Combivent Respimat 20-100 MCG/ACT Aerosol Solution [Pharmacy Med Name: COMBIVENT RESPIMAT 20-100 MCG] 4 g 2 Sig: INHALE TWO PUFFS BY MOUTH FOUR TIMES A DAY [facility] Pulmonology: Combination Products Failed - 02/13/2021 9:41 AM Failed - Last BP in normal range BP Readings from Last 1 Encounters: 12/07/20 142/80 Passed - Valid encounter within last 12 months Past Office Visits Recent Outpatient Visits 2 months ago Essential hypertension [facility] Liam Schulz MD 6 months ago Acute pain of left shoulder [facility] - Amador Amaya APN, SCREEN PRINTING MACHINE OPERATOR HELPER 7 months ago Essential hypertension [facility] Liam Schulz MD 1 year ago Chronic obstructive pulmonary disease, unspecified COPD type (HCC) [facility] Delmy Crawford, SOCRATES 1 year ago Chronic obstructive pulmonary disease, unspecified COPD type (HCC) [facility] Liam Schulz MD Upcoming Appointments Future Appointments In 3 weeks Liam Wilson MD [facility] DIRECTOR MARKETING ANALYTICS - Recent and Past Visits Recent Visits Date Type Provider Dept 12/07/20 Office Visit Liam Wilson MD [facility] 08/01/20 Office Visit Amador Payan APN, ABIGAIL [facility] 06/22/20 Office Visit Liam Wilson MD [facility] 02/02/20 Office Visit Delmy Grimm PAC [facility] 01/26/20 Office Visit Liam Wilson MD [facility] 12/31/19 Telemedicine Liam Wilson MD [facility] Showing recent visits within past 460 days with a meds authorizing provider and meeting all other requirements Future Appointments Date Type Provider Dept 03/09/21 Appointment Liam Wilson MD [facility] Showing future appointments within next 90 days with a meds authorizing provider and meeting all other requirements Inhaled Combinations Protocol Passed - 02/13/2021 9:41 AM Passed - Visit with relevant provider in past 12 months or upcoming 90 days Recent Visits Date Type Provider Dept 12/07/20 Office Visit Liam Wilson MD [facility] 08/01/20 Office Visit Amador Payan APN, ABIGAIL [facility] 06/22/20 Office Visit Liam Wilson MD [facility] Showing recent visits within past 365 days [...] st Contact Info) Description 09/09/2025 9:15 AM WRAPPER CASHIER Office Visit [facility] Medical Group - Family [facility] - [place] [address] [place] [address] Liam Wilson MD #[address] [address] documented as of this encounter Visit Diagnoses Not on filedocumented in this encounter Additional Health Concerns Infection Onset Date Last Indicated Resolved Time COVID - 19 Confirmed 01/05/2022 01/05/2022 022 12:16 AM CDT Respiratory Rule Out - RPA 10/21/2024 10/21/2024 0 10/21/2024 3:06 PM WRAPPER CASHIER MRSA 10/21/2024 10/21/2024 Assessment Noted Time PHQ-9 Depression Total Score: 6 01/26/20 20 9:57 AM CDT documented as of this encounter Care Teams Lubricator Granulator Relationship Specialty Start Date End Date Liam Wilson MD #[address] [address] PCP - General Family Medicine 12/31/[address] Canal Structure Operator Dental Insurance Coordinator 09/04/23 documented as of this encounter
--- OUTSIDE RECORDS SUMMARY | 2025-07-08 19:19 | XMS_ITS | Encounter Summary ---
Author Organization [facility] Address [address] [place] [address] Phone Care Team Providers Care Coordinator Of Online Programs Name Role Phone Liam Wilson MD Primary Care Provider [phone] Diamond Lincoln STATION MANAGER Unavailable Unavailab le Reason for Visit * Reason Comments Medication Refill Encounter Details Date Type Department Care Team (Late st Contact Info) Description 04/01/2022 Refill [facility] - [place] [address] [place] [address] Liam Wilson MD #[address] [address] Medication Refill Social History Tobacco Use Types [...] Telephone Encounter - Lluvia Parra RN - 04/02/2022 12:37 PM CDT Medication failed the protocol, provider to review and approve the medication order if appropriate. Requested Prescriptions Pending Prescriptions Disp Refills nortriptyline (PAMELOR) 25 MG Capsule [Pharmacy Med Name: NORTRIPTYLINE HCL 25 MG CAP] 180 Capsule 3 Sig: TAKE 2 CAPSULES BY MOUTH NIGHTLY Not Delegated - Tricyclic Agents Protocol Failed - 04/01/2022 6:59 AM Failed - This refill cannot be delegated Passed - Visit with relevant provider in past 12 months or upcoming 90 days Recent Visits Date Type Provider Dept 02/27/22 [facility]22 Telemedicine Amador Payan APRN, ABIGAIL [facility] [place] 09/15/21 Telemedicine Liam Wilson MD [facility] 05/24/21 Office Visit Amador Payan APRN, ABIGAIL [facility] 04/18/21 Office Visit Amador Payan APRN, MELT HOUSE CENTRIFUGAL OPERATOR [facility] Show[facility] recent visits within past 365 days and meeting all other requirements Future Appointments Date Type Provider Dept 05/31/22 Appointment Liam Wilson MD [facility] [place] Showing future appointments within next 90 days and meeting all other requirements documented in this encounter Plan of Treatment Upcoming Encounters Date Type Department Care Team (Late st Contact Info) Description 09/09/2025 9:15 AM MAINTENANCE CARPENTER Office Visit [facility] Group - Family Medicine - [place] [address] [place] [address] Liam Wilson MD [address] [address] documented as of this encounter Visit Diagnoses Not on filedocumented in this encounter Additional Health Concerns Infection Onset Date Last Indicated Resolved Time Respiratory Rule Out - RPA 10/21/2024 10/21/2024 0 10/21/2024 3:06 PM MAINTENANCE CARPENTER MRSA 10/21/2024 10/21/2024 Assessment Noted Time PHQ-9 Depression Total Score: 6 01/26/20 20 9:57 AM CDT documented as of this encounter Care Teams Coordinator Of Online Programs Relationship Specialty Start Date End Date Liam Wilson MD #[address] [address] PCP - General Family Medicine 12/31/[address] Web Assistant Arborist Representative 09/04/23 documented as of this encounter
--- OUTSIDE RECORDS SUMMARY | 2025-07-08 19:19 | XMS_ITS | Encounter Summary ---
Author Organization [facility] Address [address] [place] [address] Phone Care Team Providers Care Elementary School Tutor Name Role Phone Liam Wilson MD Primary Care Provider [phone] Diamond Lincoln MACHINE HEDDLE CLEANER Unavailable Unavailab le Reason for Visit * Reason Comments Medication Refill Encounter Details Date Type Department Care Team (Late st Contact Info) Description 02/23/2022 Refill [facility] - [place] [address] [place] [address] Liam Wilson MD [address] [address] Medication Refill Social History Tobacco Use Types [...] Telephone Encounter - Lluvia Parra RN - 02/26/2022 9:01 AM CDT Medication warning Per nursing clinical judgement, provider to review and approve the medication(s) order(s) if appropriate. Requested Prescriptions Pending Prescriptions Disp Refills Combivent Respimat 20-100 MCG/ACT Aerosol Solution [Pharmacy Med Name: COMBIVENT RESPIMAT 20-100 MCG] 4 g 2 Sig: INHALE TWO PUFFS BY MOUTH FOUR TIMES A DAY Inhaled Combinations Protocol Passed - 02/23/2022 8:49 PM Passed - Visit with relevant provider in past 12 months or upcoming 90 days Recent Visits Date Type Provider Dept 01/09/22 Telemedicine Amador Payan APRN, ABIGAIL [facility] 09/15/21 Telemedicine Liam Wilson MD [facility] 05/24/21 Office Visit Amador Payan APRN, ABIGAIL [facility] [place] 04/18/21 Office Visit Amador Payan APRN, ABIGAIL [facility] [place] 03/29/21 Office Visit Amador Payan APRN, ABIGAIL [facility] 03/15/21 Office Visit Amador Payan APRN, SYRUP MIXER [facility] Showing recent visits within past 365 days and meeting all other requirements Future Appointments Date Type Provider Dept 02/27/22 Appointment Liam Wilson MD [facility] Showing future appointments within next 90 days and meeting all other requirements Passed - Active short-acting beta agonist prescription documented in this encounter Plan of Treatment Upcoming Encounters Date Type Department Care Team (Late st Contact Info) Description 09/09/2025 9:15 AM PHOTO OPTICS TECHNICIAN Office Visit [facility] Medical Group - Family Medicine - [place] [address] [place] [address] Liam Wilson MD [address] [place] [address] documented as of this encounter Visit Diagnoses Not on filedocumented in this encounter Additional Health Concerns Infection Onset Date Last Indicated Resolved Time Respiratory Rule Out - RPA 10/21/2024 10/21/2024 0 10/21/2024 3:06 PM PHOTO OPTICS TECHNICIAN MRSA 10/21/2024 10/21/2024 Assessment Noted Time PHQ-9 Depression Total Score: 6 01/26/20 20 9:57 AM CDT documented as of this encounter Care Teams Elementary School Tutor Relationship Specialty Start Date End Date Liam Wilson MD #2 [facility] [address] [place] [address] PCP - General Family Medicine 12/31/19 Diamond Lincoln LSW [place] Harness Brusher Tipple Tender 09/04/23 documented as of this encounter
--- OUTSIDE RECORDS SUMMARY | 2025-07-08 19:19 | XMS_ITS | Encounter Summary ---
Author Organization [facility] Address [address] [place] [address] Phone Care Team Providers Care Concrete Mixer Loader Truck Mounted Name Role Phone Liam Wilson MD Primary Care Provider [phone] [phone] Diamond Linclon IN TUBE CONVERSION TECHNICIAN Unavailable Unavailab le Reason for Visit * Reason Comments Medication Refill Encounter Details Date Type Department Care Team (Late st Contact Info) Description 10/20/2023 Refill [facility] - [place] [address] [place] [address] Liam Wilson MD #[address] [address] Medication Refill Social History Tobacco Use Types Packs/Day Years Used Date Smoking Tobacco: Some Days Cigarettes 0.3 46.6 Started: 11/26/1978 Smokeless Tobacco: Never Alcohol Use Standard Drinks/Week Comments No 0 (1 standard drink = 0.6 oz pur e alcohol) [facility] Utilities Answer Date Recorded In the past 12 months has [employer], gas, oil, or water company threatened to [...] week 09/26/2023 How often do you attend sabianist or latter day serv ices? Never 09/26/2023 Do you belong to any clubs o r organizations such as sabianist groups, unions, fraternal or athletic groups, or [...] Total Score - Questions 1-9 4 09/03 [facility] - Occupational [...] place to sleep or slept in a mcfp (including now)? Yes 09/26/2023 Education Answer Date [...] Telephone Encounter - Lluvia Parra RN - 03/12/2024 11:15 AM CDT Rx * Telephone Encounter - Claudia Sarmiento RN - 10/21/2023 10:48 AM ADVANCED MANAGER Duplicate Therapy: Combivent Respimat, ProAir RespiClick SHORT ACTING INHALED BETA-2 AGONISTS,MDI. No Abuse/Dependency Potential. Per nursing clinical judgement, provider to review and approve the medication(s) order(s) if appropriate. Requested Prescriptions Pending Prescriptions Disp Refills Combivent Respimat 20-100 MCG/ACT Aerosol Solution [Pharmacy Med Name: COMBIVENT RESPIMAT 20-100 MCG] 4 g 0 Sig: INHALE 1 PUFF 4 TIMES A DAY Inhaled Combinations Protocol Passed - 10/20/2023 5:18 PM Passed - Visit with relevant provider in past 12 months or upcoming 90 days Recent Visits Date Type Provider Dept 09/23/23 [facility] Liam Wilson MD [facility] 03/27/23 Telemedicine Liam Wilson MD [facility] Showing recent visits within past 365 days and meeting all other requirements Future Appointments Date Type Provider Dept 11/25/23 Appointment Liam Wilson MD [facility] Showing future appointments within next 90 days and meeting all other requirements Passed - Active short-acting beta agonist prescription NCED MANAGER documented in this encounter Plan of Treatment Upcoming Encounters Date Type Department Care Team (Late st Contact Info) Description 09/09/2025 9:15 AM ADVANCED MANAGER [facility] - [place] [address] [place] [address] Liam Wilson MD #[address] [address] documented as of this encounter Visit Diagnoses Not on filedocumented in this encounter Additional Health Concerns Infection Onset Date Last Indicated Resolved Time Respiratory Rule Out - RPA 10/21/2024 10/21/2024 0 10/21/2024 3:06 PM ADVANCED MANAGER MRSA 10/21/2024 10/21/2024 Assessment Noted Time PHQ-9 Depression Total Score: 4 09/26/19 24 11:09 AM ADVANCED MANAGER documented as of this encounter Care Teams Concrete Mixer Loader Truck Mounted Relationship Specialty Start Date End Date Liam Wilson MD #[address] [place] [address] PCP - General Family Medicine 12/31/19 Diamond Lincoln LSW [place] Skirt Panel Assembler Surgery Technician 09/04/23 documented as of this encounter
--- OUTSIDE RECORDS SUMMARY | 2025-07-08 19:19 | XMS_ITS | Encounter Summary ---
Author Organization [facility] Address [address] [place] [address] Phone Care Team Providers Care Holistic Specialist Name Role Phone Liam Wilson MD Primary Care Provider [phone] [phone] Diamond Lincoln TANK MAKER WOOD Unavailable Unavailab le Reason for Visit * Reason Comments Medication Refill Encounter Details Date Type Department Care Team (Late st Contact Info) Description 04/24/2022 Refill [facility] - [place] [address] [place] [address] Liam Wilson MD #[address] [address] Medication Refill Social History Tobacco Use Types [...] Encounter - Bre Shelby RN - 04/24/2022 12:35 PM CDT Medication failed the protocol, provider to review and approve the medication order if appropriate. Requested Prescriptions Pending Prescriptions Disp Refills ProAir HFA 108 (90 Base) MCG/ACT Aerosol Solution [Pharmacy Med Name: PROAIR HFA 90 MCG INHALER] 1 Sig: TAKE 2 PUFFS BY INHALATION EVERY 4 HOURS NEEDED FOR WHEEZING OR COUGH. Short Acting Inhaled Beta-Agonists Protocol Passed - 04/24/2022 11:58 AM Passed - Visit with relevant provider in past 12 months or upcoming 90 days Recent Visits Date Type Provider Dept 02/27/22 Office Visit Liam Wilson MD [facility] 01/09/22 Telemedicine Amador Payan APRN, ABIGAIL [facility] 09/15/21 Telemedicine Liam Wilson MD [facility] 05/24/21 Office Visit [facility] Show[facility] recent visits within past 365 days and meeting all other requirements Future Appointments Date Type Provider Dept 05/31/22 Appointment Liam Wilson MD [facility] [place] Showing future appointments within next 90 days and meeting all other requirements documented in this encounter Plan of Treatment Upcoming Encounters Date Type Department Care Team (Late st Contact Info) Description 09/09/2025 9:15 AM PERSONNEL QUALITY ASSURANCE AUDITOR [facility] Visit [facility] - [place] [address] [place] [address] Liam Wilson MD [address] [address] documented as of this encounter Visit Diagnoses Not on filedocumented in this encounter Additional Health Concerns Infection Onset Date Last Indicated Resolved Time Respiratory Rule Out - RPA 10/21/2024 10/21/2024 0 10/21/2024 3:06 PM PERSONNEL QUALITY ASSURANCE AUDITOR MRSA 10/21/2024 10/21/2024 Assessment Noted Time PHQ-9 Depression Total Score: 6 01/26/20 20 9:57 AM CDT documented as of this encounter Care Teams Holistic Specialist Relationship Specialty Start Date End Date Liam Wilson MD #[address] [address] PCP - General Family Medicine 12/31/19 Diamond Lincoln LSW [place] Manager Of Operations Supervisor Of Guidance And Testing 09/04/23 documented as of this encounter
--- OUTSIDE RECORDS SUMMARY | 2025-07-08 19:19 | XMS_ITS | Encounter Summary ---
Author Organization [facility] Address [address] [place] [address] Phone Care Team Providers Care Logistics Supply Officer Name Role Phone Liam Wilson MD Primary Care Provider [phone] Diamond Lincoln STATION WORKER Unavailable Unavailab le Reason for Visit * Reason Onset Date Comments Medication Refill Medication Refill 03/20/2021 Encounter Details Date Type Department Care Team (Late st Contact Info) Description 12/25/2020 Refill [facility] [address] [place] [id number] Liam Wilson MD [address] [address] Medication Refill; Medication Refill Social History Tobacco Use Types [...] Telephone Encounter - Lluvia Parra RN - 12/27/2020 9:02 AM CDT Medication failed the protocol, provider to review and approve the medication order if appropriate. Requested Prescriptions Pending Prescriptions Disp Refills Combivent Respimat 20-100 MCG/ACT Aerosol Solution [Pharmacy Med Name: COMBIVENT RESPIMAT 20-100 MCG] 1 Inhaler 1 Sig: INHALE TWO PUFFS BY MOUTH FOUR TIMES A DAY [facility]: Combination Products Failed - 12/25/2020 12:31 PM Failed - Last BP in normal range BP Readings from Last 1 Encounters: 12/07/20 142/80 Passed - Valid encounter within last 12 months Past Office Visits Recent Outpatient Visits 2 weeks ago Essential hypertension [facility] - Liam Schulz MD 4 months ago Acute pain of left shoulder [facility] - Amador Amaya APN, ORE MINER 6 months ago Essential hypertension [facility] - Liam Schulz MD 10 months ago Chronic obstructive pulmonary disease, unspecified COPD type (HCC) [facility] - Delmy Crawford PAC 11 months ago Chronic obstructive pulmonary disease, unspecified COPD type (HCC) [facility] - Liam Schulz MD Upcoming Appointments Future Appointments In 2 months Liam Wilson MD [facility] - [place] [facility] SPECIAL EDUCATION PROFESSOR - Recent and Past Visits Recent Visits Date Type Provider Dept 12/07/20 Office Visit Liam Wilson MD [facility] 08/01/20 Office Visit Amador Payan APN, ORE MINER [facility]20 Office Visit Liam Wilson MD [facility] 02/02/20 [facility]imm [facility]20 Office Visit Liam Wilson MD [facility] 12/31/19 [facility] [place] Showing recent visits within past 460 days with a meds authorizing provider and meeting all other requirements Future Appointments Date Type Provider Dept 03/09/21 Appointment Liam Wilson MD [facility] Showing future appointments within next 90 days with a meds authorizing provider and meeting all other requirements albuterol 108 (90 Base) MCG/ACT Aerosol Solution [Pharmacy Med Name: ALBUTEROL HFA (VENTOLIN) INH] 18 Inhaler 1 Sig: TAKE 2 PUFFS BY INHALATION EVERY 4 HOURS NEEDED FOR WHEEZING OR COUGH. [facility]: Beta Agonists - Albuterol & Levalbuterol Failed - 12/25/2020 12:31 PM Failed - Last BP in normal range BP Readings from Last 1 Encounters: 12/07/20 142/80 Failed - May refill 2 inhalers, 0 refills one time since last office visit. May refill #50 nebulizer vials, 0 refills for albuterol or #48 vials, 0 refills for Xopenex one time since last office visit. Passed - Valid encounter within last 6 months Past Office Visits Recent Outpatient Visits 2 weeks ago Essential hypertension [facility] - Family [facility] - Liam Schulz MD 4 months ago Acute pain of left shoulder [facility] [place] ORE MIN[place] 6 months ago Essential hypertension [facility] - Liam Schulz MD 10 months ago Chronic obstructive pulmonary disease, unspecified [facility] 11 months ago Chronic obstructive pulmonary disease, unspecified [facility]HCC[facility] Upcoming Appointments Future Appointments In 2 months Mohyuddin, [facility] A[facility] SPECIAL EDUCATION PROFESSOR - Recent and Past Visits Recent Visits Date Type Provider Dept 12/07/20 Office Visit Liam Wilson MD [facility] 08/01/20 Office Visit Amador Payan APN, ORE MINER [facility] [place] 06/22/20 Office Visit Liam Wilson MD [facility] 02/02/20 [facility] Office Visit Liam Wilson MD [facility] [...] st Contact Info) Description 09/09/2025 9:15 AM OUTSIDE LABORER Office Visit [facility] [address] [place] [address] Liam Wilson MD [address] [address] documented as of this encounter Visit Diagnoses Not on filedocumented in this encounter Additional Health Concerns Infection Onset Date Last Indicated Resolved Time COVID - 19 Confirmed 01/05/2022 01/05/2022 022 12:16 AM CDT Respiratory Rule Out - RPA 10/21/2024 10/21/2024 0 10/21/2024 3:06 PM OUTSIDE LABORER MRSA 10/21/2024 10/21/2024 Assessment Noted Time PHQ-9 Depression Total Score: 6 01/26/20 20 9:57 AM CDT documented as of this encounter Care Teams Logistics Supply Officer Relationship Specialty Start Date End Date Liam Wilson MD [address] [place] [id number] PCP - General Family Medicine 12/31/19 Diamond Lincoln LSW [place] [employer] Repairer Hotel Or Motel Receptionist 09/04/23 documented as of this encounter
--- OUTSIDE RECORDS SUMMARY | 2025-07-08 19:19 | XMS_ITS | Encounter Summary ---
Author Organization [facility] Address [address] [place] [address] Phone Care Team Providers Care Webbing Supervisor Name Role Phone Liam Wilson MD Primary Care Provider [phone] Diamond Lincoln BELL NECK HAMMERER Unavailable Unavailab le Reason for Visit * Reason Comments Medication Refill Encounter Details Date Type Department Care Team (Late st Contact Info) Description 01/21/2022 Refill [facility] - [place] [address] [place] [address] Liam Wilson MD [address] [address] Medication Refill Social History Tobacco Use Types [...] suspected to have Coronavirus/COVID-19? No / Unsure 01/09/2022 8:50 AM CDT documented as of this encounter Miscellaneous Notes * Telephone Encounter - Lluvia Parra RN - 01/22/2022 3:01 PM CDT PRN medication requires review from provider Per nursing clinical judgement, provider to review and approve the medication(s) order(s) if appropriate. Requested Prescriptions Pending Prescriptions Disp Refills ibuprofen (MOTRIN) 800 MG Tablet [Pharmacy Med Name: IBUPROFEN 800 MG TABLET] 90 Tablet 1 Sig: TAKE 1 TABLET BY MOUTH EVERY 8 HOURS NEEDED FOR MODERATE OR MORE SEVERE PAIN. NSAIDs Protocol Passed - 01/21/2022 7:06 AM Passed - Normal serum creatinine in past 12 months CREATININE, BLOOD Date Value Ref Range Status 01/05/2022 0.72 0.60 - 1.10 mg/dL Final Passed - Visit with relevant provider in past 12 months or upcoming 90 days Recent Visits Date Type Provider Dept 01/09/22 Telemedicine Amador Payan APRN, ABIGAIL [facility] 09/15/21 [facility]medicine [facility] [place] 05/24/21 Office Visit Amador Payan APRN, ABIGAIL [facility] 04/18/21 Office Visit Amador Payan APRN, ABIGAIL [facility] [place] 03/29/21 Office Visit Amador Payan APRN, ABIGAIL [facility] [place] 03/15/21 Office Visit Amador Pyaan APRN, INCIDENT RESPONSE SPECIALIST [facility] [place] Showing recent visits within past 365 days and meeting all other requirements Future Appointments No visits were found meeting these conditions. Showing future appointments within next 90 days and meeting all other requirements Passed - No matching NSAID med order in past 45 days No matching medication orders between 12/08/2021 3:01 PM and 01/22/2022 3:01 PM Passed - AST less than 55 [...] st Contact Info) Description 09/09/2025 9:15 AM WRINGER OPERATOR Office Visit [facility] - Family Medicine [facility] [address] [place] [address] Liam Wilson MD [address] [address] documented as of this encounter Visit Diagnoses Diagnosis Acute pain of left shoulder documented in this encounter Additional Health Concerns Infection Onset Date Last Indicated Resolved Time COVID - 19 Confirmed 01/05/2022 01/05/2022 022 12:16 AM CDT Respiratory Rule Out - RPA 10/21/2024 10/21/2024 0 10/21/2024 3:06 PM WRINGER OPERATOR MRSA 10/21/2024 10/21/2024 Assessment Noted Time PHQ-9 Depression Total Score: 6 01/26/20 20 9:57 AM CDT documented as of this encounter Care Teams Webbing Supervisor Relationship Specialty Start Date End Date Liam Wilson MD [address] [address] PCP - General Family Medicine 12/31/19 Diamond Lincoln LSW [place] Saddle Mechanic [place] 09/04/23 documented as of this encounter
--- OUTSIDE RECORDS SUMMARY | 2025-07-08 19:19 | XMS_ITS | Encounter Summary ---
Author Organization [facility] Address [address] [place] [address] Phone Care Team Providers Care Floor Care Specialist Name Role Phone Liam Wilson MD Primary Care Provider [phone] Diamond Lincoln STAFF NURSE ANESTHETIST Unavailable Unavailab le Reason for Visit * Reason Comments Medication Refill Encounter Details Date Type Department Care Team (Late st Contact Info) Description 01/14/2024 Refill [facility] - [place] [address] [place] [address] Liam Wilson MD [address] [address] Medication Refill Social History Tobacco Use Types Packs/Day Years Used Date Smoking Tobacco: Some Days Cigarettes 0.3 46.6 Started: 11/26/1978 Smokeless Tobacco: Never Alcohol Use Standard Drinks/Week Comments No 0 (1 standard drink = 0.6 oz pur e alcohol) [facility] Utilities Answer Date Recorded In the past 12 months has [employer], gas, oil, or water company threatened to [...] week 09/26/2023 How often do you attend episcopalian or caodaism serv ices? Never 09/26/2023 Do you belong to any clubs o r organizations such as episcopalian groups, unions, fraternal or athletic groups, or [...] Total Score - Questions 1-9 4 09/03 [facility] - Occupational [...] Telephone Encounter - Lluvia Parra RN - 01/14/2024 11:34 AM CDT Medication failed the protocol, provider to review and approve the medication order if appropriate. Requested Prescriptions Pending Prescriptions Disp Refills levothyroxine (SYNTHROID) 112 MCG Tablet [Pharmacy Med Name: LEVOTHYROXINE 112 MCG TABLET] 90 Tablet 1 Sig: TAKE 1 TABLET BY MOUTH EVERY DAY Thyroid Hormones Protocol Failed - 01/14/2024 12:13 AM Failed - Normal TSH in past 12 months TSH Date Value Ref Range Status 03/30/2023 10.660 (H) 0.300 - 5.000 mIU/L Final Passed - Visit with relevant provider [...] 90 days and meeting all other requirements nortriptyline (PAMELOR) 25 MG Capsule [Pharmacy Med Name: NORTRIPTYLINE HCL 25 MG CAP] 180 Capsule 1 Sig: TAKE 2 CAPSULES BY MOUTH EVERY DAY AT NIGHT Not Delegated - Tricyclic Agents Protocol Failed - 01/14/2024 12:13 AM Failed - This refill cannot be delegated Passed - Visit with relevant provider in past 12 months or upcoming 90 days Recent Visits Date Type Provider Dept 09/23/23 Telemedicine Liam Wilson MD [facility] 04/01/23 Telemedicine Liam Wilson MD [facility] 03/27/23 Telemedicine Liam Wilson MD [facility] Showing recent visits within past 365 days and meeting all other requirements Future Appointments No visits were found meeting these conditions. Showing future appointments within next 90 days and meeting all other requirements documented in this encounter Plan of Treatment Upcoming Encounters Date Type Department Care Team (Late st Contact Info) Description 09/09/2025 9:15 AM COIN COUNTER AND WRAPPER Office Visit [facility] - Family Medicine - [place] [address] [place] [address] Liam Wilson MD [address] [address] documented as of this encounter Visit Diagnoses Not on filedocumented in this encounter Additional Health Concerns Infection Onset Date Last Indicated Resolved Time Respiratory Rule Out - RPA 10/21/2024 10/21/2024 0 10/21/2024 3:06 PM COIN COUNTER AND WRAPPER MRSA 10/21/2024 10/21/2024 Assessment Noted Time PHQ-9 Depression Total Score: 4 09/26/19 24 11:09 AM COIN COUNTER AND WRAPPER documented as of this encounter Care Teams Floor Care Specialist Relationship Specialty Start Date End Date Liam Wilson MD [address] [address] PCP - General Family Medicine 12/31/19 Diamond Lincoln LSW [place] Airborne Operations Superintendent Patient Registration Representative 09/04/23 documented as of this encounter
--- OUTSIDE RECORDS SUMMARY | 2025-07-08 19:20 | XMS_ITS | Clinical Summary ---
Author Organization [facility] Address [address] [place] [address] Care Team Providers Care Construction Superintendent Name Role Phone Mulu Polk RN Unavailable Joy vailaTeresa Madison RN Unavailable Unavailab Teresa Jones RN Unavailable Unavailab Liam Dumont MD Primary Care Provider [phone] [phone] Allergies Active Allergy Reactions Criticality Noted Date Comments Duloxetine Hcl Other (See comments) High 12/30/2019 Patient can not urinate when taking med. Per doctor do not take Medications ipratropium-albut stu (DUO-NEB) 0.5-2.5 mg/3 mL nebulizer solutionIndicatio ns:Chronic Obstructive Pulmonary Disease with Bronchospasms Take 3 mL by nebulization every 6 (six) hours as needed Active PROAIR HFA 90 mcg/actuation inhaler Inhale 2 puffs every 4 (four) hours as needed 06/25/20 18 Active dextromethorphan- guaiFENesin (ROBITUSSIN-DM) oral liquid 10-200 mg/5mL Take 5 mL by mouth as needed Active ipratropium-albut Stu (COMBIVENT RESPIMAT) 20-100 mcg/actuation inhalerIndication s:Chronic Obstructive Pulmonary Disease with Bronchospasms Inhale 2 puffs 4 (four) times a day Active amLODIPine (NORVASC) 10 mg tablet Take 1 tablet (10 mg total) by mouth daily 05/24/20 22 Active fentaNYL citrate, bulk, 100 % powder Via pain pump 0 05/04/20 22 Active ibuprofen (ADVIL,MOTRIN) 600 mg tablet Take 1 tablet (600 mg total) by mouth daily as needed 05/21/20 22 Active nortriptyline (PAMELOR) 25 mg capsule 04/04/20 22 Active pramipexole (MIRAPEX) 1 mg tablet Take 1 tablet (1 mg total) by mouth nightly 03/23/20 22 Active levothyroxine (SYNTHROID) 125 mcg tablet Take 1 tablet (125 mcg total) by mouth community health worker before breakfast Active mupirocin (BACTROBAN) 2 % ointment Apply thin layer to both nostrils bid, starting 5 days prior to surgery and AM of surgery. 22 g 02/10/20 25 Active chlorhexidine (HIBICLENS) 4 % external liquidIndications :Skin Disinfection Use in shower every day starting 5 days prior to surgery, and AM of surgery. Avoid face/genitalia. 263 mL 02/10/20 25 Active ACCU-CHEK SOFTCLIX LANCETS [facility] BLOOD [place]GAR EVERY DAY 06/28/20 24 Active blood-glucose meter [facility] Diagnosis: Diabetes type 2 Blood testing frequency: once a day 09/03/19 24 Active blood pressure monitor (Blood Pressure Kit) kit Dispense battery-powered arm cuff. Dx: I10 09/03/19 24 Active blood glucose diagnostic strip TEST BLOOD SUGAR EVERY DAY 09/03/19 24 Active UNABLE TO FIND RESPIRATORY THERAPY SUPPLIES (NEBULIZER/TUBIN G/MOUTHPIECE) KIT 09/03/19 24 Active fluticasone propionate (FLONASE) 50 mcg/actuation nasal spray Administer 1 spray into affected nostril(s) daily 07/19/20 23 Active naloxone (NARCAN) 4 mg/actuation spray,non-aerosol Administer 1 spray (4 mg total) into affected nostril(s) as needed 01/10/20 22 Active Symbicort 160-4.5 mcg/actuation inhaler Inhale 2 puffs 2 (two) times a day 03/05/20 25 Active metFORMIN (GLUCOPHAGE) 500 mg tablet Take 1-2 tablets (500-1,000 mg total) by mouth as needed 03/10/20 25 Active furosemide (LASIX) 20 mg tablet Take 1 tablet (20 mg total) by mouth every morning 03/16/20 25 Active biotin 1 mg capsule Take 1 tablet by mouth daily Active vitamin B complex capsule Take 1 capsule by mouth daily Active cholecalciferol (VITAMIN D-3) 12717 unit capsule Take 1 capsule (10,000 Units total) by mouth daily as needed (pt reported prn use) Active Active Problems Problem Noted Date Diagnosed Date Chronic left shoulder pain 05/31/2022 Localized osteoarthritis of left shoulder 2021 Anxiety 02/04/2020 Closed fracture of multiple ribs of right side with routine healing 09/17/2018 Chronic pain syndrome 06/04/2018 Spondylosis of lumbar region without myelopathy or radiculopathy 04/16/2018 Cervicalgia 04/01/2018 Cervical post-laminectomy syndrome 04/01/2018 Chronic bilateral low back pain with bilateral s ciatica 04/01/2018 Radiculopathy, lumbosacral region 04/01/2018 Cervical spinal cord compression 03/30/2014 Overview (12/06/2016): Cervical spondylosis with myelopathy Resolved Problems Problem Noted Date Diagnosed Date Resolved Date roasterman prescription opiate use 05/02/2018 09/18/2019 Postprocedural state 08/06/2014 020 Overview (12/06/2016): Postprocedural state finding Encounters Date Type Department Care Team Description 06/16/2025 Orders Only [facility] Card[facility] [address] [place] [address] Divina Tripathi NP 06/15/2025 Telephone [facility] [address] [place] [address] Argelia Aburto Pain pump alarming 04/13/2025 11:59 PM CDT Anesthesia Event [facility] Operating Room [address] [place] [address] Ko Colin MD 04/13/2025 Telephone [facility] [address] [place] [address] Dandre Rogers MD 04/12/2025 Telephone [facility] [address] [place] [address] [phone] [place] [address] Argelia Aburto from Last 3 Months Surgical History Surgery Date Site/Laterality Comments APPENDECTOMY Appendectomy CHOLECYSTECTOMY Cholecystectomy HYSTERECTOMY Hysterectomy BACK SURGERY Back surgery AUGMENTATION MAMMOPLASTY Breast augmentation NOSE SURGERY Nasal surgery OTHER SURGICAL HISTORY cervical neck fusion KNEE ARTHROSCOPY Arthroscopy knee CARPAL TUNNEL RELEASE Carpal tunnel release KNEE ARTHROSCOPY Right Arthroscopy knee CERVICAL FUSION cervical spine fusion OTHER SURGICAL HISTORY Right eye surgery TOTAL ABDOMINAL HYSTERECTOMY Hysterectomy, total AUGMENTATION MAMMOPLASTY Bilateral Breast augmentation INTRATHECAL PUMP IMPLANTATION 12/01/2014 - 12/30/2014 IMPLANTATION / REPLACEMENT INFUSION PUMP 04/25/2018 catheter replaced and interthecal pump moved to new pocket Medical History Medical History Date Comments Arthritis Arthritis Hypertension Hypertension Disorder of thyroid Thyroid dise ase Glaucoma Glaucoma Anemia Anemia Pulmonary emphysema Emphysema Bronchitis Bronchitis Asthma Asthma Arthritis Arthritis; Comme nts: CCB 02/04/2014 - Chronic obstructive pulmonary disease COPD Low back pain Chronic pain disorder Peripheral neuropathy Anxiety Awareness under anesthesia CVA (cerebral vascular accident) ([facility]) 10/2016 x2 Hyperlipidemia Irritable bowel syndrome Hypothyroidism Multiple rib fractures frequent occurence Chronic pain Type 2 diabetes mellitus CHF (congestive heart failure) ([facility]) Oxygen dependent 1.5 to 2 LPM, a s needed Chronic bronchitis ([facility]) GERD (gastroesophageal reflux disease) Migraine Family History Medical History Relation Name Comments Hypertension Father Hypertension; asbestos scarring Father Cancer Father's Brother colon cance r Heart failure Maternal Grandfather Conges tive heart failure; Lung cancer Maternal Grandfather Cancer, lung; Diabetes Maternal Grandmother Diabete s mellitus; Multiple sclerosis Mother Other Mother Anesthesia reac tion; Osteoarthritis Other Osteoarthriti s; Hypertension Paternal Grandfather Hyperte nsion; Liver cancer Paternal Grandfather Cancer, liver; Relation Name Status Comments Father Father's Brother Maternal Grandfather Maternal Grandmother Mother Other Paternal Grandfather Social History Tobacco Use Types Packs/Day Years Used Date Smoking Tobacco: Some Days Cigarettes Smokeless Tobacco: Never Tobacco Cessation:Ready to Q uit: Yes; Counseling Given: Yes Comments:Counselled pt to contact her PCP for assist with quitting smoking. Instructed pt not smoke for 24 hours prior to procedure. Alcohol Use Standard Drinks/Week Comments No 0 (1 standard drink = 0.6 oz pur e alcohol) AUDIT-C Answer Date Recorded Q1: How often do you have a drink containing alcohol? Never 04/05/2025 Q2: How many drinks containi ng alcohol do you have on a typical day when you are drinking? Patient does not drink Q3: How often do you have si x or more drinks on one occasion? Never 04/05/2025 Comments No Sex and Gender Information Value Date Recorded Sex Assigned at Not on file Legal Sex Female 2:33 AM TELESALES MANAGER Gender Identity Female 03/22/2021 7:04 PM CDT Sexual Orientation Straight 03/22/2021 7: 04 PM CDT Last Filed Vital Signs Vital Sign Reading Time Taken Comments Blood Pressure 152/91 03/15/2025 8:22 AM CDT Pulse 88 03/15/2025 8:22 AM CDT Temperature 36.3 C (97.3 F) 11/23/2020 10:38 AM CDT Respiratory Rate 18 03/15/2025 8:22 AM CDT Oxygen Saturation 98% 03/15/2025 8:22 AM CDT on 2L home O2 Inhaled Oxygen Concentration - - Weight 60.8 kg (134 lb) 04/05/2025 10:5 5 AM CDT Height 147.3 cm (4' 10) 04/05/2025 10: 55 AM CDT Body Mass Index 28.01 04/05/2025 10:55 AM CDT Plan of Treatment Upcoming Encounters Date Type Department Care Team (Late st Contact Info) Description 07/22/2025 7:30 AM TELESALES MANAGER Hospital Encounter [facility] Operating Room [address] [place] [address] [place] [address] [facility] [address] [place] [address] 07/22/2025 7:30 AM TELESALES MANAGER - 07/22/2025 9:30 AM TELESALES MANAGER Surgery [facility] Operating Room [address] [place] [address] [place] [address] [facility] [address] [place] [address] INTRATHECAL PAIN PUMP REPLACEMENT WITH PLASMA BLADE/60 MIN Scheduled Procedures Name Priority Associated Diagnoses Date/Ti me INSERTION INTRATHECAL PUMP LOW BACK PAIN 07/22/2025 7:30 AM TELESALES MANAGER Health Maintenance Due Date Last Done Comments Breast Cancer Screening-Mammogram 1965 Colon Cancer Screening-Colonoscopy 1965 Depression Screening 1965 Hepatitis C Screening 1965 DTaP/Tdap/Td Vaccine (1 - Tdap) 1976 Hepatitis B Screening 1983 Regular Well Visit/Exam 18-64 1983 Pneumococcal vaccine <65 (1 of 2 - PCV) 1984 Zoster Vaccine (1 of 2) 2015 Influenza Vaccine (#1) 2025 Medical Devices Implanted Type Area Medical Clerical Assistant Device Identifier Shelf Expiration Date Model / Serial / Lot Med[employer]onic Inc 8780 Ascenda 4fr .5mm 114cm 86cm 2 Piece Connector Pin Flexible Closed - [id number] Implanted:Qty: 1 on 04/25/2018 by Dandre Rogers MD at [facility] N/A: Back [employer] Inc 03/19/2020 8780 / / [id number] Medtronic Neuro 8637-20 Synchromed Ii .78in [place] Filter Mesh Pouch Programmable - [id number] - [id number] Implanted:Qty: 1 on 09/11/2018 by Dandre Rogers MD at [facility] Med[employer]onic Neuro 01/28/2020 8637-20 / [id number] / Explanted Type Area Medical Clerical Assistant Device Identifier Shelf Expiration Date Model / Serial / Lot Intrathecal Pain Pump Catheter Explanted:Qty: 1 on 04/25/2018 by Dandre Rogers MD at [facility] N/A: Back Medtronic Neuro Intrathecal Pump Explanted:Qty: 1 on 09/11/2018 at [facility] Medtronic Procedures Procedure Name Priority Date/Time Associated Diagnosis Comments CARDIOLOGY DOCUMENT SCAN Routine 06/16/2025 5:27 PM CDT CARDIOLOGY DOCUMENT SCAN Routine 06/15/2025 5:19 PM CDT from Last 3 Months Results * Cardiology Document Scan (06/16/2025 5:27 PM CDT) Anatomical Region Laterality Modality Other us Wilner Turner MD [facility] MIKY BALLESTEROS Final Result * Cardiology Document Scan (06/15/2025 5:19 PM CDT) Anatomical Region Laterality Modality Other us Divina Gemini Bhumi PLANNING ADVISOR [facility] PROCEDUR ES Final Result from Last 3 Months Insurance MEDICARE [facility] MEDICARE [facility] [address] [place] [address] [facility] MEDICARE ADVANTAGE Care Teams Construction Superintendent Relationship Specialty Start Date End Date Liam Wilson MD [address] [address] PCP - General Family Medicine 04/10/23 Mulu Polk, RN Registered Nurse 08/29/18 Teresa Osorio, RN Registered Nurse 09/17/18 Teresa Osorio RN Registered Nurse 05/27/19
--- OUTSIDE RECORDS SUMMARY | 2025-07-08 19:20 | XMS_ITS | Encounter Summary ---
Author Organization [facility] Address [address] [place] [address] Phone Care Team Providers Care Sodder Name Role Phone Liam Wislon MD Primary Care Provider [phone] [place] CRYPTOGRAPHIC CLERK Unavailable Unavailab le Reason for Visit * Reason Comments Medication Refill Encounter Details Date Type Department Care Team (Late st Contact Info) Description 06/17/2022 Refill [facility] - [facility] - [place] [address] [place] [address] Liam Wilson MD [address] [address] Medication Refill Social History Tobacco Use Types Packs/Day Years Used Date Smoking Tobacco: Some Days Cigarettes 0.3 46.6 Started: 11/26/1978 Smokeless Tobacco: Never Alcohol Use Standard Drinks/Week Comments No 0 (1 standard drink = 0.6 oz pur e alcohol) PHQ-2 Answer Date Recorded Total Score - Questions 1-9 0 05/05 Education Answer Date Recorded What is the [...] suspected to have Coronavirus/COVID-19? No / Unsure 06/01/2022 1:50 PM CDT documented as of this encounter Miscellaneous Notes * Telephone Encounter - Lluvia Parra RN - 06/18/2022 9:52 AM CDT Medication failed the protocol, provider to review and approve the medication order if appropriate. Requested Prescriptions Pending Prescriptions Disp Refills ProAir HFA 108 (90 Base) MCG/ACT Aerosol Solution [Pharmacy Med Name: PROAIR HFA 90 MCG INHALER] 17g 2 Sig: TAKE 2 PUFFS BY INHALATION EVERY 4 HOURS NEEDED FOR WHEEZING OR COUGH. Short Acting Inhaled Beta-Agonists Protocol Passed - 06/17/2022 9:08 AM Passed - Visit with relevant provider in past 12 months or upcoming 90 days Recent Visits Date Type Provider Dept 06/01/22 Office Visit Liam Wilson MD [facility] 02/27/22 Office Visit Liam Wilson MD [facility] 01/09/22 Telemedicine Amador Payan APRN, CNP [facility] [place] 09/15/21 Telemedicine Liam Wilson MD [facility] [place] Showing recent visits within past 365 days and meeting all other requirements Future Appointments No visits were found meeting these conditions. Showing future appointments within next 90 days and meeting all other requirements metFORMIN (GLUCOPHAGE) 500 MG Tablet [Pharmacy Med Name: METFORMIN HCL 500 MG TABLET] 180 Tablet 1 Sig: TAKE 1 TABLET BY MOUTH TWICE A DAY WITH MEALS Biguanides Protocol Failed - 06/17/2022 9:08 AM Failed - HgA1C on record in past 6 months HGB-A1C Date Value Ref Range Status 03/15/2021 6.5 (A) 4 - 6 Final Passed - Visit with relevant provider in past 6 months or upcoming 90 days Recent Visits Date Type Provider Dept 06/01/22 Office Visit Liam Wilson MD [facility] 02/27/22 Office Visit Liam Wilson MD [facility] [place] 01/09/22 Telemedicine Amador Payan APRN, ABIGAIL [facility] Showing recent visits within past 182 days and meeting all other requirements Future Appointments No visits were found meeting these conditions. Showing future appointments within next 90 days and meeting all other requirements Passed - GFR on record in past 6 months GFR, EST. NONAFRICAN Date Value Ref Range Status 01/05/2022 >60 >=60 Final documented in this encounter Plan of Treatment Upcoming Encounters Date Type Department Care Team (Late st Contact Info) Description 09/09/2025 9:15 AM GAS COMBUSTION ENGINEER Office Visit [facility] - [facility] - [place] [address] [place] [address] Liam Wilson MD #[address] [address] documented as of this encounter Visit Diagnoses Not on filedocumented in this encounter Additional Health Concerns Infection Onset Date Last Indicated Resolved Time Respiratory Rule Out - RPA 10/21/2024 10/21/2024 0 10/21/2024 3:06 PM GAS COMBUSTION ENGINEER MRSA 10/21/2024 10/21/2024 Assessment Noted Time PHQ-9 Depression Total Score: 0 06/01/20 22 1:00 PM CDT documented as of this encounter Care Teams Sodder Relationship Specialty Start Date End Date Liam Wilson MD [address] [place] [address] PCP - General Family Medicine 12/31/19 Diamond Lincoln LSW [place] Power Cutting Machine Operator Transactional Attorney 09/04/23 documented as of this encounter
--- OUTSIDE RECORDS SUMMARY | 2025-07-08 19:20 | XMS_ITS | Encounter Summary ---
Author Organization [facility] Address [address] [place] [address] Phone Care Team Providers Care Recording Studio Internship Name Role Phone Liam Wilson MD Primary Care Provider [phone] Diamond Lincoln BUTTON CUTTER Unavailable Unavailab le Reason for Visit * Reason Comments Medication Refill Encounter Details Date Type Department Care Team (Late st Contact Info) Description 05/25/2021 Refill [facility] - [facility] - [place] [address] [place] [address] Liam Wilson MD [address] [address] Medication Refill Social History Tobacco Use Types [...] have Coronavirus / COVID-19? No / Unsure 05/24/2021 8:07 AM CDT documented as of this encounter Miscellaneous Notes * Telephone Encounter - Lluvia Parra RN - 05/25/2021 2:07 PM CDT Medication warning Per nursing clinical judgement, provider to review and approve the medication(s) order(s) if appropriate. Requested Prescriptions Pending Prescriptions Disp Refills Combivent Respimat 20-100 MCG/ACT Aerosol Solution [Pharmacy Med Name: COMBIVENT RESPIMAT 20-100 MCG] 4 g 2 Sig: INHALE TWO PUFFS BY MOUTH FOUR TIMES A DAY Inhaled Combinations Protocol Passed - 05/25/2021 12:03 AM Passed - Visit with relevant provider in past 12 months or upcoming 90 days Recent Visits Date Type Provider Dept 05/24/21 Office Visit Amador Payan APN, [facility] 04/18/21 Office Visit Amador Payan APN, ABIGAIL [facility] 03/29/21 Office Visit Amador Payan APN, [facility] 03/15/21 Office Visit Amador Payan APN, ABIGAIL [facility] 12/07/20 Office Visit Liam Wilson MD [facility] 08/01/20 Office Visit Amador Payan APN, ABIGAIL [facility] 06/22/20 Office Visit Liam Wilson MD [facility] Showing recent visits within past 365 days and meeting all other requirements Future Appointments Date Type Provider Dept 06/16/21 Appointment Liam Wilson MD [facility] Showing future appointments within next 90 days and meeting all other requirements Passed - Active short-acting beta agonist prescription documented in this encounter Plan of Treatment Upcoming Encounters Date Type Department Care Team (Late st Contact Info) Description 09/09/2025 9:15 AM INVESTMENT REPRESENTATIVE Office Visit [facility] - Family Medicine - [place] [address] [place] [address] Liam Wilson MD [address] [address] documented as of this encounter Visit Diagnoses Not on filedocumented in this encounter Additional Health Concerns Infection Onset Date Last Indicated Resolved Time COVID - 19 Confirmed 01/05/2022 01/05/2022 022 12:16 AM CDT Respiratory Rule Out - RPA 10/21/2024 10/21/2024 0 10/21/2024 3:06 PM INVESTMENT REPRESENTATIVE MRSA 10/21/2024 10/21/2024 Assessment Noted Time PHQ-9 Depression Total Score: 6 01/26/20 20 9:57 AM CDT documented as of this encounter Care Teams Recording Studio Internship Relationship Specialty Start Date End Date Liam Wilson MD [address] [address] PCP - General Family Medicine 12/31/19 Diamond Lincoln, BUTTON CUTTER [place] Mosaic Tile Maker Vocational Teacher 09/04/23 documented as of this encounter
--- OUTSIDE RECORDS SUMMARY | 2025-07-08 19:20 | XMS_ITS | Encounter Summary ---
Author Organization [facility] Address [address] [place] [address] Phone Care Team Providers Care Software Administrator Name Role Phone Liam Wilson MD Primary Care Provider [phone] Diamond Lincoln CUSTOMER SUPPORT AGENT Unavailable Unavailab le Reason for Visit * Reason Comments Medication Refill Encounter Details Date Type Department Care Team (Late st Contact Info) Description 07/28/2023 Refill [facility] - [facility] - [place] [address] [place] [address] Liam Wilson MD [address] [address] Medication Refill Social History Tobacco Use Types [...] Telephone Encounter - Lluvia Parra RN - 07/29/2023 10:16 AM CST Medication failed the protocol, provider to review and approve the medication order if appropriate. Requested Prescriptions Pending Prescriptions Disp Refills TRUEplus Lancets 33G Misc [Pharmacy Med Name: TRUEPLUS LANCETS 33G] 100 Each 3 Sig: TEST BLOOD SUGAR EVERY DAY Diabetic Supplies Protocol Passed - 07/28/2023 4:22 AM Passed - Visit with relevant provider in past 6 months Recent Visits Date Type Provider Dept 04/01/23 Telemedicine Liam Wilson MD [facility] 03/27/23 Telemedicine Liam Wilson MD [facility] Showing recent visits within past 182 days and meeting all other requirements Future Appointments No visits were found meeting these conditions. Showing future appointments within next 90 days and meeting all other requirements True Metrix Blood Glucose Test Strip [Pharmacy Med Name: TRUE METRIX SELF MONITORING BLOOD GLUCOSE STRIPS Strip] 100 Strip 3 Sig: TEST BLOOD SUGAR EVERY DAY Diabetic Supplies Protocol Passed - 07/28/2023 4:22 AM Passed - Visit with relevant provider in past 6 months Recent Visits Date Type Provider Dept 04/01/23 Telemedicine Liam Wilson MD [facility] 03/27/23 Telemedicine Liam Wilson MD [facility] Showing recent visits within past 182 days and meeting all other requirements Future Appointments No visits were found meeting these conditions. Showing future appointments within next 90 days and meeting all other requirements ER IN CHANCERY documented in this encounter Plan of Treatment Upcoming Encounters Date Type Department Care Team (Late st Contact Info) Description 09/09/2025 9:15 AM MASTER IN CHANCERY Office Visit [facility] - [facility] - [place] [address] [place] [address] Liam Wilson MD #[address] [address] documented as of this encounter Visit Diagnoses Diagnosis Type 2 diabetes mellitus with other specified complication, without long-term current use of insulin documented in this encounter Additional Health Concerns Infection Onset Date Last Indicated Resolved Time Respiratory Rule Out - RPA 10/21/2024 10/21/2024 0 10/21/2024 3:06 PM MASTER IN CHANCERY MRSA 10/21/2024 10/21/2024 Assessment Noted Time PHQ-9 Depression Total Score: 0 06/01/20 22 1:00 PM CDT documented as of this encounter Care Teams Software Administrator Relationship Specialty Start Date End Date Liam Wilson MD [address] [place] [address] PCP - General Family Medicine 12/31/19 Diamond Lincoln LSW [place] Shovel Operator Ccna 09/04/23 documented as of this encounter
--- OUTSIDE RECORDS SUMMARY | 2025-07-08 19:20 | XMS_ITS | Encounter Summary ---
Author Organization [facility] Healthcare Address [address] [place] [address] Care Team Providers Care Glass Cut Off Supervisor Name Role Phone Mulu Polk RN Unavailable Joy carissa Domínguez Jr., MD, Emory Aguirre Primary Care Provid er Teresa Osorio RN Unavailable Unavailab Teresa Jones RN Unavailable Unavailab rocio Miscellaneous, Not In File Primary Care Provider Unavailable Liam Wilson MD Primary Care Provider +1 [phone] Encounter Details Date Type Department Care Team (Late st Contact Info) Description 12/23/2020 Orders Only [facility] [address] [place] [address] [place] [address] [facility] [address] [place] [address] Social History Tobacco Use Types Packs/Day Years Used Date Smoking Tobacco: Every Day Cigarettes Smokeless Tobacco: Never Comments:Counselled pt to co ntact her PCP for assist with quitting smoking. Instructed pt not smoke for 24 hours prior to procedure. Alcohol Use Standard Drinks/Week Comments No 0 (1 standard drink = 0.6 oz pur e alcohol) Comments No Sex and Gender Information Value Date Recorded Sex Assigned at Not on file Legal Sex Female 2:33 AM TECHNICAL SPEC Gender Identity Female 03/22/2021 7:04 PM CDT Sexual Orientation Straight 03/22/2021 7: 04 PM CDT documented as of this encounter Plan of Treatment Upcoming Encounters Date Type Department Care Team (Late st Contact Info) Description 07/22/2025 7:30 AM TECHNICAL SPEC Hospital Encounter [facility] Operating Room [id number] [place] [address] [place] [address] [facility] [address] [place] [address] 07/22/2025 7:30 AM TECHNICAL SPEC - 07/22/2025 9:30 AM TECHNICAL SPEC Surgery [facility] Operating Room [id number] [place] [address] [place] [address] [facility] [address] [place] [address] INTRATHECAL PAIN PUMP REPLACEMENT WITH PLASMA BLADE/60 MIN Scheduled Procedures Name Priority Associated Diagnoses Date/Ti me INSERTION INTRATHECAL PUMP LOW BACK PAIN 07/22/2025 7:30 AM TECHNICAL SPEC documented as of this encounter Visit Diagnoses Not on filedocumented in this encounter Orders Medications Ordered That Lei ht Not Have Been Administered Count Last Ordered Date First Ordered Date HYDROmorphone (DILAUDID) 1,0 00 mcg/mL in sodium chloride 0.9% 20 mL intrathecal pump fill 1 12/23/2020 documented in this encounter Care Teams Glass Cut Off Supervisor Relationship Specialty Start Date End Date Emory Domínguez Jr., MD [address] [facility] [address] [place] [address] PCP - General 09/11/18 05/30/22 Miscellaneous, Not In File PCP - General 03/02/23 3 Liam Wilson MD 2 [facility] [address] [place] [address] PCP - General Family Medicine 04/10/23 Mulu Polk RN Registered Nurse 08/29/18 Teresa Osorio RN Registered Nurse 09/17/18 Osorio, L., RN Registered Nurse 05/27/19 documented as of this encounter
--- OUTSIDE RECORDS SUMMARY | 2025-07-08 19:20 | XMS_ITS | Encounter Summary ---
Author Organization [facility] Address [address] [place] [address] Phone Care Team Providers Care Acid Correction Hand Name Role Phone Liam Wilson MD Primary Care Provider [phone] [phone] Diamond Lincoln Unavailable Unavailab le Reason for Visit * Reason Comments Medication Refill Encounter Details Date Type Department Care Team (Late st Contact Info) Description 06/23/2022 Refill [facility] - [place] [address] [place] [address] Amador Payan, MIGUEL ANGEL, DIRECTOR OF SAFETY AND SECURITY [address] [address] Medication Refill Social History Tobacco [...] Telephone Encounter - Lluvia Parra RN - 06/25/2022 9:07 AM CDT Name from pharmacy: PRAMIPEXOLE 1 MG TABLET Will file in chart as: pramipexole (MIRAPEX) 1 MG Tablet The original prescription was reordered on 06/25/2022 documented in this encounter Plan of Treatment Upcoming Encounters Date Type Department Care Team (Late st Contact Info) Description 09/09/2025 9:15 AM NETBACKUP ENGINEER Office Visit [facility] - Family Medicine [facility] [address] [place] [address] Liam Wilson MD #[address] [address] documented as of this encounter Visit Diagnoses Not on filedocumented in this encounter Additional Health Concerns Infection Onset Date Last Indicated Resolved Time Respiratory Rule Out - RPA 10/21/2024 10/21/2024 0 10/21/2024 3:06 PM NETBACKUP ENGINEER MRSA 10/21/2024 10/21/2024 Assessment Noted Time PHQ-9 Depression Total Score: 0 06/01/20 22 1:00 PM CDT documented as of this encounter Care Teams Acid Correction Hand Relationship Specialty Start Date End Date Liam Wilson MD #[address] [address] PCP - General Family Medicine 12/31/19 Diamond Lincoln LSW [place] Nascar Racer Ski Base Trimmer 09/04/23 documented as of this encounter
--- OUTSIDE RECORDS SUMMARY | 2025-07-08 19:20 | XMS_ITS | Encounter Summary ---
Author Organization [facility] Address [address] [place] [address] Phone Care Team Providers Care Chief Librarian Branch Or Department Name Role Phone Liam Wilson MD Primary Care Provider [phone] Diamond Lincoln CLINICAL DOCUMENTATION SPEC Unavailable Unavailab le Reason for Visit * Reason Comments Medication Refill Encounter Details Date Type Department Care Team (Late st Contact Info) Description 06/09/2021 Refill [facility] - [place] [address] [place] [address] Liam Wilson MD #[address] [address] Medication Refill Social History Tobacco Use Types [...] Telephone Encounter - Lluvia Parra RN - 06/09/2021 1:27 PM CDT Medication failed the protocol, provider to review and approve the medication order if appropriate. Requested Prescriptions Pending Prescriptions Disp Refills ibuprofen (MOTRIN) 800 MG Tablet [Pharmacy Med Name: IBUPROFEN 800 MG TABLET] 90 Tablet 1 Sig: TAKE 1 TABLET BY MOUTH EVERY 8 HOURS NEEDED FOR MODERATE OR MORE SEVERE PAIN. NSAIDs Protocol Failed - 06/09/2021 12:03 AM Failed - Normal serum creatinine in past 12 months CREATININE, BLOOD Date Value Ref Range Status 12/24/2019 0.65 0.60 - 1.10 mg/dL Final Failed - AST less than 55 or ALT less than 90 in past 12 months SGOT (AST) Date Value Ref Range Status 12/24/2019 24 <=32 U/L Final SGPT (ALT) Date Value Ref Range Status 12/24/2019 31 <=33 U/L Final Failed - HGB greater than 10 or HCT greater than 30 in past 12 months HEMOGLOBIN (HGB) Date Value Ref Range Status 12/24/2019 12.6 12.0 - 15.8 g/dL Final HEMATOCRIT (HCT) Date Value Ref Range Status 12/24/2019 42.3 36.0 - 47.0 % Final Passed - Visit with relevant provider in past 12 months or upcoming 90 days Recent Visits Date Type Provider Dept 05/24/21 Office Visit Amador Payan APN, ABIGAIL [facility] 04/18/21 Office Visit Amador Payan APN, ABIGAIL [facility] 03/29/21 Office Visit Amador Payan APN, ABIGAIL [facility] 03/15/21 Office Visit Amador Payan APN, ABIGAIL [facility] 12/07/20 Office Visit Liam Wilson MD [facility] [place] 08/01/20 Office Visit Amador Payan APN, PAID SEARCH MANAGER [facility] 06/22/20 Office Visit Liam Wilson MD [facility] [place] Showing recent visits within past 365 days and meeting all other requirements Future Appointments Date Type Provider Dept 06/16/21 Appointment Liam Wilson MD [facility] Showing future appointments within next 90 days and meeting all other requirements Passed - No matching NSAID med order in past 45 days No matching medication orders between 04/25/2021 1:27 PM and 06/09/2021 1:27 PM documented in this encounter Plan of Treatment Upcoming Encounters Date Type Department Care Team (Late st Contact Info) Description 09/09/2025 9:15 AM HOTEL CLERK Office Visit [facility] - Family Medicine [facility] [address] [place] [address] Liam Wilson MD #[address] [address] documented as of this encounter Visit Diagnoses Diagnosis Acute pain of left shoulder documented in this encounter Additional Health Concerns Infection Onset Date Last Indicated Resolved Time COVID - 19 Confirmed 01/05/2022 01/05/2022 022 12:16 AM CDT Respiratory Rule Out - RPA 10/21/2024 10/21/2024 0 10/21/2024 3:06 PM HOTEL CLERK MRSA 10/21/2024 10/21/2024 Assessment Noted Time PHQ-9 Depression Total Score: 6 01/26/20 20 9:57 AM CDT documented as of this encounter Care Teams Chief Librarian Branch Or Department Relationship Specialty Start Date End Date Liam Wilson MD #[address] [address] PCP - General Family Medicine 12/31/19 Diamond Lincoln LSW [place] Jet Ski Mechanic Manager Pathology 09/04/23 documented as of this encounter
--- OUTSIDE RECORDS SUMMARY | 2025-07-08 19:20 | XMS_ITS | Encounter Summary ---
Author Organization [facility] Address [address] [place] [address] Phone Care Team Providers Care Aircraft General Repair Mechanic Name Role Phone Liam Wilson MD Primary Care Provider [phone] Diamond Lincoln VALVE STEAMER Unavailable Unavailab le Reason for Visit * Reason Comments Medication Refill Encounter Details Date Type Department Care Team (Late st Contact Info) Description 07/16/2022 Refill [facility] - [place] [address] [place] [address] Liam Wilson MD #[address] [address] Medication Refill Social History Tobacco Use Types [...] on file documented as of this encounter Plan of Treatment Upcoming Encounters Date Type Department Care Team (Late st Contact Info) Description 09/09/2025 9:15 AM CLINICAL DOCUMENTATION SPEC Office Visit [facility] - Family Medicine [facility] [address] [place] [address] Liam Wilson MD #[address] [address] documented as of this encounter Visit Diagnoses Not on filedocumented in this encounter Additional Health Concerns Infection Onset Date Last Indicated Resolved Time Respiratory Rule Out - RPA 10/21/2024 10/21/2024 0 10/21/2024 3:06 PM CLINICAL DOCUMENTATION SPEC MRSA 10/21/2024 10/21/2024 Assessment Noted Time PHQ-9 Depression Total Score: 0 06/01/20 22 1:00 PM CDT documented as of this encounter Care Teams Aircraft General Repair Mechanic Relationship Specialty Start Date End Date Liam Wilson MD #[address] [address] PCP - General Family Medicine 12/31/19 Diamond Lincoln LSW [place] Patent Examiner Cupola Hoist Operator 09/04/23 documented as of this encounter
--- OUTSIDE RECORDS SUMMARY | 2025-07-08 19:20 | XMS_ITS | Encounter Summary ---
Author Organization [facility] Address [address] [place] [address] Phone Care Team Providers Care Roof Painter Name Role Phone Liam Wilson MD Primary Care Provider [phone] [phone] Diamond Lincoln Unavailable Unavailab le Reason for Visit * Reason Comments Medication Refill Encounter Details Date Type Department Care Team (Late st Contact Info) Description 04/07/2021 Refill [facility] - [facility] Medicine - [place] [address] [place] [address] Amador Payan, MIGUEL ANGEL, NUCLEAR WEAPONS CUSTODIAN #[address] [address] Medication Refill Social History Tobacco [...] have Coronavirus / COVID-19? No / Unsure 03/29/2021 9:15 AM CDT documented as of this encounter Miscellaneous Notes * Telephone Encounter - Lluvia Parra RN - 04/07/2021 1:52 PM CDT PRN medication requires review from provider Per nursing clinical judgement, provider to review and approve the medication(s) order(s) if appropriate. Requested Prescriptions Pending Prescriptions Disp Refills ibuprofen (MOTRIN) 800 MG Tablet [Pharmacy Med Name: IBUPROFEN 800 MG TABLET] 90 Tablet 1 Sig: TAKE 1 TAB BY MOUTH EVERY 8 HOURS NEEDED FOR MODERATE OR MORE SEVERE PAIN. [facility] Analgesics: NSAIDS - OTC Passed - 04/07/2021 1:30 AM Passed - Valid encounter within last 12 months Past Office Visits Recent Outpatient Visits 1 week ago Primary osteoarthritis of both shoulders [facility] - Amador Amaya APN, NUCLEAR WEAPONS CUSTODIAN 3 weeks ago Type 2 diabetes mellitus with other specified complication, without long-term current use of insulin (HCC) [facility] - Amador Amaya APN, NUCLEAR WEAPONS CUSTODIAN 4 months ago Essential hypertension [facility] - Liam Schulz MD 8 months ago Acute pain of left shoulder [facility] - Amador Amaya APN, NUCLEAR WEAPONS CUSTODIAN 9 months ago Essential hypertension [facility] Liam Schulz MD Upcoming Appointments Future Appointments In 5 days SAHCUSTECH1; SAHCUS1 [facility] Ultrasound, [facility] In 5 days SAHCMAM1 [facility] Song Tillman MD [facility] General Surgery - [facility] In 2 months Liam Wilson MD [facility] Family [facility] LAMP TESTER AND INSPECTOR - Recent and Past Visits Recent Visits Date Type Provider Dept 03/29/21 Office Visit Amador Payan APN, NUCLEAR WEAPONS CUSTODIAN [facility] 03/15/21 Office Visit Amador Payan APN, NUCLEAR WEAPONS CUSTODIAN [facility] 12/07/20 Office Visit Liam Wilson MD [facility] 08/01/20 Office Visit Amador Payan APN, NUCLEAR WEAPONS CUSTODIAN [facility] [place] 06/22/20 Office Visit Liam Wilson MD [facility] 02/02/20 Office Visit Chas[facility] Delmy Chappell, [facility] 01/26/20 Office Visit [facility] [place] Showing recent visits within past 460 days with a meds authorizing provider and meeting all other requirements Future Appointments Date Type Provider Dept 06/15/21 Appointment Liam Wilson MD [facility] Showing future appointments within next 90 days with a meds authorizing provider and meeting all other requirements documented in this encounter Plan of Treatment Upcoming Encounters Date Type Department Care Team (Late st Contact Info) Description 09/09/2025 9:15 AM MEDICAL RADIATION TECH Office Visit [facility] - Family Medicine [facility] #[address] [place] [address] Liam Wilson MD #[address] [address] documented as of this encounter Visit Diagnoses Diagnosis Acute pain of left shoulder documented in this encounter Additional Health Concerns Infection Onset Date Last Indicated Resolved Time COVID - 19 Confirmed 01/05/2022 01/05/2022 022 12:16 AM CDT Respiratory Rule Out - RPA 10/21/2024 10/21/2024 0 10/21/2024 3:06 PM MEDICAL RADIATION TECH MRSA 10/21/2024 10/21/2024 Assessment Noted Time PHQ-9 Depression Total Score: 6 01/26/20 20 9:57 AM CDT documented as of this encounter Care Teams Roof Painter Relationship Specialty Start Date End Date Liam Wilson MD #[address] [address] PCP - General Family Medicine 12/31/19 Diamond Lincoln LSW [place] Bag Sealer Professor Of Oceanography 09/04/23 documented as of this encounter
--- OUTSIDE RECORDS SUMMARY | 2025-07-08 19:20 | XMS_ITS | Encounter Summary ---
Author Organization [facility] Healthcare Address [address] [place] [address] Care Team Providers Care Drawbridge Tender Name Role Phone Mulu Polk RN Unavailable Joy carissa Domínguez Jr., MD, Emory Aguirre Primary Care Provid er Teresa Osorio RN Unavailable Unavailab le Teresa Osorio RN Unavailable Unavailab le Miscellaneous, Not In File Primary Care Provider Unavailable Liam Wilson MD Primary Care Provider [phone] [phone] Encounter Details Date Type Department Care Team (Late st Contact Info) Description 03/09/2019 Telephone [facility] [address] [place] [address] Teresa Osorio RN Social History Tobacco Use Types Packs/Day Years [...] on file Legal Sex Female 2:33 AM ELECTRICAL ENGINEERING INTERN Gender Identity Female 03/22/2021 7:04 PM CDT Sexual Orientation Straight 03/22/2021 7: 04 PM CDT documented as of this encounter Plan of Treatment Upcoming Encounters Date Type Department Care Team (Late st Contact Info) Description 07/22/2025 7:30 AM ELECTRICAL ENGINEERING INTERN Hospital Encounter [facility] Operating Room [address] [place] [address] [place] [address] [facility] [address] [place] [address] 07/22/2025 7:30 AM ELECTRICAL ENGINEERING INTERN - 07/22/2025 9:30 AM ELECTRICAL ENGINEERING INTERN Surgery [facility] Operating Room [id number] [place] [address] [place] [address] [facility] [address] [place] [address] INTRATHECAL PAIN PUMP REPLACEMENT WITH PLASMA BLADE/60 MIN Scheduled Procedures Name Priority Associated Diagnoses Date/Ti me INSERTION INTRATHECAL PUMP LOW BACK PAIN 07/22/2025 7:30 AM ELECTRICAL ENGINEERING INTERN documented as of this encounter Visit Diagnoses Not on filedocumented in this encounter Care Teams Drawbridge Tender Relationship Specialty Start Date End Date Emory Domínguez Jr., MD [address] [place] [address] [address] [place] [address] PCP - General 09/11/18 05/30/22 Miscellaneous, Not In File PCP - General 03/02/23 3 Liam Wilson MD 2 [facility] [address] [place] [address] PCP - General Family Medicine 04/10/23 Mulu Polk, RN Registered Nurse 08/29/18 Teresa Osorio, RN Registered Nurse 09/17/18 Teresa Osorio, RN Registered Nurse 05/27/19 documented as of this encounter
--- OUTSIDE RECORDS SUMMARY | 2025-07-08 19:20 | XMS_ITS | Encounter Summary ---
Author Organization [facility] Address [address] [place] [address] Phone Care Team Providers Care Database Analyst Name Role Phone Liam Wilson MD Primary Care Provider [phone] [phone] Diamond Lincoln DO ALL OPERATOR Unavailable Unavailab le Reason for Visit * Reason Comments Medication Refill Encounter Details Date Type Department Care Team (Late st Contact Info) Description 11/16/2021 Refill [facility] - [place] [address] [place] [address] Liam Wilson MD [address] [address] Medication Refill Social History Tobacco Use Types [...] Telephone Encounter - Lluvia Parra RN - 11/16/2021 11:58 AM CDT Medication failed the protocol, provider to review and approve the medication order if appropriate. Requested Prescriptions Pending Prescriptions Disp Refills ibuprofen (MOTRIN) 800 MG Tablet [Pharmacy Med Name: IBUPROFEN 800 MG TABLET] 90 Tablet 1 Sig: TAKE 1 TABLET BY MOUTH EVERY 8 HOURS NEEDED FOR MODERATE OR MORE SEVERE PAIN. NSAIDs Protocol Failed - 11/16/2021 12:21 AM Failed - Normal serum creatinine in [...] Provider Dept 09/15/21 Telemedicine Liam Wilson MD [facility] [place] 05/24/21 Office Visit Amador Payan APRN, ABIGAIL [facility] 04/18/21 Office Visit Amador Payan APRN, ABIGAIL [facility] 03/29/21 Office Visit Amador Payan APRN, ABIGAIL [facility] 03/15/21 Office Visit Amador Payan APRN, ABIGAIL [facility] 12/07/20 Office Visit Liam Wilson MD [facility] [place] Showing recent visits within past 365 days and meeting all other requirements Future Appointments No visits were found meeting these conditions. Showing future appointments within next 90 days and meeting all other requirements Passed - No matching NSAID med order in past 45 days No matching medication orders between 10/02/2021 11:58 AM and 11/16/2021 11:58 AM documented in this encounter Plan of Treatment Upcoming Encounters Date Type Department Care Team (Late st Contact Info) Description 09/09/2025 9:15 AM FIELD CONSULTANT Office Visit [facility] - Family Medicine [facility] [address] [place] [address] Liam Wilson MD #[address] [address] documented as of this encounter Visit Diagnoses Diagnosis Acute pain of left shoulder documented in this encounter Additional Health Concerns Infection Onset Date Last Indicated Resolved Time COVID - 19 Confirmed 01/05/2022 01/05/2022 022 12:16 AM CDT Respiratory Rule Out - RPA 10/21/2024 10/21/2024 0 10/21/2024 3:06 PM FIELD CONSULTANT MRSA 10/21/2024 10/21/2024 Assessment Noted Time PHQ-9 Depression Total Score: 6 01/26/20 20 9:57 AM CDT documented as of this encounter Care Teams Database Analyst Relationship Specialty Start Date End Date Liam Wilson MD [address] [address] PCP - General Family Medicine 12/31/19 Diamond Lincoln LSW [place] Laborer [address] Band Builder 09/04/23 documented as of this encounter
--- OUTSIDE RECORDS SUMMARY | 2025-07-08 19:20 | XMS_ITS | Encounter Summary ---
Author Organization [facility] Address [address] [place] [address] Phone Care Team Providers Care Bowling Pin Refinisher Name Role Phone Liam Wilson MD Primary Care Provider [phone] [phone] Diamond Lincoln Unavailable Unavailab le Reason for Visit * Reason Comments Medication Refill Encounter Details Date Type Department Care Team (Late st Contact Info) Description 08/20/2020 Refill [facility] - Family Medicine - [place] [address] [place] [address] Delmy Grimm PAC [address] [place] [address] Medication Refill Social History Tobacco Use Types [...] have Coronavirus / COVID-19? No / Unsure 08/01/2020 1:06 PM CURING PRESS OPERATOR documented as of this encounter Miscellaneous Notes * Telephone Encounter - Marcy Bean RN - 08/20/2020 9:21 PM CST Medication failed the protocol, provider to review and approve the medication order if appropriate.Discontinued by pcp on 03/02/20. Requested Prescriptions Pending Prescriptions Disp Refills metFORMIN (GLUCOPHAGE-XR) 500 MG TABLET SR 24 HR [Pharmacy Med Name: METFORMIN HCL ER 500 MG TABLET] 180 Tab 1 Sig: TAKE TWO TABLETS BY MOUTH DAILY Endocrinology: Diabetes - Biguanides Passed - 08/20/2020 9:34 AM Passed - Valid encounter within last 12 months Past Office Visits Recent Outpatient Visits 2 weeks ago Acute pain of left shoulder [facility] Amador Amaya APN, MACHINE FANCY STITCHER 1 month ago Essential hypertension [facility] Liam Schulz MD 6 months ago Chronic obstructive pulmonary disease, unspecified COPD type (HCC) [facility] - Delmy Crawford PAC 6 months ago Chronic obstructive pulmonary disease, unspecified COPD type (HCC) [facility] Liam Schulz MD 7 months ago Hypothyroidism, unspecified type [facility] Liam Schulz MD Upcoming Appointments Future Appointments In 1 month Liam Wilson MD [facility] [place] [facility] JAMB CUTTER - Recent and Past Visits Recent Visits Date Type Provider Dept 08/01/20 Office Visit Amador Payan APN, ABIGAIL [facility] [place] 06/22/20 Office Visit Liam Wilson MD [facility] 02/02/20 Office Visit Delmy Grimm PAC [facility] [place] 01/26/20 Office Visit Liam Wilson MD [facility] 12/31/19 Telemedicine Liam Wilson MD [facility] Showing recent visits within past 460 days with a meds authorizing provider and meeting all other requirements Future Appointments Date Type Provider Dept 10/05/20 Appointment Liam Wilson MD [facility] Showing future appointments within next 90 days with a meds authorizing provider and meeting all other requirements Passed - Last BP in normal range BP Readings from Last 1 Encounters: 08/01/20 110/76 NG PRESS OPERATOR documented in this encounter Plan of Treatment Upcoming Encounters Date Type Department Care Team (Late st Contact Info) Description 09/09/2025 9:15 AM CURING PRESS OPERATOR Office Visit [facility] Group - Family Medicine - [place] [address] [place] [address] Liam Wilson MD [address] [address] documented as of this encounter Visit Diagnoses Not on filedocumented in this encounter Additional Health Concerns Infection Onset Date Last Indicated Resolved Time COVID - 19 Confirmed 01/05/2022 01/05/2022 022 12:16 AM CDT Respiratory Rule Out - RPA 10/21/2024 10/21/2024 0 10/21/2024 3:06 PM CURING PRESS OPERATOR MRSA 10/21/2024 10/21/2024 Assessment Noted Time PHQ-9 Depression Total Score: 6 01/26/20 20 9:57 AM CDT documented as of this encounter Care Teams Bowling Pin Refinisher Relationship Specialty Start Date End Date Laim Wilson MD [address] [address] PCP - General Family Medicine 12/31/19 Diamond Lincoln LSW [place] Coin Machine Servicer Repairer Animal Shelter Supervisor 09/04/23 documented as of this encounter
--- OUTSIDE RECORDS SUMMARY | 2025-07-08 19:20 | XMS_ITS | Encounter Summary ---
Author Organization [facility] Address [address] [place] [address] Phone Care Team Providers Care Wire Taper Name Role Phone Liam Wilson MD Primary Care Provider [phone] [phone] Diamond Lincoln CAPTAIN AIRLINE PILOT Unavailable Unavailab le Reason for Visit * Reason Comments Medication Refill Encounter Details Date Type Department Care Team (Late st Contact Info) Description 03/23/2021 Refill [facility] [address] [place] [address] Liam Wilson MD [address] [address] Medication Refill Social History Tobacco [...] have Coronavirus / COVID-19? No / Unsure 03/20/2021 6:53 AM CDT documented as of this encounter Miscellaneous Notes * Telephone Encounter - Lluvia Parra RN - 03/23/2021 9:22 AM CDT Medication failed the protocol, provider to review and approve the medication order if appropriate. Requested Prescriptions Pending Prescriptions Disp Refills nortriptyline (PAMELOR) 25 MG Capsule [Pharmacy Med Name: NORTRIPTYLINE HCL 25 MG CAP] 180 Capsule 3 Sig: TAKE 2 CAPSULES BY MOUTH NIGHTLY [facility] Not Delegated - Psychiatry: Antidepressants - Heterocyclics (TCAs) Failed - 03/23/2021 12:03 AM Failed - This refill cannot be delegated Passed - Valid encounter within last 12 months Past Office Visits Recent Outpatient Visits 1 week ago Type 2 diabetes mellitus with other specified complication, without long-term current use of insulin (HCC) [facility] - Amador Amaya APN, CHEMICAL UNIT OPERATOR 3 months ago Essential hypertension [facility] - Liam Schulz MD 7 months ago Acute pain of left shoulder [facility] Amador Amaya APN, CHEMICAL UNIT OPERATOR 9 months ago Essential hypertension [facility] Liam Schulz MD 1 year ago Chronic obstructive pulmonary disease, unspecified COPD type (HCC) [facility] - Delmy Crawford, PAC Upcoming Appointments Future Appointments In 1 week Song Tillman MD [facility] General Surgery - [facility] In 2 weeks [id number]; SAHCUS1 [facility] Ultrasound, [facility] In 2 weeks SAHCMAM1 [facility] Mammography, [facility] In 2 months Liam Wilson MD [facility] - [facility] PATIENT SITTER - Recent and Past Visits Recent Visits Date Type Provider Dept 03/15/21 Office Visit Amador Payan APN, CHEMICAL UNIT OPERATOR [facility] 12/07/20 Office Visit Liam Wilson MD [facility] 08/01/20 Office Visit Amador Payan APN, CHEMICAL UNIT OPERATOR [facility] 06/22/20 Office Visit Liam Wilson MD [facility] 02/02/20 Office Visit Delmy Grimm, [facility] 01/26/20 Office Visit Liam Wilson MD [facility] 12/31/19 Telemedicine Liam Wilson MD [facility] Showing recent visits within past 460 days with a meds authorizing provider and meeting all other requirements Future Appointments Date Type Provider Dept 06/15/21 Appointment Liam Wilson MD [facility] Showing future appointments within next 90 days with a meds authorizing provider and meeting all other requirements Passed - Last BP in normal range BP Readings from Last 1 Encounters: 03/15/21 122/80 documented in this encounter Plan of Treatment Upcoming Encounters Date Type Department Care Team (Late st Contact Info) Description 09/09/2025 9:15 AM EXTRUSION SUPERVISOR Office Visit [facility] Medical Group - Family Medicine [facility] [address] [place] [address] Liam Wilson MD [address] [address] documented as of this encounter Visit Diagnoses Not on filedocumented in this encounter Additional Health Concerns Infection Onset Date Last Indicated Resolved Time COVID - 19 Confirmed 01/05/2022 01/05/2022 022 12:16 AM CDT Respiratory Rule Out - RPA 10/21/2024 10/21/2024 0 10/21/2024 3:06 PM EXTRUSION SUPERVISOR MRSA 10/21/2024 10/21/2024 Assessment Noted Time PHQ-9 Depression Total Score: 6 01/26/20 20 9:57 AM CDT documented as of this encounter Care Teams Wire Taper Relationship Specialty Start Date End Date Liam Wilson MD [address] [address] PCP - General Family Medicine 12/31/19 Diamond Lincoln LSW [place] Agricultural Scientist Process Engineering Technician 09/04/23 documented as of this encounter
--- OUTSIDE RECORDS SUMMARY | 2025-07-08 19:20 | XMS_ITS | Encounter Summary ---
Author Organization [facility] Address [address] [place] [address] Phone Care Team Providers Care Gas Welding Equipment Mechanic Name Role Phone Liam Wilson MD Primary Care Provider [phone] [phone] Diamond Lincoln RESTAURANT KITCHEN AND SERVICE MANAGER Unavailable Unavailab le Reason for Visit * Reason Comments Medication Refill Encounter Details Date Type Department Care Team (Late st Contact Info) Description 06/15/2021 Refill [facility] [address] [place] [address] Liam Wilson MD [address] [address] Medication Refill Social History Tobacco [...] encounter Miscellaneous Notes * Telephone Encounter - Jami Castaneda RN - 06/15/2021 9:55 AM CDT Medication failed the protocol, provider to review and approve the medication order if appropriate. Requested Prescriptions Pending Prescriptions Disp Refills metFORMIN (GLUCOPHAGE) 500 MG Tablet [Pharmacy Med Name: METFORMIN HCL 500 MG TABLET] 180 Tablet 1 Sig: TAKE 1 TABLET BY MOUTH TWICE A DAY WITH MEALS Biguanides Protocol Failed - 06/15/2021 1:34 AM Failed - GFR on record in past 6 months GFR, EST. NONAFRICAN Date Value Ref Range Status 12/24/2019 >60 >=60 Final Passed - Visit with relevant provider in past 6 months or upcoming 90 days Recent Visits Date Type Provider Dept 05/24/21 Office Visit Amador Payan APN, ABIGAIL [facility] 04/18/21 Office Visit Amador Payan APN, ABIGAIL [facility] 03/29/21 Office Visit [facility] APN, [facility]IGAIL [facility] 03/15/21 Office Visit Amador Payan APN, WEBSPHERE COMMERCE ARCHITECT [facility] Showing recent visits within past 182 days and meeting all other requirements Future Appointments Date Type Provider Dept 06/16/21 Appointment Liam Wilson MD [facility] Showing future appointments within next 90 days and meeting all other requirements Passed - HgA1C on record in past 6 months HGB-A1C Date Value Ref Range Status 03/15/2021 6.5 (A) 4 - 6 Final documented in this encounter Plan of Treatment Upcoming Encounters Date Type Department Care Team (Late st Contact Info) Description 09/09/2025 9:15 AM SUPERVISOR CONCRETE STONE FINISHING Office Visit [facility] Medical Group - Family Medicine - [place] [address] [place] [phone] Liam Wilson MD #[address] [address] documented as of this encounter Visit Diagnoses Not on filedocumented in this encounter Additional Health Concerns Infection Onset Date Last Indicated Resolved Time COVID - 19 Confirmed 01/05/2022 01/05/2022 022 12:16 AM CDT Respiratory Rule Out - RPA 10/21/2024 10/21/2024 0 10/21/2024 3:06 PM SUPERVISOR CONCRETE STONE FINISHING MRSA 10/21/2024 10/21/2024 Assessment Noted Time PHQ-9 Depression Total Score: 6 01/26/20 20 9:57 AM CDT documented as of this encounter Care Teams Gas Welding Equipment Mechanic Relationship Specialty Start Date End Date Liam Wilson MD [address] [address] PCP - General Family Medicine 12/31/19 Diamond Lincoln LSW [place] Theater Manager Data Examination Clerk 09/04/23 documented as of this encounter
--- OUTSIDE RECORDS SUMMARY | 2025-07-08 19:20 | XMS_ITS | Encounter Summary ---
Author Organization [facility] Address [address] [place] [address] Phone Care Team Providers Care Animal Anatomist Name Role Phone Liam Wilson MD Primary Care Provider [phone] Diamond Lincoln BULK LOADER Unavailable Unavailab le Reason for Visit * Reason Comments Medication Refill Encounter Details Date Type Department Care Team (Late st Contact Info) Description 01/18/2021 Refill [facility] - [place] [address] [place] [address] Liam Wilson MD #[address] [address] Medication Refill Social History Tobacco Use Types [...] Telephone Encounter - Lluvia Parra RN - 01/18/2021 4:04 PM CDT Disp Refills Start End Combivent Respimat 20-100 MCG/ACT Aerosol Solution 1 Inhaler 1 12/27/2020 Sig: INHALE TWO PUFFS BY MOUTH FOUR TIMES A DAY Sent to pharmacy as: Combivent Respimat 20-100 MCG/ACT Inhalation Aerosol Solution (ipratropium-albuterol) Class: E Prescribe E-Prescribing Status: Receipt confirmed by pharmacy (12/27/2020 9:08 AM CDT) Combivent Respimat 20-100 MCG/ACT Aerosol Solution [[id number]] 7 Status: Active Ordering user: Liam Wilson MD 12/27/20907 Authorized by: Liam Wilson MD Frequency: 12/27/20 - Until Discontinued Released by: Liam Wilson MD 12/27/20 09 Pharmacy [facility] [address] [place] [address] documented in this encounter Plan of Treatment Upcoming Encounters Date Type Department Care Team (Late st Contact Info) Description 09/09/2025 9:15 AM NON LICENSED OPERATOR Office Visit [facility] - Family Medicine [facility] [address] [place] [address] iLam Wilson MD #[address] [address] documented as of this encounter Visit Diagnoses Not on filedocumented in this encounter Additional Health Concerns Infection Onset Date Last Indicated Resolved Time COVID - 19 Confirmed 01/05/2022 01/05/2022 022 12:16 AM CDT Respiratory Rule Out - RPA 10/21/2024 10/21/2024 0 10/21/2024 3:06 PM NON LICENSED OPERATOR MRSA 10/21/2024 10/21/2024 Assessment Noted Time PHQ-9 Depression Total Score: 6 01/26/20 20 9:57 AM CDT documented as of this encounter Care Teams Animal Anatomist Relationship Specialty Start Date End Date Liam Wilson MD [address] [address] PCP - General Family Medicine 12/31/19 Diamond Lincoln LSW [place] Medical Affairs Manager Windows Server Administrator 09/04/23 documented as of this encounter
--- OUTSIDE RECORDS SUMMARY | 2025-07-08 19:20 | XMS_ITS | Encounter Summary ---
Author Organization [facility] Address [address] [place] [address] Phone Care Team Providers Care Splash Line Operator Name Role Phone Liam Wilson MD Primary Care Provider [phone] Diamond Lincoln KRAFT DIGESTER OPERATOR Unavailable Unavailab le Reason for Visit * Reason Comments Medication Refill Encounter Details Date Type Department Care Team (Late st Contact Info) Description 10/27/2022 Refill [facility] - [facility] - [place] [address] [place] [address] Liam Wilson MD #[address] [address] Medication Refill Social History Tobacco Use Types [...] suspected to have Coronavirus/COVID-19? No / Unsure 10/24/2022 10:53 AM GROUP SOCIAL WORKER documented as of this encounter Miscellaneous Notes * Telephone Encounter - Bre Shelby RN - 10/29/2022 1:20 PM GROUP SOCIAL WORKER New pharmacy. Medication failed the protocol, provider to review and approve the medication order if appropriate. Requested Prescriptions Pending Prescriptions Disp Refills levothyroxine (SYNTHROID) 112 MCG Tablet [Pharmacy Med Name: LEVOTHYROXINE 112 MCG TABLET] 90 Tablet 1 Sig: TAKE 1 TABLET BY MOUTH EVERY DAY Thyroid Hormones Protocol Failed - 10/27/2022 8:29 AM Failed - Normal TSH in past 12 months TSH Date Value Ref Range Status 01/05/2022 8.290 (H) 0.270 - 4.200 mIU/L Final Passed - Visit with relevant provider in past 12 months or upcoming 90 days Recent Visits Date Type Provider Dept 10/01/22 Telemedicine Liam Wilson MD [facility] 09/11/22 Telemedicine Liam Wilson MD [facility] 08/14/22 Telemedicine Liam Wilson MD [facility] 06/01/22 Office Visit Liam Wilson MD [facility] 02/27/22 Office Visit Liam Wilson MD [facility] 01/09/22 Telemedicine Amador Payan APRN, RESTAURANT DISTRICT MANAGER [facility] Show[facility] recent visits within past 365 days and meeting all other requirements Future Appointments No visits were found meeting these conditions. Showing future appointments within next 90 days and meeting all other requirements P SOCIAL WORKER documented in this encounter Plan of Treatment Upcoming Encounters Date Type Department Care Team (Late st Contact Info) Description 09/09/2025 9:15 AM GROUP SOCIAL WORKER Office Visit [facility] Medical Group - Family Medicine - [place] [address] [place] [address] Liam Wilson MD [address] [address] documented as of this encounter Visit Diagnoses Not on filedocumented in this encounter Additional Health Concerns Infection Onset Date Last Indicated Resolved Time Respiratory Rule Out - RPA 10/21/2024 10/21/2024 0 10/21/2024 3:06 PM GROUP SOCIAL WORKER MRSA 10/21/2024 10/21/2024 Assessment Noted Time PHQ-9 Depression Total Score: 0 06/01/20 22 1:00 PM CDT documented as of this encounter Care Teams Splash Line Operator Relationship Specialty Start Date End Date Liam Wilson MD [address] [address] PCP - General Family Medicine 12/31/19 Diamond Lincoln LSW [place] Aviation Metalsmith Rn Endocrinology 09/04/23 documented as of this encounter
--- OUTSIDE RECORDS SUMMARY | 2025-07-08 19:20 | XMS_ITS | Encounter Summary ---
Author Organization [facility] Healthcare Address [address] [place] [address] Care Team Providers Care Tobacco Dipper Name Role Phone Mulu Polk RN Unavailable Joy carissa Domínguez Jr., MD, Emory Aguirre Primary Care Provid er Teresa Osorio RN Unavailable Unavailab le Teresa Osorio RN Unavailable Unavailab le Miscellaneous, Not In File Primary Care Provider Unavailable Liam Wilson MD Primary Care Provider [phone] [phone] Encounter Details Date Type Department Care Team (Late Contact Info) Description 02/26/2019 Telephone [facility] [address] [place] [address] Teresa Osorio RN Social History [...] on file Legal Sex Female 2:33 AM CUSTOMER RELATIONS ASSISTANT Gender Identity Female 03/22/2021 7:04 PM CDT Sexual Orientation Straight 03/22/2021 7: 04 PM CDT documented as of this encounter Plan of Treatment Upcoming Encounters Date Type Department Care Team (Late st Contact Info) Description 07/22/2025 7:30 AM CUSTOMER RELATIONS ASSISTANT Hospital Encounter [facility] Operating Room [address] [place] [address] [place] [address] [facility] [address] [place] [address] 07/22/2025 7:30 AM CUSTOMER RELATIONS ASSISTANT - 07/22/2025 9:30 AM CUSTOMER RELATIONS ASSISTANT Surgery [facility] Operating Room [id number] [place] [address] [place] [address] [facility] [address] [place] [address] INTRATHECAL PAIN PUMP REPLACEMENT WITH PLASMA BLADE/60 MIN Scheduled Procedures Name Priority Associated Diagnoses Date/Ti me INSERTION INTRATHECAL PUMP LOW BACK PAIN 07/22/2025 7:30 AM CUSTOMER RELATIONS ASSISTANT documented as of this encounter Visit Diagnoses Not on filedocumented in this encounter Care Teams Tobacco Dipper Relationship Specialty Start Date End Date Emory Domínguez Jr., MD [address] [place] [address] [address] [place] [address] PCP - General 09/11/18 05/30/22 Miscellaneous, Not In File PCP - General 03/02/23 3 Liam Wilson MD 2 [facility] [address] [place] [address] PCP - General Family Medicine 04/10/23 Mulu Polk, RN Registered Nurse 08/29/18 Teresa Osorio, RN Registered Nurse 09/17/18 Teresa Osorio, RN Registered Nurse 05/27/19 documented as of this encounter
--- OUTSIDE RECORDS SUMMARY | 2025-07-08 19:20 | XMS_ITS | Encounter Summary ---
Author Organization [facility] Address [address] [place] [address] Phone Care Team Providers Care Repairer Wood Furniture Name Role Phone Liam Wilson MD Primary Care Provider [phone] [phone] Diamond Lincoln FUEL TESTING TECHNICIAN Unavailable Unavailab le Reason for Referral * Radiology Services (Routine) - Closed Specialty Diagnoses / Procedures Referred By Contkanu moreno Referred To Contact Radiology Diagnoses Left shoulder pain, unspecified chronicity Procedures XR SHOULDER COMPLETE LEFT Jorge Alva MD [address] [place] [address] Phone: tel: fax: Referral ID Status Reason Start Date Expiration Date Visits Re quested Visits Authorized [id number] Closed 09/15/2021 1 1 ULTING SOFTWARE ENGINEER Encounter Details Date Type Department Care Team (Latest Contact Info) Description 09/15/2021 Transcribe Orders [facility] Patient Access Admitting [address] [place] [address] Jorge Alva MD [address] [place] [address] Left shoulder pain, unspecified chronicity (Primary Dx) Social History Tobacco Use Types Packs/Day Years [...] st Contact Info) Description 09/09/2025 9:15 AM CONSULTING SOFTWARE ENGINEER Office Visit [facility] Medical Group - Family Medicine [facility] [address] [place] [address] Liam Wilson MD [address] [address] Scheduled Orders Name Type Priority Associated Diagnoses Orde r Schedule XR SHOULDER COMPLETE LEFT Imaging Routine Left shoulder pain, unspecified chronicity Expected: 09/15/2021, Expires: 09/15/2022 documented as of this encounter Visit Diagnoses Diagnosis Left shoulder pain, unspecified chronicity- Primary documented in this encounter Additional Health Concerns Infection Onset Date Last Indicated Resolved Time COVID - 19 Confirmed 01/05/2022 01/05/2022 022 12:16 AM CDT Respiratory Rule Out - RPA 10/21/2024 10/21/2024 0 10/21/2024 3:06 PM CONSULTING SOFTWARE ENGINEER MRSA 10/21/2024 10/21/2024 Assessment Noted Time PHQ-9 Depression Total Score: 6 01/26/20 20 9:57 AM CDT documented as of this encounter Care Teams Repairer Wood Furniture Relationship Specialty Start Date End Date Liam Wilson MD #[address] [address] PCP - General Family Medicine 12/31/19 Diamond Lincoln LSW [place] Administration Clerk Varnish Inspector 09/04/23 documented as of this encounter
--- OUTSIDE RECORDS SUMMARY | 2025-07-08 19:20 | XMS_ITS | Encounter Summary ---
Author Organization [facility] Address [address] [place] [address] Phone Care Team Providers Care Infantry Indirect Fire Crewmember Name Role Phone Liam Wilson MD Primary Care Provider [phone] [phone] Diamond Lincoln UPSETTER HELPER Unavailable Unavailab le Reason for Visit * Reason Comments Medication Refill Encounter Details Date Type Department Care Team (Late st Contact Info) Description 10/16/2020 Refill [facility] - [place] [address] [place] [address] Liam Wilson MD [address] [address] Medication Refill Social History Tobacco Use Types [...] have Coronavirus / COVID-19? No / Unsure 09/27/2020 2:39 PM SHAPER OPERATOR documented as of this encounter Miscellaneous Notes * Telephone Encounter - Lluvia Parra RN - 10/17/2020 10:39 AM CST Patient has follow up 10/19/20 - do you want to address refills at appointment? Per nursing clinical judgement, provider to review and approve the medication(s) order(s) if appropriate. Requested Prescriptions Pending Prescriptions Disp Refills levothyroxine (SYNTHROID) 112 MCG Tablet [Pharmacy Med Name: LEVOTHYROXINE 112 MCG TABLET] 90 Tablet 0 Sig: TAKE 1 TABLET BY MOUTH EVERY DAY Endocrinology: Hypothyroid Agents Passed - 10/16/2020 3:03 PM Passed - Valid encounter within last 12 months Past Office Visits Recent Outpatient Visits 2 months ago Acute pain of left shoulder [facility] Amador Amaya APN, TECHNOLOGY TRAINER 3 months ago Essential hypertension [facility] - Liam Schulz MD 8 months ago Chronic obstructive pulmonary disease, unspecified COPD type (HCC) [facility] Delmy Crawford PAC 8 months ago Chronic obstructive pulmonary disease, unspecified COPD type (HCC) [facility] Liam Schulz MD 9 months ago Hypothyroidism, unspecified type [facility] Liam Schulz MD Upcoming Appointments Future Appointments In 2 days Liam Wilson MD [facility] Recent and Past Visits Recent Visits Date Type Provider Dept 08/01/20 Office Visit Amador Payan APN, TECHNOLOGY TRAINER [facility] 06/22/20 Office Visit Liam [facility] 02/02/20 Office Visit Delmy Grimm PAC [facility] 01/26/20 Office Visit Liam Wilson MD [facility] 12/31/19 Telemedicine Liam Wilson MD [facility] Showing recent visits within past 460 days with a meds authorizing provider and meeting all other requirements Future Appointments Date Type Provider Dept 10/19/20 Appointment Liam Wilson MD [facility] Showing future appointments within next 90 days with a meds authorizing provider and meeting all other requirements Passed - TSH in normal range and within 360 days TSH Date Value Ref Range Status 09/27/2020 3.230 0.270 - 4.200 mIU/L Final pramipexole (MIRAPEX) 0.5 MG Tablet [Pharmacy Med Name: PRAMIPEXOLE 0.5 MG TABLET] 30 Tablet 1 Sig: TAKE 1 TABLET BY MOUTH EVERY DAY AT NIGHT Neurology: Parkinsonian Agents Passed - 10/16/2020 3:03 PM Passed - Valid encounter within last 12 months Past Office Visits Recent Outpatient Visits 2 months ago Acute pain of left shoulder [facility] Family [facility] - Amador Amaya APN, TECHNOLOGY TRAINER 3 months ago Essential hypertension [facility] - Liam Schulz MD 8 months ago Chronic obstructive pulmonary disease, unspecified COPD type (HCC) [facility] - Delmy Crawford PAC 8 months ago Chronic obstructive pulmonary disease, unspecified COPD type (HCC) [facility] Liam Schulz MD 9 months ago Hypothyroidism, unspecified type [facility] Liam Schulz MD Upcoming Appointments Future Appointments In 2 days Liam Wilson MD [facility] Recent and Past Visits Recent Visits Date Type Provider Dept 08/01/20 Office Visit Amador Payan APN, TECHNOLOGY TRAINER [facility] 06/22/20 Office Visit Liam Wilson MD [facility] 02/02/20 Office Visit Delmy Grimm PAC [facility] 01/26/20 Office Visit Liam Wilson MD [facility] 12/31/19 Telemedicine Liam Wilson MD [facility] Showing recent visits within past 460 days with a meds authorizing provider and meeting all other requirements Future Appointments Date Type Provider Dept 10/19/20 Appointment Liam Wilson MD [facility] Showing future appointments within next 90 days with a meds authorizing provider and meeting all other requirements Passed - Last BP in normal range BP Readings from Last 1 Encounters: 08/01/20 110/76 Combivent Respimat 20-100 MCG/ACT Aerosol Solution [Pharmacy Med Name: COMBIVENT RESPIMAT 20-100 MCG] 1 Sig: INHALE TWO PUFFS BY MOUTH FOUR TIMES A DAY Pulmonology: Combination Products Passed - 10/16/2020 3:03 PM Passed - Valid encounter within last 12 months Past Office Visits Recent Outpatient Visits 2 months ago Acute pain of left shoulder [facility] Family [facility] - Amador Amaya APN, TECHNOLOGY TRAINER 3 months ago Essential hypertension [facility] Liam Schulz MD 8 months ago Chronic obstructive pulmonary disease, unspecified COPD type (HCC) [facility] - Delmy Crawford PAC 8 months ago Chronic obstructive pulmonary disease, unspecified COPD type (HCC) [facility] Liam Schulz MD 9 months ago Hypothyroidism, unspecified type [facility] Liam Schulz MD Upcoming Appointments Future Appointments In 2 days Liam Wilson MD [facility] - Recent and Past Visits Recent Visits Date Type Provider Dept 08/01/20 Office Visit Amador Payan APN, ABIGAIL [facility] 06/22/20 Office Visit Liam Wlison MD [facility] 02/02/20 Office Visit Delmy Grimm PAC [facility] 01/26/20 Office Visit Liam Wilson MD [facility] 12/31/19 Telemedicine Liam Wilson MD [facility] Showing recent visits within past 460 days with a meds authorizing provider and meeting all other requirements Future Appointments Date Type Provider Dept 10/19/20 Appointment Liam Wilson MD [facility] Showing future appointments within next 90 days with a meds authorizing provider and meeting all other requirements Passed - Last BP in normal range BP Readings from Last 1 Encounters: 08/01/20 110/76 ER OPERATOR documented in this encounter Plan of Treatment Upcoming Encounters Date Type Department Care Team (Late st Contact Info) Description 09/09/2025 9:15 AM SHAPER OPERATOR Office Visit [facility] - Family Medicine - [place] [address] [place] [address] Liam Wilson MD [address] [address] documented as of this encounter Visit Diagnoses Not on filedocumented in this encounter Additional Health Concerns Infection Onset Date Last Indicated Resolved Time COVID - 19 Confirmed 01/05/2022 01/05/2022 022 12:16 AM CDT Respiratory Rule Out - RPA 10/21/2024 10/21/2024 0 10/21/2024 3:06 PM SHAPER OPERATOR MRSA 10/21/2024 10/21/2024 Assessment Noted Time PHQ-9 Depression Total Score: 6 01/26/20 20 9:57 AM CDT documented as of this encounter Care Teams Infantry Indirect Fire Crewmember Relationship Specialty Start Date End Date Liam Wilson MD [address] [address] PCP - General Family Medicine 12/31/19 Diamond Lincoln, JENNY [place] Wheat Shipper Manager Agricultural 09/04/23 documented as of this encounter
--- OUTSIDE RECORDS SUMMARY | 2025-07-08 19:20 | XMS_ITS | Encounter Summary ---
Author Organization [facility] Address [address] [place] [address] Phone Care Team Providers Care Criminal Justice Faculty Name Role Phone Liam Wilson MD Primary Care Provider [phone] Diamond Lincoln MARRIAGE AND FAMILY SOCIAL WORKER Unavailable Unavailab le Reason for Visit * Reason Comments Medication Refill Encounter Details Date Type Department Care Team (Late st Contact Info) Description 07/22/2020 Refill [facility] - [place] [address] [place] [address] Liam Wilson MD [address] [address] Medication Refill Social History Tobacco Use Types [...] have Coronavirus / COVID-19? No / Unsure 06/22/2020 9:49 AM CDT documented as of this encounter Miscellaneous Notes * Telephone Encounter - Lluvia Parra RN - 07/22/2020 10:58 AM CST Medication failed the protocol, provider to review and approve the medication order if appropriate. Requested Prescriptions Pending Prescriptions Disp Refills levothyroxine (SYNTHROID) 112 MCG Tablet [Pharmacy Med Name: LEVOTHYROXINE 112 MCG TABLET] 90 Tab 0 Sig: TAKE 1 TABLET BY MOUTH EVERY DAY Endocrinology: Hypothyroid Agents Failed - 07/22/2020 9:20 AM Failed - TSH in normal range and within 360 days TSH Date Value Ref Range Status 01/26/2020 10.190 (H) 0.270 - 4.200 mIU/L Final Passed - Valid encounter within last 12 months Past Office Visits Recent Outpatient Visits 1 month ago Essential hypertension [facility] - Liam Schulz MD 5 months ago Chronic obstructive pulmonary disease, unspecified COPD type (HCC) [facility] - Delmy Crawford PAC 5 months ago Chronic obstructive pulmonary disease, unspecified COPD type (HCC) [facility] Liam Schulz MD 6 months ago Hypothyroidism, unspecified type [facility] Liam Schulz MD Upcoming Appointments DIRECTOR INFORMATION SECURITY - Recent and Past Visits Recent Visits Date Type Provider Dept 06/22/20 Office Visit Liam Wilson MD [facility] 02/02/20 Office Visit Delmy Grimm PAC [facility] 01/26/20 Office Visit Liam Wilson MD [facility] 12/31/19 Telemedicine Liam [facility] MD [facility] Showing recent visits within past 460 days with a meds authorizing provider and meeting all other requirements Future Appointments No visits were found meeting these conditions. Showing future appointments within next 90 days with a meds authorizing provider and meeting all other requirements ENTERPRISE PORTAL CONSULTANT documented in this encounter Plan of Treatment Upcoming Encounters Date Type Department Care Team (Late st Contact Info) Description 09/09/2025 9:15 AM SAP ENTERPRISE PORTAL CONSULTANT [facility] [address] [place] [address] Liam Wilson MD [address] [address] documented as of this encounter Visit Diagnoses Not on filedocumented in this encounter Additional Health Concerns Infection Onset Date Last Indicated Resolved Time COVID - 19 Confirmed 01/05/2022 01/05/2022 022 12:16 AM CDT Respiratory Rule Out - RPA 10/21/2024 10/21/2024 0 10/21/2024 3:06 PM SAP ENTERPRISE PORTAL CONSULTANT MRSA 10/21/2024 10/21/2024 Assessment Noted Time PHQ-9 Depression Total Score: 6 01/26/20 20 9:57 AM CDT documented as of this encounter Care Teams Criminal Justice Faculty Relationship Specialty Start Date End Date Liam Wilson MD [address] [address] PCP - General Family Medicine 12/31/19 Diamond Lincoln LSW [place] Track Coach Central Supply Supervisor 09/04/23 documented as of this encounter
--- OUTSIDE RECORDS SUMMARY | 2025-07-08 19:20 | XMS_ITS | Encounter Summary ---
Author Organization [facility] Address [address] [place] [address] Phone Care Team Providers Care Security Services Manager Name Role Phone iLam Wilson MD Primary Care Provider [phone] [phone] Diamond Lincoln Unavailable Unavailab le Reason for Visit * Reason Comments Medication Refill Encounter Details Date Type Department Care Team (Late st Contact Info) Description 07/19/2020 Refill [facility] - Family Medicine - [place] [address] [place] [address] Delmy Grimm PAC [address] [place] [address] Medication Refill Social History Tobacco Use Types [...] encounter Miscellaneous Notes * Telephone Encounter - Teri Alvarenga RN - 07/19/2020 9:03 AM CST Sent to PCP EN VENT BINDER * Telephone Encounter - Teri Alvarenga RN - 07/19/2020 9:03 AM CST Medication failed the protocol, provider to review and approve the medication order if appropriate. Last OV 06/22/20, F/U None, Last Rx 04/26/20 Teri SOLIMAN Requested Prescriptions Pending Prescriptions Disp Refills Symbicort 160-4.5 MCG/ACT Aerosol [Pharmacy Med Name: SYMBICORT 160-4.5 MCG INHALER] 30.6 Inhaler 1 Sig: INHALE TWO PUFFS BY MOUTH TWO TIMES A DAY Pulmonology: Combination Products Failed - 07/19/2020 12:17 AM Failed - Last BP in normal range BP Readings from Last 1 Encounters: 06/22/20 160/86 Passed - Valid encounter within last 12 months Past Office Visits Recent Outpatient Visits 3 weeks ago Essential hypertension [facility] Medical [facility] - Liam Schulz MD 5 months ago Chronic obstructive pulmonary disease, unspecified COPD type (HCC) [facility] - Delmy Crawford PAC 5 months ago Chronic obstructive pulmonary disease, unspecified COPD type (HCC) [facility] - Liam Schulz MD 6 months ago Hypothyroidism, unspecified type [facility] - Liam Schulz MD Upcoming Appointments RETAIL HELPER - Recent and Past Visits Recent Visits Date Type Provider Dept 06/22/20 Office Visit Liam Wilson MD [facility] 02/02/20 Office Visit Delmy Grimm PAC [facility] 01/26/20 Office Visit Liam Wilson MD [facility] 12/31/19 Telemedicine Liam Wilson MD [facility] Showing recent visits within past 460 days with a meds authorizing provider and meeting all other requirements Future Appointments No visits were found meeting these conditions. Showing future appointments within next 90 days with a meds authorizing provider and meeting all other requirements EN VENT BINDER documented in this encounter Plan of Treatment Upcoming Encounters Date Type Department Care Team (Late st Contact Info) Description 09/09/2025 9:15 AM SCREEN VENT BINDER Office Visit [facility] Medical Group - Family Medicine - [place] [address] [place] [address] Liam Wilson MD #[address] [address] documented as of this encounter Visit Diagnoses Not on filedocumented in this encounter Additional Health Concerns Infection Onset Date Last Indicated Resolved Time COVID - 19 Confirmed 01/05/2022 01/05/2022 022 12:16 AM CDT Respiratory Rule Out - RPA 10/21/2024 10/21/2024 0 10/21/2024 3:06 PM SCREEN VENT BINDER MRSA 10/21/2024 10/21/2024 Assessment Noted Time PHQ-9 Depression Total Score: 6 01/26/20 20 9:57 AM CDT documented as of this encounter Care Teams Security Services Manager Relationship Specialty Start Date End Date Liam Wilson MD #[address] [address] PCP - General Family Medicine 12/31/19 Diamond Lincoln LSW [place] Match Marker Vascular Sonographer 09/04/23 documented as of this encounter
--- OUTSIDE RECORDS SUMMARY | 2025-07-08 19:20 | XMS_ITS | Encounter Summary ---
Author Organization [facility] Address [address] [place] [address] Phone Care Team Providers Care Test Cell Technician Name Role Phone Liam Wilson MD Primary Care Provider [phone] Diamond Lincoln PILOT PLANT TECHNICIAN Unavailable Unavailab le Reason for Visit * Reason Comments Medication Refill Encounter Details Date Type Department Care Team (Late st Contact Info) Description 07/13/2022 Refill [facility] - [place] [address] [place] [address] Liam Wilson MD [address] [address] Medication Refill Social History Tobacco Use Types [...] Telephone Encounter - Lluvia Parra RN - 07/16/2022 8:08 AM CST Medication warning Medication failed the protocol, provider to review and approve the medication order if appropriate. Requested Prescriptions Pending Prescriptions Disp Refills Combivent Respimat 20-100 MCG/ACT Aerosol Solution [Pharmacy Med Name: COMBIVENT RESPIMAT 20-100 MCG] 4 g 2 Sig: INHALE 2 PUFFS BY MOUTH FOUR TIMES DAILY Inhaled Combinations Protocol Passed - 07/13/2022 8:27 PM Passed - Visit with relevant provider in past 12 months or upcoming 90 days Recent Visits Date Type Provider Dept 06/01/22 [facility]22 Office Visit Liam Wilson MD [facility] 01/09/22 Telemedicine Amador Payan APRN, ABIGAIL [facility] 09/15/21 Telemedicine Liam Wilson MD [facility] Showing recent visits within past 365 days and meeting all other requirements Future Appointments No visits were found meeting these conditions. Showing future appointments within next 90 days and meeting all other requirements Passed - Active short-acting beta agonist prescription L FUSER TENDER documented in this encounter Plan of Treatment Upcoming Encounters Date Type Department Care Team (Late st Contact Info) Description 09/09/2025 9:15 AM LABEL FUSER TENDER Office Visit [facility] Medical Group - Family Medicine - [place] [address] [place] [address] Liam Wilson MD [address] [address] documented as of this encounter Visit Diagnoses Not on filedocumented in this encounter Additional Health Concerns Infection Onset Date Last Indicated Resolved Time Respiratory Rule Out - RPA 10/21/2024 10/21/2024 0 10/21/2024 3:06 PM LABEL FUSER TENDER MRSA 10/21/2024 10/21/2024 Assessment Noted Time PHQ-9 Depression Total Score: 0 06/01/20 22 1:00 PM CDT documented as of this encounter Care Teams Test Cell Technician Relationship Specialty Start Date End Date Liam Wilson MD [address] [address] PCP - General Family Medicine 12/31/19 Diamond Lincoln LSW [place] Chiller Hand Binder Cutter 09/04/23 documented as of this encounter
--- OUTSIDE RECORDS SUMMARY | 2025-07-08 19:20 | XMS_ITS | Encounter Summary ---
Author Organization [facility] Healthcare Address [address] [place] [address] Care Team Providers Care Rnp Name Role Phone Mulu Polk RN Unavailable Joy carissa Domínguez Jr., MD, Emory Aguirre Primary Care Provid er Teresa Osorio RN Unavailable Unavailab Teresa Jones RN Unavailable Unavailab rocio Miscellaneous, Not In File Primary Care Provider Unavailable Lima Wilson MD Primary Care Provider [phone] [phone] Encounter Details Date Type Department Care Team (Late st Contact Info) Description 12/14/2020 Orders Only [facility] [address] [place] [address] [place] [address] [facility] [address] [place] [address] Social History Tobacco Use Types [...] on file Legal Sex Female 2:33 AM PRODUCTION LEAD Gender Identity Female 03/22/2021 7:04 PM CDT Sexual Orientation Straight 03/22/2021 7: 04 PM CDT documented as of this encounter Plan of Treatment Upcoming Encounters Date Type Department Care Team (Late st Contact Info) Description 07/22/2025 7:30 AM PRODUCTION LEAD Hospital Encounter [facility] Operating Room [id number] [place] [address] [place] [address] [facility] [address] [place] [address] 07/22/2025 7:30 AM PRODUCTION LEAD - 07/22/2025 9:30 AM PRODUCTION LEAD Surgery [facility] Operating Room [id number] [place] [address] [place] [address] [facility] [address] [place] [address] INTRATHECAL PAIN PUMP REPLACEMENT WITH PLASMA BLADE/60 MIN Scheduled Procedures Name Priority Associated Diagnoses Date/Ti me INSERTION INTRATHECAL PUMP LOW BACK PAIN 07/22/2025 7:30 AM PRODUCTION LEAD documented as of this encounter Visit Diagnoses Not on filedocumented in this encounter Orders Medications Ordered That Lei ht Not Have Been Administered Count Last Ordered Date First Ordered Date HYDROmorphone (DILAUDID) 1,0 00 mcg/mL in sodium chloride 0.9% 20 mL intrathecal pump fill 2 12/14/2020 documented in this encounter Care Teams Rnp Relationship Specialty Start Date End Date Emory Domínguez Jr., MD [address] [facility] [address] [place] [address] PCP - General 09/11/18 05/30/22 Miscellaneous, Not In File PCP - General 03/02/23 3 Liam Wilson MD 2 [facility] [address] [place] [address] PCP - General Family Medicine 04/10/23 Mulu Polk RN Registered Nurse 08/29/18 Teresa Osorio RN Registered Nurse 09/17/18 Osorio, L., RN Registered Nurse 05/27/19 documented as of this encounter
--- OUTSIDE RECORDS SUMMARY | 2025-07-08 19:20 | XMS_ITS | Encounter Summary ---
Author Organization [facility] Address [address] [place] [address] Phone Care Team Providers Care Coating Supervisor Name Role Phone Liam Wilson MD Primary Care Provider [phone] Diamond Lincoln CHIP MUCKER Unavailable Unavailab le Reason for Visit * Reason Comments Medication Refill Encounter Details Date Type Department Care Team (Late st Contact Info) Description 09/18/2020 Refill [facility] [address] [place] [address] Liam Wilson MD [address] [address] Medication Refill Social History Tobacco Use Types [...] Telephone Encounter - Lluvia Parra RN - 09/19/2020 10:19 AM CST Patient should have refill on file for Janaury - refill too soon CLEANER * Telephone Encounter - Lluvia Parra RN - 09/19/2020 10:17 AM CST pramipexole (MIRAPEX) 0.5 MG Tablet 30 Tab 1 08/24/2020 Sig - Route: Take 1 Tab by mouth nightly. - Oral Sent to pharmacy as: Pramipexole Dihydrochloride 0.5 MG Oral Tablet (MIRAPEX) Class: E Prescribe E-Prescribing Status: Receipt confirmed by pharmacy (08/24/2020 ??9:13 AM RUG CLEANER) pramipexole (MIRAPEX) 0.5 MG Tablet [[id number]] 2 Status: Active Ordering user: Liam Wilson MD 08/24/[address] Authorized by: Liam Wilson MD Frequency: Nightly 08/24/20 - Until Discontinued Pharmacy [id number] CLEANER documented in this encounter Plan of Treatment Upcoming Encounters Date Type Department Care Team (Late st Contact Info) Description 09/09/2025 9:15 AM RUG CLEANER Office Visit [facility] - Family Medicine - [place] [address] [place] [address] Liam Wilson MD [address] [address] documented as of this encounter Visit Diagnoses Not on filedocumented in this encounter Additional Health Concerns Infection Onset Date Last Indicated Resolved Time COVID - 19 Confirmed 01/05/2022 01/05/2022 022 12:16 AM CDT Respiratory Rule Out - RPA 10/21/2024 10/21/2024 0 10/21/2024 3:06 PM RUG CLEANER MRSA 10/21/2024 10/21/2024 Assessment Noted Time PHQ-9 Depression Total Score: 6 01/26/20 20 9:57 AM CDT documented as of this encounter Care Teams Coating Supervisor Relationship Specialty Start Date End Date Liam Wilson MD #[address] [address] PCP - General Family Medicine 12/31/19 Diamond Lincoln LSW [place] Environmental Adviser Tool Die Maker 09/04/23 documented as of this encounter
--- OUTSIDE RECORDS SUMMARY | 2025-07-08 19:20 | XMS_ITS | Clinical Summary ---
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 Grayzone Signal/Cutoff ratio > 0.99 is Detected Supplemental assays are recommended if signal/cutoff ratio is >/=1.00. Signal/cutoff ratio result >/= 5.00 is 97% predictive of positivity for recombinant immunoblot assay (RIBA) and will be reported to the [place] [facility] as required. Blood Venipuncture / Unknown 01/26/2020 9:11 AM CDT 01/26/2020 9:42 AM CDT us Liam Wilson MD CHEMISTRY ORDERABLES Heather l Result [facility] [address] [place] [address], [place] from Last 3 Months or Most Recently Relevant to Health Maintenance Additional Health Concerns Infection Onset Date Last Indicated MRSA 10/21/2024 10/21/2024 Insurance [address] [place] [address] MEDICAID [place] MEDICARE C [employer] MEDICARE Advance Directives * Full Code (Latest Code Status on File) Date Activated Date Inactivated Comments 10/21/2024 1:56 AM CPR-Full Treat ment: FULL ARREST: Attempt Resuscitation/CPR wit intubation and mechanical ventilation. PRE-ARREST: Use entire range of life support measures to stabilize the patient. * Full Code Date Activated Date Inactivated Comments 10/04/2022 6:29 AM 03/25/2023 4:46 PM * Full Code Date Activated Date Inactivated Comments 09/14/2022 7:02 PM 09/17/2022 1:44 PM CPR-Full Fili atment: FULL ARREST: Attempt Resuscitation/CPR wit intubation and mechanical ventilation. PRE-ARREST: Use entire range of life support measures to stabilize the patient. * Full Code Date Activated Date Inactivated Comments 12/04/2016 7:40 AM 08/22/2017 10:24 AM * Full Code Date Activated Date Inactivated Comments 11/26/2016 3:47 PM 12/01/2016 11:06 AM CPR-Full Fili atment: FULL ARREST: Attempt Resuscitation/CPR wit intubation and mechanical ventilation. PRE-ARREST: Use entire range of life support measures to stabilize the patient. Care Teams Division Field Inspector Relationship Specialty Start Date End Date Liam Wilson MD [address] [address] PCP - General Family Medicine 12/31/19
--- OUTSIDE RECORDS SUMMARY | 2025-07-08 19:20 | XMS_ITS | Encounter Summary ---
Author Organization [facility] Address [address] [place] [address] Phone Care Team Providers Care Non Garment Sewing Machine Operator Name Role Phone Liam Wilson MD Primary Care Provider [phone] [phone] Reason for Visit * Reason Comments Medication Refill Encounter Details Date Type Department Care Team (Late st Contact Info) Description 11/17/2024 Refill [facility] - Family Medicine - [place] [address] [place] [id number] Liam Wilson MD [address] [address] Medication Refill Social History Tobacco Use Types Packs/Day Years Used Date Smoking Tobacco: Some Days Cigarettes 0.3 46.6 Started: 11/26/1978 Smokeless Tobacco: Never Alcohol Use Standard Drinks/Week Comments No 0 (1 standard drink = 0.6 oz pur e alcohol) [facility] Utilities Answer Date Recorded In the past 12 months has Community Cash, gas, oil, or water company threatened to [...] week 03/20/2024 How often do you attend baptist or hindu serv ices? Never 03/20/2024 Do you belong to any clubs o r organizations such as baptist groups, unions, fraternal or athletic groups, or [...] Recorded Total Score - Questions 1-9 0 10/04 [facility] - Occupational Stress Questionnaire Answer Date Recorded [...] place to sleep or slept in a longterm (including now)? Yes 09/26/2023 Housing Stability Vital Sign Answer Curtis e Recorded In the last 12 months, was t here a time when you were not able to pay the mortgage or rent on time? No 10/20/2024 In the past 12 months, how m any times have you moved where you were living? 3 10/20/2024 At any time in the past 12 m [facility], were you homeless or living in a longterm (including now)? No 10/20/2024 Education Answer Date [...] Telephone Encounter - Lluvia Parra RN - 11/17/2024 1:12 PM CDT Images from the original note were not included. Blood Glucose Monitoring Suppl Dispensed Days Supply Quantity Provider Pharmacy ONETOU[facility] ULTRA2 GLUCOSE SYST 10/28/2024 30 1 Each Liam Wilson MD [facility] [id number] [facility] ... documented in this encounter Plan of Treatment Upcoming Encounters Date Type Department Care Team (Late st Contact Info) Description 09/09/2025 9:15 AM RUBBER COMPOUNDER Office Visit [facility] - Family Medicine [place] [address] [place] [address] Liam Wilson MD [address] [address] documented as of this encounter Visit Diagnoses Not on filedocumented in this encounter Additional Health Concerns Infection Onset Date Last Indicated Resolved Time MRSA 10/21/2024 10/21/2024 Assessment Noted Time PHQ-9 Depression Total Score: 0 10/27/19 25 4:01 PM RUBBER COMPOUNDER documented as of this encounter Care Teams Non Garment Sewing Machine Operator Relationship Specialty Start Date End Date Liam Wilson MD [address] [address] PCP - General Family Medicine 12/31/19 documented as of this encounter
--- OUTSIDE RECORDS SUMMARY | 2025-07-08 19:20 | XMS_ITS | Encounter Summary ---
Author Organization [facility] Address [address] [place] [address] Phone Care Team Providers Care Plate And Frame Filter Operator Name Role Phone Liam Wilson MD Primary Care Provider [phone] [phone] Diamond Lincoln MICROBIOLOGY LAB TECHNICIAN Unavailable Unavailab le Reason for Visit * Reason Comments Medication Refill Encounter Details Date Type Department Care Team (Late st Contact Info) Description 11/22/2021 [facility]ill [facility] - [place] [address] [place] [address] Liam Wilson MD #[address] [address] Medication Refill Social History Tobacco Use Types [...] Telephone Encounter - Marcy Bean RN - 11/22/2021 11:52 AM CDT Medication failed the protocol, provider to review and approve the medication order if appropriate. Requested Prescriptions Pending Prescriptions Disp Refills metFORMIN (GLUCOPHAGE) 500 MG Tablet [Pharmacy Med Name: METFORMIN HCL 500 MG TABLET] 180 Tablet 1 Sig: TAKE 1 TABLET BY MOUTH TWICE A DAY WITH MEALS Biguanides Protocol Failed - 11/22/2021 11:50 AM Failed - HgA1C on record in past 6 months HGB-A1C Date Value Ref Range Status 03/15/2021 6.5 (A) 4 - 6 Final Failed - GFR on record in past 6 months GFR, EST. NONAFRICAN Date Value Ref Range Status 12/24/2019 >60 >=60 Final Passed - Visit with relevant provider in past 6 months or upcoming 90 days Recent Visits Date Type Provider Dept 09/15/21 Telemedicine Liam Wilson MD [facility] 05/24/21 Office Visit Amador Payan APRN, ABIGAIL [facility] [place] Showing recent visits within past 182 days and meeting all other requirements Future Appointments No visits were found meeting these conditions. Showing future appointments within next 90 days and meeting all other requirements albuterol 108 (90 Base) MCG/ACT Aerosol Solution [Pharmacy Med Name: ALBUTEROL HFA (PROAIR) INHALER] 1 Sig: TAKE 2 PUFFS BY INHALATION EVERY 4 HOURS NEEDED FOR WHEEZING OR COUGH. Short Acting Inhaled Beta-Agonists Protocol Passed - 11/22/2021 11:50 AM Passed - Visit with relevant provider in past 12 months or upcoming 90 days Recent Visits Date Type Provider Dept 09/15/21 Telemedicine Liam Wilson MD [facility] 05/24/21 Office Visit Amador Payan APRN, ABIGAIL [facility] 04/18/21 Office Visit Amador Payan APRN, ABIGAIL [facility] 03/29/21 Office Visit Amador Payan APRN, ABIGAIL [facility] 03/15/21 Office Visit Amador Payan APRN, ABIGAIL [facility] 12/07/20 Office Visit Liam Wilson MD [facility] Showing recent visits within past 365 days and meeting all other requirements Future Appointments No visits were found meeting these conditions. Showing future appointments within next 90 days and meeting all other requirements documented in this encounter Plan of Treatment Upcoming Encounters Date Type Department Care Team (Late st Contact Info) Description 09/09/2025 9:15 AM LICENSED PSYCHOLOGIST Office Visit [facility] - Family Medicine - [place] [address] [place] [address] Liam Wilson MD #[address] [address] documented as of this encounter Visit Diagnoses Not on filedocumented in this encounter Additional Health Concerns Infection Onset Date Last Indicated Resolved Time COVID - 19 Confirmed 01/05/2022 01/05/2022 022 12:16 AM CDT Respiratory Rule Out - RPA 10/21/2024 10/21/2024 0 10/21/2024 3:06 PM LICENSED PSYCHOLOGIST MRSA 10/21/2024 10/21/2024 Assessment Noted Time PHQ-9 Depression Total Score: 6 01/26/20 20 9:57 AM CDT documented as of this encounter Care Teams Plate And Frame Filter Operator Relationship Specialty Start Date End Date Liam Wilson MD #[address] [address] PCP - General Family Medicine 12/31/19 Diamond Lincoln LSW [place] [facility] Care Coordinator 09/04/23 documented as of this encounter
--- OUTSIDE RECORDS SUMMARY | 2025-07-08 19:20 | XMS_ITS | Encounter Summary ---
Author Organization [facility] Address [address] [place] [address] Phone Care Team Providers Care Electrical Helper Name Role Phone Liam Wilson MD Primary Care Provider [phone] [phone] Diamond Lincoln Unavailable Unavailab le Reason for Visit * Reason Comments Medication Refill Encounter Details Date Type Department Care Team (Late st Contact Info) Description 08/21/2021 Refill [facility] - Family Medicine - [place] [address] [place] [address] Amador Payan, MIGUEL ANGEL, BROADCAST OPERATIONS TECHNICIAN #[address] [id number] Medication Refill Social History Tobacco Use Types [...] Telephone Encounter - Lluvia Parra RN - 08/22/2021 7:40 AM CST Medication warning ignacio English has seen you the last 4 visits. Per nursing clinical judgement, provider to review and approve the medication(s) order(s) if appropriate. Requested Prescriptions Pending Prescriptions Disp Refills Combivent Respimat 20-100 MCG/ACT Aerosol Solution [Pharmacy Med Name: COMBIVENT RESPIMAT 20-100 MCG] 4 g 2 Sig: INHALE TWO PUFFS BY MOUTH FOUR TIMES A DAY Inhaled Combinations Protocol Passed - 08/21/2021 12:03 AM Passed - Visit with relevant provider in past 12 months or upcoming 90 days Recent Visits Date Type Provider Dept 05/24/21 Office Visit Amador Payan APRN, ABIGAIL [facility] 04/18/21 Office Visit Amador Payan APRN, ABIGAIL [facility] 03/29/21 Office Visit Amador Payan APRN, ABIGAIL [facility] 03/15/21 Office Visit Amador Payna APRN, ABIGAIL [facility] 12/07/20 Office Visit Liam Wilson MD [facility] Showing recent visits within past 365 days and meeting all other requirements Future Appointments No visits were found meeting these conditions. Showing future appointments within next 90 days and meeting all other requirements Passed - Active short-acting beta agonist prescription CHUTE FOLDER documented in this encounter Plan of Treatment Upcoming Encounters Date Type Department Care Team (Late st Contact Info) Description 09/09/2025 9:15 AM PARACHUTE FOLDER Office Visit [facility] - Family Medicine - [place] [address] [place] [address] Liam Wilson MD [address] [address] documented as of this encounter Visit Diagnoses Not on filedocumented in this encounter Additional Health Concerns Infection Onset Date Last Indicated Resolved Time COVID - 19 Confirmed 01/05/2022 01/05/2022 022 12:16 AM CDT Respiratory Rule Out - RPA 10/21/2024 10/21/2024 0 10/21/2024 3:06 PM PARACHUTE FOLDER MRSA 10/21/2024 10/21/2024 Assessment Noted Time PHQ-9 Depression Total Score: 6 01/26/20 20 9:57 AM CDT documented as of this encounter Care Teams Electrical Helper Relationship Specialty Start Date End Date Liam Wilson MD #[address] [address] PCP - General Family Medicine 12/31/19 Diamond Lincoln LSW [place] Vision Teacher Abalone Processor 09/04/23 documented as of this encounter
--- OUTSIDE RECORDS SUMMARY | 2025-07-08 19:20 | XMS_ITS | Encounter Summary ---
Author Organization [facility] Address [address] [place] [address] Phone Care Team Providers Care Design/Animation Instructor Name Role Phone Liam Wilson MD Primary Care Provider [phone] [phone] Diamond Lincoln CORN HUSKER MACHINE OPERATOR Unavailable Unavailab le Reason for Visit * Reason Comments Medication Refill Encounter Details Date Type Department Care Team (Late st Contact Info) Description 02/28/2023 Refill [facility] - Family Medicine - [place] [address] [place] [address] Liam Wilson MD [address] [address] Medication Refill Social History Tobacco Use Types [...] Telephone Encounter - Lluvia Parra RN - 02/28/2023 2:23 PM CDT Medication failed the protocol, provider to review and approve the medication order if appropriate. Requested Prescriptions Pending Prescriptions Disp Refills Symbicort 160-4.5 MCG/ACT Aerosol [Pharmacy Med Name: SYMBICORT 160-4.5 MCG/ACT Aerosol] Sig: INHALE 2 PUFFS TWICE DAILY Inhaled Combinations Protocol Passed - 02/28/2023 2:40 AM Passed - Visit with relevant provider [...] Passed - Active short-acting beta agonist prescription pramipexole (MIRAPEX) 1 MG Tablet [Pharmacy Med Name: PRAMIPEXOLE DIHYDROCHLORIDE 1 MG Tablet] 90 Tablet 1 Sig: TAKE 1 TABLET EVERY NIGHT Antiparkinson Dopaminergics and COMT Protocol Passed - 02/28/2023 2:40 AM Passed - Visit with relevant provider in the past 9 months or upcoming 90 days Recent Visits No visits were found meeting these conditions. Showing recent visits within past 270 days and meeting all other requirements Future Appointments No visits were found meeting these conditions. Showing future appointments within next 90 days and meeting all other requirements Passed - Blood pressure on record in past 12 months Clinician-entered: BP Readings from Last 3 Encounters: 10/31/22 137/76 10/17/22 138/86 10/12/22 120/84 Patient-entered: No data recorded nortriptyline (PAMELOR) 25 MG Capsule [Pharmacy Med Name: NORTRIPTYLINE HCL 25 MG Capsule] 180 Capsule 1 Sig: Take 2 Capsules by mouth nightly. Not Delegated - Tricyclic Agents Protocol Failed - 02/28/2023 2:40 AM Failed - This refill cannot be delegated Passed - Visit with relevant provider in past 12 months or upcoming 90 days Recent Visits Date Type Provider Dept 10/01/22 Telemedicine Liam Wilson MD [facility] 09/11/22 Telemedicine Liam Wilson MD [facility] 08/14/22 Telemedicine Liam Wilson MD [facility] 06/01/22 Office Visit Liam Wilson MD [facility] Showing recent visits within past 365 days and meeting all other requirements Future Appointments No visits were found meeting these conditions. Showing future appointments within next 90 days and meeting all other requirements documented in this encounter Plan of Treatment Upcoming Encounters Date Type Department Care Team (Late st Contact Info) Description 09/09/2025 9:15 AM DRIVER RECRUITER Office Visit [facility] - Family Medicine - [place] [address] [place] [address] Liam Wilson MD #[address] [address] documented as of this encounter Visit Diagnoses Not on filedocumented in this encounter Additional Health Concerns Infection Onset Date Last Indicated Resolved Time Respiratory Rule Out - RPA 10/21/2024 10/21/2024 0 10/21/2024 3:06 PM DRIVER RECRUITER MRSA 10/21/2024 10/21/2024 Assessment Noted Time PHQ-9 Depression Total Score: 0 06/01/20 22 1:00 PM CDT documented as of this encounter Care Teams Design/Animation Instructor Relationship Specialty Start Date End Date Liam Wilson MD #[address] [address] PCP - General Family Medicine 12/31/19 Diamond Lincoln LSW [place] Certified Health Education Specialist Dealership General Manager 09/04/23 documented as of this encounter
--- OUTSIDE RECORDS SUMMARY | 2025-07-08 19:20 | XMS_ITS | Encounter Summary ---
Author Organization [facility] Address [address] [place] [address] Phone Care Team Providers Care Political Advisor Name Role Phone Liam Wilson MD Primary Care Provider [phone] [phone] Diamond Lincoln HAND TOUCH UP PAINTER Unavailable Unavailab le Reason for Visit * Reason Comments Medication Refill Encounter Details Date Type Department Care Team (Late st Contact Info) Description 08/19/2020 Refill [facility] [address] [place] [address] Liam Wilson MD #[address] [address] Medication Refill Social History Tobacco [...] COVID-19? No / Unsure 08/01/2020 1:06 PM LEAD MACHINIST documented as of this encounter Miscellaneous Notes * Telephone Encounter - Lluvia Parra RN - 08/19/2020 3:57 PM CST Please address medication warnings Per nursing clinical judgement, provider to review and approve the medication(s) order(s) if appropriate. Requested Prescriptions Pending Prescriptions Disp Refills Combivent Respimat 20-100 MCG/ACT Aerosol Solution [Pharmacy Med Name: COMBIVENT RESPIMAT 20-100 MCG] 1 Inhaler 1 Sig: INHALE TWO PUFFS BY MOUTH FOUR TIMES A DAY Pulmonology: Combination Products Passed - 08/19/2020 12:16 PM Passed - Valid encounter within last 12 months Past Office Visits Recent Outpatient Visits 2 weeks ago Acute pain of left shoulder [facility] - Amador Amaya APN, PRICE ACCURACY SUPERVISOR 1 month ago Essential hypertension [facility] - Liam Schulz MD 6 months ago Chronic obstructive pulmonary disease, unspecified COPD type (HCC) [facility] - Delmy Crawford PAC 6 months ago Chronic obstructive pulmonary disease, unspecified COPD type (HCC) [facility] Liam Schulz MD 7 months ago Hypothyroidism, unspecified type [facility] Liam Schulz MD Upcoming Appointments Future Appointments In 1 month Liam Wilson MD [facility] SORTING GRAPPLE OPERATOR - Recent and Past Visits Recent Visits Date Type Provider Dept 08/01/20 Office Visit Amador Payan APN, ABIGAIL [facility] 06/22/20 Office Visit Liam Wilson MD [facility] 02/02/20 [facility]20 [facility] Visit [facility] [...] Readings from Last 1 Encounters: 08/01/20 110/76 MACHINIST documented in this encounter Plan of Treatment Upcoming Encounters Date Type Department Care Team (Late st Contact Info) Description 09/09/2025 9:15 AM LEAD MACHINIST Office Visit [facility] - Family Medicine [facility] [address] [place] [address] Liam Wilson MD #[address] [address] documented as of this encounter Visit Diagnoses Not on filedocumented in this encounter Additional Health Concerns Infection Onset Date Last Indicated Resolved Time COVID - 19 Confirmed 01/05/2022 01/05/2022 022 12:16 AM CDT Respiratory Rule Out - RPA 10/21/2024 10/21/2024 0 10/21/2024 3:06 PM LEAD MACHINIST MRSA 10/21/2024 10/21/2024 Assessment Noted Time PHQ-9 Depression Total Score: 6 01/26/20 20 9:57 AM CDT documented as of this encounter Care Teams Political Advisor Relationship Specialty Start Date End Date Liam Wilson MD #[address] [address] PCP - General Family Medicine 12/31/19 Diamond Lincoln LSW [place] [address] Vendor Information Systems Professor 09/04/23 documented as of this encounter
--- OUTSIDE RECORDS SUMMARY | 2025-07-08 19:20 | XMS_ITS | Encounter Summary ---
Author Organization [facility] Address [address] [place] [address] Phone Care Team Providers Care Credit Review Manager Name Role Phone Liam Wilson MD Primary Care Provider +1 [phone] Diamond Lincoln EGG PACKER Unavailable Unavailab le Reason for Visit * Reason Comments Medication Refill Encounter Details Date Type Department Care Team (Late st Contact Info) Description 08/23/2021 Refill [facility] - [place] [address] [place] [address] Liam Wilson MD #[address] [address] Medication Refill Social History Tobacco Use Types [...] Telephone Encounter - Lluvia Parra RN - 08/24/2021 9:31 AM CST Medication failed the protocol, provider to review and approve the medication order if appropriate. Requested Prescriptions Pending Prescriptions Disp Refills ibuprofen (MOTRIN) 800 MG Tablet [Pharmacy Med Name: IBUPROFEN 800 MG TABLET] 90 Tablet 1 Sig: TAKE 1 TABLET BY MOUTH EVERY 8 HOURS NEEDED FOR MODERATE OR MORE SEVERE PAIN. NSAIDs Protocol Failed - 08/23/2021 5:26 PM Failed - Normal serum creatinine in past [...] 03/29/21 Office Visit Amador Payan APRN, ABIGAIL [facility] 03/15/21 Office Visit Amador Payan APRN, ABIGAIL [facility] 12/07/20 Office Visit Liam Wilson MD [facility] Showing recent visits within past 365 days and meeting all other requirements Future Appointments No visits were found meeting these conditions. Showing future appointments within next 90 days and meeting all other requirements Passed - No matching NSAID med order in past 45 days No matching medication orders between 07/10/2021 9:31 AM and 08/24/2021 9:31 AM metoprolol tartrate (LOPRESSOR) 25 MG Tablet [Pharmacy Med Name: METOPROLOL TARTRATE 25 MG TAB] 180 Tablet 1 Sig: TAKE 1 TABLET BY MOUTH TWICE A DAY Beta-Blockers Protocol Passed - 08/23/2021 5:26 PM Passed - BP on record in the past year Clinician-entered: BP Readings from Last 3 Encounters: 05/24/21 118/62 04/18/21 120/64 03/29/21 130/80 Patient-entered: No data recorded Passed - Visit with relevant provider in past 12 months or upcoming 90 days Recent Visits Date Type Provider Dept 05/24/21 Office Visit Amador Payan APRN, ABIGAIL [facility] 04/18/21 Office Visit Amador Payan APRN, ABIGAIL [facility] 03/29/21 Office Visit Amador Payan APRN, ABIGAIL [facility] 03/15/21 Office Visit Amador Payan APRN, CNP [facility] 12/07/20 Office Visit Liam Wilson MD [facility] Showing recent visits within past 365 days and meeting all other requirements Future Appointments No visits were found meeting these conditions. Showing future appointments within next 90 days and meeting all other requirements albuterol 108 (90 Base) MCG/ACT Aerosol Solution [Pharmacy Med Name: ALBUTEROL HFA (PROVENTIL) INH] 18 g 1 Sig: TAKE 2 PUFFS BY INHALATION EVERY 4 HOURS NEEDED FOR WHEEZING OR COUGH. Short Acting Inhaled Beta-Agonists Protocol Passed - 08/23/2021 5:26 PM Passed - Visit with relevant provider in past 12 months or upcoming 90 days Recent Visits Date Type Provider Dept 05/24/21 Office Visit Amador Payan APRN, CNP [facility] 04/18/21 Office Visit Amador Payan APRN, CNP [facility] 03/29/21 Office Visit Amador Payan APRN, ABIGAIL [facility] 03/15/21 Office Visit Amador Payan APRN, ABIGAIL [facility] 12/07/20 Office Visit Liam Wilson MD [facility] Showing recent visits within past 365 days and meeting all other requirements Future Appointments No visits were found meeting these conditions. Showing future appointments within next 90 days and meeting all other requirements CLE GLASS TECHNICIAN documented in this encounter Plan of Treatment Upcoming Encounters Date Type Department Care Team (Late st Contact Info) Description 09/09/2025 9:15 AM VEHICLE GLASS TECHNICIAN [facility] Visit [facility] - [place] [address] [place] [address] Liam Wilson MD #[address] [address] documented as of this encounter Visit Diagnoses Diagnosis Acute pain of left shoulder documented in this encounter Additional Health Concerns Infection Onset Date Last Indicated Resolved Time COVID - 19 Confirmed 01/05/2022 01/05/2022 022 12:16 AM CDT Respiratory Rule Out - RPA 10/21/2024 10/21/2024 0 10/21/2024 3:06 PM VEHICLE GLASS TECHNICIAN MRSA 10/21/2024 10/21/2024 Assessment Noted Time PHQ-9 Depression Total Score: 6 01/26/20 20 9:57 AM CDT documented as of this encounter Care Teams Credit Review Manager Relationship Specialty Start Date End Date Liam Wilson MD #[address] [address] PCP - General Family Medicine 12/31/19 Diamond Lincoln LSW [place] Ditch Worker Sap Business Objects Consultant 09/04/23 documented as of this encounter
--- OUTSIDE RECORDS SUMMARY | 2025-07-08 19:20 | XMS_ITS | Encounter Summary ---
Author Organization [facility] Address [address] [place] [address] Phone Care Team Providers Care Ehr Trainer Name Role Phone Liam Wilson MD Primary Care Provider [phone] [phone] Diamond Lincoln CANDLE WICKER Unavailable Unavailab le Reason for Visit * Reason Comments Medication Refill Encounter Details Date Type Department Care Team (Late st Contact Info) Description 11/12/2020 Refill [facility] - [place] [address] [place] [address] Liam Wilson MD #[address] [address] Medication Refill Social History Tobacco Use Types [...] Telephone Encounter - Lluvia Parra RN - 11/14/2020 9:35 AM CDT Patient should have refill for October on file documented in this encounter Plan of Treatment Upcoming Encounters Date Type Department Care Team (Late st Contact Info) Description 09/09/2025 9:15 AM DIRECTOR OF LEARNING Office Visit [facility] - [place] [address] [place] [address] Liam Wilson MD #[address] [address] documented as of this encounter Visit Diagnoses Not on filedocumented in this encounter Additional Health Concerns Infection Onset Date Last Indicated Resolved Time COVID - 19 Confirmed 01/05/2022 01/05/2022 022 12:16 AM CDT Respiratory Rule Out - RPA 10/21/2024 10/21/2024 0 10/21/2024 3:06 PM DIRECTOR OF LEARNING MRSA 10/21/2024 10/21/2024 Assessment Noted Time PHQ-9 Depression Total Score: 6 01/26/20 20 9:57 AM CDT documented as of this encounter Care Teams Ehr Trainer Relationship Specialty Start Date End Date Liam Wilson MD #[address] [address] PCP - General Family Medicine 12/31/19 Diamond Lincoln LSW [place] Affiliate Marketing Manager Motel Keeper 09/04/23 documented as of this encounter
--- OUTSIDE RECORDS SUMMARY | 2025-07-08 19:20 | XMS_ITS | Encounter Summary ---
Author Organization [facility] Address [address] [place] [address] Phone Care Team Providers Care Muck Miner Blasting Name Role Phone Liam Wilson MD Primary Care Provider [phone] Diamond Lincoln POST GRADUATE INTERN Unavailable Unavailab le Reason for Visit * Reason Comments Medication Refill Encounter Details Date Type Department Care Team (Late st Contact Info) Description 06/13/2021 Refill [facility] - [place] [address] [place] [address] Liam Wilson MD #[address] [address] Medication Refill Social History Tobacco Use Types [...] Telephone Encounter - Lluvia Parra RN - 06/13/2021 12:11 PM CDT Patient is taking 1 mg nightly * Telephone Encounter - Grace Oscar RN - 06/13/2021 9:55 AM CDT Sent [email or web address] message to contact pharmacy for refill documented in this encounter Plan of Treatment Upcoming Encounters Date Type Department Care Team (Late st Contact Info) Description 09/09/2025 9:15 AM SHOE REPAIR SUPERVISOR Office Visit [facility] - Family Medicine [facility] #2 [place] [address] Liam Wilson MD #[address] [address] documented as of this encounter Visit Diagnoses Not on filedocumented in this encounter Additional Health Concerns Infection Onset Date Last Indicated Resolved Time COVID - 19 Confirmed 01/05/2022 01/05/2022 022 12:16 AM CDT Respiratory Rule Out - RPA 10/21/2024 10/21/2024 0 10/21/2024 3:06 PM SHOE REPAIR SUPERVISOR MRSA 10/21/2024 10/21/2024 Assessment Noted Time PHQ-9 Depression Total Score: 6 01/26/20 20 9:57 AM CDT documented as of this encounter Care Teams Muck Miner Blasting Relationship Specialty Start Date End Date Liam Wilson MD [address] [place] [address] PCP - General Family Medicine 12/31/19 Diamond Lincoln LSW [place] Program Aide Group Work Grader Patrol 09/04/23 documented as of this encounter
--- OUTSIDE RECORDS SUMMARY | 2025-07-08 20:26 | XMS_ITS | Encounter Summary ---
Author Organization [facility] Healthcare Address [address] [place] [address] Care Team Providers Care Medical Receptionist Biller Name Role Phone Mulu Polk RN Unavailable Joy carissa Domínguez Jr., MD, Emory Aguirre Primary Care Provid er Teresa Osorio RN Unavailable Unavailab le Teresa Osorio RN Unavailable Unavailab le Miscellaneous, Not In File Primary Care Provider Unavailable Liam Wilson MD Primary Care Provider [phone] [phone] Encounter Details Date Type Department Care Team (Late Contact Info) Description 02/26/2019 Telephone [facility] [address] [place] [address] Teresa Osorio RN Social History [...] on file Legal Sex Female 2:33 AM FIRE FIGHTER AIRPORT Gender Identity Female 03/22/2021 7:04 PM CDT Sexual Orientation Straight 03/22/2021 7: 04 PM CDT documented as of this encounter Plan of Treatment Upcoming Encounters Date Type Department Care Team (Late st Contact Info) Description 07/22/2025 7:30 AM FIRE FIGHTER AIRPORT Hospital Encounter [facility] Operating Room [address] [place] [address] [place] [address] [facility] [address] [place] [address] 07/22/2025 7:30 AM [employer]TER [employer] - 07/22/2025 9:30 AM FIRE FIGHTER AIRPORT Surgery [facility] Operating Room [id number] [place] [address] [place] [address] [facility] [address] [place] [address] INTRATHECAL PAIN PUMP REPLACEMENT WITH PLASMA BLADE/60 MIN Scheduled Procedures Name Priority Associated Diagnoses Date/Ti me INSERTION INTRATHECAL PUMP LOW BACK PAIN 07/22/2025 7:30 AM FI[employer]HTER [employer]PORT documented as of this encounter Visit Diagnoses Not on filedocumented in this encounter Care Teams Medical Receptionist Biller Relationship Specialty Start Date End Date Emory Domínguez Jr., MD [address] [place] [address] [address] [place] [address] PCP - General 09/11/18 05/30/22 Miscellaneous, Not In File PCP - General 03/02/23 3 Liam Wilson MD 2 [facility] [address] [place] [address] PCP - General Family Medicine 04/10/23 Mulu Polk, RN Registered Nurse 08/29/18 Teresa Osorio, RN Registered Nurse 09/17/18 Teresa Osorio, RN Registered Nurse 05/27/19 documented as of this encounter
--- OUTSIDE RECORDS SUMMARY | 2025-07-08 20:26 | XMS_ITS | Encounter Summary ---
Author Organization [facility] Address [address] [place] [address] Phone Care Team Providers Care Hat Cleaner Name Role Phone Liam Wilson MD Primary Care Provider [phone] [phone] Diamond Lincoln PIN PUSHER Unavailable Unavailab le Reason for Visit * Reason Comments Medication Refill Encounter Details Date Type Department Care Team (Late st Contact Info) Description 12/28/2020 Refill [facility] - [facility] - [place] [address] [place] [address] Liam Wilson MD #[address] [address] Medication Refill Social History Tobacco Use Types [...] Outpatient Visits 3 weeks ago Essential hypertension [facility] - Liam Schulz MD 5 months ago Acute pain of left shoulder [facility] - Amador Amaya APN, CUSTOMER SERVICE ATTENDANT 6 months ago Essential hypertension [facility] Liam Schulz MD 11 months ago Chronic obstructive pulmonary disease, unspecified COPD type (HCC) [facility] - Delmy Crawford PAC 11 months ago Chronic obstructive pulmonary disease, unspecified COPD type (HCC) [facility] Liam Schulz MD Upcoming Appointments Future Appointments In 2 months Liam Wilson MD [facility] SEWING MACHINE OPERATOR SEMIAUTOMATIC - Recent and Past Visits Recent Visits Date Type Provider Dept 12/07/20 Office Visit Liam Wilson MD [facility] 08/01/20 Office Visit Amador Payan APN, CUSTOMER SERVICE ATTENDANT [facility] 06/22/20 Office Visit Liam Wilson MD [facility] 02/02/20 Office Visit [facility] Delmy Chappell, [facility] 01/26/20 Office Visit Liam Wilson [...] st Contact Info) Description 09/09/2025 9:15 AM TECHNICAL HEALTHCARE CONSULTANT Office Visit [facility] - Family Medicine [facility] #[address] [place] [address] Liam Wilson MD #[address] [address] documented as of this encounter Visit Diagnoses Not on filedocumented in this encounter Additional Health Concerns Infection Onset Date Last Indicated Resolved Time COVID - 19 Confirmed 01/05/2022 01/05/2022 022 12:16 AM CDT Respiratory Rule Out - RPA 10/21/2024 10/21/2024 0 10/21/2024 3:06 PM TECHNICAL HEALTHCARE CONSULTANT MRSA 10/21/2024 10/21/2024 Assessment Noted Time PHQ-9 Depression Total Score: 6 01/26/20 20 9:57 AM CDT documented as of this encounter Care Teams Hat Cleaner Relationship Specialty Start Date End Date Liam Wilson MD #[address] [address] PCP - General Family Medicine 12/31/19 Diamond Lincoln LSW [place] Crane Hoist Or Lift Operator Needle Punch Operator 09/04/23 documented as of this encounter
--- OUTSIDE RECORDS SUMMARY | 2025-07-08 20:26 | XMS_ITS | Encounter Summary ---
Author Organization [facility] Address [address] [place] [address] Phone Care Team Providers Care Culinary Intern Name Role Phone Liam Wilson MD Primary Care Provider [phone] [phone] Diamond Lincoln BEHAVIORAL HEALTH CONSULTANT Unavailable Unavailab le Reason for Visit * Reason Comments Medication Refill Encounter Details Date Type Department Care Team (Late st Contact Info) Description 12/11/2020 Refill [facility] - [place] [address] [place] [address] Liam Wilson MD #[address] [address] Medication Refill Social History Tobacco Use Types [...] Outpatient Visits 5 days ago Essential hypertension [facility] - Liam Schulz MD 4 months ago Acute pain of left shoulder [facility] - Amador Amaya APN, STAFF SERVICES MANAGER 5 months ago Essential hypertension [facility] Liam Schulz MD 10 months ago Chronic obstructive pulmonary disease, unspecified COPD type (HCC) [facility] - Delmy Crawford PAC 10 months ago Chronic obstructive pulmonary disease, unspecified COPD type (HCC) [facility] Liam Schulz MD Upcoming Appointments Future Appointments In 2 months Liam Wilson MD [facility] LIC[facility] PRACTICAL NURSE - Recent and Past Visits Recent Visits Date Type Provider Dept 12/07/20 Office Visit Liam Wilson MD [facility] 08/01/20 Office Visit Amador Payan APN, STAFF SERVICES MANAGER [facility] 06/22/20 [...] st Contact Info) Description 09/09/2025 9:15 AM CUSTODY OFFICER Office Visit [facility] - Family Medicine [facility] [address] [place] [address] Liam Wilson MD #[address] [address] documented as of this encounter Visit Diagnoses Not on filedocumented in this encounter Additional Health Concerns Infection Onset Date Last Indicated Resolved Time COVID - 19 Confirmed 01/05/2022 01/05/2022 022 12:16 AM CDT Respiratory Rule Out - RPA 10/21/2024 10/21/2024 0 10/21/2024 3:06 PM CUSTODY OFFICER MRSA 10/21/2024 10/21/2024 Assessment Noted Time PHQ-9 Depression Total Score: 6 01/26/20 20 9:57 AM CDT documented as of this encounter Care Teams Culinary Intern Relationship Specialty Start Date End Date Liam Wilson MD #[address] [address] PCP - General Family Medicine 12/31/19 Diamond Lincoln LSW [place] Water Operator Safety Patrol Officer 09/04/23 documented as of this encounter
--- OUTSIDE RECORDS SUMMARY | 2025-07-08 20:26 | XMS_ITS | Encounter Summary ---
Author Organization [facility] Address [address] [place] [address] Phone Care Team Providers Care Acid Purification Equipment Operator Name Role Phone Liam Wilson MD Primary Care Provider [phone] Diamond Lincoln FRUIT FARMWORKER Unavailable Unavailab le Reason for Visit * Reason Comments Medication Refill Encounter Details Date Type Department Care Team (Late st Contact Info) Description 05/25/2021 Refill [facility] - [place] #[address] [place] [address] Liam Wilson MD #[address] [address] Medication Refill Social History Tobacco Use Types [...] st Contact Info) Description 09/09/2025 9:15 AM ELECTRIC LOCOMOTIVE FIRER/FIREMAN Office Visit [facility] - Family Medicine - [place] #[address] [place] [address] Liam Wilson MD [address] [address] documented as of this encounter Visit Diagnoses Not on filedocumented in this encounter Additional Health Concerns Infection Onset Date Last Indicated Resolved Time COVID - 19 Confirmed 01/05/2022 01/05/2022 022 12:16 AM CDT Respiratory Rule Out - RPA 10/21/2024 10/21/2024 0 10/21/2024 3:06 PM ELECTRIC LOCOMOTIVE FIRER/FIREMAN MRSA 10/21/2024 10/21/2024 Assessment Noted Time PHQ-9 Depression Total Score: 6 01/26/20 20 9:57 AM CDT documented as of this encounter Care Teams Acid Purification Equipment Operator Relationship Specialty Start Date End Date Liam Wilson MD [address] [address] PCP - General Family Medicine 12/31/19 Diamond Lincoln, FRUIT FARMWORKER [place] Quality Assurance Consultant Group Fitness Assistant Department Head 09/04/23 documented as of this encounter
--- OUTSIDE RECORDS SUMMARY | 2025-07-08 20:26 | XMS_ITS | Encounter Summary ---
Author Organization [facility] Healthcare Address [address] [place] [address] Care Team Providers Care Etcher Enameling Name Role Phone Mulu Polk RN Unavailable Joy carissa Domínguez Jr., MD, Emory Aguirre Primary Care Provid er Teresa Osorio RN Unavailable Unavailab Teresa Jones RN Unavailable Unavailab rocio Miscellaneous, Not In File Primary Care Provider Unavailable Liam Wilson MD Primary Care Provider [phone] [phone] Encounter Details Date Type Department Care Team (Late st Contact Info) Description 12/23/2020 Orders Only [facility] Pain Management Center [address] [place] [address] [place] [address] [facility] [address] [place] [address] Social History Tobacco Use Types [...] on file Legal Sex Female 2:33 AM INSIGHT LEADER Gender Identity Female 03/22/2021 7:04 PM CDT Sexual Orientation Straight 03/22/2021 7: 04 PM CDT documented as of this encounter Plan of Treatment Upcoming Encounters Date Type Department Care Team (Late st Contact Info) Description 07/22/2025 7:30 AM INSIGHT LEADER Hospital Encounter [facility] Operating Room [address] [place] [address] [place] [address] [facility] [address] [place] [address] 07/22/2025 7:30 AM INSIGHT LEADER - 07/22/2025 9:30 AM INSIGHT LEADER Surgery [facility] Operating Room [id number] [place] [address] [place] [address] [facility] [address] [place] [address] INTRATHECAL PAIN PUMP REPLACEMENT WITH PLASMA BLADE/60 MIN Scheduled Procedures Name Priority Associated Diagnoses Date/Ti me INSERTION INTRATHECAL PUMP LOW BACK PAIN 07/22/2025 7:30 AM INSIGHT LEADER documented as of this encounter Visit Diagnoses Not on filedocumented in this encounter Orders Medications Ordered That Lei ht Not Have Been Administered Count Last Ordered Date First Ordered Date HYDROmorphone (DILAUDID) 1,0 00 mcg/mL in sodium chloride 0.9% 20 mL intrathecal pump fill 1 12/23/2020 documented in this encounter Care Teams Etcher Enameling Relationship Specialty Start Date End Date Emory Domínguez Jr., MD [address] [facility] [address] [place] [address] PCP - General 09/11/18 05/30/22 Miscellaneous, Not In File PCP - General 03/02/23 3 Liam Wilson MD 2 [facility] [address] [place] [address] PCP - General Family Medicine 04/10/23 Mulu Polk RN Registered Nurse 08/29/18 Teresa Osorio RN Registered Nurse 09/17/18 Osorio, L., RN Registered Nurse 05/27/19 documented as of this encounter
--- OUTSIDE RECORDS SUMMARY | 2025-07-08 20:26 | XMS_ITS | Encounter Summary ---
Author Organization [facility] Address [address] [place] [address] Phone Care Team Providers Care Supervisor Ride Assembly Name Role Phone Liam Wilson MD Primary Care Provider [phone] [phone] Diamond Lincoln LOAN COORDINATOR Unavailable Unavailab le Reason for Visit * Reason Comments Medication Refill Encounter Details Date Type Department Care Team (Late st Contact Info) Description 12/16/2023 Refill [facility] - [place] #2 [place] [address] Liam Wilson MD #[address] [address] Medication Refill Social History Tobacco Use Types Packs/Day Years Used Date Smoking Tobacco: Some Days Cigarettes 0.3 46.6 Started: 11/26/1978 Smokeless Tobacco: Never Alcohol Use Standard Drinks/Week Comments No 0 (1 standard drink = 0.6 oz pur e alcohol) [facility] Utilities Answer Date Recorded In the past 12 months has [employer], gas, oil, or water company threatened to [...] week 09/26/2023 How often do you attend lutheran or buddhism serv ices? Never 09/26/2023 Do you belong to any clubs o r organizations such as lutheran groups, unions, fraternal or athletic groups, or [...] Total Score - Questions 1-9 4 09/03 [facility] - Occupational [...] place to sleep or slept in a fci (including now)? Yes 09/26/2023 Education Answer Date [...] [facility] 03/27/23 Telemedicine Liam Wilson MD [facility] [place] Showing recent visits within past 365 days and meeting all other requirements Future Appointments No visits were found meeting these conditions. Showing future appointments within next 90 days and meeting all other requirements Passed - Active short-acting beta agonist prescription documented in this encounter Plan of Treatment Upcoming Encounters Date Type Department Care Team (Late st Contact Info) Description 09/09/2025 9:15 AM DEICER INSPECTOR ELECTRIC [facility] #[address] [place] [address] Liam Wilson MD #[address] [address] documented as of this encounter Visit Diagnoses Not on filedocumented in this encounter Additional Health Concerns Infection Onset Date Last Indicated Resolved Time Respiratory Rule Out - RPA 10/21/2024 10/21/2024 0 10/21/2024 3:06 PM DEICER INSPECTOR ELECTRIC MRSA 10/21/2024 10/21/2024 Assessment Noted Time PHQ-9 Depression Total Score: 4 09/26/19 11:09 AM DEICER INSPECTOR ELECTRIC documented as of this encounter Care Teams Supervisor Ride Assembly Relationship Specialty Start Date End Date Liam Wilson MD [address] [address] PCP - General Family Medicine 12/31/19 Diamond Lincoln LSW [place] Hosiery Mater Senior Quality Control Technician 09/04/23 documented as of this encounter
--- OUTSIDE RECORDS SUMMARY | 2025-07-08 20:26 | XMS_ITS | Encounter Summary ---
Author Organization [facility] Healthcare Address [address] [place] [address] Care Team Providers Care Radon Inspector Name Role Phone Mulu Polk RN Unavailable Joy carissa Domínguez Jr., MD, Emory Aguirre Primary Care Provid er Teresa Osorio RN Unavailable Unavailab le Teresa Osorio RN Unavailable Unavailab le Miscellaneous, Not In File Primary Care Provider Unavailable Liam Wilson MD Primary Care Provider +1 [phone] Encounter Details Date Type Department Care Team (Late st Contact Info) Description 03/09/2019 Telephone [facility] [address] [place] [address] Teresa Osorio RN Social History [...] on file Legal Sex Female 2:33 AM PROGRAM CONTROL ANALYST Gender Identity Female 03/22/2021 7:04 PM CDT Sexual Orientation Straight 03/22/2021 7: 04 PM CDT documented as of this encounter Plan of Treatment Upcoming Encounters Date Type Department Care Team (Late st Contact Info) Description 07/22/2025 7:30 AM PROGRAM CONTROL ANALYST Hospital Encounter [facility] Operating Room [address] [place] [address] [place] [address] [facility] [address] [place] [address] 07/22/2025 7:30 AM PROGRAM CONTROL ANALYST - 07/22/2025 9:30 AM PROGRAM CONTROL ANALYST Surgery [facility] Operating Room [id number] [place] [address] [place] [address] [facility] [address] [place] [address] INTRATHECAL PAIN PUMP REPLACEMENT WITH PLASMA BLADE/60 MIN Scheduled Procedures Name Priority Associated Diagnoses Date/Ti me INSERTION INTRATHECAL PUMP LOW BACK PAIN 07/22/2025 7:30 AM PROGRAM CONTROL ANALYST documented as of this encounter Visit Diagnoses Not on filedocumented in this encounter Care Teams Radon Inspector Relationship Specialty Start Date End Date Emory Domínguez Jr., MD [address] [place] [address] [address] [place] [address] PCP - General 09/11/18 05/30/22 Miscellaneous, Not In File PCP - General 03/02/23 3 Liam Wilson MD 2 [facility] [address] [place] [address] PCP - General Family Medicine 04/10/23 Mulu Polk, RN Registered Nurse 08/29/18 Teresa Osorio, RN Registered Nurse 09/17/18 Teresa Osorio, RN Registered Nurse 05/27/19 documented as of this encounter
--- OUTSIDE RECORDS SUMMARY | 2025-07-08 20:26 | XMS_ITS | Encounter Summary ---
Author Organization [facility] Address [address] [place] [address] Phone Care Team Providers Care Associate Professor Of Biblical Studies Name Role Phone Liam Wilson MD Primary Care Provider [phone] [phone] Diamond Lincoln INFORMATION OFFICER Unavailable Unavailab le Reason for Visit * Reason Comments Medication Refill Encounter Details Date Type Department Care Team (Late st Contact Info) Description 01/18/2021 Refill [facility] - [place] [address] [place] [address] Liam Wilson MD [address] [address] Medication Refill Social History Tobacco Use Types [...] CDT) Combivent Respimat 20-100 MCG/ACT Aerosol Solution [[id number]] 7 Status: Active Ordering user: Liam Wilson MD 12/27/20907 Authorized by: Liam Wilson MD Frequency: 12/27/20 - Until Discontinued Released by: Liam Wilson MD 12/27/20 09 Pharmacy [facility] [address] [place] [address] documented in this encounter Plan of Treatment Upcoming Encounters Date Type Department Care Team (Late st Contact Info) Description 09/09/2025 9:15 AM CLOUD PHYSICIST Office Visit [facility] - Family Medicine [facility] [address] [place] [address] Liam Wilson MD #[address] [address] documented as of this encounter Visit Diagnoses Not on filedocumented in this encounter Additional Health Concerns Infection Onset Date Last Indicated Resolved Time COVID - 19 Confirmed 01/05/2022 01/05/2022 022 12:16 AM CDT Respiratory Rule Out - RPA 10/21/2024 10/21/2024 0 10/21/2024 3:06 PM CLOUD PHYSICIST MRSA 10/21/2024 10/21/2024 Assessment Noted Time PHQ-9 Depression Total Score: 6 01/26/20 20 9:57 AM CDT documented as of this encounter Care Teams Associate Professor Of Biblical Studies Relationship Specialty Start Date End Date Liam Wilson MD #[address] [address] PCP - General Family Medicine 12/31/19 Diamond Lincoln LSW [place] Corporate Fitness Program Coordinator Double Cut Off Saw Operator 09/04/23 documented as of this encounter
--- OUTSIDE RECORDS SUMMARY | 2025-07-08 20:26 | XMS_ITS | Encounter Summary ---
Author Organization [facility] Address [address] [place] [address] Phone Care Team Providers Care Phlebotomist Name Role Phone Liam Wilson MD Primary Care Provider [phone] [phone] Diamond Lincoln SHRIMP HEADER Unavailable Unavailab le Reason for Visit * Reason Comments Medication Refill Encounter Details Date Type Department Care Team (Late st Contact Info) Description 09/18/2020 Refill [facility] [address] [place] [address] Liam Wilson MD #[address] [address] Medication Refill Social History Tobacco Use Types [...] file for Janaury - refill too soon ING PRESS OPERATOR * Telephone Encounter - Lluvia Parra RN - 09/19/2020 10:17 AM CST pramipexole (MIRAPEX) 0.5 MG Tablet 30 Tab 1 08/24/2020 Sig - Route: Take 1 Tab by mouth nightly. - Oral Sent to pharmacy as: Pramipexole Dihydrochloride 0.5 MG Oral Tablet (MIRAPEX) Class: E Prescribe E-Prescribing Status: Receipt confirmed by pharmacy (08/24/2020 ??9:13 AM BENDING PRESS OPERATOR) pramipexole (MIRAPEX) 0.5 MG Tablet [[id number]] 2 Status: Active Ordering user: Liam Wilson MD 08/24/20912 Authorized by: Liam Wilson MD Frequency: Nightly 08/24/20 - Until Discontinued Pharmacy [facility] [id number] ING PRESS OPERATOR documented in this encounter Plan of Treatment Upcoming Encounters Date Type Department Care Team (Late st Contact Info) Description 09/09/2025 9:15 AM BENDING PRESS OPERATOR Office Visit [facility] - Family Medicine - [place] [address] [place] [address] Liam Wilson MD [address] [address] documented as of this encounter Visit Diagnoses Not on filedocumented in this encounter Additional Health Concerns Infection Onset Date Last Indicated Resolved Time COVID - 19 Confirmed 01/05/2022 01/05/2022 022 12:16 AM CDT Respiratory Rule Out - RPA 10/21/2024 10/21/2024 0 10/21/2024 3:06 PM BENDING PRESS OPERATOR MRSA 10/21/2024 10/21/2024 Assessment Noted Time PHQ-9 Depression Total Score: 6 01/26/20 20 9:57 AM CDT documented as of this encounter Care Teams Phlebotomist Relationship Specialty Start Date End Date Liam Wilson MD #[address] [address] PCP - General Family Medicine 12/31/19 Diamond Lincoln LSW [place] Retail Reset Merchandiser Magazine Keeper 09/04/23 documented as of this encounter
--- OUTSIDE RECORDS SUMMARY | 2025-07-08 20:26 | XMS_ITS | Encounter Summary ---
Author Organization [facility] Address [address] [place] [address] Phone Care Team Providers Care Billing Services Manager Name Role Phone Liam Wilson MD Primary Care Provider [phone] [phone] Diamond Lincoln PRESS TECHNICIAN Unavailable Unavailab le Reason for Visit * Reason Comments Medication Refill Encounter Details Date Type Department Care Team (Late st Contact Info) Description 03/19/2022 Refill [facility] - [place] [address] [place] [address] Liam Wilson MD #[address] [address] Medication Refill Social History Tobacco Use Types [...] [facility] 01/09/22 Telemedicine Amador Payan APRN, ABIGAIL [facility] 09/15/21 Telemedicine Liam Wilson MD [facility] 05/24/21 Office Visit Amador Payan APRN, ABIGAIL [facility] 04/18/21 Office Visit Amador Payan APRN, ABIGAIL [facility] 03/29/21 Office Visit Amador Payan APRN, NURSING ADMINISTRATOR [facility] Showing recent visits within past [...] st Contact Info) Description 09/09/2025 9:15 AM PLUG DRILL OPERATOR Office Visit [facility] - Family [facility] #[address] [place] [address] Liam Wilson MD #[address] [address] documented as of this encounter Visit Diagnoses Diagnosis Acute pain of left shoulder documented in this encounter Additional Health Concerns Infection Onset Date Last Indicated Resolved Time Respiratory Rule Out - RPA 10/21/2024 10/21/2024 0 10/21/2024 3:06 PM PLUG DRILL OPERATOR MRSA 10/21/2024 10/21/2024 Assessment Noted Time PHQ-9 Depression Total Score: 6 01/26/20 9:57 AM CDT documented as of this encounter Care Teams Billing Services Manager Relationship Specialty Start Date End Date Lima Wilson MD #[address] [address] PCP - General Family Medicine 12/31/19 Diamond Lincoln LSW [place] Lead Fabricator District Fire Chief 09/04/23 documented as of this encounter
--- OUTSIDE RECORDS SUMMARY | 2025-07-08 20:26 | XMS_ITS | Encounter Summary ---
Author Organization [facility] Address [address] [place] [address] Phone Care Team Providers Care Quarantine Officer Name Role Phone Liam Wilson MD Primary Care Provider [phone] [phone] Diamond Lincoln LISW Unavailable Unavailab le Reason for Visit * Reason Comments Medication Refill Encounter Details Date Type Department Care Team (Late st Contact Info) Description 02/11/2021 Refill [facility] - [place] [address] [place] [address] Liam Wilson MD #[address] [address] Medication Refill Social History Tobacco Use Types [...] Outpatient Visits 2 months ago Essential hypertension [facility] Liam Schulz MD 6 months ago Acute pain of left shoulder [facility] - Amador Amaya APN, ETCHER ELECTROLYTIC 7 months ago Essential hypertension [facility] Liam Schulz MD 1 year ago Chronic obstructive pulmonary disease, unspecified COPD type (HCC) [facility] Delmy Crawford, SOCRATES 1 year ago Chronic obstructive pulmonary disease, unspecified COPD type (HCC) [facility] Liam Schulz MD Upcoming Appointments Future Appointments In 3 weeks Liam Wilson MD [facility] - Recent and Past Visits Recent [...] st Contact Info) Description 09/09/2025 9:15 AM PATIENT RELATIONS DIRECTOR Office Visit [facility] Medical Group - Family [facility] - [place] [address] [place] [address] Liam Wilson MD #[address] [address] documented as of this encounter Visit Diagnoses Not on filedocumented in this encounter Additional Health Concerns Infection Onset Date Last Indicated Resolved Time COVID - 19 Confirmed 01/05/2022 01/05/2022 022 12:16 AM CDT Respiratory Rule Out - RPA 10/21/2024 10/21/2024 0 10/21/2024 3:06 PM PATIENT RELATIONS DIRECTOR MRSA 10/21/2024 10/21/2024 Assessment Noted Time PHQ-9 Depression Total Score: 6 01/26/20 20 9:57 AM CDT documented as of this encounter Care Teams Quarantine Officer Relationship Specialty Start Date End Date Liam Wilson MD #[address] [address] PCP - General Family Medicine 12/31/19 Diamond Lincoln LSW [place] Emergency Response Coordinator Tearoom Hostess 09/04/23 documented as of this encounter
--- OUTSIDE RECORDS SUMMARY | 2025-07-08 20:26 | XMS_ITS | Encounter Summary ---
Author Organization [facility] Address [address] [place] [address] Phone Care Team Providers Care Pre Certification Specialist Name Role Phone Liam Wilson MD Primary Care Provider [phone] [phone] Diamond Lincoln MANAGER EMPLOYMENT Unavailable Unavailab le Reason for Visit * Reason Comments Medication Refill Encounter Details Date Type Department Care Team (Late st Contact Info) Description 02/12/2022 Refill [facility] - [place] #[address] [place] [address] Liam Wilson MD #[address] [address] Medication Refill Social History Tobacco Use Types [...] Dept 01/09/22 Telemedicine Amador Payan APRN, ABIGAIL [facility] 09/[facility]21 Telemedicine Liam Wilson MD [facility] 05/24/21 Office Visit Amador Payan APRN, ABIGAIL [facility] 04/18/21 Office Visit Amador Payan APRN, ABIGAIL [facility] 03/29/21 Office Visit Amador Payan APRN, ABIGAIL [facility] 03/15/21 Office Visit Amador Payan APRN, AVIATION ORDNANCE OFFICER [facility] Showing recent visits within past 365 days and meeting all other requirements Future Appointments No visits were found meeting these conditions. Showing future appointments within next 90 days and meeting all other requirements documented in this encounter Plan of Treatment Upcoming Encounters Date Type Department Care Team (Late st Contact Info) Description 09/09/2025 9:15 AM MANAGER PART Office Visit [facility] Medical Group - Family Medicine - [place] [address] [place] [address] Liam Wilson MD [address] [address] documented as of this encounter Visit Diagnoses Not on filedocumented in this encounter Additional Health Concerns Infection Onset Date Last Indicated Resolved Time Respiratory Rule Out - RPA 10/21/2024 10/21/2024 0 10/21/2024 3:06 PM MANAGER PART MRSA 10/21/2024 10/21/2024 Assessment Noted Time PHQ-9 Depression Total Score: 6 01/26/20 20 9:57 AM CDT documented as of this encounter Care Teams Pre Certification Specialist Relationship Specialty Start Date End Date Liam Wilson MD #[address] [address] PCP - General Family Medicine 12/31/19 Diamond Lincoln LSW [place] Weed Science Research Technician Jewelry Bench Worker 09/04/23 documented as of this encounter
--- OUTSIDE RECORDS SUMMARY | 2025-07-08 20:26 | XMS_ITS | Encounter Summary ---
Author Organization [facility] Address [address] [place] [address] Phone Care Team Providers Care Pmp Name Role Phone Liam Wilson MD Primary Care Provider [phone] [phone] Diamond Lincoln MACHINE FANCY STITCHER Unavailable Unavailab le Reason for Visit * Reason Comments Medication Refill Encounter Details Date Type Department Care Team (Late st Contact Info) Description 01/14/2024 Refill [facility] - [place] [address] [place] [address] Liam Wilson MD #[address] [address] Medication Refill Social History Tobacco Use Types Packs/Day Years Used Date Smoking Tobacco: Some Days Cigarettes 0.3 46.6 Started: 11/26/1978 Smokeless Tobacco: Never Alcohol Use Standard Drinks/Week Comments No 0 (1 standard drink = 0.6 oz pur e alcohol) [facility] Utilities Answer Date Recorded In the past 12 months has [employer], gas, oil, or water company threatened to [...] week 09/26/2023 How often do you attend yazdanism or evangelical serv ices? Never 09/26/2023 Do you belong to any clubs o r organizations such as yazdanism groups, unions, fraternal or athletic groups, or [...] Total Score - Questions 1-9 4 09/03 [facility] - Occupational [...] [facility] 03/27/23 Telemedicine Liam Wilson MD [facility] Showing recent visits within past 365 days and meeting all other requirements Future Appointments No visits were found meeting these conditions. Showing future appointments within next 90 days and meeting all other requirements documented in this encounter Plan of Treatment Upcoming Encounters Date Type Department Care Team (Late st Contact Info) Description 09/09/2025 9:15 AM COAL TRIMMER MACHINE OPERATOR Office Visit [facility] Medical Group - Family Medicine - [place] [address] [place] [address] Liam Wilson MD #[address] [address] documented as of this encounter Visit Diagnoses Not on filedocumented in this encounter Additional Health Concerns Infection Onset Date Last Indicated Resolved Time Respiratory Rule Out - RPA 10/21/2024 10/21/2024 0 10/21/2024 3:06 PM COAL TRIMMER MACHINE OPERATOR MRSA 10/21/2024 10/21/2024 Assessment Noted Time PHQ-9 Depression Total Score: 4 09/26/19 24 11:09 AM COAL TRIMMER MACHINE OPERATOR documented as of this encounter Care Teams Pmp Relationship Specialty Start Date End Date Liam Wilson MD #[address] [address] PCP - General Family Medicine 12/31/19 Diamond Lincoln LSW [place] Sand Mill Grinder Inspector Subassemblies 09/04/23 documented as of this encounter
--- OUTSIDE RECORDS SUMMARY | 2025-07-08 20:26 | XMS_ITS | Encounter Summary ---
Author Organization [facility] Address [address] [place] [address] Phone Care Team Providers Care Avionics Safety Inspector Name Role Phone Liam Wilson MD Primary Care Provider [phone] [phone] Diamond Lincoln Unavailable Unavailab le Reason for Visit * Reason Comments Medication Refill Encounter Details Date Type Department Care Team (Late st Contact Info) Description 07/19/2020 Refill [facility] - Family Medicine - [place] #[address] [place] [address] Delmy Grimm PAC #[address] [place] [address] Medication Refill Social History Tobacco Use Types [...] 07/19/2020 9:03 AM CST Sent to PCP WARE APPLICATIONS SPECIALIST * Telephone Encounter - Teri Alvarenga RN [...] Outpatient Visits 3 weeks ago Essential hypertension [facility] Medical [facility] Family [facility] - Liam Schulz MD 5 months ago Chronic obstructive pulmonary disease, unspecified COPD type (HCC) [facility] - Delmy Crawford PAC 5 months ago Chronic obstructive pulmonary disease, unspecified COPD type (HCC) [facility] - Liam Schulz MD 6 months ago Hypothyroidism, unspecified type [facility] - Liam Schulz MD Upcoming Appointments FOOD MIXER ASSEMBLER - Recent and Past Visits Recent Visits Date Type Provider Dept 06/22/20 Office Visit Liam Wilson MD [facility] 02/02/20 Office Visit Delmy Grimm PAC [facility] 01/26/20 Office Visit Liam Wilson MD [facility] 12/31/19 Telemedicine Liam Wilson MD [facility] Showing recent visits within past 460 days with a meds authorizing provider and meeting all other requirements Future Appointments No visits were found meeting these conditions. Showing future appointments within next 90 days with a meds authorizing provider and meeting all other requirements WARE APPLICATIONS SPECIALIST documented in this encounter Plan of Treatment Upcoming Encounters Date Type Department Care Team (Late st Contact Info) Description 09/09/2025 9:15 AM SOFTWARE APPLICATIONS SPECIALIST Office Visit [facility] Medical Group - Family Medicine - [place] [address] [place] [address] Liam Wilson MD #[address] [address] documented as of this encounter Visit Diagnoses Not on filedocumented in this encounter Additional Health Concerns Infection Onset Date Last Indicated Resolved Time COVID - 19 Confirmed 01/05/2022 01/05/2022 022 12:16 AM CDT Respiratory Rule Out - RPA 10/21/2024 10/21/2024 0 10/21/2024 3:06 PM SOFTWARE APPLICATIONS SPECIALIST MRSA 10/21/2024 10/21/2024 Assessment Noted Time PHQ-9 Depression Total Score: 6 01/26/20 20 9:57 AM CDT documented as of this encounter Care Teams Avionics Safety Inspector Relationship Specialty Start Date End Date Liam Wilson MD #[address] [address] PCP - General Family Medicine 12/31/19 Diamond Lincoln LSW [place] Story Reader Machine Operator Hop Picker 09/04/23 documented as of this encounter
--- OUTSIDE RECORDS SUMMARY | 2025-07-08 20:26 | XMS_ITS | Encounter Summary ---
Author Organization [facility] Address [address] [place] [address] Phone Care Team Providers Care Mine Inspector Name Role Phone Liam Wilson MD Primary Care Provider [phone] Diamond Lincoln WATER PUMPING STATION ENGINEER Unavailable Unavailab le Reason for Visit * Reason Comments Medication Refill Encounter Details Date Type Department Care Team (Late st Contact Info) Description 08/19/2020 Refill [facility] [address] [place] [address] Liam Wilson MD #[address] [address] Medication Refill Social History Tobacco [...] COVID-19? No / Unsure 08/01/2020 1:06 PM PHYSICS TUTOR documented as of this encounter Miscellaneous Notes [...] weeks ago Acute pain of left shoulder [facility] Family [facility] - Amador Amaya APN, MANAGER BENEFIT 1 month ago Essential hypertension [facility] - Liam Schulz MD 6 months ago Chronic obstructive pulmonary disease, unspecified COPD type (HCC) [facility] - Delmy Crawford PAC 6 months ago Chronic obstructive pulmonary disease, unspecified COPD type (HCC) [facility] Liam Schulz MD 7 months ago Hypothyroidism, unspecified type [facility] Liam Schulz MD Upcoming Appointments Future Appointments In 1 month Liam Wilson MD [facility] Ellen Morrow [facility] HAT BRUSHER MACHINE - Recent and Past Visits Recent Visits Date Type Provider Dept 08/01/20 Office Visit Amador Payan APN, ABIGAIL [facility] 06/22/20 Office Visit Liam Wilson MD [facility] 02/02/20 Office Visit Delmy Grimm PAC [facility] 01/26/20 Office Visit Liam Wilson MD [facility] [...] Readings from Last 1 Encounters: 08/01/20 110/76 ICS TUTOR documented in this encounter Plan of Treatment Upcoming Encounters Date Type Department Care Team (Late st Contact Info) Description 09/09/2025 9:15 AM PHYSICS TUTOR Office Visit [facility] Medical Group - Family Medicine [facility] [address] [place] [address] Liam Wilson MD #[address] [address] documented as of this encounter Visit Diagnoses Not on filedocumented in this encounter Additional Health Concerns Infection Onset Date Last Indicated Resolved Time COVID - 19 Confirmed 01/05/2022 01/05/2022 022 12:16 AM CDT Respiratory Rule Out - RPA 10/21/2024 10/21/2024 0 10/21/2024 3:06 PM PHYSICS TUTOR MRSA 10/21/2024 10/21/2024 Assessment Noted Time PHQ-9 Depression Total Score: 6 01/26/20 20 9:57 AM CDT documented as of this encounter Care Teams Mine Inspector Relationship Specialty Start Date End Date Liam Wilson MD #[address] [address] PCP - General Family Medicine 12/31/19 Diamond Lincoln LSW [place] Check Processor Greeting Card Writer 09/04/23 documented as of this encounter
--- OUTSIDE RECORDS SUMMARY | 2025-07-08 20:26 | XMS_ITS | Encounter Summary ---
Author Organization [facility] Healthcare Address [address] [place] [address] Care Team Providers Care Software Design Engineer Name Role Phone Mulu Polk RN Unavailable Joy carissa Domínguez Jr., MD, Emory Aguirre Primary Care Provid er Teresa Osorio RN Unavailable Unavailab Teresa Jones RN Unavailable Unavailab rocio Miscellaneous, Not In File Primary Care Provider Unavailable Liam Wilson MD Primary Care Provider +1 -[phone] Encounter Details Date Type Department Care Team (Late st Contact Info) Description 12/14/2020 Orders Only [facility] [address] [place] [address] [place] [address] [facility] [address] [place] [address] Social History Tobacco Use Types [...] on file Legal Sex Female 2:33 AM HOSPITALIST NOCTURNIST PHYSICIAN Gender Identity Female 03/22/2021 7:04 PM CDT Sexual Orientation Straight 03/22/2021 7: 04 PM CDT documented as of this encounter Plan of Treatment Upcoming Encounters Date Type Department Care Team (Late st Contact Info) Description 07/22/2025 7:30 AM HOSPITALIST NOCTURNIST PHYSICIAN Hospital Encounter [facility] Operating Room [id number] [place] [address] [place] [address] [facility] [address] [place] [address] 07/22/2025 7:30 AM HOSPITALIST NOCTURNIST PHYSICIAN - 07/22/2025 9:30 AM HOSPITALIST NOCTURNIST PHYSICIAN Surgery [facility] Operating Room [id number] [place] [address] [place] [address] [facility] [address] [place] [address] INTRATHECAL PAIN PUMP REPLACEMENT WITH PLASMA BLADE/60 MIN Scheduled Procedures Name Priority Associated Diagnoses Date/Ti me INSERTION INTRATHECAL PUMP LOW BACK PAIN 07/22/2025 7:30 AM HOSPITALIST NOCTURNIST PHYSICIAN documented as of this encounter Visit Diagnoses Not on filedocumented in this encounter Orders Medications Ordered That Lei ht Not Have Been Administered Count Last Ordered Date First Ordered Date HYDROmorphone (DILAUDID) 1,0 00 mcg/mL in sodium chloride 0.9% 20 mL intrathecal pump fill 2 12/14/2020 documented in this encounter Care Teams Software Design Engineer Relationship Specialty Start Date End Date Emory Domínguez Jr., MD [address] [facility] [address] [place] [address] PCP - General 09/11/18 05/30/22 Miscellaneous, Not In File PCP - General 03/02/23 3 Liam Wilson MD 2 [facility] [address] [place] [address] PCP - General Family Medicine 04/10/23 Mulu Polk RN Registered Nurse 08/29/18 Teresa Osorio RN Registered Nurse 09/17/18 Osroio, L., RN Registered Nurse 05/27/19 documented as of this encounter
--- OUTSIDE RECORDS SUMMARY | 2025-07-08 20:26 | XMS_ITS | Encounter Summary ---
Author Organization [facility] Address [address] [place] [address] Phone Care Team Providers Care Clinical Dietician Name Role Phone Liam Wilson MD Primary Care Provider [phone] [phone] Diamond Lincoln BELLY DUMP DRIVER Unavailable Unavailab le Reason for Visit * Reason Comments Medication Refill Encounter Details Date Type Department Care Team (Late st Contact Info) Description 06/17/2022 Refill [facility] - [place] [address] [place] [address] Liam Wilson MD #[address] [address] Medication Refill Social History Tobacco Use Types [...] [place] 01/09/22 Telemedicine Amador Payan APRN, CNP [facility] [place] 09/15/21 Telemedicine Liam Wilson MD [facility] [place] Showing recent visits within past 365 [...] [place] 02/27/22 Office Visit Liam Wilson MD [facility] [place] 01/09/22 Telemedicine Amador Payan APRN, ABIGAIL [facility] Showing recent visits within past [...] st Contact Info) Description 09/09/2025 9:15 AM SCHOOL MANAGER Office Visit [facility] Medical Group - Family Medicine - [place] [address] [place] [address] Liam Wilson MD #[address] [address] documented as of this encounter Visit Diagnoses Not on filedocumented in this encounter Additional Health Concerns Infection Onset Date Last Indicated Resolved Time Respiratory Rule Out - RPA 10/21/2024 10/21/2024 0 10/21/2024 3:06 PM SCHOOL MANAGER MRSA 10/21/2024 10/21/2024 Assessment Noted Time PHQ-9 Depression Total Score: 0 06/01/20 22 1:00 PM CDT documented as of this encounter Care Teams Clinical Dietician Relationship Specialty Start Date End Date Liam Wilson MD #[address] [place] [address] PCP - General Family Medicine 12/31/19 Diamond Lincoln LSW [place] Interlocker Batch Mixing Truck Driver 09/04/23 documented as of this encounter
--- OUTSIDE RECORDS SUMMARY | 2025-07-08 20:26 | XMS_ITS | Encounter Summary ---
Author Organization [facility] Address [address] [place] [address] Phone Care Team Providers Care Pattern Repair Person Name Role Phone Liam Wilson MD Primary Care Provider [phone] [phone] Diamond Lincoln SURVEILLANCE INSPECTOR Unavailable Unavailab le Reason for Visit * Reason Comments Medication Refill Encounter Details Date Type Department Care Team (Late st Contact Info) Description 02/23/2022 Refill [facility] - [place] [address] [place] [address] Liam Wilson MD #[address] [address] Medication Refill Social History Tobacco Use Types [...] Dept 01/09/22 Telemedicine Amador Payan APRN, ABIGAIL [facility] 09/15/21 Telemedicine Liam Wilson MD [facility] 05/24/21 Office Visit Amador Payan APRN, ABIGAIL [facility] [place] 04/18/21 Office Visit Amador Payan APRN, ABIGAIL [facility] [place] 03/29/21 Office Visit Amador Payan APRN, ABIGAIL [facility] 03/15/21 Office Visit Amador Payan APRN, PLAN CHECKER [facility] Showing recent visits within past 365 days and meeting all other requirements Future Appointments Date Type Provider Dept 02/27/22 Appointment Liam Wilson MD [facility] Showing future appointments within next 90 days and meeting all other requirements Passed - Active short-acting beta agonist prescription documented in this encounter Plan of Treatment Upcoming Encounters Date Type Department Care Team (Late st Contact Info) Description 09/09/2025 9:15 AM SPOT WELDER Office Visit [facility] Group - Family Medicine - [place] [address] [place] [address] Liam Wilson MD [address] [place] [address] documented as of this encounter Visit Diagnoses Not on filedocumented in this encounter Additional Health Concerns Infection Onset Date Last Indicated Resolved Time Respiratory Rule Out - RPA 10/21/2024 10/21/2024 0 10/21/2024 3:06 PM SPOT WELDER MRSA 10/21/2024 10/21/2024 Assessment Noted Time PHQ-9 Depression Total Score: 6 01/26/20 20 9:57 AM CDT documented as of this encounter Care Teams Pattern Repair Person Relationship Specialty Start Date End Date Liam Wilson MD #2 [facility] [address] [place] [address] PCP - General Family Medicine 12/31/19 Diamond Lincoln LSW [place] Relief Mate Sealing Machine Operator 09/04/23 documented as of this encounter
--- OUTSIDE RECORDS SUMMARY | 2025-07-08 20:26 | XMS_ITS | Encounter Summary ---
Author Organization [facility] Address [address] [place] [address] Phone Care Team Providers Care Utility Manager Name Role Phone Liam Wilson MD Primary Care Provider +1 [phone] Diamond Lincoln Unavailable Unavailab le Reason for Visit * Reason Comments Medication Refill Encounter Details Date Type Department Care Team (Late st Contact Info) Description 06/23/2022 Refill [facility] - [place] [address] [place] [address] Amador Payan, MIGUEL ANGEL, BOBJ DEVELOPER #[address] [address] Medication Refill Social History Tobacco [...] st Contact Info) Description 09/09/2025 9:15 AM CERTIFIED PHARMACIST ASSISTANT Office Visit [facility] #2 [place] [address] Liam Wilson MD #[address] [address] documented as of this encounter Visit Diagnoses Not on filedocumented in this encounter Additional Health Concerns Infection Onset Date Last Indicated Resolved Time Respiratory Rule Out - RPA 10/21/2024 10/21/2024 0 10/21/2024 3:06 PM CERTIFIED PHARMACIST ASSISTANT MRSA 10/21/2024 10/21/2024 Assessment Noted Time PHQ-9 Depression Total Score: 0 06/01/20 22 1:00 PM CDT documented as of this encounter Care Teams Utility Manager Relationship Specialty Start Date End Date Liam Wilson MD #[address] [address] PCP - General Family Medicine 12/31/19 Diamond Lincoln LSW [place] Mixing Engineer Noxious Weeds And Pest Inspector 09/04/23 documented as of this encounter
--- OUTSIDE RECORDS SUMMARY | 2025-07-08 20:26 | XMS_ITS | Encounter Summary ---
Author Organization [facility] Address [address] [place] [address] Phone Care Team Providers Care Administrative Appeals Tribunal Member Name Role Phone Liam Wilson MD Primary Care Provider [phone] [phone] Diamond Lincoln CENTRALIZED TRAFFIC CONTROL OPERATOR Unavailable Unavailab le Reason for Visit * Reason Comments Medication Refill Encounter Details Date Type Department Care Team (Late st Contact Info) Description 06/09/2021 Refill [facility] - [place] [address] [place] [address] Liam Wilson MD #[address] [address] Medication Refill Social History Tobacco Use Types [...] Type Provider Dept 05/24/21 Office Visit Amador Paayn APN, ABIGAIL [place] 04/18/21 Office Visit Amador Payan APN, ABIGAIL [facility] [place] 03/29/21 Office Visit Amador Payan APN, ABIGAIL [facility] [place] 03/15/21 Office Visit Amador Payan APN, ABIGAIL [facility] [place] 12/07/20 Office Visit Liam Wilson MD [facility] [place] 08/01/20 Office Visit Amador Payan APN, LEAD RADIATION THERAPIST [facility] 06/22/20 Office Visit Liam Wilson MD [facility] [place] Showing recent visits within past 365 [...] st Contact Info) Description 09/09/2025 9:15 AM PROGRESSIVE CARE NURSE Office Visit [facility] - Family Medicine [facility] #[address] [place] [address] Liam Wilson MD #[address] [address] documented as of this encounter Visit Diagnoses Diagnosis Acute pain of left shoulder documented in this encounter Additional Health Concerns Infection Onset Date Last Indicated Resolved Time COVID - 19 Confirmed 01/05/2022 01/05/2022 022 12:16 AM CDT Respiratory Rule Out - RPA 10/21/2024 10/21/2024 0 10/21/2024 3:06 PM PROGRESSIVE CARE NURSE MRSA 10/21/2024 10/21/2024 Assessment Noted Time PHQ-9 Depression Total Score: 6 01/26/20 20 9:57 AM CDT documented as of this encounter Care Teams Administrative Appeals Tribunal Member Relationship Specialty Start Date End Date Liam Wilson MD #[address] [address] PCP - General Family Medicine 12/31/19 Diamond Lincoln LSW [place] Cork Pressing Machine Operator Police Lieutenant 09/04/23 documented as of this encounter
--- OUTSIDE RECORDS SUMMARY | 2025-07-08 20:26 | XMS_ITS | Encounter Summary ---
Author Organization [facility] Address [address] [place] [address] Phone Care Team Providers Care Burrer Machine Name Role Phone Liam Wilson MD Primary Care Provider [phone] [phone] Diamond Lincoln TANK STORAGE SUPERVISOR Unavailable Unavailab le Reason for Visit * Reason Comments Medication Refill Encounter Details Date Type Department Care Team (Late st Contact Info) Description 06/15/2021 Refill [facility] [address] [place] [address] Liam Wilson MD #[address] [address] Medication Refill Social History Tobacco [...] 05/24/21 Office Visit Amador Payan APN, ABIGAIL [facility] [place] 04/18/21 Office Visit Amador Payan APN, ABIGAIL [facility] [place] 03/29/21 Office Visit [facility] [place] 03/15/21 Office Visit Amador Payan APN, MACHINE STAPLER [facility] Showing recent visits within past 182 days and meeting all other requirements Future Appointments Date Type Provider Dept 06/16/21 Appointment Liam [facility] MD [facility] Showing future appointments within next 90 days and meeting all other requirements Passed - HgA1C on record in past 6 months HGB-A1C Date Value Ref Range Status 03/15/2021 6.5 (A) 4 - 6 Final documented in this encounter Plan of Treatment Upcoming Encounters Date Type Department Care Team (Late st Contact Info) Description 09/09/2025 9:15 AM MESSAGE CLERK Office Visit [facility] - Family Medicine - [place] #2 [place] [id number] Liam Wilson MD #[address] [address] documented as of this encounter Visit Diagnoses Not on filedocumented in this encounter Additional Health Concerns Infection Onset Date Last Indicated Resolved Time COVID - 19 Confirmed 01/05/2022 01/05/2022 022 12:16 AM CDT Respiratory Rule Out - RPA 10/21/2024 10/21/2024 0 10/21/2024 3:06 PM MESSAGE CLERK MRSA 10/21/2024 10/21/2024 Assessment Noted Time PHQ-9 Depression Total Score: 6 01/26/20 20 9:57 AM CDT documented as of this encounter Care Teams Burrer Machine Relationship Specialty Start Date End Date Liam Wilson MD [address] [address] PCP - General Family Medicine 12/31/19 Diamond Lincoln LSW [place] Account Management Assistant Stereo Equipment Repairer 09/04/23 documented as of this encounter
--- OUTSIDE RECORDS SUMMARY | 2025-07-08 20:26 | XMS_ITS | Encounter Summary ---
Author Organization [facility] Address [address] [place] [address] Phone Care Team Providers Care Delivery Person Name Role Phone Liam Wilson MD Primary Care Provider +1 [phone] Diamond Lincoln Unavailable Unavailab le Reason for Visit * Reason Comments Medication Refill Encounter Details Date Type Department Care Team (Late st Contact Info) Description 12/05/2021 Refill [facility] - [place] #[address] [place] [address] Amador Payan, MIGUEL ANGEL, CARDIOGRAPHER #[address] [address] Medication Refill Social History Tobacco [...] Provider Dept 09/15/21 Telemedicine Liam [facility] MD [facility] [place] 05/24/21 Office Visit Amador Payan APRN, ABIGAIL [facility] [place] 04/18/21 Office Visit Amador Payan APRN, ABIGAIL [facility] [place] 03/29/21 Office Visit Amador Payan APRN, ABIGAIL [facility] 03/15/21 Office Visit Amador Payan APRN, CARDIOGRAPHER [facility] 12/07/20 Office Visit Liam Wilson MD [facility] Showing recent visits within past 365 days and meeting all other requirements Future Appointments No visits were found meeting these conditions. Showing future appointments within next 90 days and meeting all other requirements Passed - Active short-acting beta agonist prescription documented in this encounter Plan of Treatment Upcoming Encounters Date Type Department Care Team (Late st Contact Info) Description 09/09/2025 9:15 AM TROMPER Office Visit [facility] Medical Group - Family Medicine - [place] [address] [place] [address] Liam Wilson MD [address] [address] documented as of this encounter Visit Diagnoses Not on filedocumented in this encounter Additional Health Concerns Infection Onset Date Last Indicated Resolved Time COVID - 19 Confirmed 01/05/2022 01/05/2022 022 12:16 AM CDT Respiratory Rule Out - RPA 10/21/2024 10/21/2024 0 10/21/2024 3:06 PM TROMPER MRSA 10/21/2024 10/21/2024 Assessment Noted Time PHQ-9 Depression Total Score: 6 01/26/20 20 9:57 AM CDT documented as of this encounter Care Teams Delivery Person Relationship Specialty Start Date End Date Liam Wilson MD #[address] [address] PCP - General Family Medicine 12/31/19 Diamond Lincoln LSW [place] Environmental Health Inspector Pelt Shearer 09/04/23 documented as of this encounter
--- OUTSIDE RECORDS SUMMARY | 2025-07-08 20:26 | XMS_ITS | Encounter Summary ---
Author Organization [facility] Address [address] [place] [address] Phone Care Team Providers Care Lithographed Plate Inspector Name Role Phone Liam Wilson MD Primary Care Provider [phone] [phone] Diamond Lincoln Unavailable Unavailab le Reason for Visit * Reason Comments Medication Refill Encounter Details Date Type Department Care Team (Late st Contact Info) Description 04/07/2021 Refill [facility] - [place] #[address] [place] [address] Amador Payan, MIGUEL ANGEL, CATERPILLAR TRACTOR OPERATOR #[address] [address] Medication Refill Social History Tobacco [...] week ago Primary osteoarthritis of both shoulders [facility] - Amador Amaya APN, CATERPILLAR TRACTOR OPERATOR 3 weeks ago Type 2 diabetes mellitus with other specified complication, without long-term current use of insulin (HCC) [facility] Amador Amaya APN, CATERPILLAR TRACTOR OPERATOR 4 months ago Essential hypertension [facility] - Liam Schulz MD 8 months ago Acute pain of left shoulder [facility] Amador Amaya APN, CATERPILLAR TRACTOR OPERATOR 9 months ago Essential hypertension [facility] Liam Schulz MD Upcoming Appointments Future Appointments In 5 days SAHCUSTECH1; SAHCUS1 [facility], [facility] In 5 days SAHCMAM1 [facility], [facility] In 2 weeks Song Tillman MD [facility] General Surgery - [facility] [place] In 2 months Liam Wilson MD [facility] LICENSED DISPENSING OPTICIAN - Recent and Past Visits Recent Visits Date Type Provider Dept 03/29/21 Office Visit Amador Payan APN, CATERPILLAR TRACTOR OPERATOR [facility] 03/15/21 Office Visit Amador Payan APN, CATERPILLAR TRACTOR OPERATOR [facility] 12/07/20 Office Visit Liam Wilson MD [facility] [place] 08/01/20 Office Visit Amador Payan APN, CATERPILLAR TRACTOR OPERATOR [facility] [place] 06/22/20 Office Visit Liam Wilson MD [facility] [place] 02/02/20 Office Visit Chasityefrenbruno Delmy Chappell, [facility] 01/26/20 Office Visit Liam Wilson MD [facility] [place] Showing recent visits within past 460 [...] st Contact Info) Description 09/09/2025 9:15 AM SILO TENDER Office Visit [facility] Medical Group - Family Medicine [facility] #2 [place] [address] Liam Wilson MD #[address] [address] documented as of this encounter Visit Diagnoses Diagnosis Acute pain of left shoulder documented in this encounter Additional Health Concerns Infection Onset Date Last Indicated Resolved Time COVID - 19 Confirmed 01/05/2022 01/05/2022 022 12:16 AM CDT Respiratory Rule Out - RPA 10/21/2024 10/21/2024 0 10/21/2024 3:06 PM SILO TENDER MRSA 10/21/2024 10/21/2024 Assessment Noted Time PHQ-9 Depression Total Score: 6 01/26/20 20 9:57 AM CDT documented as of this encounter Care Teams Lithographed Plate Inspector Relationship Specialty Start Date End Date Liam Wilson MD #[address] [address] PCP - General Family Medicine 12/31/19 Diamond Lincoln LSW [place] Barrel Cutter Sash Assembler 09/04/23 documented as of this encounter
--- OUTSIDE RECORDS SUMMARY | 2025-07-08 20:26 | XMS_ITS | Encounter Summary ---
Author Organization [facility] Address [address] [place] [address] Phone Care Team Providers Care Finishing Range Feeder Name Role Phone Liam Wilson MD Primary Care Provider [phone] [phone] Diamond Lincoln TICKETING AGENT Unavailable Unavailab le Reason for Visit * Reason Comments Medication Refill Encounter Details Date Type Department Care Team (Late st Contact Info) Description 06/13/2021 Refill [facility] - [place] #2 [place] [address] Liam Wilson MD #[address] [address] Medication Refill Social History Tobacco Use Types [...] RN - 06/13/2021 9:55 AM CDT Sent [employer] message to contact pharmacy for refill documented in this encounter Plan of Treatment Upcoming Encounters Date Type Department Care Team (Late st Contact Info) Description 09/09/2025 9:15 AM OYSTER SHIPPER Office Visit [facility] Medical Group - Family Medicine [facility] #2 [place] [address] Liam Wilson MD #[address] [address] documented as of this encounter Visit Diagnoses Not on filedocumented in this encounter Additional Health Concerns Infection Onset Date Last Indicated Resolved Time COVID - 19 Confirmed 01/05/2022 01/05/2022 022 12:16 AM CDT Respiratory Rule Out - RPA 10/21/2024 10/21/2024 0 10/21/2024 3:06 PM OYSTER SHIPPER MRSA 10/21/2024 10/21/2024 Assessment Noted Time PHQ-9 Depression Total Score: 6 01/26/20 20 9:57 AM CDT documented as of this encounter Care Teams Finishing Range Feeder Relationship Specialty Start Date End Date Liam Wilson MD #[address] [place] [address] PCP - General Family Medicine 12/31/19 Diamond Lincoln LSW [place] Family Psychologist Vamp Seamer 09/04/23 documented as of this encounter
--- OUTSIDE RECORDS SUMMARY | 2025-07-08 20:26 | XMS_ITS | Encounter Summary ---
Author Organization [facility] Address [address] [place] [address] Phone Care Team Providers Care Resource Analyst Name Role Phone Liam Wilson MD Primary Care Provider [phone] [phone] CLERK Unavailable Unavailab le Reason for Visit * Reason Comments Medication Refill Encounter Details Date Type Department Care Team (Late st Contact Info) Description 04/24/2022 Refill [facility] - [place] #2 [place] [address] Liam Wilson MD #[address] [address] Medication Refill Social History Tobacco Use Types [...] 05/24/21 Office Visit Amador Payan APRN, [facility]AIL [facility] Showing recent visits within past 365 days and meeting all other requirements Future Appointments Date Type Provider Dept 05/31/22 Appointment Liam Wilson MD [facility] [place] Showing future appointments within next 90 days and meeting all other requirements documented in this encounter Plan of Treatment Upcoming Encounters Date Type Department Care Team (Late st Contact Info) Description 09/09/2025 9:15 AM CHUCKING AND SAWING MACHINE OPERATOR [facility] - [place] [address] [place] [address] Liam Wilson MD [address] [address] documented as of this encounter Visit Diagnoses Not on filedocumented in this encounter Additional Health Concerns Infection Onset Date Last Indicated Resolved Time Respiratory Rule Out - RPA 10/21/2024 10/21/2024 0 10/21/2024 3:06 PM CHUCKING AND SAWING MACHINE OPERATOR MRSA 10/21/2024 10/21/2024 Assessment Noted Time PHQ-9 Depression Total Score: 6 01/26/20 20 9:57 AM CDT documented as of this encounter Care Teams Resource Analyst Relationship Specialty Start Date End Date Liam Wilson MD #[address] [address] PCP - General Family Medicine 12/31/19 Diamond Lincoln LSW [place] Functional Tester Side Panel Hanger 09/04/23 documented as of this encounter
--- OUTSIDE RECORDS SUMMARY | 2025-07-08 20:26 | XMS_ITS | Encounter Summary ---
Author Organization [facility] Address [address] [place] [address] Phone Care Team Providers Care Hot Saw Operator Name Role Phone Liam Wilson MD Primary Care Provider [phone] Diamond Lincoln PUBLIC HEALTH MICROBIOLOGIST Unavailable Unavailab le Reason for Visit * Reason Comments Medication Refill Encounter Details Date Type Department Care Team (Late st Contact Info) Description 10/20/2023 Refill [facility] - Family Medicine - [place] [address] [place] [address] Liam Wilson MD [address] [address] Medication Refill Social History Tobacco Use Types Packs/Day Years Used Date Smoking Tobacco: Some Days Cigarettes 0.3 46.6 Started: 11/26/1978 Smokeless Tobacco: Never Alcohol Use Standard Drinks/Week Comments No 0 (1 standard drink = 0.6 oz pur e alcohol) [facility] Utilities Answer Date Recorded In the past 12 months has whistleBox, gas, oil, or water company threatened to [...] week 09/26/2023 How often do you attend baptist or taoist serv ices? Never 09/26/2023 Do you belong [...] Total Score - Questions 1-9 4 09/03 [facility] - [...] place to sleep or slept in a retirement (including now)? Yes 09/26/2023 Education Answer Date [...] Claudia Sarmiento RN - 10/21/2023 10:48 AM BENCH TECHNICIAN Duplicate Therapy: Combivent Respimat, ProAir RespiClick SHORT [...] Provider Dept 09/23/23 Telemedicine Liam Wilson MD [facility] 04[facility]23 Telemedicine Liam Wilson MD [facility] 03/27/23 Telemedicine Liam Wilson MD [facility] Showing recent visits within past 365 days and meeting all other requirements Future Appointments Date Type Provider Dept 11/25/23 Appointment Liam Wilson MD [facility] Showing future appointments within next 90 days and meeting all other requirements Passed - Active short-acting beta agonist prescription H TECHNICIAN documented in this encounter Plan of Treatment Upcoming Encounters Date Type Department Care Team (Late st Contact Info) Description 09/09/2025 9:15 AM BENCH TECHNICIAN Office Visit [facility] - [facility] - [place] [address] [place] [address] Liam Wilson MD [address] [address] documented as of this encounter Visit Diagnoses Not on filedocumented in this encounter Additional Health Concerns Infection Onset Date Last Indicated Resolved Time Respiratory Rule Out - RPA 10/21/2024 10/21/2024 0 10/21/2024 3:06 PM BENCH TECHNICIAN MRSA 10/21/2024 10/21/2024 Assessment Noted Time PHQ-9 Depression Total Score: 4 09/26/19 24 11:09 AM BENCH TECHNICIAN documented as of this encounter Care Teams Hot Saw Operator Relationship Specialty Start Date End Date Liam Wilson MD [address] [place] [address] PCP - General Family Medicine 12/31/19 Diamond Lincoln LSW [place] Databases Computer Consultant Semiautomatic Taper Operator 09/04/23 documented as of this encounter
--- OUTSIDE RECORDS SUMMARY | 2025-07-08 20:26 | XMS_ITS | Encounter Summary ---
Author Organization [facility] Address [address] [place] [address] Phone Care Team Providers Care Carton Stenciler Name Role Phone Liam Wilson MD Primary Care Provider [phone] Diamond Lincoln Unavailable Unavailab le Reason for Visit * Reason Comments Medication Refill Encounter Details Date Type Department Care Team (Late st Contact Info) Description 04/24/2022 Refill [facility] - Family Medicine - [place] [address] [place] [address] Amador Payan, MIGUEL ANGEL, CD MANUFACTURING SUPERVISOR [address] [id number] Medication Refill Social History Tobacco Use Types [...] st Contact Info) Description 09/09/2025 9:15 AM VASCULAR TECHNOLOGIST Office Visit [facility] - Family [facility] - [place] [address] [place] [address] Liam Wilson MD [address] [address] documented as of this encounter Visit Diagnoses Not on filedocumented in this encounter Additional Health Concerns Infection Onset Date Last Indicated Resolved Time Respiratory Rule Out - RPA 10/21/2024 10/21/2024 0 10/21/2024 3:06 PM VASCULAR TECHNOLOGIST MRSA 10/21/2024 10/21/2024 Assessment Noted Time PHQ-9 Depression Total Score: 6 01/26/20 20 9:57 AM CDT documented as of this encounter Care Teams Carton Stenciler Relationship Specialty Start Date End Date Liam Wilson MD [address] [address] PCP - General Family Medicine 12/31/19 Diamond Lincoln LSW [place] Provider Education Specialist Veneer Clipper 09/04/23 documented as of this encounter
--- OUTSIDE RECORDS SUMMARY | 2025-07-08 20:26 | XMS_ITS | Encounter Summary ---
Author Organization [facility] Address [address] [place] [address] Phone Care Team Providers Care Seamless Tube Roller Name Role Phone Liam Wilson MD Primary Care Provider [phone] Diamond Lincoln PATIENT EXPERIENCE COORDINATOR Unavailable Unavailab le Reason for Visit * Reason Comments Medication Refill Encounter Details Date Type Department Care Team (Late st Contact Info) Description 07/13/2022 Refill [facility] - Family Medicine - [place] [address] [place] [address] Liam Wilson MD [address] [address] Medication Refill Social History Tobacco Use Types [...] Dept 06/01/22 Office Visit Liam Wilson MD [facility] 02/27/22 Office Visit Liam Wilson MD [facility] 01/09/22 Telemedicine Amador Payan APRN, ABIGAIL [facility] 09/15/21 Telemedicine Liam Wilson MD [facility] Showing recent visits within past 365 days and meeting all other requirements Future Appointments No visits were found meeting these conditions. Showing future appointments within next 90 days and meeting all other requirements Passed - Active short-acting beta agonist prescription RITY CONTROL CENTER OPERATOR documented in this encounter Plan of Treatment Upcoming Encounters Date Type Department Care Team (Late st Contact Info) Description 09/09/2025 9:15 AM SECURITY CONTROL CENTER OPERATOR Office Visit [facility] - Family Medicine - [place] [address] [place] [address] Liam Wilson MD [address] [address] documented as of this encounter Visit Diagnoses Not on filedocumented in this encounter Additional Health Concerns Infection Onset Date Last Indicated Resolved Time Respiratory Rule Out - RPA 10/21/2024 10/21/2024 0 10/21/2024 3:06 PM SECURITY CONTROL CENTER OPERATOR MRSA 10/21/2024 10/21/2024 Assessment Noted Time PHQ-9 Depression Total Score: 0 06/01/20 22 1:00 PM CDT documented as of this encounter Care Teams Seamless Tube Roller Relationship Specialty Start Date End Date Liam Wilson MD [address] [address] PCP - General Family Medicine 12/31/19 Diamond Lincoln LSW [place] Hospice Chaplain Neuropsychology Division Chief 09/04/23 documented as of this encounter
--- OUTSIDE RECORDS SUMMARY | 2025-07-08 20:26 | XMS_ITS | Encounter Summary ---
Author Organization [facility] Address [address] [place] [address] Phone Care Team Providers Care Acute Care Physical Therapist Name Role Phone Liam Wilson MD Primary Care Provider [phone] Diamond Lincoln Unavailable Unavailab le Reason for Visit * Reason Comments Medication Refill Encounter Details Date Type Department Care Team (Late st Contact Info) Description 08/20/2020 Refill [facility] - Family Medicine - [place] [address] [place] [address] Delmy Grimm PAC [address] [place] [address] Medication Refill Social History Tobacco Use Types [...] COVID-19? No / Unsure 08/01/2020 1:06 PM PRODUCTION REPRODUCTION MANAGER documented as of this encounter Miscellaneous Notes [...] weeks ago Acute pain of left shoulder [facility] Amador Amaya APN, DATA OPERATIONS LEADER 1 month ago Essential hypertension [facility] Liam Schulz MD 6 months ago Chronic obstructive pulmonary disease, unspecified COPD type (HCC) [facility] Delmy Crawford PAC 6 months ago Chronic obstructive pulmonary disease, unspecified COPD type (HCC) [facility] Liam Schulz MD 7 months ago Hypothyroidism, unspecified type [facility] Liam Schulz MD Upcoming Appointments Future Appointments In 1 month Liam Wilson MD [facility] [place] [facility] CUSTOMER OPERATIONS REPRESENTATIVE - Recent and Past Visits Recent Visits Date Type Provider Dept 08/01/20 Office Visit Amador Payan APN, ABIGAIL [facility] [place] 06/22/20 Office Visit Liam Wilson MD [facility] 02/02/20 Office Visit Delmy Grimm PAC [facility] [place] 01/26/20 Office Visit [...] Readings from Last 1 Encounters: 08/01/20 110/76 [place] REPRODUCTION MANAGER documented in this encounter Plan of Treatment Upcoming Encounters Date Type Department Care Team (Late st Contact Info) Description 09/09/2025 9:15 AM PRODUCTION REPRODUCTION MANAGER Office Visit [facility] - Family Medicine - [place] [address] [place] [address] Liam Wilson MD [address] [address] documented as of this encounter Visit Diagnoses Not on filedocumented in this encounter Additional Health Concerns Infection Onset Date Last Indicated Resolved Time COVID - 19 Confirmed 01/05/2022 01/05/2022 022 12:16 AM CDT Respiratory Rule Out - RPA 10/21/2024 10/21/2024 0 10/21/2024 3:06 PM PRODUCTION REPRODUCTION MANAGER MRSA 10/21/2024 10/21/2024 Assessment Noted Time PHQ-9 Depression Total Score: 6 01/26/20 20 9:57 AM CDT documented as of this encounter Care Teams Acute Care Physical Therapist Relationship Specialty Start Date End Date Liam Wilson MD [address] [address] PCP - General Family Medicine 12/31/19 Diamond Lincoln LSW [place] Carroting Machine Operator Bulk Filler 09/04/23 documented as of this encounter
--- OUTSIDE RECORDS SUMMARY | 2025-07-08 20:26 | XMS_ITS | Clinical Summary ---
Author Organization [facility] Address [address] [place] [address] Phone Care Team Providers Care Top Lift Cutter Name Role Phone Liam Wilson MD Primary Care Provider [phone] Allergies Active Allergy Reactions Criticality Noted Date Comments Duloxetine Hcl Other (see Comments) High 12/30/2019 Patient can not urinate when taking med. Per doctor do not take Medications naloxone HCl (Narcan) 4 MG/0.1ML LiquidIndication s:High risk medication use 1 [place] by Nasal route as needed (opioid overdose). [...] Active fluticasone (FLONASE) 50 MCG/ACT Suspension 1 [place] by Nasal route daily. Use in each [...] Department Care Team Description 06/14/2025 Results Follow-Up [facility] [place] [address] [place] [address] Liam Wilson MD IRON,TRANSFERN,CALC.T IBC,%SAT, FERRITIN, FOLIC ACID (FOLATE), Additional followed-up results: 4 06/06/2025 Refill [facility] [place] [facility] [address] [place] [phone] Liam Wilson MD Medication Refill 06/05/2025 Nurse Triage [facility] [address] [place] [address] Liam Wilson MD Edema 05/26/2025 Travel 05/25/2025 Nurse Triage [facility] [address] [place] [address] Liam Wilson MD Constipation 05/20/2025 Telephone [facility] [place] [address] [place] [phone] Song Tillman MD 05/10/2025 Refill [facility] [address] [place] [phone] Liam Wilson MD Medication Refill 05/10/2025 [facility] [place] [address] Liam Wilson MD Medication Refill 05/06/2025 8:45 AM CDT Office Visit [facility] [address] [place] [address] Liam Wilson MD Abscess of left upper [...] or Selfcare 05/06/2025 Travel 05/05/[address] [facility] [address] [place] [phone] Liam Wilson MD Advice Only; Eye Swelling 05/01/2025 [facility] [address] [place] [address] Liam Wilson MD Medication Refill 04/27/2025 [facility] [address] [place] [address] Liam Wilson MD Medication Refill 04/15/2025 [facility] [address] [place] [address] Liam Wilson MD Medication Refill from Last [...] drink = 0.6 oz pur e alcohol) [facility] Utilities Answer Date Recorded In the past 12 months has [employer] electric, gas, oil, or water company threatened [...] week 03/20/2024 How often do you attend adventist or jew serv ices? Never 03/20/2024 Do you belong to any clubs o r organizations such as adventist groups, unions, fraternal or athletic groups, or [...] Score - Questions 1-9 0 09/0 12/2024 [facility] - [...] place to sleep or slept in a snf (including now)? Yes 09/26/2023 Housing Stability Vital Sign Answer Curtis e Recorded In the last 12 months, was t here a time when you were not able to pay the mortgage or rent on time? No 10/20/2024 In the past 12 months, how m any times have you moved where you were living? 3 10/20/2024 At any time in the past 12 m [facility], were you homeless or living in a snf (including now)? No 10/20/2024 Education Answer Date [...] st Contact Info) Description 09/09/2025 9:15 AM DRUPAL PHP DEVELOPER Office Visit [facility] [address] [place] [address] Liam Wilson MD #[address] [address] Health Maintenance Due Date Last Done Comments [...] W/ ESTIMATED GLUCOSE Routine 10/21/2024 5:00 AM DRUPAL PHP DEVELOPER HEPATITIS C ANTIBODY Routine 01/26/2020 9:11 AM CDT Encounter for hepatitis C screening test for low risk patient from Last 3 Months or Most Recently Relevant to Health Maintenance Results * US - LOWER EXTREMITY (06/23/2025 12:00 AM CDT) Only the most recent of2 resultswithin the time period is included. 06/23/2025 us Provider Scan IMG US ORDERABLES Final Result Performing Organization Address [facility] de Phone Number SCAN * US - UPPER EXTREMITY (06/20/2025 12:00 AM CDT) 06/20/2025 us Provider Scan IMG US ORDERABLES Final Result Performing Organization Address [facility] de Phone Number SCAN * XR - CHEST (06/20/2025 12:00 AM CDT) Only the most recent of5 resultswithin the time period is included. 06/20/2025 us Provider Scan IMG DIAGNOSTIC ORDERABLES Final Result Performing Organization Address [facility] de Phone Number SCAN * IMAGE GENERIC SCAN (06/18/2025 12:00 AM CDT) 06/18/2025 us Provider Scan IMG DIAGNOSTIC ORDERABLES Final Result Performing Organization Address [facility] de Phone Number SCAN * MRI HEAD-NECK GENERIC (06/17/2025 12:00 AM CDT) 06/17/2025 us Provider Scan IMG MR ORDERABLES Final Result Performing Organization Address [facility] de Phone Number SCAN * NEUROLOGY TEST (06/16/2025 12:00 AM CDT) 06/16/2025 us Provider Scan NEUROLOGY ORDERABLES Final Resul t Performing Organization Address [facility] de Phone Number SCAN * CONSULT - OTHER (06/16/2025 12:00 AM CDT) 06/16/2025 us Provider Scan GENERIC SCAN ORDERS CONSULT Heather l Result Performing Organization Address City/[facility] Co de Phone Number SCAN * ECHO GENERIC (06/15/2025 12:00 AM CDT) LV EF(estimated)% 68 RESULTING AGENCY 06/15/2025 us Provider Scan IMG ECHO ORDERABLES Final Result Performing Organization Address City/State/[facility] Co de Phone Number RESULTING AGENCY * CT - ABDOMEN/PELVIS (06/14/2025 12:00 AM CDT) 06/14/2025 us Provider Scan IMG CT ORDERABLES Final Result Performing Organization Address City/[facility] de Phone Number SCAN * NEUROLOGY CONSULT (06/14/2025 12:00 AM CDT) 06/14/2025 us Provider Scan GENERIC SCAN ORDERS CONSULT Heather l Result Performing Organization Address City/[facility] de Phone Number SCAN * CARDIOLOGY CONSULT (06/14/2025 12:00 AM CDT) Only the most recent of2 resultswithin the time period is included. 06/14/2025 us Provider Scan GENERIC SCAN ORDERS CONSULT Heather l Result Performing Organization Address City/[facility] Co de Phone Number SCAN * IRON,TRANSFERN,CALC.TIBC,%SAT (05/26/2025 9:08 AM CDT) IRON 64 25 - 156 mcg/dL 05/26/2025 10:55 AM CDT [facility] TRANSFERRIN 314 173 - 360 mg/dL 05/26/2025 10:55 AM CDT [facility] TIBC, CALCULATED 393 265 - 497 mcg/dL 05/26/2025 10:55 AM CDT [facility] % SATURATION * 16 15 - 62 % 05/26/2025 10:55 AM CDT [facility] Blood Venipuncture / Unknown 05/26/2025 9:08 AM CDT 05/26/2025 9:40 AM CDT Liam Wilson MD CHEMISTRY ORDERABLES Heather l Result [facility] [address] [place] [address] * THYROID SCREEN WITH REFLEX (05/26/2025 9:08 AM CDT) TSH 4.558 0.300 - 5.000 mIU/L 05/26/2025 10:32 AM CDT [facility] Blood Venipuncture / Unknown 05/26/2025 9:08 AM CDT 05/26/2025 9:40 AM CDT Liam Wilson MD CHEMISTRY ORDERABLES Heather l Result Performing Organization Address City/[facility]/ZIP Co de Phone Number [facility] [address] [place] [address] * (ABNORMAL) CBC WITH AUTO DIFFERENTIAL (05/26/2025 9:08 AM CDT) WBC 4.78 4.00 - 12.00 10(3)/mcL 05/26/2025 9:58 AM CDT [facility] RBC 3.85 3.80 - 5.30 10(6)/mcL 05/26/2025 9:58 AM CDT [facility] HEMOGLOBIN (HGB) 11.1(L) 12.0 - 15.8 g/dL 05/26/2025 9:58 AM CDT [facility] HEMATOCRIT (HCT) 36.0 36.0 - 47.0 % 05/26/2025 9:58 AM CDT [facility] MCV 93.5 82.0 - 96.0 fL 05/26/2025 9:58 AM CDT [facility] MCH 28.8 26.0 - 34.0 pg 05/26/2025 9:58 AM CDT [facility] MCHC 30.8(L) 31.0 - 36.0 g/dL 05/26/2025 9:58 AM CDT [facility] PLATELET COUNT 245 140 - 440 10(3)/mcL 05/26/2025 9:58 AM CDT [facility] RDW 13.1 11.8 - 15.5 % 05/26/2025 9:58 AM CDT [facility] MPV 10.1 9.7 - 12.4 fL 05/26/2025 9:58 AM CDT [facility] NEUTROPHILS 56.6 47.0 - 73.0 % 05/26/2025 9:58 AM CDT [facility] LYMPHOCYTES 27.2 18.0 - 42.0 % 05/26/2025 9:58 AM CDT [facility] MONOCYTES 9.8 4.0 - 12.0 % 05/26/2025 9:58 AM CDT [facility] EOSINOPHILS 5.0 0.0 - 5.0 % 05/26/2025 9:58 AM CDT [facility] BASOPHILS 0.8 0.0 - 1.0 % 05/26/2025 9:58 AM CDT [facility] IMMATURE GRANULOCYTE 0.6(H) 0.0 - 0.4 % 05/26/2025 9:58 AM CDT [facility] Comment:Immature Granulocyte s includes Metamyelocytes, Myelocytes, and Promyelocytes. ABSOLUTE NEUTROPHILS 2.70 1.60 - 7.70 10(3)/mcL 05/26/2025 9:58 AM CDT [facility] ABSOLUTE LYMPHOCYTES 1.30 1.30 - 3.20 10(3)/mcL 05/26/2025 9:58 AM CDT [facility] ABSOLUTE MONOCYTES 0.47 0.20 - 1.00 10(3)/[facility] 05/26/2025 9:58 AM CDT [facility] ABSOLUTE EOSINOPHIL 0.24 0.00 - 0.40 10(3)/[facility] 05/26/2025 9:58 AM CDT [facility] ABSOLUTE BASOPHILS 0.04 0.00 - 0.10 10(3)/[facility] 05/26/2025 9:58 AM CDT [facility] ABSOLUTE IMMATURE GRANULOCYTE 0.03 0.00 - 0.03 10 (3) mcL. 05/26/2025 9:58 AM CDT [facility] NRBC PER 100 WBC 0 05/26/20 9:58 AM CDT [facility] Blood Venipuncture / Unknown 05/26/2025 9:08 AM CDT 05/26/2025 9:40 AM CDT Liam Wilson MD HEMATOLOGY ORDERABLES Fin al Result [facility] [address] [place] [address] * VITAMIN B12 (05/26/2025 9:08 AM CDT) VITAMIN B12 472 213 - 816 pg/mL 05/26/2025 10:37 AM CDT [facility] Blood Venipuncture / Unknown 05/26/2025 9:08 AM CDT 05/26/2025 9:40 AM CDT Liam Wilson MD CHEMISTRY ORDERABLES Heather l Result [facility] [address] [place] [address] * THYROXINE (T4) FREE (05/26/2025 9:08 AM CDT) T4 FREE 1.2 0.7 - 1.9 ng/dL 05/26/2025 10:27 AM CDT [facility] Blood Venipuncture / Unknown 05/26/2025 9:08 AM CDT 05/26/2025 9:40 AM CDT Liam Wilson MD CHEMISTRY ORDERABLES Heather l Result Performing Organization Address City/[facility]/ZIP Co de Phone Number [facility] [address] [place] [address] * FOLIC ACID (FOLATE) (05/26/2025 9:08 AM CDT) [facility] FOLATE 11.9 7.0 - 31.4 ng/mL 05/26/2025 10:37 AM CDT [facility] IS THE PATIENT REQUIRED TO BE FASTING? No 05/26/2025 10:37 AM CDT [facility] Blood Venipuncture / Unknown 05/26/2025 9:08 AM CDT 05/26/2025 9:40 AM CDT Liam Wilson MD CHEMISTRY ORDERABLES Heather l Result Performing Organization Address City/[facility] Co de Phone Number [facility] [address] [place] [address] * FERRITIN (05/26/2025 9:08 AM CDT) Pathologist [facility] FERRITIN 24 5 - 204 ng/mL 05/26/2025 10:27 AM CDT [facility] Blood Venipuncture / Unknown 05/26/2025 9:08 AM CDT 05/26/2025 9:40 AM CDT Liam Wilson MD CHEMISTRY ORDERABLES Heather l Result [facility] [address] [place] [address] * (ABNORMAL) CMP (03/16/2025 10:20 AM CDT) SODIUM 139 136 - 145 mmol/L 03/16/2025 10:58 AM CDT [facility] POTASSIUM 4.5 3.5 - 5.1 mmol/L 03/16/2025 10:58 AM CDT [facility] CHLORIDE 97(L) 98 - 107 mmol/L 03/16/2025 10:58 AM CDT [facility] CO2, VENOUS 35(H) 22 - 30 mmol/L 03/16/2025 10:58 AM CDT [facility] ANION GAP 11.5 <18.0 mmol/L 03/16/2025 10:58 AM CDT [facility] GLUCOSE 137(H) 70 - 99 mg/dL 03/16/2025 10:58 AM CDT [facility] BUN 12 10 - 20 mg/dL 03/16/2025 10:58 AM CDT [facility] CREATININE, BLOOD 0.79 0.60 - 1.00 mg/dL 03/16/2025 10:58 AM CDT [facility] BUN/CREATININE RATIO 15 12 - 20 ratio 03/16/2025 10:58 AM CDT [facility] TOTAL PROTEIN 7.7 6.0 - 8.0 g/dL 03/16/2025 10:58 AM CDT [facility] ALBUMIN 4.2 3.5 - 5.0 g/dL 03/16/2025 10:58 AM CDT [facility] A/G RATIO 1.2 1.0 - 2.2 03/16/2025 10:58 AM CDT [facility] CALCIUM 9.0 8.7 - 10.5 mg/dL 03/16/2025 10:58 AM CDT [facility] T BILI 0.3 0.2 - 1.2 mg/dL 03/16/2025 10:58 AM CDT [facility] SGOT (AST) 23 <43 U/L 03/16/2025 10:58 AM CDT [facility] SGPT (ALT) 16 <56 U/L 03/16/2025 10:58 AM CDT [facility] ALKALINE PHOSPHATASE 89 40 - 150 U/L 03/16/2025 10:58 AM CDT [facility] GFR, ESTIMATED >60 >=60 03/16/2025 10:58 AM CDT [facility] Comment: Creatinine Clearance is the preferred criteria for selecting drug dose adjustments in renally impaired patients. The GFR is provided as additional pertinent clinical information. GFR is reported in mL/min/1.73 sq m. Calculation based on the Chronic Kidney Disease Epidemiology Collaboration (CKD- EPI) equation refit without adjustment for race. GFR, EST. >60 >=60 025 10:58 AM CDT [facility] GFR, EST. NONAFRICAN >60 >=60 03/16/2025 10:58 AM CDT [facility] Blood Venipuncture / Unknown 03/16/2025 10:20 AM CDT 03/16/2025 10:38 AM CDT us Wilner Millan PAC CHEMISTRY ORDERABLES Final Result [facility] [address] [place] [address] * Hemoglobin A1C (if indicated) (10/21/2024 5:00 AM DRUPAL PHP DEVELOPER) HGB-A1C 5.9 4.0 - 6.0 % 10/21/2024 7:39 AM DRUPAL PHP DEVELOPER [facility] Est Average Glucose 122.6 mg/dL 10/21/2024 7:39 AM DRUPAL PHP DEVELOPER [facility] Blood Venipuncture / Unknown 10/21/2024 5:00 AM DRUPAL PHP DEVELOPER 10/21/2024 5:30 AM DRUPAL PHP DEVELOPER Narrative [facility] - 10/21/2024 7:39 AM DRUPAL PHP DEVELOPER HEMOGLOBIN A1C: DIABETIC PATIENTS: WELL-CONTROLLED: 6.2 - 7.0 INTERMEDIATE WELL-CONTROLLED: 7.0 - 9.0 POORLY-CONTROLLED: >9.0 Specimens containing greater than 5% of Hemoglobin F may result in lower than expected % HbA1C results. us Deanne Luther APRN, CNP CHEMISTRY ORDERABLES Heather l Result Performing Organization Address City/[facility]/ZIP Co de Phone Number [facility] [address] [place] [address] * HEPATITIS C ANTIBODY (01/26/2020 9:11 AM CDT) hepatitis C antibody 0.46 <1 S/CO 01/26/2020 10:12 PM CDT [facility] Comment: Signal/Cutoff ratio < 0.79 is Nondetected Signal/Cutoff ratio 0.80-0.99 is Grayzone Signal/Cutoff ratio > 0.99 is Detected Supplemental assays are recommended if signal/cutoff ratio is >/=1.00. Signal/cutoff ratio result >/= 5.00 is 97% predictive of positivity for recombinant immunoblot assay (RIBA) and will be reported to the [place] Department of Public Health as required. Blood Venipuncture / Unknown 01/26/2020 9:11 AM CDT 01/26/2020 9:42 AM CDT us Liam Wilson MD CHEMISTRY ORDERABLES Heather l Result [facility] [address] [place] [address], [place] from Last 3 Months or Most Recently Relevant to Health Maintenance Additional Health Concerns Infection Onset Date Last Indicated MRSA 10/21/2024 10/21/2024 Insurance [address] [place] [address] MEDICAID [place] MEDICARE C [employer] MEDICARE Advance [...] measures to stabilize the patient. Care Teams Top Lift Cutter Relationship Specialty Start Date End Date Liam Wilson MD [address] [address] PCP - General Family Medicine 12/31/19
--- OUTSIDE RECORDS SUMMARY | 2025-07-08 20:26 | XMS_ITS | Encounter Summary ---
Author Organization [facility] Address [address] [place] [address] Phone Care Team Providers Care Filament Maker Name Role Phone Liam Wilson MD Primary Care Provider [phone] Diamond Lincoln REVERSE ENGINEER Unavailable Unavailab le Reason for Visit * Reason Comments Medication Refill Encounter Details Date Type Department Care Team (Late st Contact Info) Description 04/01/2022 Refill [facility] [place] [address] [place] [address] Liam Wilson MD [address] [address] Medication Refill Social History Tobacco Use Types [...] Dept 02/27/22 [facility]22 Telemedicine Amador Payan APRN, ABIGAIL [facility] 09/15/21 Telemedicine Liam Wilson MD [facility] 05/24/21 Office Visit Amador Payan APRN, ABIGAIL [facility] 04/18/21 Office Visit Amador Payan APRN, INSPECTOR TESTER SORTER [facility] Showing recent visits within past 365 days and meeting all other requirements Future Appointments Date Type Provider Dept 05/31/22 Appointment Liam Wilson MD [facility] Showing future appointments within next 90 days and meeting all other requirements documented in this encounter Plan of Treatment Upcoming Encounters Date Type Department Care Team (Late st Contact Info) Description 09/09/2025 9:15 AM BARREL RIFLER BUTTON Office Visit [facility] [place] [address] [place] [address] Liam Wilson MD [address] [address] documented as of this encounter Visit Diagnoses Not on filedocumented in this encounter Additional Health Concerns Infection Onset Date Last Indicated Resolved Time Respiratory Rule Out - RPA 10/21/2024 10/21/2024 0 10/21/2024 3:06 PM BARREL RIFLER BUTTON MRSA 10/21/2024 10/21/2024 Assessment Noted Time PHQ-9 Depression Total Score: 6 01/26/20 20 9:57 AM CDT documented as of this encounter Care Teams Filament Maker Relationship Specialty Start Date End Date Liam Wilson MD [address] [address] PCP - General Family Medicine 12/31/19 Diamond Lincoln LSW [place] Documentation Engineer Buyer 09/04/23 documented as of this encounter
--- OUTSIDE RECORDS SUMMARY | 2025-07-08 20:26 | XMS_ITS | Encounter Summary ---
Author Organization [facility] Address [address] [place] [address] Phone Care Team Providers Care Truck Greaser Name Role Phone Liam Wilson MD Primary Care Provider [phone] [phone] Diamond Lincoln ELIGIBILITY AND OCCUPANCY INTERVIEWER Unavailable Unavailab le Reason for Visit * Reason Onset Date Comments Medication Refill Medication Refill 03/20/2021 Encounter Details Date Type Department Care Team (Late st Contact Info) Description 12/25/2020 Refill [facility] [address] [place] [id number] Liam Wilson MD [address] [address] Medication Refill; Medication Refill Social History Tobacco [...] Outpatient Visits 2 weeks ago Essential hypertension [facility] - Liam Schulz MD 4 months ago Acute pain of left shoulder [facility] - Amador Amaya APN, CAR CHECKER 6 months ago Essential hypertension [facility] - Liam Schulz MD 10 months ago Chronic obstructive pulmonary disease, unspecified COPD type (HCC) [facility] - Delmy Crawford PAC 11 months ago Chronic obstructive pulmonary disease, unspecified COPD type (HCC) [facility] - Liam Schulz MD Upcoming Appointments Future Appointments In 2 months Liam Wilson MD [facility] [place] [facility] BREAD ICER - Recent and Past Visits Recent Visits Date Type Provider Dept 12/07/20 Office Visit Liam Wilson MD [facility] 08/01/20 Office Visit Amador Payan APN, CAR CHECKER [facility] 06/22/20 Office Visit Liam Wilson MD [facility] 02/02/20 Office [facility] 01/26[facility]20 Office Visit Liam Wilson MD [facility] 12/31/19 Telemedicine Liam Wilson [place] [facility] [place] Showing recent visits within past 460 [...] Essential hypertension [facility] [place] Schulz MD 4 months ago Acute pain of left shoulder [facility] [place] APN, CAR CHECKER 6 months ago Essential hypertension [facility] - Liam Schulz MD 10 months ago Chronic obstructive pulmonary disease, unspecified COPD type [facility]HCC[facility] 11 months ago Chronic obstructive pulmonary disease, unspecified COPD type (HCC) [facility] Upcoming Appointments Future Appointments In 2 months Mohyuddin, Liam A, MD [facility] [place], [facility] BREAD IC[facility] - Recent and Past Visits Recent Visits Date Type Provider Dept 12/07/20 Office Visit Liam Wilson MD [facility] 08/01/20 Office Visit Amador Payan APN, CAR CHECKER [facility] [place] 06/22/20 Office Visit Liam Wilson MD [facility] 02/02/20 Office Visit [facility] Grmim, PAC [facility] 01[facility]20 Office Visit Liam Wilson MD [...] st Contact Info) Description 09/09/2025 9:15 AM SQL SERVER DEVELOPER Office Visit [facility] [address] [place] [address] Liam Wilson MD #[address] [address] documented as of this encounter Visit Diagnoses Not on filedocumented in this encounter Additional Health Concerns Infection Onset Date Last Indicated Resolved Time COVID - 19 Confirmed 01/05/2022 01/05/2022 022 12:16 AM CDT Respiratory Rule Out - RPA 10/21/2024 10/21/2024 0 10/21/2024 3:06 PM SQL SERVER DEVELOPER MRSA 10/21/2024 10/21/2024 Assessment Noted Time PHQ-9 Depression Total Score: 6 01/26/20 20 9:57 AM CDT documented as of this encounter Care Teams Truck Greaser Relationship Specialty Start Date End Date Liam Wilson MD [address] [place] [id number] PCP - General Family Medicine 12/31/19 Diamond Lincoln LSW DC Road Packer Operator Soccer Commentator 09/04/23 documented as of this encounter
--- OUTSIDE RECORDS SUMMARY | 2025-07-08 20:26 | XMS_ITS | Encounter Summary ---
Author Organization [facility] Address [address] [place] [address] Phone Care Team Providers Care Industrial/Organizational Psychologist Name Role Phone Liam Wilson MD Primary Care Provider [phone] [phone] Diamond Lincoln BUILDING DRAFTING OFFICER Unavailable Unavailab le Reason for Visit * Reason Comments Medication Refill Encounter Details Date Type Department Care Team (Late st Contact Info) Description 07/22/2020 Refill [facility] - [place] [address]2 [place] [address] Liam Wilson MD [address] [address] Medication Refill Social History Tobacco Use Types [...] Outpatient Visits 1 month ago Essential hypertension [facility] - Liam Schulz MD 5 months ago Chronic obstructive pulmonary disease, unspecified COPD type (HCC) [facility] - Delmy Crawford PAC 5 months ago Chronic obstructive pulmonary disease, unspecified COPD type (HCC) [facility] Liam Schulz MD 6 months ago Hypothyroidism, unspecified type [facility] Liam Schulz MD Upcoming Appointments HOT KETTLE TENDER - Recent and Past Visits Recent Visits Date Type Provider Dept 06/22/20 Office Visit Liam Wilson MD [facility] 02/02/20 Office Visit Delmy Grimm PAC [facility] 01/26/20 Office Visit Liam Wilson MD [facility] 12/31/19 Telemedicine Liam Wilson MD [facility] [place] Showing recent visits within past 460 days with a meds authorizing provider and meeting all other requirements Future Appointments No visits were found meeting these conditions. Showing future appointments within next 90 days with a meds authorizing provider and meeting all other requirements CARRIER documented in this encounter Plan of Treatment Upcoming Encounters Date Type Department Care Team (Late st Contact Info) Description 09/09/2025 9:15 AM RACK CARRIER [facility] Visit [facility] #2 [place] [address] Liam Wilson MD #[address] [address] documented as of this encounter Visit Diagnoses Not on filedocumented in this encounter Additional Health Concerns Infection Onset Date Last Indicated Resolved Time COVID - 19 Confirmed 01/05/2022 01/05/2022 022 12:16 AM CDT Respiratory Rule Out - RPA 10/21/2024 10/21/2024 0 10/21/2024 3:06 PM RACK CARRIER MRSA 10/21/2024 10/21/2024 Assessment Noted Time PHQ-9 Depression Total Score: 6 01/26/20 20 9:57 AM CDT documented as of this encounter Care Teams Industrial/Organizational Psychologist Relationship Specialty Start Date End Date Liam Wilson MD #[address] [address] PCP - General Family Medicine 12/31/19 Diamond Lincoln LSW [place] Scenic Arts Supervisor Guide Excursion 09/04/23 documented as of this encounter
--- OUTSIDE RECORDS SUMMARY | 2025-07-08 20:26 | XMS_ITS | Encounter Summary ---
Author Organization [facility] Address [address] [place] [address] Phone Care Team Providers Care Timber Grader Name Role Phone Liam Wilson MD Primary Care Provider [phone] [phone] Diamond Lincoln VENEER SLICING MACHINE OPERATOR Unavailable Unavailab le Reason for Visit * Reason Comments Medication Refill Encounter Details Date Type Department Care Team (Late st Contact Info) Description 01/21/2022 Refill [facility] - [place] [address] [place] [address] Liam Wilson MD #[address] [address] Medication Refill Social History Tobacco Use Types [...] 01/09/22 Telemedicine Amador Payan APRN, ABIGAIL [facility] [place] 09/15/21 Telemedicine Liam Wilson MD [facility] [place] 05/24/21 Office Visit Amador Payan APRN, ABIGAIL [facility] 04/18/21 Office Visit Amador Payan APRN, ABIGAIL [facility] [place] 03/29/21 Office Visit Amador Payan APRN, ABIGAIL [facility] [place] 03/15/21 Office Visit Amador Payan APRN, FACILITIES ADMINISTRATOR [facility] [place] Showing recent visits within past 365 days [...] st Contact Info) Description 09/09/2025 9:15 AM SPINNING FRAME CLEANER Office Visit [facility] - Family Medicine [facility] [address] [place] [address] Liam Wilson MD #[address] [address] documented as of this encounter Visit Diagnoses Diagnosis Acute pain of left shoulder documented in this encounter Additional Health Concerns Infection Onset Date Last Indicated Resolved Time COVID - 19 Confirmed 01/05/2022 01/05/2022 022 12:16 AM CDT Respiratory Rule Out - RPA 10/21/2024 10/21/2024 0 10/21/2024 3:06 PM SPINNING FRAME CLEANER MRSA 10/21/2024 10/21/2024 Assessment Noted Time PHQ-9 Depression Total Score: 6 01/26/20 20 9:57 AM CDT documented as of this encounter Care Teams Timber Grader Relationship Specialty Start Date End Date Liam Wilson MD #[address] [address] PCP - General Family Medicine 12/31/19 Diamond Lincoln LSW [place] Finance Advisor Strategic Partner Development Manager 09/04/23 documented as of this encounter
--- OUTSIDE RECORDS SUMMARY | 2025-07-08 20:26 | XMS_ITS | Encounter Summary ---
Author Organization [facility] Address [address] [place] [address] Phone Care Team Providers Care Acquisition Editor Name Role Phone Liam Wilson MD Primary Care Provider [phone] Diamond Lincoln RESIDENT INTERN Unavailable Unavailab le Reason for Visit * Reason Comments Medication Refill Encounter Details Date Type Department Care Team (Late st Contact Info) Description 12/13/2020 Refill [facility] [address] [place] [address] Liam Wilson MD #[address] [address] Medication Refill Social History Tobacco [...] Outpatient Visits 6 days ago Essential hypertension [facility] - Liam Schulz MD 4 months ago Acute pain of left shoulder [facility] - Amador Amaya APN, SECURITY CONTROL CENTER OPERATOR 5 months ago Essential hypertension [facility] - Liam Schulz MD 10 months ago Chronic obstructive pulmonary disease, unspecified COPD type (HCC) [facility] - Delmy Crawford PAC 10 months ago Chronic obstructive pulmonary disease, unspecified COPD type (HCC) [facility] - Liam Schulz MD Upcoming Appointments Future Appointments In 2 months Liam Wilson MD [facility] - [place] [facility] COMMERCIAL LOAN PROCESSOR - Recent and Past Visits Recent Visits Date Type Provider Dept 12/07/20 Office Visit Liam Wilson MD [facility] 08/01/20 Office Visit Amador Payan APN, ABIGAIL [place] 06/22/20 Office Visit Liam Wilson MD [facility] 02/02/20 Office Visit Delmy Grimm, SOCRATES [facility] [place] 01/26/20 Office Visit Liam Wilson [...] Contact Info) Description 09/09/2025 9:15 AM MANAGER CONTINUOUS IMPROVEMENT Office Visit [facility] - Family Medicine [facility] [address] [place] [address] Liam Wilson MD #[address] [address] documented as of this encounter Visit Diagnoses Not on filedocumented in this encounter Additional Health Concerns Infection Onset Date Last Indicated Resolved Time COVID - 19 Confirmed 01/05/2022 01/05/2022 022 12:16 AM CDT Respiratory Rule Out - RPA 10/21/2024 10/21/2024 0 10/21/2024 3:06 PM MANAGER CONTINUOUS IMPROVEMENT MRSA 10/21/2024 10/21/2024 Assessment Noted Time PHQ-9 Depression Total Score: 6 01/26/20 20 9:57 AM CDT documented as of this encounter Care Teams Acquisition Editor Relationship Specialty Start Date End Date Liam Wilson MD #[address] [address] PCP - General Family Medicine 12/31/19 Diamond Lincoln LSW [place] Agricultural Economics Teacher Pan Devulcanizer Helper 09/04/23 documented as of this encounter
--- OUTSIDE RECORDS SUMMARY | 2025-07-08 20:26 | XMS_ITS | Encounter Summary ---
Author Organization [facility] Address [address] [place] [address] Phone Care Team Providers Care Playground Equipment Erector Name Role Phone Liam Wilson MD Primary Care Provider [phone] Diamond Lincoln SYNTHETIC STAPLE EXTRUDER Unavailable Unavailab le Reason for Visit * Reason Comments Medication Refill Encounter Details Date Type Department Care Team (Late st Contact Info) Description 03/23/2021 Refill [facility] [address] [place] [address] Liam Wilson MD #[address] [address] Medication Refill Social History Tobacco [...] without long-term current use of insulin (HCC) [facility] - Amador Amaya APN, FEED INSPECTION SUPERVISOR 3 months ago Essential hypertension [facility] - Liam Schulz MD 7 months ago Acute pain of left shoulder [facility] Amador Amaya APN, FEED INSPECTION SUPERVISOR 9 months ago Essential hypertension [facility] Liam Schulz MD 1 year ago Chronic obstructive pulmonary disease, unspecified COPD type (HCC) [facility] - Delmy Crawford, PAC Upcoming Appointments Future Appointments In 1 week Song Tillman MD [facility] General Surgery - DONOVAN [place] In 2 weeks [id number]; SAHCUS1 [facility] Ultrasound, [facility] In 2 weeks [id number] [facility] Mammography, [facility] In 2 months Liam Wilson MD [facility] - [place] BUSGIRL - Recent and Past Visits Recent Visits Date Type Provider Dept 03/15/21 Office Visit Amador Payan APN, FEED INSPECTION SUPERVISOR [facility] [place] 12/07/20 Office Visit Liam Wilson MD [facility] [place] 08/01/20 Office Visit Amador Payan APN, FEED INSPECTION SUPERVISOR [facility] [place] 06/22/20 Office Visit Liam Wilson MD [facility] [place] 02/02/20 Office Visit Delmy Grimm, [facility] 01/26/20 Office Visit Liam Wilson MD [facility] 12/31/19 Telemedicine Liam Wilson MD [facility] [place] Showing recent visits within past 460 [...] st Contact Info) Description 09/09/2025 9:15 AM LAST TURNER Office Visit [facility] - Family Medicine [facility] #2 [place] [address] Liam Wilson MD #[address] [address] documented as of this encounter Visit Diagnoses Not on filedocumented in this encounter Additional Health Concerns Infection Onset Date Last Indicated Resolved Time COVID - 19 Confirmed 01/05/2022 01/05/2022 022 12:16 AM CDT Respiratory Rule Out - RPA 10/21/2024 10/21/2024 0 10/21/2024 3:06 PM LAST TURNER MRSA 10/21/2024 10/21/2024 Assessment Noted Time PHQ-9 Depression Total Score: 6 01/26/20 20 9:57 AM CDT documented as of this encounter Care Teams Playground Equipment Erector Relationship Specialty Start Date End Date Liam Wilson MD #[address] [address] PCP - General Family Medicine 12/31/19 Diamond Lincoln LSW [place] Nylon Winder Cad Engineer 09/04/23 documented as of this encounter
--- OUTSIDE RECORDS SUMMARY | 2025-07-08 20:26 | XMS_ITS | Encounter Summary ---
Author Organization [facility] Address [address] [place] [address] Phone Care Team Providers Care Hash Slinger Name Role Phone Liam Wilson MD Primary Care Provider [phone] Diamond Lincoln TERRAZZO WORKER Unavailable Unavailab le Reason for Visit * Reason Comments Medication Refill Encounter Details Date Type Department Care Team (Late st Contact Info) Description 07/16/2022 Refill [facility] - [place] [address] [place] [address] Liam Wilson MD #[address] [address] Medication Refill Social History Tobacco Use Types [...] st Contact Info) Description 09/09/2025 9:15 AM INTERNAL COMMUNICATIONS WRITER Office Visit [facility] - Family Medicine [facility] [address] [place] [address] Liam Wilson MD #[address] [address] documented as of this encounter Visit Diagnoses Not on filedocumented in this encounter Additional Health Concerns Infection Onset Date Last Indicated Resolved Time Respiratory Rule Out - RPA 10/21/2024 10/21/2024 0 10/21/2024 3:06 PM INTERNAL COMMUNICATIONS WRITER MRSA 10/21/2024 10/21/2024 Assessment Noted Time PHQ-9 Depression Total Score: 0 06/01/20 22 1:00 PM CDT documented as of this encounter Care Teams Hash Slinger Relationship Specialty Start Date End Date Liam Wilson MD #[address] [address] PCP - General Family Medicine 12/31/19 Diamond Lincoln LSW [place] Water Project Manager Decal Cutter 09/04/23 documented as of this encounter
--- OUTSIDE RECORDS SUMMARY | 2025-07-08 20:27 | XMS_ITS | Encounter Summary ---
Author Organization [facility] Address [address] [place] [address] Phone Care Team Providers Care Health Care Attorney Name Role Phone Liam Wilson MD Primary Care Provider [phone] Diamond Lincoln SUPERVISOR FORMING DEPARTMENT Unavailable Unavailab le Reason for Visit * Reason Comments Medication Refill Encounter Details Date Type Department Care Team (Late st Contact Info) Description 07/28/2023 Refill [facility] - [place] [address] [place] [address] Liam Wilson MD #[address] [address] Medication Refill Social History Tobacco Use Types [...] 90 days and meeting all other requirements M BOX HAND documented in this encounter Plan of Treatment Upcoming Encounters Date Type Department Care Team (Late st Contact Info) Description 09/09/2025 9:15 AM STEAM BOX HAND Office Visit [facility] - Family Medicine - [place] [address] [place] [address] Liam Wilson MD #[address] [address] documented as of this encounter Visit Diagnoses Diagnosis Type 2 diabetes mellitus with other specified complication, without long-term current use of insulin documented in this encounter Additional Health Concerns Infection Onset Date Last Indicated Resolved Time Respiratory Rule Out - RPA 10/21/2024 10/21/2024 0 10/21/2024 3:06 PM STEAM BOX HAND MRSA 10/21/2024 10/21/2024 Assessment Noted Time PHQ-9 Depression Total Score: 0 06/01/20 22 1:00 PM CDT documented as of this encounter Care Teams Health Care Attorney Relationship Specialty Start Date End Date Liam Wilson MD [address] [place] [address] PCP - General Family Medicine 12/31/19 Diamond Lincoln LSW [place] Direct Entry Midwife Regional Guide 09/04/23 documented as of this encounter
--- OUTSIDE RECORDS SUMMARY | 2025-07-08 20:27 | XMS_ITS | Encounter Summary ---
Author Organization [facility] Address [address] [place] [address] Phone Care Team Providers Care Steel Wheel Engraver Name Role Phone Liam Wilson MD Primary Care Provider [phone] [phone] Reason for Visit * Reason Comments Medication Refill Encounter Details Date Type Department Care Team (Late st Contact Info) Description 11/17/2024 Refill [facility] - Family Medicine - [place] [address] [place] [address] Liam Wilson MD #[address] [address] Medication Refill Social History Tobacco Use Types Packs/Day Years Used Date Smoking Tobacco: Some Days Cigarettes 0.3 46.6 Started: 11/26/1978 Smokeless Tobacco: Never Alcohol Use Standard Drinks/Week Comments No 0 (1 standard drink = 0.6 oz pur e alcohol) [facility] Utilities Answer Date Recorded In the past 12 months has [employer], gas, oil, or water company threatened to [...] week 03/20/2024 How often do you attend yazidi or confucianist serv ices? Never 03/20/2024 Do you belong to any clubs o r organizations such as yazidi groups, unions, fraternal or athletic groups, or [...] Total Score - Questions 1-9 0 10/04 [facility] - Occupational Stress Questionnaire Answer Date Recorded [...] any time in the past [address] [facility], were you homeless or living in a [...] 30 1 Each Liam Wilson MD [facility] [address] [place] [facility] ... documented in this encounter Plan of Treatment Upcoming Encounters Date Type Department Care Team (Late st Contact Info) Description 09/09/2025 9:15 AM BUSINESS ANALYTICS FACULTY MEMBER Office Visit [facility] - Family Medicine [place] [address] [place] [address] Liam Wilson MD [address] [address] documented as of this encounter Visit Diagnoses Not on filedocumented in this encounter Additional Health Concerns Infection Onset Date Last Indicated Resolved Time MRSA 10/21/2024 10/21/2024 Assessment Noted Time PHQ-9 Depression Total Score: 0 10/27/19 25 4:01 PM BUSINESS ANALYTICS FACULTY MEMBER documented as of this encounter Care Teams Steel Wheel Engraver Relationship Specialty Start Date End Date Liam Wilson MD [address] [address] PCP - General Family Medicine 12/31/19 documented as of this encounter
--- OUTSIDE RECORDS SUMMARY | 2025-07-08 20:27 | XMS_ITS | Encounter Summary ---
Author Organization [facility] Address [address] [place] [address] Phone Care Team Providers Care Internetworking Technician Name Role Phone Liam Wilson MD Primary Care Provider [phone] Diamond Lincoln MENTAL HEALTH SPECIALIST Unavailable Unavailab le Reason for Visit * Reason Comments Medication Refill Encounter Details Date Type Department Care Team (Late st Contact Info) Description 10/16/2020 Refill [facility] - [place] [address] [place] [address] Liam Wilson MD #[address] [address] Medication Refill Social History Tobacco Use Types [...] COVID-19? No / Unsure 09/27/2020 2:39 PM BOWLING BALL PATCHER documented as of this encounter Miscellaneous Notes [...] months ago Acute pain of left shoulder [facility] Amador Amaya APN, DAMAGE ADJUSTER 3 months ago Essential hypertension [facility] - Liam Schulz MD 8 months ago Chronic obstructive pulmonary disease, unspecified COPD type (HCC) [facility] Delmy Crawford PAC 8 months ago Chronic obstructive pulmonary disease, unspecified COPD type (HCC) [facility] Liam Schulz MD 9 months ago Hypothyroidism, unspecified type [facility] Liam Schulz MD Upcoming Appointments Future Appointments In 2 days Liam Wilson MD [facility] - Recent and Past Visits Recent Visits Date Type Provider Dept 08/01/20 Office Visit Amador Payan APN, DAMAGE ADJUSTER [facility] [place] 06/22/20 Office Visit Liam Wilson MD [facility] [place] 02/02/20 Office Visit Delmy Grimm PAC [facility] 01/26/20 Office Visit Liam Wilson MD [facility] 12/31/19 Telemedicine Liam Wilson MD [facility] [place] Showing recent visits within past 460 [...] months ago Acute pain of left shoulder [facility] Family [facility] - Amador Amaya APN, DAMAGE ADJUSTER 3 months ago Essential hypertension [facility] - Liam Schulz MD 8 months ago Chronic obstructive pulmonary disease, unspecified COPD type (HCC) [facility] - Delmy Crawford PAC 8 months ago Chronic obstructive pulmonary disease, unspecified COPD type (HCC) [facility] Liam Schulz MD 9 months ago Hypothyroidism, unspecified type [facility] Liam Schulz MD Upcoming Appointments Future Appointments In 2 days Liam Wilson MD [facility] - Recent and Past Visits Recent Visits Date Type Provider Dept 08/01/20 Office Visit Amador Payan APN, DAMAGE ADJUSTER [facility] [place] 06/22/20 Office Visit Liam Wilson MD [facility] 02/02/20 Office Visit Delmy Grimm PAC [facility] [place] 01/26/20 Office Visit Liam Wilson MD [...] months ago Acute pain of left shoulder [facility] Family [facility] - Amador Amaya APN, DAMAGE ADJUSTER 3 months ago Essential hypertension [facility] Liam Schulz MD 8 months ago Chronic obstructive pulmonary disease, unspecified COPD type (HCC) [facility] - Delmy Crawford PAC 8 months ago Chronic obstructive pulmonary disease, unspecified COPD type (HCC) [facility] Liam Schulz MD 9 months ago Hypothyroidism, unspecified type [facility] Liam Schulz MD Upcoming Appointments Future Appointments In 2 days Liam Wilson MD [facility] [place] [facility] PHYTOPATHOLOGIST - Recent and Past Visits Recent Visits [...] Readings from Last 1 Encounters: 08/01/20 110/76 ING BALL PATCHER documented in this encounter Plan of Treatment Upcoming Encounters Date Type Department Care Team (Late st Contact Info) Description 09/09/2025 9:15 AM BOWLING BALL PATCHER Office Visit [facility] - Family Medicine - [place] [address] [place] [address] Liam Wilson MD #[address] [address] documented as of this encounter Visit Diagnoses Not on filedocumented in this encounter Additional Health Concerns Infection Onset Date Last Indicated Resolved Time COVID - 19 Confirmed 01/05/2022 01/05/2022 022 12:16 AM CDT Respiratory Rule Out - RPA 10/21/2024 10/21/2024 0 10/21/2024 3:06 PM BOWLING BALL PATCHER MRSA 10/21/2024 10/21/2024 Assessment Noted Time PHQ-9 Depression Total Score: 6 01/26/20 20 9:57 AM CDT documented as of this encounter Care Teams Internetworking Technician Relationship Specialty Start Date End Date Liam Wilson MD #[address] [address] PCP - General Family Medicine 12/31/19 Diamond Lincoln, JENNY [place] Car Head Liner Installer Wireless Cellular Technician 09/04/23 documented as of this encounter
--- OUTSIDE RECORDS SUMMARY | 2025-07-08 20:27 | XMS_ITS | Encounter Summary ---
Author Organization [facility] Address [address] [place] [address] Phone Care Team Providers Care Betting Agency Counter Clerk Name Role Phone Liam Wilson MD Primary Care Provider [phone] Diamond Lincoln CHEF KITCHEN MANAGER Unavailable Unavailab le Reason for Referral * Radiology Services (Routine) - Closed Specialty Diagnoses / Procedures Referred By Contkanu moreno Referred To Contact Radiology Diagnoses Left shoulder pain, unspecified chronicity Procedures XR SHOULDER COMPLETE LEFT Jorge Alva MD [address] [place] [address] Phone: tel: fax: Referral ID Status Reason Start Date Expiration Date Visits Re quested Visits Authorized [id number] Closed 09/15/2021 1 1 OARRAY SPECIALIST Encounter Details Date Type Department Care Team (Latest Contact Info) Description 09/15/2021 Transcribe Orders [facility] Patient Access Admitting [address] [place] [address] Jorge Alva MD [address] [place] [address] Left shoulder pain, unspecified chronicity [...] st Contact Info) Description 09/09/2025 9:15 AM MICROARRAY SPECIALIST Office Visit [facility] - Family Medicine [facility] #2 [place] [address] Liam Wilson MD #[address] [address] Scheduled Orders Name Type Priority Associated Diagnoses [...] RPA 10/21/2024 10/21/2024 0 10/21/2024 3:06 PM MICROARRAY SPECIALIST MRSA 10/21/2024 10/21/2024 Assessment Noted Time PHQ-9 Depression Total Score: 6 01/26/20 20 9:57 AM CDT documented as of this encounter Care Teams Betting Agency Counter Clerk Relationship Specialty Start Date End Date Liam Wilson MD #[address] [address] PCP - General Family Medicine 12/31/19 Diamond Lincoln LSW [place] Diagnostic Radiologic Technologist Wireless Engineer 09/04/23 documented as of this encounter
--- OUTSIDE RECORDS SUMMARY | 2025-07-08 20:27 | XMS_ITS | Encounter Summary ---
Author Organization [facility] Address [address] [place] [address] Phone Care Team Providers Care Gut Sorter Name Role Phone Liam Wilson MD Primary Care Provider [phone] [phone] Diamond Lincoln VICE PRESIDENT RESIDENTIAL SOLAR SALES Unavailable Unavailab le Reason for Visit * Reason Comments Medication Refill Encounter Details Date Type Department Care Team (Late st Contact Info) Description 08/23/2021 [facility]ill [facility] - [place] [address] [place] [address] Liam Wilson MD [address] [address] Medication Refill Social History Tobacco Use Types [...] [place] 12/07/20 Office Visit Liam Wilson MD [facility] [place] Showing recent visits [...] 90 days and meeting all other requirements ION GUM APPLICATOR documented in this encounter Plan of Treatment Upcoming Encounters Date Type Department Care Team (Late st Contact Info) Description 09/09/2025 9:15 AM CUSHION GUM APPLICATOR Office Visit [facility] - [facility] - [place] #2 [place] [address] Liam Wilson MD #[address] [address] documented as of this encounter Visit Diagnoses Diagnosis Acute pain of left shoulder documented in this encounter Additional Health Concerns Infection Onset Date Last Indicated Resolved Time COVID - 19 Confirmed 01/05/2022 01/05/2022 022 12:16 AM CDT Respiratory Rule Out - RPA 10/21/2024 10/21/2024 0 10/21/2024 3:06 PM CUSHION GUM APPLICATOR MRSA 10/21/2024 10/21/2024 Assessment Noted Time PHQ-9 Depression Total Score: 6 01/26/20 20 9:57 AM CDT documented as of this encounter Care Teams Gut Sorter Relationship Specialty Start Date End Date Liam Wilson MD #[address] [address] PCP - General Family Medicine 12/31/19 Diamond Lincoln LSW [place] Cancer Program Coordinator Rn Pacu 09/04/23 documented as of this encounter
--- OUTSIDE RECORDS SUMMARY | 2025-07-08 20:27 | XMS_ITS | Encounter Summary ---
Author Organization [facility] Address [address] [place] [address] Phone Care Team Providers Care Gas Station Cashier Name Role Phone Liam Wilson MD Primary Care Provider [phone] [phone] Diamond Lincoln QC MANAGER Unavailable Unavailab le Reason for Visit * Reason Comments Medication Refill Encounter Details Date Type Department Care Team (Late st Contact Info) Description 11/12/2020 Refill [facility] - [place] [address]2 [place] [address] Liam Wilson MD #[address] [address] Medication Refill Social History Tobacco Use Types [...] st Contact Info) Description 09/09/2025 9:15 AM ROTARY DRILLER Office Visit [facility] - [place] [address] [place] [address] Liam Wilson MD #[address] [address] documented as of this encounter Visit Diagnoses Not on filedocumented in this encounter Additional Health Concerns Infection Onset Date Last Indicated Resolved Time COVID - 19 Confirmed 01/05/2022 01/05/2022 022 12:16 AM CDT Respiratory Rule Out - RPA 10/21/2024 10/21/2024 0 10/21/2024 3:06 PM ROTARY DRILLER MRSA 10/21/2024 10/21/2024 Assessment Noted Time PHQ-9 Depression Total Score: 6 01/26/20 20 9:57 AM CDT documented as of this encounter Care Teams Gas Station Cashier Relationship Specialty Start Date End Date Liam Wilson MD #[address] [address] PCP - General Family Medicine 12/31/19 Diamond Lincoln LSW [place] Chemistry Research Assistant Analytics Analyst 09/04/23 documented as of this encounter
--- OUTSIDE RECORDS SUMMARY | 2025-07-08 20:27 | XMS_ITS | Encounter Summary ---
Author Organization [facility] Address [address] [place] [address] Phone Care Team Providers Care Oracle Soa Architect Name Role Phone Liam Wilson MD Primary Care Provider [phone] [phone] Diamond Lincoln VACUUM REPAIRER Unavailable Unavailab le Reason for Visit * Reason Comments Medication Refill Encounter Details Date Type Department Care Team (Late st Contact Info) Description 10/27/2022 Refill [facility] - [place] [address] [place] [address] Liam Wilson MD #[address] [address] Medication Refill Social History Tobacco Use Types [...] Coronavirus/COVID-19? No / Unsure 10/24/2022 10:53 AM HOT DOG VENDOR documented as of this encounter Miscellaneous Notes * Telephone Encounter - Bre Shelby RN - 10/29/2022 1:20 PM HOT DOG VENDOR New pharmacy. Medication failed the protocol, provider [...] [facility] 01/09/22 Telemedicine Amador Payan APRN, TELECOMMUNICATION OPERATOR [facility] Showing recent visits within past 365 days and meeting all other requirements Future Appointments No visits were found meeting these conditions. Showing future appointments within next 90 days and meeting all other requirements DOG VENDOR documented in this encounter Plan of Treatment Upcoming Encounters Date Type Department Care Team (Late st Contact Info) Description 09/09/2025 9:15 AM HOT DOG VENDOR Office Visit [facility] - Family Medicine - [place] [address] [place] [address] Liam Wilson MD [address] [address] documented as of this encounter Visit Diagnoses Not on filedocumented in this encounter Additional Health Concerns Infection Onset Date Last Indicated Resolved Time Respiratory Rule Out - RPA 10/21/2024 10/21/2024 0 10/21/2024 3:06 PM HOT DOG VENDOR MRSA 10/21/2024 10/21/2024 Assessment Noted Time PHQ-9 Depression Total Score: 0 06/01/20 22 1:00 PM CDT documented as of this encounter Care Teams Oracle Soa Architect Relationship Specialty Start Date End Date Liam Wilson MD [address] [address] PCP - General Family Medicine 12/31/19 Diamond Lincoln LSW [place] Licensing Coordinator Machine Cementer And Folder 09/04/23 documented as of this encounter
--- OUTSIDE RECORDS SUMMARY | 2025-07-08 20:27 | XMS_ITS | Encounter Summary ---
Author Organization [facility] Address [address] [place] [address] Phone Care Team Providers Care Extension Work Instructor Name Role Phone Liam Wilson MD Primary Care Provider [phone] [phone] Diamond Lincoln Unavailable Unavailab le Reason for Visit * Reason Comments Medication Refill Encounter Details Date Type Department Care Team (Late st Contact Info) Description 08/21/2021 Refill [facility] - Family Medicine - [place] [address] [place] [address] Amador Payan, MIGUEL ANGEL, JEWELRY DRILLING MACHINE OPERATOR #[address] [id number] Medication Refill Social History Tobacco Use Types [...] 03/15/21 Office Visit Amador Payan APRN, ABIGAIL [facility] [place] 12/07/20 Office Visit Liam Wilson MD [facility] [address] Showing recent visits within past 365 days and meeting all other requirements Future Appointments No visits were found meeting these conditions. Showing future appointments within next 90 days and meeting all other requirements Passed - Active short-acting beta agonist prescription NTEER RECRUITMENT COORDINATOR documented in this encounter Plan of Treatment Upcoming Encounters Date Type Department Care Team (Late st Contact Info) Description 09/09/2025 9:15 AM VOLUNTEER RECRUITMENT COORDINATOR Office Visit [facility] - Family Medicine - [place] [address] [place] [address] Liam Wilson MD [address] [address] documented as of this encounter Visit Diagnoses Not on filedocumented in this encounter Additional Health Concerns Infection Onset Date Last Indicated Resolved Time COVID - 19 Confirmed 01/05/2022 01/05/2022 022 12:16 AM CDT Respiratory Rule Out - RPA 10/21/2024 10/21/2024 0 10/21/2024 3:06 PM VOLUNTEER RECRUITMENT COORDINATOR MRSA 10/21/2024 10/21/2024 Assessment Noted Time PHQ-9 Depression Total Score: 6 01/26/20 20 9:57 AM CDT documented as of this encounter Care Teams Extension Work Instructor Relationship Specialty Start Date End Date Liam Wilson MD #[address] [address] PCP - General Family Medicine 12/31/19 Diamond Lincoln LSW [place] Mdm Developer Community Engagement Coordinator 09/04/23 documented as of this encounter
--- OUTSIDE RECORDS SUMMARY | 2025-07-08 20:27 | XMS_ITS | Clinical Summary ---
Author Organization [facility] Address [address] [place] [address] Care Team Providers Care Business System Manager Name Role Phone Mulu Polk RN Unavailable Joy vailaTeresa Madison RN Unavailable Unavailab Teresa Jones RN Unavailable Unavailab Liam Dumont MD Primary Care Provider +1 [phone] Allergies Active Allergy Reactions Criticality Noted Date [...] 1 tablet (125 mcg total) by mouth trimmer meat before breakfast Active mupirocin (BACTROBAN) 2 % ointment Apply thin layer to both nostrils bid, starting 5 days prior to surgery and AM of surgery. 22 g 02/10/20 25 Active chlorhexidine (HIBICLENS) 4 % external liquidIndications :Skin Disinfection Use in shower every day starting 5 days prior to surgery, and AM of surgery. Avoid face/genitalia. 263 mL 02/10/20 25 Active ACCU-CHEK SOFTCLIX LANCETS [facility] [place] TEST BLOOD SUGAR EVERY DAY 06/28/20 24 Active blood-glucose meter [facility] Diagnosis: Diabetes type 2 Blood testing frequency: [...] by mouth daily Active cholecalciferol (VITAMIN D-3) 22829 unit capsule Take 1 capsule (10,000 Units [...] Problem Noted Date Diagnosed Date Resolved Date superintendent container terminal prescription opiate use 05/02/2018 09/18/2019 Postprocedural state 08/06/2014 020 Overview (12/06/2016): Postprocedural state finding Encounters Date Type Department Care Team Description 06/16/2025 Orders Only [facility] Card[facility] [address] [place] [address] Divina Tripathi NP 06/15/[address] [facility] [address] [place] [address] Argelia Aburto Pain pump alarming 04/13/2025 11:59 PM CDT Anesthesia Event [facility] Operating Room [address] [place] [address] Ko Colin MD 04/13/[address] 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 Operating Room [address] [place] [address] [place] [address] [facility] [address] [place] [address] 07/22/2025 7:30 AM SUPPORT ASSISTANT - 07/22/2025 9:30 AM SUPPORT ASSISTANT Surgery [facility] Operating Room [address] [place] [address] [place] [address] [facility] [address] [place] [address] INTRATHECAL PAIN PUMP REPLACEMENT WITH PLASMA BLADE/60 MIN Scheduled Procedures Name Priority Associated Diagnoses Date/Ti me INSERTION INTRATHECAL PUMP LOW BACK PAIN 07/22/2025 7:30 AM SUPPORT ASSISTANT Health Maintenance Due Date Last Done Comments Breast Cancer Screening-Mammogram 1965 Colon Cancer Screening-Colonoscopy 1965 Depression Screening 1965 Hepatitis C Screening 1965 DTaP/Tdap/Td Vaccine (1 - Tdap) 1976 Hepatitis B Screening 1983 Regular Well Visit/Exam 18-64 1983 Pneumococcal vaccine <65 (1 of 2 - PCV) 1984 Zoster Vaccine (1 of 2) 2015 Influenza Vaccine (#1) 2025 Medical Devices Implanted Type Area Refrigerator Glazier Device Identifier Shelf Expiration Date Model / Serial / Lot [employer]onic Inc 8780 Ascenda 4fr .5mm 114cm 86cm 2 Piece Connector Pin Flexible Closed - [id number] Implanted:Qty: 1 on 04/25/2018 by Dandre Rogers MD at [facility] N/A: Back Med[employer]onic Inc 03/19/2020 8780 / / [id number] Medtronic Neuro 8637-20 Synchromed Ii .78in Topaz Filter Mesh Pouch Programmable - [id number] - [id number] Implanted:Qty: 1 on 09/11/2018 by Dandre Rogers MD at [facility] Medtronic Neuro 01/28/2020 8637-20 / [id number] / Explanted Type Area Refrigerator Glazier Device Identifier Shelf Expiration Date Model / Serial / Lot Intrathecal Pain Pump Catheter Explanted:Qty: 1 on 04/25/2018 by Dandre Rogers MD at [facility] N/A: Back Medtronic Neuro Intrathecal Pump Explanted:Qty: 1 on 09/11/[address] [facility] Medtronic Procedures Procedure Name Priority Date/Time Associated [...] Laterality Modality Other us Divina Gemini Bhumi DESIGN ARCHITECT CV CARDIAC SERVICES PROCEDUR ES Final Result from Last 3 Months Insurance MEDICARE [facility] MEDICARE [facility] [address] [place] [address] [facility] MEDICARE ADVANTAGE Care Teams Business System Manager Relationship Specialty Start Date End Date Liam Wilson MD [address] [address] PCP - General Family Medicine 04/10/23 Mulu Polk, RN Registered Nurse 08/29/18 Teresa Osorio, RN Registered Nurse 09/17/18 Teresa Osorio RN Registered Nurse 05/27/19
--- OUTSIDE RECORDS SUMMARY | 2025-07-08 20:27 | XMS_ITS | Encounter Summary ---
Author Organization [facility] Address [address] [place] [address] Phone Care Team Providers Care Migratory Game Bird Biologist Name Role Phone Liam Wilson MD Primary Care Provider [phone] [phone] Diamond Lincoln COLLECTION SUPERVISOR Unavailable Unavailab le Reason for Visit * Reason Comments Medication Refill Encounter Details Date Type Department Care Team (Late st Contact Info) Description 11/22/2021 Refill [facility] - [facility] - [place] [address] [place] [address] Liam Wilson MD #[address] [address] Medication Refill Social History Tobacco Use Types [...] 05/24/21 Office Visit Amador Payan APRN, ABIGAIL [facility] [place] Showing recent visits within past 182 [...] 03/15/21 Office Visit Amador Payan APRN, ABIGAIL [facility] 12/07/20 Office Visit Liam Wilson MD [facility] Showing recent visits within past 365 days and meeting all other requirements Future Appointments No visits were found meeting these conditions. Showing future appointments within next 90 days and meeting all other requirements documented in this encounter Plan of Treatment Upcoming Encounters Date Type Department Care Team (Late st Contact Info) Description 09/09/2025 9:15 AM RIVET HEATER Office Visit [facility] - Family Medicine - [place] [address] [place] [address] Liam Wilson MD #[address] [address] documented as of this encounter Visit Diagnoses Not on filedocumented in this encounter Additional Health Concerns Infection Onset Date Last Indicated Resolved Time COVID - 19 Confirmed 01/05/2022 01/05/2022 022 12:16 AM CDT Respiratory Rule Out - RPA 10/21/2024 10/21/2024 0 10/21/2024 3:06 PM RIVET HEATER MRSA 10/21/2024 10/21/2024 Assessment Noted Time PHQ-9 Depression Total Score: 6 01/26/20 20 9:57 AM CDT documented as of this encounter Care Teams Migratory Game Bird Biologist Relationship Specialty Start Date End Date Liam Wilson MD #[address] [address] PCP - General Family Medicine 12/31/19 Diamond Lincoln LSW [place] Extension Service Agent Route Sales Specialist 09/04/23 documented as of this encounter
--- OUTSIDE RECORDS SUMMARY | 2025-07-08 20:27 | XMS_ITS | Encounter Summary ---
Author Organization [facility] Address [address] [place] [address] Phone Care Team Providers Care Washer And Capper Machine Operator Name Role Phone Liam Wilson MD Primary Care Provider [phone] [phone] Diamond Lincoln GROOVER OPERATOR Unavailable Unavailab le Reason for Visit * Reason Comments Medication Refill Encounter Details Date Type Department Care Team (Late st Contact Info) Description 02/28/2023 Refill [facility] - Family Medicine - [place] [address] [place] [address] Liam Wilson MD #[address] [address] Medication Refill Social History Tobacco Use Types [...] st Contact Info) Description 09/09/2025 9:15 AM DRILL PRESS HAND Office Visit [facility] - Family Medicine - [place] [address] [place] [address] Liam Wilson MD #[address] [address] documented as of this encounter Visit Diagnoses Not on filedocumented in this encounter Additional Health Concerns Infection Onset Date Last Indicated Resolved Time Respiratory Rule Out - RPA 10/21/2024 10/21/2024 0 10/21/2024 3:06 PM DRILL PRESS HAND MRSA 10/21/2024 10/21/2024 Assessment Noted Time PHQ-9 Depression Total Score: 0 06/01/20 22 1:00 PM CDT documented as of this encounter Care Teams Washer And Capper Machine Operator Relationship Specialty Start Date End Date Liam Wilson MD #[address] [address] PCP - General Family Medicine 12/31/19 Diamond Lincoln LSW [place] Digital Specialist Electronic Wirer 09/04/23 documented as of this encounter
--- OUTSIDE RECORDS SUMMARY | 2025-07-08 20:27 | XMS_ITS | Encounter Summary ---
Author Organization [facility] Address [address] [place] [address] Phone Care Team Providers Care Mold Release Worker Name Role Phone Liam Wilson MD Primary Care Provider [phone] [phone] Diamond Lincoln PAPER FOLDER Unavailable Unavailab le Reason for Visit * Reason Comments Medication Refill Encounter Details Date Type Department Care Team (Late st Contact Info) Description 11/16/2021 Refill [facility] - [place] [address] [place] [address] Liam Wilson MD #[address] [address] Medication Refill Social History Tobacco Use Types [...] Provider Dept 09/15/21 Telemedicine Liam Wilson MD [facility] [place] 05/24/21 Office Visit Amador Payan APRN, ABIGAIL [facility] 04/18/21 Office Visit Amador Payan APRN, ABIGAIL [place] 03/29/21 Office Visit Amador Payan APRN, ABIGAIL [facility] 03/15/21 Office Visit Amador Payan APRN, ABIGAIL [facility] 12/07/20 Office Visit Liam Wilson MD [facility] [place] Showing recent visits within past [...] Contact Info) Description 09/09/2025 9:15 AM EXTRUSION DIE REPAIRER Office Visit [facility] - Family Medicine [facility] #[address] [place] [address] Liam Wilson MD #[address] [address] documented as of this encounter Visit Diagnoses Diagnosis Acute pain of left shoulder documented in this encounter Additional Health Concerns Infection Onset Date Last Indicated Resolved Time COVID - 19 Confirmed 01/05/2022 01/05/2022 022 12:16 AM CDT Respiratory Rule Out - RPA 10/21/2024 10/21/2024 0 10/21/2024 3:06 PM EXTRUSION DIE REPAIRER MRSA 10/21/2024 10/21/2024 Assessment Noted Time PHQ-9 Depression Total Score: 6 01/26/20 20 9:57 AM CDT documented as of this encounter Care Teams Mold Release Worker Relationship Specialty Start Date End Date Lima Wilson MD #[address] [address] PCP - General Family Medicine 12/31/19 Diamond Lincoln LSW [place] Creative Services Writer Water Pollution Control Inspector 09/04/23 documented as of this encounter
== END 2025-07-08 17:56 ==
PROVIDERS: Physician Assistant; Emergency Provider Student in an Organized Health Care Education/Training Program
DX: M62.81 Muscle weakness (generalized) (principal); Z20.822 Contact with and (suspected) exposure to COVID-19; J44.9 Chronic obstructive pulmonary disease, unspecified; E78.5 Hyperlipidemia, unspecified; E11.42 Type 2 diabetes mellitus with diabetic polyneuropathy; E03.9 Hypothyroidism, unspecified; I50.9 Heart failure, unspecified; I11.0 Hypertensive heart disease with heart failure; Z86.73 Personal history of transient ischemic attack (TIA), and cerebral infarction without residual deficits; Z87.891 Personal history of nicotine dependence; Z90.49 Acquired absence of other specified parts of digestive tract; Z79.84 Long term (current) use of oral hypoglycemic drugs; Z79.82 Long term (current) use of aspirin; Z79.899 Other long term (current) drug therapy
CPT/HCPCS: 36415; 70450; 71046; 80053; 81001; 82550; 85025; 87637; 93005; 96374; 99284; A9270; J2270